=== PATIENT | female | born 1950 | race Caucasian/White ===

== ENCOUNTER 2023-06-13 12:38 | Outpatient (OUT) | payer MEDICARE, SELFPAY ==
--- NOTE | 2023-06-13 13:08 | MM_ITS ---
Patient Name: GIGI KOCH MR#: [id number] : 1950 Exam Date: 06/13/2023 Ordering Doctor: DR MELISSA SEAY D.O. RADIOLOGY REPORT PROCEDURE: MM TOMOSYNTHESIS SCREENING BI COMPARISON: MG MAMM SCREEN 3D MARK CAD, 11/22/2021. MG MAMM LT DIAG FU, 10/14/2020. MAMMO POST BIOPSY UNILATERAL LEFT, 08/23/2012. DIGITIZED_MAMMO, 06/11/2008. INDICATIONS: Screening Calculator Name NCI Breast Cancer Risk Assessment Tool 5 Year Breast Cancer Risk 6.20% Lifetime Breast Cancer Risk 13.80% Personal Breast Cancer No Personal Ovarian Cancer No Treatments None Family Cancers Grandmother-maternal with uterine cancer at age ~60; Father with pancreatic cancer at age 68; Grandfather-paternal with lung cancer at age ~70; Uncle-paternal with colon cancer at age ~70; Grandfather-maternal with lung cancer at age ~70; Aunt-paternal with uterine cancer at age 83. LOCATION: [facility] BREAST COMPOSITION: Heterogeneously dense,which may obscure small masses. FINDINGS: DIAGNOSTIC CATEGORY 2--BENIGN FINDING: RIGHT BREAST: No significant suspicious finding. Scattered benign-appearing calcifications are present. No significant change has occurred. LEFT BREAST: No significant suspicious finding. Scattered benign-appearing calcifications are present. No significant change has occurred. Stable asymmetry/posttraumatic oil cyst upper outer quadrant RECOMMENDATIONS: ROUTINE MAMMOGRAM AND CLINICAL EVALUATION IN 12 MONTHS. PLEASE NOTE: A NORMAL MAMMOGRAM DOES NOT EXCLUDE THE POSSIBILITY OF BREAST CANCER. A CLINICALLY SUSPICIOUS PALPABLE LUMP SHOULD BE BIOPSIED. Dictated by: Geoff Soto M.D. on 06/15/2023 at 07:14 Approved by: Geoff Soto M.D. on 06/15/2023 at 07:25
== END 2023-06-13 12:39 | disposition home or self-care (01) ==
LOC: MAMMO 12:43
PROVIDERS: PCP Internal Medicine; Visit Provider Internal Medicine
DX: Z12.31 Encounter for screening mammogram for malignant neoplasm of breast (principal); Z80.8 Family history of malignant neoplasm of other organs or systems; Z80.0 Family history of malignant neoplasm of digestive organs; Z80.1 Family history of malignant neoplasm of trachea, bronchus and lung
CPT/HCPCS: 77063; 77067

== ENCOUNTER 2023-08-15 11:33 | Outpatient (OUT) | payer MEDICARE, SELFPAY ==
--- OUTSIDE RECORDS SUMMARY | 2023-08-15 11:38 | XMS_ITS | CCD ---
Author Organization [facility] Care Team Providers Care Genetic Scientist Name Role Phone DAWOOD, DR TORRES Primary Care Unavailable KARASIK, DR PATE Admitting Unavailable KARASIK, DR PATE Attending Unavailable KARASIK, DR PATE Consulting Unavailable VALONE, DR TORRES Primary Care Unavailable KARASIK, DR PATE Admitting Unavailable KARASIK, DR PATE Attending Unavailable KARASIK, DR PATE Consulting Unavailable ZIEBER, DR GEOFF Bentley Consulting Unavailable ROSS, CHINTAN QUINTANILLA Admitting Unavailable VALONE, DR TORRES Primary Care Unavailable ROSS, CHINTAN QUINTANILLA Attending Unavailable ROSS, CHINTAN QUINTANILLA Consulting Unavailable VALONE, DR TORRES Primary Care Unavailable NILL, DR BAÑUELOS Admitting Unavailable NILL, DR BAÑUELOS Attending Unavailable NILL, DR BAÑUELOS Consulting Unavailable NILL, DR BAÑUELOS Admitting Unavailable NILL, DR BAÑUELOS Attending Unavailable NILL, DR BAÑUELOS Consulting Unavailable VALONE, DR TORRES Primary Care Unavailable DORKOKODY BARON Consulting Unavailable VALONE, DR TORRES Primary Care Unavailable VALONE, DR TORRES Admitting Unavailable VALONE, DR TORRES Attending Unavailable VALONE, DR TORRES Consulting Unavailable Allergies Allergy Classification Reported Allergen(s) Allergy Type Date of Onset Reaction(s) Facility (1 source) Cephalexin Drug Allergy [facility] Repository (1 source) venlafaxine Drug Allergy [facility] Repository Problems Active Problems Problem Classification Problem Date Documented Date Episodic/Chronic Esophageal disorders (1 source) Gastro-esophageal reflux disease without esophagitis; Translations: [GERD WITHOUT ESOPHAGITIS] Onset: 03-15-2021 Chronic Essential hypertension (1 source) Essential (primary) hypertension; Translations: [ESSENTIAL PRIMARY HYPERTENSION] Onset: 03-15-2021 Chronic Immunizations and screening for infectious disease (5 sources) Encounter for screening for human papillomavirus (HPV); Translations: [Encounter for immunization] Onset: 03-02-2021 Episodic Other nutritional; endocrine; and metabolic disorders (1 source) Morbid (severe) obesity due to excess calories; Translations: [MORBID SEVERE OBES D/T EXCESS ABELARDO] Onset: 03-15-2021 Chronic Other nutritional; endocrine; and metabolic disorders (1 source) Body mass index (BMI) 40.0-44.9, adult; Translations: [BODY MASS INDEX BMI 40.0-44.9 ADULT] Onset: 03-15-2021 Chronic Other screening for suspected conditions (not mental disorders or infectious disease) (8 sources) Encounter for screening mammogram for malignant neoplasm of breast; Translations: [Encounter for screening for malignant neoplasm of cervix] Onset: 11-17-2021 Episodic Residual codes; unclassified (1 source) Asymptomatic menopausal state; Translations: [ASYMPTOMATIC MENOPAUSAL STATE] Onset: 11-25-2021 Episodic Residual codes; unclassified (1 source) Family history of malignant neoplasm of other genital organs; Translations: [FAM HX MALIG NEOPLSM OTH GENIT ORGN] Onset: 11-25-2021 Episodic Residual codes; unclassified (1 source) Family history of malignant neoplasm of trachea, bronchus and lung; Translations: [FAM HX MALIG NEOPLSM TRACH BRON LNG] Onset: 11-25-2021 Episodic Residual codes; unclassified (1 source) Family history of malignant neoplasm of digestive organs; Translations: [FAM HX MALIG NEOPLASM DIGESTIV ORGN] Onset: 11-25-2021 Episodic Unclassified (4 sources) CONTACT W/AND (SUSP) EXPOS COVID-19; Translations: [CONTACT W/AND (SUSP) EXPOS COVID-19] Onset: 03-11-2021 Past or Other Problems Problem Classification Problem Date Documented Da te Episodic/Chronic Abdominal hernia (1 source) Diaphragmatic hernia without obstruction or gangrene; Translations: [DIAPH HERNIA W/O OBST/GANGRENE] Onset: 03-15-2021 Episodic Other aftercare (1 source) Other oil heaterman (current) drug therapy; Translations: [OTH HALFWAY CURRENT DRUG THERAPY] Onset: 03-15-2021 Episodic Other and unspecified benign neoplasm (1 source) Benign neoplasm of ascending colon; Translations: [BENIGN NEOPLASM OF ASCENDING COLON] Onset: 03-15-2021 Episodic Other and unspecified benign neoplasm (1 source) Benign neoplasm of transverse colon; Translations: [BENIGN NEOPLASM OF TRANSVERSE COLON] Onset: 03-15-2021 Episodic Other gastrointestinal disorders (4 sources) Other fecal abnormalities; Translations: [OTHER FECAL ABNORMALITIES] Onset: 03-10-2021 Episodic Phlebitis; thrombophlebitis and thromboembolism (1 source) Personal history of other venous thrombosis and embolism; Translations: [PERS HX OTH VENOUS THROMBOSIS AND EMBO] Onset: 03-15-2021 Episodic Unclassified (1 source) CONTACT W/AND (SUSP) EXPOS COVID-19; Translations: [CONTACT W/AND (SUSP) EXPOS COVID-19] Onset: 04-27-2021 Results Test Name Value Interpretation Reference Range Facility PAP ACOG PANEL 2: 30 to 65on 11-23-2021 . . Normal [facility] Comment on above: Performed By: #### [id number] #### [facility] [address] [place] [address] Dr. Swapnil Bush Age Gdln ACOG Testing Comment Normal [facility] Comment on above: Result Comment: <21 or >65 or no age provided Performed By: #### [id number] #### [facility] [address] [place] [address] Dr. Swapnil Bush DIAGNOSIS: Comment [facility] Comment on above: Result Comment: NEGA TIVE FOR INTRAEPITHELIAL LESION OR MALIGNANCY. THIS SPECIMEN WAS RESCREENED PART OF OUR [employer] PROGRAM. Performed By: #### [id number] #### [facility] [address] [place] [address] Dr. Swapnil Bush Methodology: Comment [facility] Comment on above: Result Comment: This liquid based ThinPrep(R) pap test was screened with the use of an image guided system. Performed By: #### [id number] #### [facility] [address] [place] [address] Dr. Swapnil Bush Note: Comment [facility] Comment on above: Result Comment: The Pap smear is a screening test designed to aid in the detection of premalignant and malignant conditions of the uterine cervix. It is not a diagnostic procedure and should not be used as the sole means of detecting cervical cancer. Both false-positive and false-negative reports do occur. . Performed By: #### [id number] #### [facility] [address] [place] [address] Dr. Swapnil Bush Performed by: Comment Normal [facility] Comment on above: Result Comment: Silvia Juarez, Subscription Agent (ASCP) Performed By: #### [id number] #### [facility] [address] [address] [address] Swapnil Bush QC reviewed by: Comment Normal [facility] Comment on above: Result Comment: Esther Dow, Supervisory Subscription Agent (ASCP) Performed By: #### [id number] #### [facility] [address] [address] [address] Swapnil Bush Specimen adequacy: Comment Normal [facility] Comment on above: Result Comment: Sati sfactory for evaluation. Endocervical and/or squamous metaplastic cells (endocervical component) are present. Performed By: #### [id number] #### [facility] [address] [address] [address] Swapnil Bush MG MAMM SCREEN 3D MARK CADon 11-22-2021 MG MAMM SCREEN 3D MARK CAD Patient: GIGI KOCH Exam Date: 11/22/2021 : 1950 Gender:F Ordering : DR RIO NGUYEN . Admission #: [id number] Family : Order #: [id number] CLICK HERE TO VIEW EXAM RADIOLOGY REPORT PROCEDURE: MAMMOGRAM SCREENING 3D BILATERAL CAD COMPARISON: MG MAMM LT DIAG FU, 10/14/2020. MG MAMM SCREEN 3D MARK CAD, 09/23/2020. INDICATIONS: Screening mammography Calculator Name NCI Breast Cancer Risk Assessment Tool 5 Year Breast Cancer Risk 6.20% Lifetime Breast Cancer Risk 14.60% Personal Breast Cancer No Personal Ovarian Cancer No Treatments None Family Cancers Grandmother-maternal with uterine cancer at age 60; Father with pancreatic cancer at age 68; Grandfather-paternal with lung cancer at age 70; Uncle-paternal with colon cancer at age 70; Grandfather-maternal with lung cancer at age 70; Aunt-paternal with uterine cancer at age 83. LOCATION: [facility] BREAST COMPOSITION: Heterogeneously dense,which may obscure small masses. FINDINGS: DIAGNOSTIC CATEGORY 2--BENIGN FINDING: RIGHT BREAST: No significant suspicious finding. Scattered benign-appearing calcifications are present. No significant change has occurred. LEFT BREAST: No significant suspicious finding. Scattered benign-appearing calcifications are present. No significant change has occurred. Stable asymmetry within upper outer quadrant. RECOMMENDATIONS: ROUTINE MAMMOGRAM AND CLINICAL EVALUATION IN 12 MONTHS. PLEASE NOTE: A NORMAL MAMMOGRAM DOES NOT EXCLUDE THE POSSIBILITY OF BREAST CANCER. A CLINICALLY SUSPICIOUS PALPABLE LUMP SHOULD BE BIOPSIED. Dictated by: Geoff Soto M.D. on 11/23/2021 at 14:17 Approved by: Geoff Soto M.D. on 11/23/2021 at 14:26 Normal [facility] XR DEXA BONE DENSITYon 11-22 XR DEXA BONE DENSITY EXAMINATION: XR DEXA BONE DENSITY, 11/22/2021 12:09 PM EDT HISTORY: Menopause present COMPARISON: DEXA bone densitometry 11/08/2017 TECHNIQUE: Dual-energy X-ray absorptiometry (DEXA) bone density study performed for the axial skeleton. FINDINGS: SPINE ANALYSIS: Average bone mineral density is 1.5-1 g/cm2. T-score (standard deviation relative to young adult mean): 2.8 . -1.6% change since prior study. HIP ANALYSIS: Lowest bone mineral density is within the right femoral trochanter, 0.762 g/cm2. T-score (standard deviation relative to young adult mean): -0.8 . -5.1% change since prior study. IMPRESSION: World Edwin Organization Classification: Normal - Low Fracture Risk Electronically authenticated by: GEOFF SOTO Date: 2021-11-22 16:44 Normal [facility]on SARS-CoV-2 (COVID-19) RNA RANDA+probe Ql (Unsp spec) Not detected Normal NOT DETECTED [facility] Comment on above: Result Comment: This test is not yet approved or cleared by the [place] FDA. When there are no FDA-approved or cleared tests available, and other criteria are met, FDA can make tests available under an emergency access mechanism called an Emergency Use Authorization (EUA). The EUA for this test is supported by the [place] of Health and Human Service's (HHS's) declaration that circumstances exist to justify the emergency use of in vitro diagnostics for the detection and/or diagnosis of the virus that causes COVID-19. This EUA will remain in effect (meaning this test can be used) for the duration of the COVID-19 declaration justifying emergency of IVDs, unless it is terminated or revoked by FDA (after which the test may no longer be used). When diagnostic testing is negative, the possibility of a false negative should be considered in the context of a patient's recent exposures and the presence of clinical signs and symptoms consistent with SARS-CoV-2. Performed By: #### C [facility] #### [facility] [address] [address] [address] Swapnil Bush Reminderson 03-24-2021 Reminders - From: Liz Foreman LPN To: N - Clinical; Sent: 03/24/2021 07:51:50 EST Show up: 02/08/2024 08:00:00 EDT Subject: colonoscopy recall Due Date/Time: 03/10/2024 08:00:00 EST Reminder/Recall Patient is due for colonoscopy 03/10/2024 due to history of tubulovillous adenoma. Normal [facility] Ambulatory Clinical Summaryo n 03-23-2021 Ambulatory Clinical Summary {[id number]}CD:[id number] Normal [facility] General Surgery Office/Clini c Noteon 03-23-2021 General Surgery Office/Clinic Note Chief Complaint post operative follow up HPI Staff 13 day post operative follow up post colonoscopy with ascending and hepatic flexure polypectomies. History of Present Illness 2 weeks s/p colonoscopy for + Cologuard; ascending colon 1 cm tubulovillous adenoma removed and 5 mm tubular adenoma from hepatic flexure, denies abd pain or blood in stools. Review of Systems ROS - Provider Constitutional: no fever, no sweats, no weight loss. Eyes: no glasses, no blurred vision, no visual loss. ENMT: no dentures, no hoarseness, no swallowing difficulties, no hearing loss, no ear infection(s), no nose bleeds. Cardiovascular: normal blood pressure, no chest pain, regular heartbeat, no heart murmur. Respiratory: no shortness of breath, no cough, no asthma, no wheezing. Gastrointestinal: no nausea, no vomiting, no diarrhea, no constipation, no blood in stool, no change in bowel habits, no abdominal pain, no hepatitis. Genitourinary: no kidney stones, no urine infection, no dysuria. Musculoskeletal: no pain, no weakness. Skin: no changing moles, no rash, no skin lumps. Neurologic: no seizures, no epilepsy, no headache. Psychiatric: no emotional or psychiatric problem. Heme/Lymph: no bleeding problems, no anemia, no blood clots, no transfusions. Allergy/Immunologic: no swollen lymph nodes/glands, no IV drug abuse. Other: Additional ROS info: Except as noted in the above Review of Systems and in the History of Present Illness, all other systems have been reviewed and are negative or noncontributory. Physical Exam Vitals & Measurements T: 36.1 ?C(Temporal Artery) Assessment/Plan 1. Tubulovillous adenoma of colon (D12.6: Benign neoplasm of colon, unspecified) plan colonoscopy in 3 years for surveillance, call sooner if problems/questions. 2. Benign neoplasm of ascending colon (D12.2: Benign neoplasm of ascending colon) see # 1 Follow-up No qualifying data available Problem List/Past Medical History Ongoing BMI 40.0-44.9, adult Carpal tunnel syndrome Diverticulitis GERD (gastroesophageal reflux disease) Hiatal hernia HTN (hypertension) Left leg DVT Metabolic syndrome Morbid obesity Nephrolithiasis Non-alcoholic fatty liver disease Positive colorectal cancer screening using Cologuard test Tubular adenoma of colon Tubulovillous adenoma of colon Historical No qualifying data Procedure/Surgical History Colonoscopy (03/10/2021), Dilation and curettage (06/20/2016), Hysteroscopy (06/20/2016), Needle localization using ultrasound guidance and mammography (02/12/2013), Lithotripsy (06/10/2010), Colonoscopy (04/24/2001), EGD - Esophagogastroduodenoscopy (04/24/2001), Arthroscopy of knee (02/12/2000), Cholecystectomy, Extract tooth, Left ear. Medications Advair HFA 230 mcg-21 mcg Aerosol, 2 puff(s), Inhalation, BID biotin 1000 mcg oral tablet, 1000 mcg= 1 tab(s), Oral, Daily Claritin-D 5 mg-120 mg Tab-ER, 1 tab(s), Oral, Daily Cozaar 100 mg Tab, 100 mg= 1 tab(s), Oral, Daily Cymbalta 20 mg Cap-DR, 1 cap(s), Oral, Bedtime ipratropium nasal 0.06% spray, 2 spray(s), Nasal, TID magnesium oxide 400 mg Tab, 400 mg= 1 tab(s), Oral, Daily Multivitamins and Minerals, 1 tab(s), Oral, Daily Myrbetriq 50 mg oral tablet, extended release, 50 mg= 1 tab(s), Oral, Daily Nexium 40 mg Cap-EC, 40 mg= 1 cap(s), Oral, Bedtime pravastatin 20 mg Tab, 20 mg= 1 tab(s), Oral, Once a day (at bedtime) Singulair 10 mg Tab, 10 mg= 1 tab(s), Oral, Daily Vitamin B12 1000 mcg Tab, 1000 mcg= 1 tab(s), Oral, Daily Vitamin B6 50 mg Tab, 50 mg= 1 tab(s), Oral, BID Vitamin D 1000 intl units Tab, 25 mcg= 1 tab(s), Oral, Daily Allergies Keflex (Itching) venlafaxine (Itching) Social History Alcohol - Denies Alcohol Use, 02/10/2021 Substance Abuse - Denies Substance Abuse, 02/10/2021 Tobacco Never (less than 100 in lifetime) Tobacco Use:. Never Smokeless Tobacco Use:., 02/10/2021 Family History Autoimmune disease: Sister. Diabetes mellitus type 2: Brother. Pancreatic adenocarcinoma: Father. Rheumatoid arthritis: Sister. Immunizations Vaccine Date Status SARS-CoV-2 (COVID-19) mRNA BNT-162b2 vax 07/21/2020 Recorded SARS-CoV-2 (COVID-19) mRNA BNT-162b2 vax 06/29/2020 Recorded Normal [facility] Comment on above: Result Comment: Elec tronically Signed By: VIET RUSSELL, Edda Garibay\Date and Time Signed: 03/23/21 13:27 EST Pathology Noteon 03-14-2021 Pathology Note [id number]#1.00CD:127 Normal [facility] Outside Colonoscopyon 2020 Outside Colonoscopy [id number]#1.00CD:127 Normal [facility] Lab Reportson 03-08-2021 Lab Reports [id number]#1.00CD:127 Normal [facility] Cov[facility]-19 PCR ([facility])on 02-22 SARS-CoV-2 (COVID-19) RNA RANDA+probe Ql (Unsp spec) Not detected Normal NOT DETECTED [facility] Comment on above: Result Comment: This test is not yet approved or cleared by the [place] FDA. When there are no FDA-approved or cleared tests available, and other criteria are met, FDA can make tests available under an emergency access mechanism called an Emergency Use Authorization (EUA). The EUA for this test is supported by the [place] of Health and Human Service's (HHS's) declaration that circumstances exist to justify the emergency use of in vitro diagnostics for the detection and/or diagnosis of the virus that causes COVID-19. This EUA will remain in effect (meaning this test can be used) for the duration of the COVID-19 declaration justifying emergency of IVDs, unless it is terminated or revoked by FDA (after which the test may no longer be used). When diagnostic testing is negative, the possibility of a false negative should be considered in the context of a patient's recent exposures and the presence of clinical signs and symptoms consistent with SARS-CoV-2. Performed By: #### C [facility] #### [facility] [id number] Swapnil Bush [facility] February 16, 2021 MELISSA SEAY JR [facility] [place] [address] Re: GIGI KOCH Date of : 1950 Thank you for your referral of Gigi Koch who was seen on consultation on 02/10/2021 for positive Cologuard. I have enclosed my consultation notes for your review. I will be happy to follow Particia. Sincerely, Edda Peña MD General Surgery Normal [facility] Formson 02-11-2021 Forms [id number]#1.00CD:127 Normal [facility] Ambulatory Clinical Summaryo n 02-10-2021 Ambulatory Clinical Summary {[id number]}CD:[id number] Normal [facility] General Surgery Office/Clini c Noteon 02-10-2021 General Surgery Office/Clinic Note CD:[id number] bmWbi7ndlk9rUT3xAtKewiVrILfkHi 5ro1xyRN99er3wXkKhYg4+SdzuAI1R VFlQRSBo uN1sULUWNlrVKhDtYY2hBqEEJn0KAN UtCZsOHNusLF0zNNM6znsuaF1mVC9b UEMadKOdXd6st5d6 QnneJy2hKp2IUb46fWIsqCGhKBHHT7 xlrX7yGE5qeVMzI9LtHVKmTm8FAAe3 nSblmY6szyQ2Xxf6 xPO8Am93a1ilbiLtf2WoUvS5HDqjiH f3kWkxAVaxoI4iYtWyVTDTkG2wpYwv BG6oxG9wzpNwkMlr biI+XvlgMGLvCjh7kNIjJE42T6YsdP poWqv8aJS9BFMmpMUjORKhuDp9HTDE LVVBLUNvbXBhdGli mEYbSOQsfaEfhoC4QeuLDCErFkSqJs a4A1gvTZS+Ssapd8G1Ctd4COr4TSQ2 aWqiIGOex837LJLp xFkydLfskPKyu63nCATviPQeGnXkt7 23WPFievQ8SFdsiFzcJqs6fNGvsNSy z6vnnHn3GwMvUEZv UpmOTTJdzEvry5TfBxhNBCada3vdba ZquXuvWSK4f6FrUDukONHcXKU9BmNv IC8+CgkJPGNvbCB2 YWcjZ158HqNwpFAhb4jjvIm9GlD2GI AkGt1KHCvzM68fI0AimKL+Jze6bGLs ZHk+CgkJPHRyPgoJ ERp3oLJmu4D5pMJ2NtOfrcWsd7w3CV liQXV2WnH4RSX7wEHraV8gjNggwibp nW3vOsS+CgkJCTxk eKAhW5aop9U3QnClg8WwxKuktlIoXL XoMgFws5zlYlxtCPHswC3tIYN2ZzKr SMLtwYMoMAWaXJ3k xoEsoOByFKAvUuQjG4Ekh73jh4OeLD UED3lGNqGlANT3DX6eLiNaOQ5rSjV2 ZWRbYODmFKu1XBCt MYt1IE66LYn2BDPxWbJ5HSt4VkNrEh Jlk8P1zMM3TdJsVNJskkx8DYUaiUwx PjxzcGFuIGNsYXNz DMIwOREkS4Njx49tmTKurZG4Be21h0 YhfhMilLwmRX7fYr1jhX63WXnwnKH9 CTWbnFO1IYIzcQOj TROda9SvkNectddioJ6gYBMlgN0jHj I+B6dxJPTwD73kiWwehX12ZS4wuMFi Pmvjx1Olim3NRYnG QXIrccGxpYVojz7uOKIvdUFds720TJ 56JuUeXCcxl434IH03aJsyBO6mUNYE R6UUUA6ABKAIUtEa DDtnGUNakpJkE4C8gDrgXYFMJ6G9Ns E2BK1QBfLrKLBGT6GzLcPbFg7BR3GE SJxRHyT6CzFuLZcs WNJvELJ6HPU5JFJhSsZcQm43VVirMP wdGvDaMbO0UVmgULDjAwG6Ud9FEVeO UFYqvjYfhCFgll6b PMKzrARjw404JX32iTPsvKQmXNUkqT 63XDQcMAPvRXE1P11sgMLmwXR5fXA8 IlBBVENBUkVfTUVB KeByIWC9EX65yHT0zTL5BpC1LUldEL WjZsVeLIsnMSQkHvFgXOxdIGizN8Jl PR65GDC6YLN6KuNz RZDfM1JxDYVbAnOpPaK3oNebnbmuUI 9lCFelIP1zV1RyR3UpCD14FQZum50f VcPnjsM9nRZblTjq cnXpp0TsiE9jvVMbtlFqF41ms2l0GO EpTB7uyFY+DsxVGJvzJMk2LwqIYFp4 E1Qmqh6KKivCBZcs sTBjJ5eol4T8EqLpm3PcdWgauqJjYO JpIlPes8dkNooaNULywZ0xOZE2EbXr DARorDHbDEDsVB9v efNgwRYbVSDkTrBgO6Lyp67zi4DwTP MQT3gOGbQwTUA2TL1yJeZlHK4hEkn8 QGYjBKHtGTGlL4Cp MAMqXY78HAl3KCWdIqI5ZYD2NXivAy Jhb0X3tXT5CmImTJWzhgg2GAOlcPjp PjxzcGFuIGNsYXNz EPPlNIXcK3Faa26ifFHwoXA9Vp15q8 NzxfNzuRezYH7tBd1qeO08GIbxyPC2 DMRezVI3CEKadDCk LZZhh8LhlQlfbufqrD8nTRIgiB8nTn I+ZVWUYGK0FWBnGR1kdCHiDvwbd4Gw fh8ZTosBHWxxsUIb L3cqo7Z3AqYaZL3nF76twJEwcOAfZR N3I40kxMJdlOD9aBJ9KrSNPXGUWsZz WSVHVhApPWC5ylOy NTUhvmKakOCpQP7qVQc7EEVVNMXzYV I6YP03FiYDNWWHTLWoIaZYNfEpBxR0 HTjzPgRaIA8qC5Aa BXQ1Iiu4EBZfKDmfEVH7Iy54KUWnJP gkDBZbYFMhFHc7SCG+CgkJCTxkaXYg T2zra4X3SwNgSN1b S44goODmnHg3XI3zWTYdMI1qjjZwaF IvMBAtIoO2voAfo0Z8jP3fo1G6wPX6 AdQblO0psDvvtVNq VKE8V58xtCRyyFB6yWK1HvWFVZDKBj ExCGGLKpKqUFG6EX84fEQ5xUG2CqUo uCL4Le60HRTqKYCn Ms0kKehmCXA4LhUvWWCmKn3rGpVjNr CwPaB5TCHsQAzvgP9rNjSpJHAZxU5n vAbqBL8imY7blkXp dGlvbiI+QipOQTmcmOEps3H4mJE6Eh 9jvlwmktcpNST7HBIdbjnjzAOxJNts WhctFRS0RbRxf1Ns HBG6DIEswWJvH9IaNHbvPYiiITl4MX OwoDQzTQypX770PAhhYbY5HBGqgH1u PqLwK6ClXPpwUJwj NFb2OKAqsUBakB2xDS49HpPidK23JF OytqFzu3R3uDG3GA7sey5umHfuIz9l rK13KKtyvXU2WS0w re2jcTokxJZ1gN5iDWPisaV3cP7lYu Prl81bOkV+CgkJCTxkaXY+PGEgbmFt LZ2wG6DfVLF8BgWz CEIrDhqxFCGwBU1vPGF1UPW2UxO1Tf MwYjUxMSI+RT0vEmnKSGaBTJJxax34 YbO4GEHdWO1aUXDd OT4zpXSruTMbq1AsaRAlc91kE98np8 GwaSM0aQ9tEBRik74kEBDzNSPioG9q MMQyl2KpaD4qgDIl inTaT01at7n2IDHrZWTrdLCcTPWpFW N5KgVoLwXiXnTPGBG2ACHikS1lm5Fm o2T2EUBpeCVkLZQr VCGnBCA0CJNskhVcFLFfEK53NSZcKI cqGIMnmkU3xBpjIXxcutEum5GsNBdf IERlbmllcyByZWN0 USgnlIQtgfApyvEnnEVxD9IfQJEqhX 5vOuBMfWGcypygFNGbbjx2xXLqrMad IUmqkHYzbj7iQCJk vAOlPZ7qlMNdLPzapm3ygGMimjjys0 XhY9xwohfpXYxyCDKxa8TaRGyhAtw6 mg8rOw5ioN2cjCKi TGyiZDImp6GeE6x3WWhsb6XbIV2bET hof0kyWZApkHbikJJpvPH8s8V1JQ1k MKYheZ0tEJYetkWk dy52L0Jjua6YQToORC6lpAK+CgkJCT lbINg5JaoVNHe7O3Bjbv3PIucEAIob vYMsN4lnl0J2WzUr FB5aN09slXYjlVy7MB9hCZIjMA7ehz TwyPWbWZHvEcD2vnJjm4V2rB0zh4O7 zFQ8UmKpdF6lzJfn qGVlLJK2H92fgYYuoJA6lCF7OoAPPS SAXjImBORIEjBnRKC6TX16iRQ5hVO9 SvLnkRM5Ed0pTRWn UvZhNv93CHDbXQWkKxapJHmkQC28Ux GmCMnyFjl3QHBpVLoaoY7lScOjGRPZ cM3anYfoDF2gqX3a bnRhdGlvbiI+JF5apIQ+RntUCQk6JH k9LDQwUSAkMHPdGQTzlzKjvlMkhxEk eDYnPEUjlhXia2Uo HearObQhUVnkzF8ubA3otZkcQ1B2fD znFXD1y4YxwgzddQPqIOLqMvOwrpAc weG6sPEkGNYHGZBN VERVD90TSXNdRUAxYoAqkYs2fTsgVM RrJEywXDRxWBMhQqL1BZGrKMNwCx34 ZDBmLWFmYzktNWNk OdHhRhB4GxFtCcR6cRsyppjjVU5sRH pjQO1bU4OoJ3EiZS74UVGil18nYrxi YMw5HeoIKSlULMHx irKynLVvca7zCDUhiQFxo940UJ41mV QfjFNaJAYmvQ13OVSfZGIfNAZ6CfAz ZmxvYXRpbmdzdHls NC2gaX1mDTWcM7r0UxWdDGbsz250RH 19zHbmZX8aMNOPH0UKIA1ZKASIVqPu UZlowqUwfTjmRO5k KsKpCM6tE0IdKRPiBvc9HKe1IFImRZ UsGj0uTEPxGYj1YbC0PRmkEOX2NyIl iT2pbqT8ESK5RlV9 hkAtpQVQa2Z0oHXtaSB3uJ5hKm93A9 Hupz1LGcuZLMlxtGFfX8csg6Y4BaHt WW9iI51nzVRczGp1 EF1kEYNgPF9plxRjvZTuDSIwPhX2ps Jza6H4yH7nj2Z2dDY1FfQueJ2gcEcq aNFrTLP9P39upMHe fMK9hJN5DjXSEUPLZiMpHUZKGwQnFK W4AU03rLC6aWA8DjXztEY7Vz6fCtIp D2LgHD7jPlVqKVAj RFdgFCu8BA02OySeWNVaIAYqXWZnQQ pggT4mEdVbJKNBjP7kdKhtLE9ujI6h bnRhdGlvbiI+PC9k aXY+LjjNWYt8YIw8RTRnIOPzMVLgIS TrycMaqhAzpjWdiMItXUKfpbQjj1Wx VqhqNiAeEUcclF9b cF2vaDdgR0V7kXigSIW9c9JyzfquqM OqALWeXyDemtJhxtY5vWIpXJBEJSTA SNGTW22HJWDvRIXe PbSsbYs2qNcgQQOuZRkyVPBiFiYvWm Q9WqTgDkVxUU53TNE8IYlfZkSpBDxw ThPaNGV9WJi3DgU9 zUzorycdQO4jRCtoVK3qT1BqA7AeCJ 09FBGun52gTzagZUd3UezBICjUHVUu uwQyhLBsqn2jFVUe b (more content not included)... [facility] Comment on above: Result Comment: Elec tronically Signed By: VIET RUSSELL, Edda Garibay\Date and Time Signed: 02/10/21 17:31 EDT Physician Referralon 021 Physician Referral [id number]#1.00CD:127 [facility] Physician Referralon 021 Physician Referral [id number]#1.00CD:127 [facility] Encounters Encounter Date Encounter Type Care Provider Facility Start: 11-22-2021 End: 11-23-[address] MELISSA SEAY Facility:[facility] Start: 11-17-2021 End: 11-17-[address] MELISSA ESAY Facility:[facility] Start: 04-27-2021 End: 04-27-[address] MELISSA SEAY Facility:[facility] Start: 03-11-2021 Encounter for prepro cedural laboratory examination DR EDDA PEÑA [facility] Start: 03-10-2021 End: 03-10-[address] EDDA PEÑA Facility:[facility] Start: 03-06-2021 End: 03-07-[address] MELISSA SEAY Facility:[facility] Start: 03-06-2021 End: 03-07-2021 Encounter for preprocedural laboratory examination DR MELISSA SEAY Facility:[facility] Start: 03-02-2021 End: 03-03-2021 ambulatory CHINTAN GALINDO Facility:[facility]1 Payers Date Payer Category Payer Medicare [id number] 1961 Self-pay 1950 Unknown [id number] 2.16.84 [id number] 1950 Unknown [id number] 2.16.84 [id number] 1950 Unknown [id number] 2.16.84 [id number] 1950 Unknown [id number] 2.16.84 [id number] 1950 Unknown [id number] 2.16.84 [id number] Unknown [id number] 2.16.84 [id number] Clinical Note 03-10-2021 Note Date & Type Note Facility 03-10-2021 Note [facility] [place], [place] NAME: GIGI KOCH DATE OF : MEDICAL REC#: [id number] 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 PREOPERATIVE DIAGNOSIS:Positive Cologuard. POSTOPERATIVE DIAGNOSIS:Ascending and hepatic flexure colon polyps. PROCEDURE NAME:Colonoscopy to the cecum with cold snare polypectomy x2 for 1 cm ascending colon polyp and 5 mg colon polyp at the hepatic flexure. ESTIMATED BLOOD LOSS: Less than 2 mL. INDICATIONS AND CONSENT: The patient is a 70 year-old female recently found to have a positive Cologuard, indications, risks, benefits, and alternatives of proceeding with colonoscopy were explained extensively to the patient including the risk of bleeding, colon perforation, or anesthetic complications. All of her questions were answered and informed consent was obtained. PROCEDURE: The patient was brought to the OR and placed in the left lateral decubitus position. Monitored anesthesia care was provided. Rectal exam was performed which showed no masses or blood. The scope was inserted into the anal canal, under direct visualization it was advanced to the cecum where cecal markings were clearly identified. There was noted to be a good prep. Upon withdrawal of the scope mucosal surfaces were carefully examined. Within the ascending colon there was noted to be a 1 cm sessile friable polyp; this was removed with cold snare with good hemostasis. At the hepatic flexure, there was noted to be a 5 mm irregular sessile polyp that was also removed with cold snare with good hemostasis. No other mass lesions or polyps were noted. There was rare sigmoid diverticula without inflammatory changes or scarring. The scope was retroflexed in the anal canal, there was no significant hemorrhoidal disease. The scope was withdrawn. The patient tolerated the procedure well and was sent to the Recovery Room in good condition. cc:Dr. Seay. f/u colonoscopy in 3 years, pending pathology results. Electronically Authenticated and Edited by: Edda Peña MD on 03/10/2021 11:23 AM [facility] Signed and Approved by: DR EDDA PEÑA . 03/10/2021 11:23:00 [facility] Summary Purpose Family History No Family History Records FoundNo Family History Records Found Advance Directives No Advanced Directives Records FoundNo Advanced Directives Records Found Additional Source Comments INFORMATION SOURCE (unrecogn ized section and content) DATE CREATED AUTHOR 06/18/2021 [facility] DATE CREATED AUTHOR AUTHOR'S ORGANIZ ATION 11/26/[address] [facility] FOR RECORDS PERTAINING TO PATIENTS WHO ARE OR HAVE BEEN ENROLLED IN A CHEMICAL DEPENDENCY/SUBSTANCEABUSE PROGRAM, SOME INFORMATION MAY BE OMITTED. This clinical summary was aggregated from multiple sources. Caution should be exercised in using it in the provision of clinical care. This summary normalizes information from multiple sources, and as a consequence, information in this document may materially change the coding, format and clinical context of patient data. In addition, data may be omitted in some cases. CLINICAL DECISIONS SHOULD BE BASED ON THE PRIMARY CLINICAL RECORDS. [facility] provides no warranty or guarantee of the accuracy or completeness of information in this document.
--- NOTE | 2023-08-15 13:00 | CA_ITS ---
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 PVR waveform with normal upstroke, amplitude and dicrotic notch Right: - normal arterial evaluation of the right lower extremity - normal NAEEM Left: - normal arterial evaluation of the left lower extremity - normal NAEEM Impression: - elevated B/L thigh index, consistent with calcified, noncompressible arterial holguin, which may underestimate the degree of arterial disease present - normal arterial evaluation of the lower extremities without hemodynamic impairment of the B/L lower extremity at rest. (right NAEEM 1.30, left NAEEM 1.17) Electronically Signed On 08-15-2023 18:27:58 EDT by PJ SOUZA
== END 2023-08-15 11:34 | disposition home or self-care (01) ==
LOC: CARD 11:34
PROVIDERS: PCP Internal Medicine
DX: I73.9 Peripheral vascular disease, unspecified (principal)
CPT/HCPCS: 93923

== ENCOUNTER 2023-12-06 19:55 | Outpatient (REF) | payer MEDICARE, SELFPAY ==
--- OUTSIDE RECORDS SUMMARY | 2023-12-06 19:59 | XMS_ITS | CCD ---
Author Organization [facility] CliniSyvt Care Team Providers Care Supermarket Manager Name Role Phone DAWOOD, DR TORRES Primary [...] Unavailable VALONE, DR TORRES Primary Care Unavailable DORKOSKIEKODY Consulting Unavailable VALONE, DR TORRES Primary Care Unavailable VALONE, DR TORRES Admitting Unavailable VALONE, DR TORRES Attending Unavailable VALONE, DR TORRES Consulting Unavailable ANTHONY DESAI Attending Unavailable ANTHONY DESAI Attending Unavailable ANTHONY DESAI Attending Unavailable ANTHONY DESAI Attending Unavailable Allergies Allergy Classification Reported Allergen(s) Allergy Type Date of Onset Reaction(s) Facility (1 source) Cephalexin Drug Allergy [facility] (1 source) venlafaxine Drug Allergy [facility] Problems Active Problems Problem Classification Problem [...] neoplasm of digestive organs; Translations: [[facility]GN] Onset: 11-25-2021 Episodic Unclassified (4 sources) CONTACT W/AND (SUSP) EXPOS COVID-19; Translations: [CONTACT W/AND (SUSP) EXPOS COVID-19] Onset: 03-11-2021 Past or Other Problems Problem Classification Problem Date Documented Da te Episodic/Chronic Abdominal hernia (1 source) Diaphragmatic hernia without obstruction or gangrene; Translations: [DIAPH HERNIA W/O OBST/GANGRENE] Onset: 03-15-2021 Episodic Other aftercare (1 source) Other intermediate (current) drug therapy; Translations: [OTH BELLOWS TESTER CURRENT DRUG THERAPY] Onset: 03-15-2021 Episodic Other [...] 30 to 65on 11-23-2021 . . Normal [facility] Comment on above: Performed By: #### 4 [id number] #### [facility] [address] [place] [address] Dr. Swapnil Bsuh Age Gdln ACOG Testing Comment Normal [facility] Comment on above: Result Comment: <21 or >65 or no age provided Performed By: #### 4 [id number] #### [facility] [address] [address] [address] Swapnil Bush DIAGNOSIS: Comment [facility] Comment on above: Result Comment: NEGA TIVE FOR INTRAEPITHELIAL LESION OR MALIGNANCY. THIS SPECIMEN WAS RESCREENED PART OF OUR TICKET BROKER PROGRAM. Performed By: #### 4 [id number] #### [facility] [address] [address] [address] Swapnil Bush Methodology: Comment [facility] Comment on above: Result Comment: This liquid based ThinPrep(R) pap test was screened with the use of an image guided system. Performed By: #### 4 [id number] #### [facility] [address] [place] [address] Dr. Swapnil Bush Note: Comment [facility] Comment on above: Result Comment: The Pap smear is a screening test designed to aid in the detection of premalignant and malignant conditions of the uterine cervix. It is not a diagnostic procedure and should not be used as the sole means of detecting cervical cancer. Both false-positive and false-negative reports do occur. . Performed By: #### 4 [id number] #### [facility] [address] [address] [address] Swapnil Bush Performed by: Comment Normal [facility] Comment on above: Result Comment: Silvia Juarez, Delphi Programmer (ASCP) Performed By: #### [id number] #### [facility] [address] [address] [address] Swapnil Bush QC reviewed by: Comment Normal [facility] Comment on above: Result Comment: Esther Dow, Supervisory Delphi Programmer (ASCP) Performed By: #### 4 [id number] #### [facility] [address] [place] [address] Dr. Swapnil Bush Specimen adequacy: Comment Normal [facility] Comment on above: Result Comment: Sati sfactory for evaluation. Endocervical and/or squamous metaplastic cells (endocervical component) are present. Performed By: #### 4 [id number] #### [facility] [address] [place] [address] Dr. Swapnil Bush MG MAMM SCREEN 3D MARK CADon 11-22-2021 MG MAMM SCREEN 3D MARK CAD Patient: GIGI KOCH Exam Date: 11/22/2021 : 1950 Gender:F Ordering : DR RIO NGUYEN . Admission #: [id number] Family : Order #: [id number] CLICK HERE TO VIEW EXAM RADIOLOGY REPORT [...] uterine cancer at age 81. LOCATION: [facility] BREAST COMPOSITION: Heterogeneously dense,which may obscure small [...] Soto M.D. on 11/23/2021 at 14:26 Normal [facility] XR DEXA BONE DENSITYon 11-22 XR [...] GEOFF SOTO Date: 2021-11-22 16:44 Normal [facility] Covid-19 PCR (CVDTB)on SARS-CoV-2 (COVID-19) RNA RANDA+probe Ql (Unsp spec) Not detected Normal NOT DETECTED [facility] Comment on above: Result Comment: This test is not yet approved or cleared by the [place] FDA. When there are no FDA-approved or cleared tests available, and other criteria are met, FDA can make tests available under an emergency access mechanism called an Emergency Use Authorization (EUA). The EUA for this test is supported by the Bridal Sales Consultant of Health and Human Service's (HHS's) declaration [...] consistent with SARS-CoV-2. Performed By: #### C [facility] #### [facility] [address] [place] [address] Dr. Swapnil Bush Reminderson 03-24-2021 Reminders - From: Liz Foreman LPN To: N - Clinical; Sent: 03/24/2021 07:51:50 EST Show up: 02/08/2024 08:00:00 EDT Subject: colonoscopy recall Due Date/Time: 03/10/2024 08:00:00 EST Reminder/Recall Patient is due for colonoscopy 03/10/2024 due to history of tubulovillous adenoma. Normal [facility] Ambulatory Clinical Summaryo n 03-23-2021 Ambulatory Clinical Summary {[id number]}CD:[id number] Normal [facility] General Surgery Office/Clini c Noteon 03-23-2021 General [...] mRNA BNT-162b2 vax 06/29/2020 Recorded Normal [facility] Comment on above: Result Comment: Elec tronically Signed By: VIET RUSSELL, Edda Garibay\Date and Time Signed: 03/23/21 13:27 EST Pathology Noteon 03-14-2021 Pathology Note [id number]#1.00CD:127 Normal [facility] Outside Colonoscopyon 2020 Outside Colonoscopy [id number]#1.00CD:127 Normal [facility] Lab Reportson 03-08-2021 Lab Reports [id number]#1.00CD:127 Normal [facility] Covid-19 PCR (CVDTB)on 02-22 SARS-CoV-2 (COVID-19) RNA RANDA+probe Ql (Unsp spec) Not detected Normal NOT DETECTED [facility] Comment on above: Result Comment: This test is not yet approved or cleared by the [place] FDA. When there are no FDA-approved or cleared tests available, and other criteria are met, FDA can make tests available under an emergency access mechanism called an Emergency Use Authorization (EUA). The EUA for this test is supported by the Bridal Sales Consultant of Health and Human Service's (HHS's) declaration [...] consistent with SARS-CoV-2. Performed By: #### C VDTB #### [facility] [address] [place] [address] Dr. Swapnil Bush [facility] Letter [facility] February 16, 2021 MELISSA SEAY JR [facility] [place] [address] Re: GIGI KOCH Date of : 1950 Thank you for your referral of Gigi Koch who was seen on consultation on 02/10/2021 for positive Cologuard. I have enclosed my consultation notes for your review. I will be happy to follow Particia. Sincerely, Edda Peña MD General Surgery Normal [facility] Formson 02-11-2021 Forms [id number]#1.00CD:127 Normal [facility] Ambulatory Clinical Summaryo n 02-10-2021 Ambulatory Clinical Summary {[id number]}CD:[id number] Normal [facility] General Surgery Office/Clini c Noteon 02-10-2021 General Surgery Office/Clinic Note CD:[id number] qbUfh7rgeh6hHN3oRcScuoYoAArpOr 0xy3vfCV93yu4sPyLoTo2+CvcxRY6H VFlQRSBo rD9sZISZTwaFYcTeCN7eUsJDRy8AZR SkIMgOQTjrGI1hHNH4okszrA6zYO0x TFOjjVPqDs0mw4x8 MoqkHs2pUf7JEl41zMQpeVAoFIOYT1 smjM5eFE7luCMeC4FwKXXgRz9RUMt2 xIobyZ5ndxF0Dbz2 mQF1Nr40u0atshVfm4IlHgQ4WLzrqU u9yMnwWRyyoU1jEqMdEYRWsZ4jpZlj YW0wnK6wmjJxmKex biI+GipgWEJzCke9uTUvIG42J9QekM pjQpp2bCS4KAKfdAOzGZJtiLq2FJXX LVVBLUNvbXBhdGli gTAtXNHfrwYupqB4UfkVWIViOdGlRl l7D7gpWHB+Sebku0N6Xni0CVg0GUU9 wIbjIKYau437KLCa jRiicKpdtBTjj94iBXAheFWgKeKyl5 81INJxhaG4ZJubzUwzAum8pXKakEJr k5hulAe1UkPfLCRj QgtCLTGriYmup0QpVudTKKaos9hhnu LtwPuiTAY1h7EfZFjbAKAfJWE7ZmIv IC8+CgkJPGNvbCB2 XJmrB597RbWelXEwj6btwYi7LqP4PE ExTx3ZTHjqX74zN3RnvPR+Bhe8bTUr ZHk+CgkJPHRyPgoJ MIr4pCErz4A0uNR7HlUeteLgb5m5IP meUYZ4JfE3CNB2kFIjrR1eiPigwcvg rN7zAcB+CgkJCTxk rJYzY3kmd6Q3RiIyf4VjmMbnzrBfRT UfSnTda1mfRmpcVJFygJ9tTKC8OxZu WUWlfHNtENYdNJ3p ngNjwWCwBQTsGuKgW4Ire75oc1HqPW TQN2qKHkAqIPO9UA7cDsOwJG7wQiP7 JUKqWOFpAOn3KKMh UBy7FN97GQq8STBfNkK6DPz3EjAlLg Yee8K5xSX8TnBoZHKabue9GKKgtBdj PjxzcGFuIGNsYXNz ERUhJTHsE1Rik96scCEebCO2Ym44w3 WsvqHqwFjzZP0kVq5fpP90OSspbCS9 NIRmkOG4LUIfeCVq DVRup4SjuFauvknsfW3xZVDreT1mQb I+G2evTYKiH36yhLvbpL31LT0taRKi Viskp8Cipa8QLSeJ UPTvdfJtxTMqxr0fCKYetRJek399EZ 72YtJxMRued136FB23lLjjJH7dGTZL B8JGQB8SVIFPOhJn AHobUHVdjeSwS8Z8jFvjFATLP1V5Oy I9NZ9UOrYcBJBRA6VwQuGvQy1OM3JM QViDUnJ0BkAwSFwm YLPvYKK8IML7STLhOkGsQq03XGelQQ syVzJdYlG7JJelKYDfKmE7Ir2XMKaF DWHiksThqYEkce2h RWEdwZWpj393TV31uXNlbQGzKFHyqZ 77FDOxVRMsSUF8M39pxESonAD4bJE3 IlBBVENBUkVfTUVB BwIrSXF3CY47oMA3nML4NnX8GWbtPX AmBmUoRSmkCFLgIqRzKHueAQutR0My YV25ITE0BHH2RnEk ZBAxF1MyHMBpZnJqTcX7iXkvukjgIJ 0cPBrcVU6hY9HsJ8WjVC47PEMto38i GeHgzxQ9dSVfjLxy ecXhn4CruP9acDTnuwFcH94tt6c7TT CpAU8wmJY+PwdRENmbRMv4MwdCYHk1 E9Pyoy0YPnmJJQuh kCAvZ9ljs9J9XiTyd9ZfzKoumpGjVO OzCwWyz8jkNtbgQZEfgG5dHXJ3IfYn NSNeyRTmQGDwQX4w qzHgiGDoIFJfEfVhQ5Xjp30jq7XlRY ZRF7mMKjNgPFV6FM6oPvYuDZ6mZna3 OZTbHJKpTOMaZ9Rz VIOvJK41WCm1MWMoWdN4BII6BTtxXf Ifd3D4eXH6RlHrLNQqfpg9ZQBwnWag PjxzcGFuIGNsYXNz PVZcECWrW5Lxv73llJTbnHQ7Ja14e1 OqwfVemJbnZF4iWb3rnY13HLdnqUY5 VKEukHQ0YBHtlSLc QFYud8WzwYffmodbwM4zRNUfhZ4zPn I+QCOZETB4WFEgQL5ntLFvVreda0Ht pz9LXbdMXGlheCFa H1mbx9I9IzBjYE5jR08kyRXwbRPpHU N6Z61azZQgeIS6zJE3HlSAIBBYMkRh MMRIUzAaCDI6fhOl SFHzhnWvnBXkOX7aNDh1SLICFGBwZD P5IY68HxUARGVYVDJeNbCLEuXoWdV4 SDtjSnTwFK6qC8Hi XNM0Xoc6AMXvKLknKCB9Eb84UVGnKO nsTGJtIEZhWVd1SOG+CgkJCTxkaXYg B6giq7W1QsWaBD9j S10kpVVlnGr2KL2gSFBeSF3lxbNqyL PdLFMyCaL4qxHsb8K2eG9wx9E5gFK5 QcYafE2ihOfjuHLf IDI2M49vpCUepNN7xDL6SaEFEWSPPp TbBLVREoJjFUU0HX01kHP0dHI6ZySc wXF4Fa74UZVgRQHv Dq6dOqepYFG1TmTvWEEnMq5bFwZbRd WuEhO1JORaUXggzV4jReRxERVHhI8z pOalHO7xlS4yevVv dGlvbiI+KcyAEGsaeWUrb0H0sAH3Hq 0zkmgzkievGWU9IWDbmymfhJZgSIln ItfhJFP6PiMfs0Qh POT9TTOvhRMbO8OpEUvtCUubCLu4WL BgvGDvXBjmF599LSlaNhY4YGShwQ9s FkSmA0WbPZxhLRal LNe4UYYjaMYzhH3nJU03GfBbhU92YQ HftiPgb4X8bOD5PC3skj5vkRzfSy1e gJ15XXmhnMT1CR4z bb2ueEasuMN1uX4hZNHlgqG4lW8gKf Kau81bPxH+CgkJCTxkaXY+PGEgbmFt FD7eU5UeOMP3LuNd QNBuRdlmPEEuOE8xIDV5BSN2KdL0Vm MwYjUxMSI+LW7nMysQRMfVOLZput03 NhU0ZXXkCG3hQURc QF4ygPSilONlp6VkhJNzm46zK31xu4 LldWC4yY4nCDVnv98eYQXiNMNjdS7i NBRvw5UqjB5ciORs yuZeB77qk1z3BWRwAQNueTHsQGHcCU T5VeOfLtZjGfQWVYW9WZYviC3jt9My x7U7ZFCiqCHpUVZz YGSpYLD4KKUtgkEoDOQxEJ39HGQoZI gbVCXhofF0oPdvFWjnloEma0YyXUoo IERlbmllcyByZWN0 PWwleMQaqzYbclRwaHXqY3WjOWNggX 6hCjQExWZezrgzJSJmccj6gCXefGie QGorqPYepw7sLDUo wAFbQK3wrATdMRwzcr0rwJTixjxft0 HlR1hgajqtXGdfODAui0SnXOkqJru2 rt0fFq3oyN9xoWOw QGymDCYve9ByR8t6EHdfh1RdBX5mHW kwc4yzWBPnjKerwSPmyEV7r8K2MR2m KBBooT9kVKPhrjMo fq07G6Ksmb8PFHiQTD9kwQS+CgkJCT npUIo4RbjTPPd5V0Jrls0VKmoLKHvy mUHwI3pqr5P8VfVn BC0kO23liVAjaOl3BS9mQUFhPZ2tzw NnmOQeXPOaKeH4xzZta3N4mB1ch1D1 gQV0ZlNfxK2kbLke sTDoIMT4Z50ybWTmcXS9bKZ9XxGFLE FMNbWsNSDTCsAuXDM3NT30mKX5mTQ5 NtBxuRC6Ld7jSZOj IiGvPa41DYIkYWZxRlihUVvfFT98Mn FmMMthLeo2WYQxVQxfgR2oHjUxNGGC aD7jeLifHS9ebQ3y bnRhdGlvbiI+VI3slSO+YxzOAWv5CL g9XHUiFCYnIYCtXUAtnqXkqbIbvkRx ePEjIOEbjyUro3Oh QvnxQjKuWVtmaX0xaS4sfLhpK9Y1rO maYCN5i6OwgkrzdXAqKOTnTySskbCi kkU9uCAgUOZJXDXN UHYOH04LDRJtZANkBqMksBz6fYbgSQ FhIUasNCGhPAXuXlX0UWLjCSWoPj79 ZDBmLWFmYzktNWNk IpLtYzR0FgZfKlF2kJntgnjqPL9mAD jlTE0eP2TpQ2KxSX08AKAmd29oUhll JPs7MdgMUNuYNGMq loGslZGocz2iCLCmpSPbe307SF54fE FxdPSjIAFwpD41CDCtTEMiMGJ3EzWx ZmxvYXRpbmdzdHls CF7vaL8qDJZpD4s5WbJpIVwqo495YF 13oKxgAW8iWWZWH8EFOH0MUCNKAsTd QQcqzeSzeSqcWG9h XxAqZJ8qS0GrJJVcFhi0LIa6ZUQtOW IcQs3zCBJmBEl8JsB1ZKmsGCC1ZlUw mT6qxvN9LDV1XeY0 qcMxvYMFp2I6kODmdIO4jO0pAm31R4 Ncze8AWkxJEXbquELnW0rmm4T5RuZh HT9oB61tvSMiaTb5 FC8uBUArHW4jvaLdgDYlJWKbJnO0oe Lpb5M7kY8kp4R9bNU5RmXcaZ2yoHvc qBBhLRM6Q18xyWQm kWL8kKC8RwMAYPQWXjFiOMOWIcRyQT C5KK08mTO7bAS0XbTzuAJ7Uq0hVfDr U2JyEN7kVtPtFJQt NArjWDb7NH25NeWeSREcOGBjPXOdFL ezyY7gCnSrSPMGvX2lsLlaXO1ucJ9u bnRhdGlvbiI+PC9k aXY+RouEPGx2PAc6FPUdKKUxSNRjFQ VfwnStsiEeybOzpPDqMCJqwzKko6Ws DteuXdMxFDoxwS6z bE0odFznK9C9eSvgPYU3x6MyukyxvD FiUFJeRtBxnuQxysC6lOOqSQHGLAAK XFVNF93IFVKzGSWo HfDgbGi1jBisAGTpVYcuIYMqPaYpQp T5OnRdMlHhGZ05CUK0LXgcWjFpLUkb QePzHRB8AVw2DwR9 bUjolpqsLN5qIOkxZK7vG7CyO3JkAA 21ZWRyb19eFowoOIs8DhsXNIuYKQHv hdEcnXOvui5vZFTr b (more content not included)... Normal [facility] Comment on above: Result Comment: Elec tronically Signed By: VIET RUSSELL, Edda Garibay\Date and Time Signed: 02/10/21 17:31 EDT Physician Referralon 021 Physician Referral [id number]:127 Normal [facility] Physician Referralon 021 Physician Referral [id number]#[id number]:127 [facility] Encounters Encounter Date Encounter Type Care Provider Facility Start: 09-14-2023 End: 09-14-2023 ambulatory ANTHONY DESAI Not Available Start: 08-31-2023 End: 08-31-2023 ambulatory ANTHONY DESAI Not Available Start: 08-24-2023 End: 08-24-2023 ambulatory ANTHONY Mcbride LLOYD Not Available Start: 07-27-2023 End: 07-27-2023 ambulatory ANTHONY Mcbride LLOYD Not Available Start: 11-22-2021 End: 11-23-[address] MELISSA SEAY Facility:[facility] Start: 11-17-2021 End: 11-17-[address] MELISSA SEAY Facility:[facility] Start: 04-27-2021 End: 04-27-[address] MELISSA SEAY Facility:[facility] Start: 03-11-2021 Encounter for prepro cedural laboratory examination DR EDDA PEÑA [facility] Start: 03-10-2021 End: 03-10-[address] EDDA PEÑA Facility:[facility] Start: 03-06-2021 End: 03-07-[address] MELISSA SEAY Facility:[facility] Start: 03-06-2021 End: 03-07-2021 Encounter for preprocedural laboratory examination DR MELISSA SEAY Facility:[facility] Start: 03-02-2021 End: 03-03-2021 ambulatory CHINTAN SOCORRO GALINDO Facility:[facility] Payers Date Payer Category Payer Medicare [id number] 2023 Medicare [id number] 1961 Medicare [id number] 1961 Self-pay 1950 Unknown [id number] ..[id number] 1950 Unknown [id number] ..[id number] [id number] 1948 Unknown [id number] ..[id number] 0.1.031938.3.579.2.59 1948 Unknown [id number] .16.84 0.1.370531.3.579.2.593 1948 Unknown [id number] 2..84 0.1.448998.3.579.2.59 1948 Unknown [id number] 2.16.84 0.1.622708.3.579.2.1259 1948 Unknown [id number] 2.16.84 0.1.008769.3.579.2.9 1948 Unknown [id number] 2.16.84 0.1.950991.3.579.2.1259 1948 Unknown [id number] 2.16.84 0.1.559184.3.579.2.125 Unknown [id number] 2.16.84 0.1.325994.3.579.2.593 Clinical Note 03-10-2021 Note Date & Type Note Facility 03-10-2021 Note [facility], [place] NAME: GIGI KOCH DATE OF : MEDICAL REC#: [id number] ELECTRODYNAMICIST: GRZEGORZ SANDERSON ADMIT DATE: 03/10/2021 07:41:00 CHARGE MANAGER DATE: 03/10/2021 10:00 DICTATING PHYSICIAN: EDDA PEÑA [...] Edda Peña MD on 03/10/2021 11:23 AM [facility] Signed and Approved by: DR EDDA PEÑA . 03/10/2021 11:23:00 [facility] Summary Purpose Family History No Family History Records FoundNo Family History Records FoundNo Family History Records Found Advance Directives No Advanced Directives Records FoundNo Advanced Directives Records FoundNo Advanced Directives Records Found Additional Source Comments INFORMATION SOURCE (unrecogn ized section and content) DATE CREATED AUTHOR 06/18/2021 [facility] DATE CREATED AUTHOR AUTHOR'S ORGANIZ ATION 11/26/2021 [facility] DATE CREATED AUTHOR AUTHOR'S ORGANIZ ATION 09/17/2023 [facility] [place] [facility] FOR RECORDS PERTAINING TO PATIENTS WHO ARE [...] BE BASED ON THE PRIMARY CLINICAL RECORDS. [employer] provides no warranty or guarantee of the accuracy or completeness of information in this document.
== END 2023-12-06 19:56 | disposition home or self-care (01) ==
LOC: LAB 19:55
PROVIDERS: PCP Internal Medicine; Visit Provider Obstetrics & Gynecology
DX: Z01.419 Encounter for gynecological examination (general) (routine) without abnormal findings (principal)
CPT/HCPCS: 88175

== ENCOUNTER 2024-03-15 09:39 | Outpatient (OUT) | payer MEDICARE, SELFPAY ==
--- NOTE | 2024-03-15 09:47 | XR_ITS ---
The [address] [address] Patient Name: GIGI KOCH MRN: [id number] date: 1950 Sex: F Assigned Patient Location: [facility] Current Patient Location: Accession/Order Number: [id number] Exam Date: 03/15/2024 09:50 Report Date: 03/16/2024 06:57 At the request of: EDDA LLANOS Procedure: XR acute abdomen series EXAMINATION: XR acute abdomen series HISTORY: Non magnetic Metal Object Entering Into A Natural Orifice ; patient unsure if she swallowed earring COMPARISON: No relevant comparison available. FINDINGS: LUNGS: No infiltrate, pneumothorax, or pleural effusion. MEDIASTINUM: No abnormal widening. BOWEL GAS PATTERN: Non-obstructed. FREE AIR: None. CALCIFICATIONS: None significant. BONES: Degenerative changes of lumbar spine and hip joints. OTHER: Negative. XR/XR acute abdomen series IMPRESSION: 1. No radiopaque foreign body within the chest, abdomen, or pelvis. Electronically authenticated by: ANTONIO DELGADO Date: 03/16/2024 06:57
--- OUTSIDE RECORDS SUMMARY | 2024-03-15 10:04 | XMS_ITS | CCD ---
Author Organization [facility] CliniSyal Care Team Providers Care Gm Video Name Role Phone DAWOOD, DR TORRES Primary Care Unavailable KARASIK, DR PATE Admitting Unavailable KARASIK, DR PATE Attending Unavailable KARASIK, DR PATE Consulting Unavailable VALONE, DR TORRES Primary Care Unavailable KARASIK, DR PATE Admitting Unavailable KARASIK, DR PATE Attending Unavailable KARASIK, DR PATE Consulting Unavailable ZIEBER, DR GEOFF Bentley Consulting Unavailable ROSSCHINTAN Admitting Unavailable VALONE, DR TORRES Primary Care Unavailable ROSS, CHINTAN QUINTANILLA Attending Unavailable ROSS, CHINTAN QUINTANILLA Consulting Unavailable VALONE, DR TORRES Primary Care Unavailable NILL, DR BAÑUELOS Admitting Unavailable NILL, DR BAÑUELOS Attending Unavailable NILL, DR BAÑUELOS Consulting Unavailable NILL, DR BAÑUELOS Admitting Unavailable NILL, DR BAÑUELOS Attending Unavailable NILL, DR BAÑUELOS Consulting Unavailable VALONE, DR TORRES Primary Care Unavailable KODY CANELA Consulting Unavailable VALONE, DR TORRES Primary Care Unavailable VALONE, DR TORRES Admitting Unavailable VALONE, DR TORRES Attending Unavailable VALONE, DR TORRES Consulting Unavailable ANTHONY DESAI Attending Unavailable ANTHONY DESAI Attending Unavailable ANTHONY DESAI Attending Unavailable ANTHONY DESAI Attending Unavailable ANTHONY DESAI Attending Unavailable CHRISTOFER CHIN Attending Unavailable MELISSA SEAY JR Primary Care Physician Edda PEÑA Attending Unavailable Allergies Allergy Classification Reported Allergen(s) Allergy Type Date of Onset Reaction(s) Facility (2 sources) Cephalexin; Translations: [Keflex] Drug Allergy [facility] Repository (2 sources) venlafaxine; Translations: [venlafaxine] Drug Allergy [facility] Repository (1 source) Cephalexin; Translations: [cephalexin] Drug Allergy Itching (finding) [facility] (1 source) venlafaxine; Translations: [venlafaxine] Drug Allergy Itching (finding) [facility] [place] Medications Current Medications Medication Drug Class(es) Dates Sig (Normalized) Sig (Original) acarbose 100 mg oral tablet (1 source) alpha-Glucosidase Inhibitor Start: 02-23-2024 take 1 tablet by mouth three times daily acarbose 100 mg oral tablet 100 mg = 1 tab(s), Oral, TID, Refills(s) 0 Start Date: 02/23/24 Status: Ordered aspirin 81 mg delayed release oral tablet (1 source) Platelet Aggregation Inhibitor, Nonsteroidal Anti-inflammatory Drug Start: 03-05-2024 take 1 tablet by mouth once daily aspirin 81 mg Oral EC Tab 81 mg = 1 tab(s), Oral, Daily, Refills(s) 0 Start Date: 03/05/24 Status: Ordered biotin 1 mg oral tablet (1 source) Start: 02-10-2021 take 1 tablet by mouth once daily biotin 1000 mcg oral tablet 1,000 mcg = 1 tab(s), Oral, Daily Start Date: 02/10/21 Status: Ordered candesartan cilexetil 16 mg oral tablet (1 source) Angiotensin 2 Receptor Won Start: 02-23-2024 take 1 tablet by mouth once daily candesartan 16 mg Tab 16 mg = 1 tab(s), Oral, Daily, Refills(s) 0 Start Date: 02/23/24 Status: Ordered cetirizine hydrochloride 10 mg oral tablet (1 source) Histamine-1 Receptor Antagonist Start: 03-05-2024 take 1 tablet by mouth once daily cetirizine 10 mg Tab 10 mg = 1 tab(s), Oral, Daily, Refills(s) 0 Start Date: 03/05/24 Status: Ordered DULoxetine 60 mg delayed release oral capsule (1 source) Serotonin and Norepinephrine Reuptake Inhibitor Start: 02-23-2024 take 1 capsule by mouth once daily duloxetine 60 mg oral delayed release capsule 60 mg = 1 cap(s), Oral, Daily, Refills(s) 0 Start Date: 02/23/24 Status: Ordered esomeprazole 40 mg delayed release oral capsule (1 source) Proton Pump Inhibitor Start: 02-10-2021 take 1 capsule by mouth at bedtime Nexium 40 mg Cap-EC 40 mg = 1 cap(s), Oral, Bedtime, Refills(s) 0 Start Date: 02/10/21 Status: Ordered magnesium oxide 400 mg oral tablet (1 source) Start: 02-10-2021 take 1 tablet by mouth once daily magnesium oxide 400 mg Tab 400 mg = 1 tab(s), Oral, Daily, Refills(s) 0 Start Date: 02/10/21 Status: Ordered metFORMIN hydrochloride 500 mg oral tablet (1 source) Biguanide Start: 02-23-2024 take 1 tablet by mouth twice daily MetFORMIN (Eqv-Glucophage XR) 500 mg oral tablet, extended release 500 mg = 1 tab(s), Oral, BID, Refills(s) 0 Start Date: 02/23/24 Status: Ordered 24 hr mirabegron 50 mg extended release oral tablet (1 source) beta3-Adrenergic Agonist Start: 02-10-2021 take 1 tablet by mouth once daily Myrbetriq 50 mg oral tablet, extended release 50 mg = 1 tab(s), Oral, Daily, Refills(s) 0 Start Date: 02/10/21 Status: Ordered montelukast 10 mg oral tablet (1 source) Leukotriene Receptor Antagonist Start: 02-10-2021 take 1 tablet by mouth once daily Singulair 10 mg Tab 10 mg = 1 tab(s), Oral, Daily, Refills(s) 0 Start Date: 02/10/21 Status: Ordered Multivitamins and Minerals (1 source) Start: 02-10-2021 take 1 tablet by mouth once daily Multivitamins and Minerals 1 tab(s), Oral, Daily, Refill(s) 0 Start Date: 02/10/21 Status: Ordered pravastatin sodium 20 mg oral tablet (1 source) HMG-CoA Reductase Inhibitor Start: 02-10-2021 take 1 tablet by mouth once daily at bedtime pravastatin 20 mg Tab 20 mg = 1 tab(s), Oral, Once a day (at bedtime), Refills(s) 0 Start Date: 02/10/21 Status: Ordered Vitamin B12 1000 mcg Tab (1 source) Start: 02-10-2021 take 1 tablet by mouth once daily Vitamin B12 1000 mcg Tab 1,000 mcg = 1 tab(s), Oral, Daily, Refills(s) 0 Start Date: 02/10/21 Status: Ordered Vitamin B6 50 mg Tab (1 source) Start: 02-10-2021 take 1 tablet by mouth twice daily Vitamin B6 50 mg Tab 50 mg = 1 tab(s), Oral, BID, Refills(s) 0 Start Date: 02/10/21 Status: Ordered Vitamin D 1000 intl units Tab (1 source) Start: 02-10-2021 take 1 tablet by mouth once daily Vitamin D 1000 intl units Tab 25 mcg = 1 tab(s), Oral, Daily, Refills(s) 0 Start Date: 02/10/21 Status: Ordered Problems Active Problems Problem Classification Problem Date Documented Da te Episodic/Chronic Abdominal hernia (2 sources) Diaphragmatic hernia without obstruction or gangrene; Translations: [Hiatal hernia] Onset: 03-15-2021 02-10-2021 Episodic Calculus of urinary tract (1 source) Kidney stone 02-10-2021 Episodic Diabetes mellitus without complication (1 source) Diabetes mellitus 02-23-2024 Chronic Diverticulosis and diverticulitis (1 source) Diverticulitis 02-10-2021 Chronic Esophageal disorders (2 sources) Gastro-esophageal reflux disease without esophagitis; Translations: [Gastroesophageal reflux disease] Onset: 03-15-2021 02-10-2021 Chronic Essential hypertension (2 sources) Essential (primary) hypertension; Translations: [Hypertensive disorder] Onset: 03-15-2021 02-10-2021 Chronic Immunizations and screening for infectious disease (5 sources) Encounter for screening for human papillomavirus (HPV); Translations: [Encounter for immunization] Onset: 03-02-2021 Episodic Other and unspecified benign neoplasm (2 sources) History of polyp of colon; Translations: [Personal history of adenomatous and serrated colon polyps] Onset: 03-05-2024 Episodic Other and unspecified benign neoplasm (1 source) Adenomatous polyp of colon 03-23-2021 Episodic Other and unspecified benign neoplasm (1 source) Benign neoplasm of ascending colon 03-23-2021 Episodic Other liver diseases (1 source) Non-alcoholic fatty liver 02-10-2021 Chronic Other nutritional; endocrine; and metabolic disorders (1 source) Morbid (severe) obesity due to excess calories; Translations: [MORBID SEVERE OBES D/T EXCESS ABELARDO] Onset: 03-15-2021 Chronic Other nutritional; endocrine; and metabolic disorders (1 source) Body mass index (BMI) 40.0-44.9, adult; Translations: [BODY MASS INDEX BMI 40.0-44.9 ADULT] Onset: 03-15-2021 Chronic Other nutritional; endocrine; and metabolic disorders (1 source) Body mass index 40+ - severely obese 02-10-2021 Chronic Other nutritional; endocrine; and metabolic disorders (1 source) Metabolic syndrome X 02-10-2021 Chronic Other nutritional; endocrine; and metabolic disorders (1 source) Obese class III 03-05-2024 Chronic Other screening for suspected conditions (not mental disorders or infectious disease) (9 sources) Encounter for screening mammogram for malignant neoplasm of breast; Translations: [Encounter for screening for malignant neoplasm of cervix] Onset: 11-17-2021 Episodic Peripheral and visceral atherosclerosis (1 source) Peripheral vascular disease 02-23-2024 Chronic Phlebitis; thrombophlebitis and thromboembolism (2 sources) Personal history of other venous thrombosis and embolism; Translations: [Deep venous thrombosis of lower extremity] Onset: 03-15-2021 02-10-2021 Episodic Residual codes; unclassified (1 source) Asymptomatic [...] Classification Problem Date Documented Da te Episodic/Chronic Other aftercare (1 source) 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; Translations: [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 SAW OPERATOR CURRENT DRUG THERAPY] Onset: 03-15-2021 Episodic Other and unspecified benign neoplasm (1 source) Benign neoplasm of ascending colon; Translations: [BENIGN NEOPLASM OF ASCENDING COLON] Onset: 03-15-2021 Episodic Other and unspecified benign neoplasm (1 source) Benign neoplasm of transverse colon; Translations: [BENIGN NEOPLASM OF TRANSVERSE COLON] Onset: 03-15-2021 Episodic Other gastrointestinal disorders (4 sources) Other fecal abnormalities; Translations: [OTHER FECAL ABNORMALITIES] Onset: 03-10-2021 Episodic Unclassified (1 source) CONTACT W/AND (SUSP) EXPOS COVID-19; Translations: [CONTACT W/AND (SUSP) EXPOS COVID-19] Onset: 04-27-2021 Results Test Name Value Interpretation Reference Range Facility Ambulatory Visit Summaryon 1 05-05-2023 Ambulatory Visit Summary Ambulatory Visit Summary GIGI KOCH :1950 Visit Date:03/05/2024 Ambulatory Visit Instructions Your Diagnosis Personal history of adenomatous and serrated colon polyps Your Care Team Attending Physician - VIET RUSSELL, Edda Bentley Primary Care Physician - MELISSA SEAY JR, DO This Is Your Medications List Contact prescribing physician if questions or concerns acarbose (acarbose 100 mg oral tablet) aspirin (aspirin 81 mg Oral EC Tab) biotin (biotin 1000 mcg oral tablet) candesartan (candesartan 16 mg Tab) cetirizine (cetirizine 10 mg Tab) cholecalciferol (Vitamin D 1000 intl units Tab) cyanocobalamin (Vitamin B12 1000 mcg Tab) duloxetine (duloxetine 60 mg oral delayed release capsule) esomeprazole (Nexium 40 mg Cap-EC) magnesium oxide (magnesium oxide 400 mg Tab) metformin (MetFORMIN (Eqv-Glucophage XR) 500 mg oral tablet, extended release) mirabegron (Myrbetriq 50 mg oral tablet, extended release) montelukast (Singulair 10 mg Tab) multivitamin with minerals (Multivitamins and Minerals) pravastatin (pravastatin 20 mg Tab) pyridoxine (Vitamin B6 50 mg Tab) Procedures Performed Colonoscopy (03/10/2021), Dilation and curettage (06/20/2016), Hysteroscopy (06/20/2016), Needle localization using ultrasound guidance and mammography (02/12/2013), Lithotripsy (06/10/2010), Colonoscopy (04/24/2001), EGD - Esophagogastroduodenoscopy (04/24/2001), Arthroscopy of knee (02/12/2000), Cholecystectomy, Extract tooth, Left ear. Discharge Vitals Heart Rate (Peripheral) 72 Respiratory Rate 16 Blood Pressure 124/86 Height 162.5 cm Height 64 in Weight 112 kg Weight 246.917 lb BMI 42.41 Medications What How Much When Instructions Unchanged acarbose (acarbose 100 mg oral tablet) 1 Tablets By Mouth 3 times a day Contact prescribing physician if questions or concerns Unchanged aspirin (aspirin 81 mg Oral EC Tab) 1 Tablets By Mouth Every day Contact prescribing physician if questions or concerns Unchanged biotin (biotin 1000 mcg oral tablet) 1 Tablets By Mouth Every day Contact prescribing physician if questions or concerns Unchanged candesartan (candesartan 16 mg Tab) 1 Tablets By Mouth Every day Contact prescribing physician if questions or concerns Unchanged cetirizine (cetirizine 10 mg Tab) 1 Tablets By Mouth Every day Contact prescribing physician if questions or concerns Unchanged cholecalciferol (Vitamin D 1000 intl units Tab) 1 Tablets By Mouth Every day Contact prescribing physician if questions or concerns Unchanged cyanocobalamin (Vitamin B12 1000 mcg Tab) 1 Tablets By Mouth Every day Contact prescribing physician if questions or concerns Unchanged duloxetine (duloxetine 60 mg oral delayed release capsule) 1 Capsules By Mouth Every day Contact prescribing physician if questions or concerns Unchanged esomeprazole (Nexium 40 mg Cap-EC) 1 Capsules By Mouth At bedtime Contact prescribing physician if questions or concerns Unchanged magnesium oxide (magnesium oxide 400 mg Tab) 1 Tablets By Mouth Every day Contact prescribing physician if questions or concerns Unchanged metformin (MetFORMIN (Eqv-Glucophage XR) 500 mg oral tablet, extended release) 1 Tablets By Mouth 2 times a day Contact prescribing physician if questions or concerns Unchanged mirabegron (Myrbetriq 50 mg oral tablet, extended release) 1 Tablets By Mouth Every day Contact prescribing physician if questions or concerns Unchanged montelukast (Singulair 10 mg Tab) 1 Tablets By Mouth Every day Contact prescribing physician if questions or concerns Unchanged multivitamin with minerals (Multivitamins and Minerals) 1 Tablets By Mouth Every day Contact prescribing physician if questions or concerns Unchanged pravastatin (pravastatin 20 mg Tab) 1 Tablets By Mouth Once a day (at bedtime) Contact prescribing physician if questions or concerns Unchanged pyridoxine (Vitamin B6 50 mg Tab) 1 Tablets By Mouth 2 times a day Contact prescribing physician if questions or concerns Allergies Keflex (Itching) venlafaxine (Itching) Problems Ongoing - Any problem that you are currently receiving treatment for. BMI 40.0-44.9, adult Class 3 obesity Diabetes Diverticulitis GERD (gastroesophageal reflux disease) Hiatal hernia HTN (hypertension) Left leg DVT Metabolic syndrome Nephrolithiasis Non-alcoholic fatty liver disease Personal history of adenomatous and serrated colon polyps Positive colorectal cancer screening using Cologuard test PVD (peripheral vascular disease) Tubular adenoma of colon Tubulovillous adenoma of colon Patient Survey You may receive a survey via text or e-mail asking about your office visit. Please share your experience with us by completing your survey. We appreciate your feedback and thank you for choosing us for your care. Normal [facility] PAP ACOG PANEL 2: 30 to 65on 11-23-2021 . . Normal [facility] Comment on above: Performed By: #### [id number] #### [facility] [address] [place] [address] Dr. Swapnil Bush Age Gdln ACOG Testing Comment Normal [facility] Comment on above: Result Comment: <21 or >65 or no age pro vided Performed By: #### [id number] #### [facility] [address] [address] [address] Swapnil Bush DIAGNOSIS: Comment [facility] Comment on above: Result Comment: NEGATIVE FOR INTRAEPITHE LIAL LESION OR MALIGNANCY. THIS SPECIMEN WAS RESCREENED PART OF OUR LAMP STACK DEVELOPER PROGRAM. Performed By: #### [id number] #### [facility] [address] [address] [address] Swapnil Bush Methodology: Comment [facility] Comment on above: Result Comment: This liquid based ThinPr ep(R) pap test was screened with the use of an image guided system. Performed By: #### [id number] #### [facility] [address] [place] [address] Dr. Swapnil Bush Note: Comment [facility] Comment on above: Result Comment: The Pap smear is a scree batool test designed to aid in the detection of premalignant and malignant conditions of the uterine cervix. It is not a diagnostic procedure and should not be used as the sole means of detecting cervical cancer. Both false-positive and false-negative reports do occur. . Performed By: #### [id number] #### [facility] [address] [address] [address] Swapnil Bush Performed by: Comment Normal [facility] Comment on above: Result Comment: Ashley Juarez, Hung otechnologist (ASCP) Performed By: #### [id number] #### [facility] [address] [address] [address] Swapnil Bush QC reviewed by: Comment Normal [facility] Comment on above: Result Comment: Justyna Dow, Rc smith Cofounder (ASCP) Performed By: #### [id number] #### [facility] [address] [place] [address] Dr. Swapnil Bush Specimen adequacy: Comment Normal [facility] Comment on above: Result Comment: Satisfactory for evaluat ion. Endocervical and/or squamous metaplastic cells (endocervical component) are present. Performed By: #### [id number] #### [facility] [address] [place] [address] Dr. Swapnil Bush MG MAMM SCREEN 3D MARK CADon 11-22-2021 MG MAMM SCREEN 3D MARK CAD Patient: GIGI KOCH Exam Date: 11/22/2021 : 1950 Gender:F Ordering : DR RIO NGUYEN . Admission #: [id number] Family : Order #: [id number] CLICK HERE TO VIEW EXAM RADIOLOGY REPORT [...] uterine cancer at age 81. LOCATION: [facility] BREAST COMPOSITION: Heterogeneously dense,which may obscure small [...] Soto M.D. on 11/23/2021 at 14:26 Normal [facility] XR DEXA BONE DENSITYon 11-22 XR DEXA [...] GEOFF SOTO Date: 2021-11-22 16:44 Normal [facility] Covid-19 PCR (CVDTB)on SARS-CoV-2 (COVID-19) RNA RANDA+probe Ql (Unsp spec) Not detected Normal NOT DETECTED [facility] Comment on above: Result Comment: This test is not yet gabi roved or cleared by the [place] FDA. When there are no FDA-approved or cleared tests available, and other criteria are met, FDA can make tests available under an emergency access mechanism called an Emergency Use Authorization (EUA). The EUA for this test is supported by the [place] of Health and Human Service's (HHS's) declaration [...] SARS-CoV-2. Performed By: #### C VDTB #### [facility] [address] [place] [address] Dr. Swapnil Bush Covid-19 PCR ([facility])on 02-22 SARS-CoV-2 (COVID-19) RNA RANDA+probe Ql (Unsp spec) Not detected Normal NOT DETECTED [facility] Comment on above: Result Comment: This test is not yet gabi roved or cleared by the [place] FDA. When there are no FDA-approved or cleared tests available, and other criteria are met, FDA can make tests available under an emergency access mechanism called an Emergency Use Authorization (EUA). The EUA for this test is supported by the Disposition Clerk of Health and Human Service's (HHS's) declaration [...] SARS-CoV-2. Performed By: #### C VDTB #### [facility] [address] [place] [address] [id number] [address] Swapnil Bush Vital Signs Date Time Vital Sign Value Performing Clinician Faci lity 03-05-2024 14:02-0500 Blood Pressure Location Edda PEÑA [facility] [place] 03-05-2024 14:02-0500 Diastolic blood pressure 86 mm[Hg] Edda CARRINGTONL [facility] [place] 03-05-2024 14:02-0500 Heart rate 72 /min Edda CARRINGTONL [facility] [place] 03-05-2024 14:02-0500 Respiratory rate 16 /min Edda CARRINGTONL [facility] [place] 03-05-2024 14:02-0500 Systolic blood pressure 124 mm[Hg] Edda CARRINGTONL [facility] Encounters Encounter Date Encounter Type Care Provider Facility Start: 03-05-2024 End: 03-05-2024 ambulatory Edda PEÑA Facility:[facility] Start: 03-05-2024 End: 03-05-2024 Patient encounter procedure Edda CARRINGTONYg [facility] Start: 12-06-2023 End: 12-06-2023 ambulatory CHRISTOFER CHIN Not Available Start: 09-21-2023 End: 09-21-2023 ambulatory ANTHONY A BROWN Not Available Start: 09-14-2023 End: 09-14-2023 ambulatory ANTHONY A BROWN Not Available Start: 08-31-2023 End: 08-31-2023 ambulatory ANTHONY A BROWN Not Available Start: 08-24-2023 End: 08-24-2023 ambulatory ANTHONY A BROWN Not Available Start: 07-27-2023 End: 07-27-2023 ambulatory ANTHONY A BROWN Not Available Start: 11-22-2021 End: 11-23-[address] MELISSA SEAY Facility:[facility] Start: 11-17-2021 End: 11-17-[address] MELISSA SEAY Facility:[facility] Start: 04-27-2021 End: 04-27-[address] MELISSA SEAY Facility:[facility] Start: 03-11-2021 Encounter for preprocedural laboratory examination DR EDDA PEÑA [facility] Start: 03-10-2021 End: 03-10-[address] EDDA PEÑA Facility:[facility] Start: 03-06-2021 End: 03-07-[address] MELISSA SEAY Facility:[facility] Start: 03-06-2021 End: 03-07-2021 Encounter for preprocedural laboratory examination DR MELISSA SEAY Facility:[facility] Start: 03-02-2021 End: 03-03-2021 ambulatory CHINTAN GALINDO Facility:[facility] Procedures Date Procedure Procedure Detail Performing Clinician Start: 03-10-2021 Colonoscopy Edda ZEBL Start: 06-20-2016 Dilation and curettage Edda PEÑA Start: 06-20-2016 Hysteroscopy Edda ZEBL Start: 02-12-2013 Needle localization using ultrasound guidance and mammography Edda CARRINGTONL Comment on above: left breast Start: 06-10-2010 Lithotripsy Edda ZEBL Start: 04-24-2001 Colonoscopy Edda NILL Start: 04-24-2001 Esophagogastroduodenoscopy Edda NILL Start: 02-12-2000 Arthroscopy of knee Edda NILL Comment on above: left Cholecystectomy Edda NILL Left ear structure ( body structure) Edda NILL Tooth extraction Edda NIL L Immunizations Immunization Date Immunization Notes Care Provider Fa cility 07-21-2020 SARS-CoV-2 (COVID-19 ) mRNA BNT-162b2 vax Edda NILL [facility] 06-29-2020 SARS-CoV-2 (COVID-19 ) mRNA BNT-162b2 vax Edda NILL [facility] Payers Date Payer Category Payer Medicare [id number] 2023 Medicare [id number] 1961 Medicare [id number] 1961 Self-pay 1950 Unknown [id number] 2.16.84 [id number] 1950 Unknown [id number] 2.16.84 [id number] 1950 Unknown [id number] 2.16.84 [id number] 1950 Unknown [id number] 2.16.84 [id number] 1950 Unknown [id number] 2.16.84 [id number] 1950 Unknown [id number] 2.16.84 [id number] 1950 Unknown [id number] 2.16.84 [id number] 1950 Unknown [id number] 2.16.84 [id number] 1950 Unknown [id number] 2.16.84 0.1.202874.3.579.2.1259 1950 Unknown [id number] 2.16.84 [id number] 1950 Unknown [id number] 2.16.84 0.1.083053.3.579.2.1259 1950 Unknown [id number] 2.16.8 [id number] Unknown [id number] 2.16.84 [id number] Social History Date Type Detail Facility Start: 03-05-2024 Tobacco smoking status Never s moked tobacco (finding) [facility] Tobacco smoking status Never [facility] Sex Assigned At Female [facility] Functional Status Date Assessment Result Facility 03-05-2024 Functional Status N/A [facility] Clinical Note 03-05-2024 Note Date & Type Note Facility 03-05-2024 Note General Surgery Offi ce/Clinic Note Chief Complaint consultation for colonoscopy HPI Staff 73 year old female presents on consultation for surveillance colonoscopy. Last colonoscopy completed 02/2021 with tubular adenoma of hepatic flexure and villous adenoma of ascending colon. Denies abdominal or rectal pain. No rectal bleeding or change in bowel habits. Denies nausea or vomiting. No unexplained weight loss. No known family history of colon cancer. History of Present Illness 73 yo female with h/o htn, DMII, hypercholesterolemia, morbid obesity, presents for surveillance colonoscopy, last colonoscopy 2020 with 1 cm ascending colon tubulovillous adenoma and 5 mm tubular adenoma at hepatic flexure; patient denies change in bms or blood in stools, no abd complaints; on baby asa daily, no NSAID use; no tobacco; no fmhx of colon cancer or IBD. Review of Systems PHQ Score Initial Depression Screen Score: 0 SCORE ROS - Provider Constitutional: no fever, no [...] urine infection, no dysuria. Musculoskeletal: no pain, yes weakness. Skin: no changing moles, no rash, [...] or noncontributory. Physical Exam Vitals & Measurements HR: 72(Peripheral) RR: 16 BP: 124/86 HT: 64 in HT: 162.5 cm WT: 112 kg WT: 246.917 lb BMI: 42.41 HEENT: normal conjunctiva, sclera clear, no scleral icterus, EOM intact, PERRLA, oral mucosa moist without lesions. Neck: trachea midline, no mass, symmetric, no thyromegaly or nodules, no adenopathy Respiratory: lungs CTA, respirations non labored. Cardiovascular: regular rate and rhythm, no murmur, no pedal edema or varicosities. Gastrointestinal: obese, soft, non distended, no tenderness, no masses, no palpable hernias, diastasis recti no, no hepatosplenomegaly; normal bs Lymphatic: no cervical adenopathy, no supraclavicular adenopathy. Musculoskeletal: abnormal gait, digits and nails without infection, nodes, cyanosis, clubbing. Skin: no rashes, no lesions, no ulcers, no subcutaneous nodules, induration. Psychiatric/Neuro: oriented to time, place, person, judgement normal, affect appropriate for age, insight intact, no focal deficits. Tests: , review of old records completed , Discussed surgical options, risks, and possible complications with patient. Assessment/Plan 1. Personal history of adenomatous and serrated colon polyps (Z86.0101: Personal history of adenomatous and serrated colon polyps) plan colonoscopy under anesthesia, informed consent obtained. Follow-up No qualifying data available Problem List/Past Medical History Ongoing BMI 40.0-44.9, adult Class 3 obesity Diabetes Diverticulitis GERD (gastroesophageal reflux disease) Hiatal hernia HTN (hypertension) Left leg DVT Metabolic syndrome Nephrolithiasis Non-alcoholic fatty liver disease Personal history of adenomatous and serrated colon polyps Positive colorectal cancer screening using Cologuard test PVD (peripheral vascular disease) Tubular adenoma of colon Tubulovillous adenoma of colon Historical No qualifying data Procedure/Surgical History Colonoscopy (03/10/2021), Dilation and curettage (06/20/2016), Hysteroscopy (06/20/2016), Needle localization using ultrasound guidance and mammography (02/12/2013), Lithotripsy (06/10/2010), Colonoscopy (04/24/2001), EGD - Esophagogastroduodenoscopy (04/24/2001), Arthroscopy of knee (02/12/2000), Cholecystectomy, Extract tooth, Left ear. Medications acarbose 100 mg oral tablet, 100 mg= 1 tab(s), Oral, TID aspirin 81 mg Oral EC Tab, 81 mg= 1 tab(s), Oral, Daily biotin 1000 mcg oral tablet, 1000 mcg= 1 tab(s), Oral, Daily candesartan 16 mg Tab, 16 mg= 1 tab(s), Oral, Daily cetirizine 10 mg Tab, 10 mg= 1 tab(s), Oral, Daily duloxetine 60 mg oral delayed release capsule, 60 mg= 1 cap(s), Oral, Daily magnesium oxide 400 mg Tab, 400 mg= 1 tab(s), Oral, Daily MetFORMIN (Eqv-Glucophage XR) 500 mg oral tablet, extended release, 500 mg= 1 tab(s), Oral, BID Multivitamins and Minerals, 1 tab(s), Oral, Daily M (more content not included)... [facility] Comment on above: Result Comment: Elec tronically Signed By: Edda PEÑA MD R\.br\Date and Time Signed: 03/05/24 15:57 EST Clinical Note 03-10-2021 Note Date & Type Note Facility 03-10-2021 Note The [place], [place] NAME: GIGI KOCH DATE OF : MEDICAL REC#: [id number] MS SQL DEVELOPER: [id number] ADMIT DATE: 03/10/2021 07:41:00 INSULATION AND FLOORING ASSEMBLER DATE: 03/10/2021 10:00 DICTATING PHYSICIAN: EDDA PEÑA [...] Edda Peña MD on 03/10/2021 11:23 AM [facility] Signed and Approved by: DR EDDA PEÑA . 03/10/2021 11:23:00 The [facility] Evaluation + Plan note Note Date & Type Note Facility Evaluation + Plan note No data available for this section [facility] Hospital Discharge instructions Note Date & Type Note Facility Hospital Discharge instructions No data available for this section [facility] Progress note Note Date & Type Note Facility Progress note No data available for this section [facility] Summary Purpose Family History No Family History Records FoundNo Family History Records Found No data available for this section No Family History Records Found Advance Directives No Advanced Directives Records FoundNo Advanced Directives Records FoundNo Advanced Directives Records Found Additional Source Comments INFORMATION SOURCE (unrecogn ized section and content) DATE CREATED AUTHOR 11/26/2021 [facility] DATE CREATED AUTHOR AUTHOR'S ORGANIZ ATION 12/08/2023 [facility] EPIC DATE CREATED AUTHOR AUTHOR'S ORGANIZ ATION 03/07/2024 Constantino Bull [facility] Patient Care team informatio n (unrecognized section and content) Personnel Name: DAWOOD JR BROOKS MELISSA Address: Address: [address] [place] [id number] FOR RECORDS PERTAINING TO PATIENTS WHO ARE [...] BE BASED ON THE PRIMARY CLINICAL RECORDS. [facility] [employer] provides no warranty or guarantee of the accuracy or completeness of information in this document.
== END 2024-03-15 09:40 | disposition home or self-care (01) ==
LOC: RAD 09:41
PROVIDERS: PCP Internal Medicine; Visit Provider Surgery
DX: Z01.89 Encounter for other specified special examinations (principal); W44.E9XA Other non-magnetic metal objects entering into or through a natural orifice, initial encounter
CPT/HCPCS: 74022

== ENCOUNTER 2024-03-26 10:02 | Outpatient (OUT) | payer MEDICARE, SELFPAY ==
--- OUTSIDE RECORDS SUMMARY | 2024-03-26 10:22 | XMS_ITS | CCD ---
Author Organization [facility] Care Team Providers Care Blintze Roller Name Role Phone DAWOOD, DR TORRES Primary [...] Unavailable MELISSA SEAY JR Primary Care Physician [phone] Edda PEÑA Attending Unavailable Allergies Allergy Classification Reported Allergen(s) Allergy Type Date of Onset Reaction(s) Facility (2 sources) Cephalexin; Translations: [Keflex] Drug Allergy [facility] Repository (2 sources) venlafaxine; Translations: [venlafaxine] Drug Allergy [facility] (1 source) Cephalexin; Translations: [cephalexin] Drug Allergy Itching (finding) [facility] (1 source) venlafaxine; Translations: [venlafaxine] Drug Allergy Itching (finding) [facility] Medications Current Medications Medication Drug Class(es) Dates [...] te Episodic/Chronic Other aftercare (1 source) Other fci (current) drug therapy; Translations: [OTH HALFWAY CURRENT [...] for choosing us for your care. Normal [facility] PAP ACOG PANEL 2: 30 to 65on 11-23-2021 . . Normal [facility] Comment on above: Performed By: #### [id number] #### [facility] [address] [place] [address] Dr. Swapnil Bush Age Gdln ACOG Testing Comment Normal [facility] Comment on above: Result Comment: <21 or >65 or no age pro vided Performed By: #### [id number] #### [facility] [address] [address] [address] Swapnil Bush DIAGNOSIS: Comment [facility] Comment on above: Result Comment: NEGATIVE FOR INTRAEPITHE LIAL LESION OR MALIGNANCY. THIS SPECIMEN WAS RESCREENED PART OF OUR REAL ESTATE ANALYST PROGRAM. Performed By: #### [id number] #### [facility] [address] [address] [address] Swapnil Bush Methodology: Comment [facility] Comment on above: Result Comment: This liquid based ThinPr ep(R) pap test was screened with the use of an image guided system. Performed By: #### [id number] #### [facility] [address] [place] [address] Dr. Swapnil Bush Note: Comment [facility] Comment on above: Result Comment: The Pap smear is a scree batool test designed to aid in the detection of premalignant and malignant conditions of the uterine cervix. It is not a diagnostic procedure and should not be used as the sole means of detecting cervical cancer. Both false-positive and false-negative reports do occur. . Performed By: #### [id number] #### [facility] [address] [address] [address] Swapnil Bush Performed by: Comment Normal [facility] Comment on above: Result Comment: Ashley Juarez, Hung otechnologist (ASCP) Performed By: #### [id number] #### [facility] [address] [address] [address] Swapnil Bush QC reviewed by: Comment Normal [facility] Comment on above: Result Comment: Justyna Dow, Rc smith Service Station Console Operator (ASCP) Performed By: #### [id number] #### [facility] [address] [place] [address] Dr. Swapnil Bush Specimen adequacy: Comment Normal [facility] Comment on above: Result Comment: Satisfactory for evaluat ion. Endocervical and/or squamous metaplastic cells (endocervical component) are present. Performed By: #### [id number] #### [facility] [address] [place] [address] Dr. Swapnil Bush MG MAMM SCREEN 3D MARK CADon 11-22-2021 MG MAMM SCREEN 3D MARK CAD Patient: GIGI KOCH Exam Date: 11/22/2021 : 1950 Gender:F Ordering : DR RIO NGUYEN . Admission #: [id number] Family : Order #: [id number] CLICK HERE TO VIEW EXAM RADIOLOGY REPORT [...] uterine cancer at age 81. LOCATION: The [facility] BREAST COMPOSITION: Heterogeneously dense,which may obscure small [...] Soto M.D. on 11/23/2021 at 14:26 Normal [facility] XR DEXA BONE DENSITYon 11-22 XR [...] GEOFF SOTO Date: 2021-11-22 16:44 Normal [facility] Covid-19 PCR (CVDTB)on SARS-CoV-2 (COVID-19) RNA RANDA+probe Ql (Unsp spec) Not detected Normal NOT DETECTED [facility] Comment on above: Result Comment: This test is not yet gabi roved or cleared by the [place] FDA. When there are no FDA-approved or cleared tests available, and other criteria are met, FDA can make tests available under an emergency access mechanism called an Emergency Use Authorization (EUA). The EUA for this test is supported by the Production Sorter of Health and Human Service's (HHS's) declaration [...] SARS-CoV-2. Performed By: #### C VDTB #### [facility] [address] [place] [address] Dr. Swapnil Bush Covid-19 PCR ([facility])on 02-22 SARS-CoV-2 (COVID-19) RNA RANDA+probe Ql (Unsp spec) Not detected Normal NOT DETECTED [facility] Comment on above: Result Comment: This test is not yet gabi roved or cleared by the [place] FDA. When there are no FDA-approved or cleared tests available, and other criteria are met, FDA can make tests available under an emergency access mechanism called an Emergency Use Authorization (EUA). The EUA for this test is supported by the [place] of Health and Human Service's (HHS's) declaration [...] SARS-CoV-2. Performed By: #### C VDTB #### [facility] [address] [place] [id number] Swapnil Bush Vital Signs Date Time Vital Sign Value Performing Clinician Faci lity 03-05-2024 14:02-0500 Blood Pressure Location Edda PEÑA [facility] 03-05-2024 14:02-0500 Diastolic blood pressure 86 mm[Hg] Edda CARRINGTONL [facility] 03-05-2024 14:02-0500 Heart rate 72 /min Edda CARRINGTONL [facility] 03-05-2024 14:02-0500 Respiratory rate 16 /min Edda CARRINGTONL [facility] 03-05-2024 14:02-0500 Systolic blood pressure 124 mm[Hg] Edda CARRINGTONL [facility] Encounters Encounter Date Encounter Type Care Provider Facility Start: 03-05-2024 End: 03-05-2024 ambulatory Edda PEÑA Facility:[facility] Start: 03-05-2024 End: 03-05-2024 Patient encounter procedure Edda CARRINGTONYg [facility] Start: 12-06-2023 End: 12-06-2023 ambulatory CHRISTOFER [...] for preprocedural laboratory examination DR EDDA PEÑA [facility] Start: 03-10-2021 End: 03-10-[address] [...] (COVID-19 ) mRNA BNT-162b2 vax Edda NILL [facility] 06-29-2020 SARS-CoV-2 (COVID-19 ) mRNA BNT-162b2 vax Edda NILL [facility] Payers Date Payer Category Payer Medicare [id number] 2023 Medicare [id number] 1961 Medicare [id number] 1961 Self-pay 1950 Unknown [id number] 2.16.84 [id number] 1950 Unknown [id number] 2.16.84 0.1.391576.3.579.2.593 1950 Unknown [id number] 2.16.84 0.1.079016.3.579.2.593 1950 Unknown [id number] 2.16.84 0.1.629147.3.579.2.593 1950 Unknown [id number] 2.16.84 0.1.321198.3.579.2.593 1950 Unknown [id number] 2.16.84 0.1.384835.3.579.2.1259 1948 Unknown [id number] 2.16.84 0.1.925459.3.579.2.1259 1948 Unknown [id number] 2.16.84 0.1.475803.3.579.2.1259 1948 Unknown [id number] 2.16.84 0.1.077242.3.579.2.1259 1948 Unknown [id number] 2.16.84 0.1.137093.3.579.2.1259 1948 Unknown [id number] 2.16.84 0.1.871347.3.579.2.1259 1950 Unknown [id number] 2.16.8 [id number] Unknown [id number] 2.16.84 0.1.668614.3.579.2.593 Social History Date Type Detail Facility Start: 03-05-2024 Tobacco smoking status Never s moked tobacco (finding) [facility] Tobacco smoking status Never [facility] Sex Assigned At Female [facility] Functional Status Date Assessment Result Facility 03-05-2024 Functional Status N/A [facility] Clinical Note 03-05-2024 Note Date & Type [...] Oral, Daily M (more content not included)... [facility] Comment on above: Result Comment: Elec tronically Signed By: Edda PEÑA MD R\.br\Date and Time Signed: 03/05/24 15:57 EST Clinical Note 03-10-2021 Note Date & Type Note Facility 03-10-2021 Note [facility] [place], [place] NAME: GIGI KOCH DATE OF : MEDICAL REC#: [id number] ORACLE ETL DEVELOPER: [address] ADMIT DATE: 03/10/2021 07:41:00 ANCHORER DATE: 03/10/2021 10:00 DICTATING PHYSICIAN: EDDA PEÑA [...] Edda Peña MD on 03/10/2021 11:23 AM [facility] Signed and Approved by: DR EDDA PEÑA . 03/10/2021 11:23:00 [facility] Evaluation + Plan note Note Date & Type Note Facility Evaluation + Plan note No data available for this section [facility] Hospital Discharge instructions Note Date & Type Note Facility Hospital Discharge instructions No data available for this section [facility] Progress note Note Date & Type Note Facility Progress note No data available for this section [facility] Summary Purpose Family History No Family [...] DATE CREATED AUTHOR AUTHOR'S ORGANIZ ATION 12/08/2023 [facility] EPIC DATE CREATED AUTHOR AUTHOR'S ORGANIZ ATION 03/07/2024 Constantino Bull [facility] Patient Care team informatio n (unrecognized section and content) Personnel Name: DAWOOD JR BROOKS MELISSA Address: Address: [address] [place] [phone] FOR RECORDS PERTAINING TO PATIENTS WHO ARE [...] BE BASED ON THE PRIMARY CLINICAL RECORDS. [facility] [employer] provides no warranty or guarantee of the accuracy or completeness of information in this document.
== END 2024-03-26 10:03 | disposition home or self-care (01) ==
LOC: PST 10:03
PROVIDERS: PCP Internal Medicine; Visit Provider Surgery
DX: Z01.818 Encounter for other preprocedural examination (principal); Z12.11 Encounter for screening for malignant neoplasm of colon

== ENCOUNTER 2024-04-03 06:52 | Day surgery (SDC) | payer MEDICARE, SELFPAY ==
--- NOTE | 2024-04-03 | OP_ITS ---
OPERATION DATE: 04/03/2024 PREOPERATIVE DIAGNOSIS: Personal history of tubulovillous adenoma and tubular adenoma in 2020. POSTOPERATIVE DIAGNOSIS: A 2 cm proximal ascending colon polyp, just distal to that a 5 mm sessile, round polyp and in the sigmoid colon a 4 mm sessile polyp. PROCEDURE: Colonoscopy to cecum with cold snare polypectomy x3. SURGEON: Kenyon Peña M.D. ANESTHESIA: Monitored anesthesia care. ESTIMATED BLOOD LOSS: Zero. INDICATIONS AND CONSENT: Patient presents with a personal history of tubulovillous adenoma and tubular adenoma in 2020, now presents for surveillance colonoscopy. Indications, risks, benefits, alternatives of proceeding with colonoscopy were explained extensively to the patient, including the risks of bleeding, colon perforation or anesthetic complications. All of her questions were answered. Informed consent was obtained. PROCEDURE: Patient brought to the operating room, placed in the left lateral decubitus position. Monitored anesthesia care was provided. Rectal exam was performed which showed no masses or blood. The scope was inserted into the anal canal. Under direct visualization was advanced. It was advanced to the cecum where cecal markings were clearly identified. There was noted to be a good prep with some liquid and semi-solid stool throughout that was partially irrigated clear. Upon withdrawal of the scope, mucosal surfaces were carefully examined. In the proximal ascending colon, around a fold, there was noted to be a flat, friable polyp, approximately 2 cm. This was unable to be completely removed, but a segment of the polyp was removed with cold snare with good hemostasis. Just distal to this was a 5 mm sessile, round polyp that was removed with cold snare with good hemostasis. Within the sigmoid colon, there was noted to be a 4 mm sessile polyp that was removed with cold snare as well. There was moderate sigmoid diverticulosis without inflammatory changes or scarring. There was no significant hemorrhoidal disease. The scope was then withdrawn. Patient tolerated procedure well, was sent to recovery room in good condition. RECOMMENDATIONS: She will be referred to tertiary care Gastroenterology for possible polypectomy. If this cannot be removed, she would require surgical intervention. CC: Chago Noriega D.O. [facility]
--- OUTSIDE RECORDS SUMMARY | 2024-04-03 06:56 | XMS_ITS | CCD ---
Author Organization [facility] [employer] Care Team Providers Care Marine Gear Keeper Name Role Phone DAWOOD, DR TORRES Primary [...] DESAI Attending Unavailable CHRISTOFER CHIN Attending Unavailable MLEISSA SEAY JR Primary Care Physician [phone] Edda PEÑA Attending Unavailable Allergies Allergy Classification Reported Allergen(s) Allergy Type Date of Onset Reaction(s) Facility (2 sources) Cephalexin; Translations: [Keflex] Drug Allergy [facility] Repository (2 sources) venlafaxine; Translations: [venlafaxine] Drug Allergy [facility] Repository (1 source) Cephalexin; Translations: [cephalexin] Drug Allergy Itching (finding) [facility] (1 source) venlafaxine; Translations: [venlafaxine] Drug Allergy Itching (finding) [facility] [place] Medications Current Medications [...] te Episodic/Chronic Other aftercare (1 source) Other terminal operations supervisor (current) drug therapy; Translations: [OTH VETERINARY TECHNICIAN ASSISTANT CURRENT DRUG THERAPY] Onset: 03-15-2021 Episodic Other [...] for choosing us for your care. Normal [facility] PAP ACOG PANEL 2: 30 to 65on 11-23-2021 . . Normal [facility] Comment on above: Performed By: #### [id number] #### [facility] [address] [place] [address] Dr. Swapnil Bush Age Gdln ACOG Testing Comment Normal [facility] Comment on above: Result Comment: <21 or >65 or no age pro vided Performed By: #### [id number] #### [facility] [address] [address] [address] Swapnil Bush DIAGNOSIS: Comment [facility] Comment on above: Result Comment: NEGATIVE FOR INTRAEPITHE LIAL LESION OR MALIGNANCY. THIS SPECIMEN WAS RESCREENED PART OF OUR DIRECTOR OF MEDICARE PROGRAM. Performed By: #### [id number] #### [facility] [address] [address] [address] Swapnil Bush Methodology: Comment [facility] Comment on above: Result Comment: This liquid based ThinPr ep(R) pap test was screened with the use of an image guided system. Performed By: #### [id number] #### [facility] [address] [place] [address] Dr. Swapnil Bush Note: Comment [facility] Comment on above: Result Comment: The Pap smear is a scree batool test designed to aid in the detection of premalignant and malignant conditions of the uterine cervix. It is not a diagnostic procedure and should not be used as the sole means of detecting cervical cancer. Both false-positive and false-negative reports do occur. . Performed By: #### [id number] #### [facility] [address] [address] [address] Swapnil Bush Performed by: Comment Normal [facility] Comment on above: Result Comment: Ashley Juarez, Hung otechnologist (ASCP) Performed By: #### [id number] #### [facility] [address] [address] [address] Swapnil Bush QC reviewed by: Comment Normal [facility] Comment on above: Result Comment: Justyna Dow, Rc smith Heavy Equipment Rental Associate (ASCP) Performed By: #### [id number] #### [facility] [address] [place] [address] Dr. Swapnil Bush Specimen adequacy: Comment Normal [facility] Comment on above: Result Comment: Satisfactory for evaluat ion. Endocervical and/or squamous metaplastic cells (endocervical component) are present. Performed By: #### [id number] #### [facility] [address] [place] [address] Dr. Swapnil Bush MG MAMM SCREEN 3D MARK CADon 11-22-2021 MG MAMM SCREEN 3D MARK CAD Patient: GIGI KOCH Exam Date: 11/22/2021 : 1950 Gender:F Ordering : DR RIO NGUYEN . Admission #: [id number] Family : Order #: [id number] CLICK HERE TO VIEW EXAM RADIOLOGY REPORT [...] uterine cancer at age 81. LOCATION: [facility] BREAST COMPOSITION: Heterogeneously dense,which may [...] Soto M.D. on 11/23/2021 at 14:26 Normal [facility] XR DEXA BONE DENSITYon 11-22 XR [...] GEOFF SOTO Date: 2021-11-22 16:44 Normal [facility] Covid-19 PCR (CVDTB)on SARS-CoV-2 (COVID-19) RNA RANDA+probe Ql (Unsp spec) Not detected Normal NOT DETECTED [facility] Comment on above: Result Comment: This test is not yet gabi roved or cleared by the [place] FDA. When there are no FDA-approved or cleared tests available, and other criteria are met, FDA can make tests available under an emergency access mechanism called an Emergency Use Authorization (EUA). The EUA for this test is supported by the Range of Health and Human Service's (HHS's) declaration [...] SARS-CoV-2. Performed By: #### C VDTB #### [facility] [address] [place] [address] Dr. Swapnil Bush Covid-19 PCR ([facility])on 02-22 SARS-CoV-2 (COVID-19) RNA RANDA+probe Ql (Unsp spec) Not detected Normal NOT DETECTED [facility] Comment on above: Result Comment: This test is not yet gabi roved or cleared by the [place] FDA. When there are no FDA-approved or cleared tests available, and other criteria are met, FDA can make tests available under an emergency access mechanism called an Emergency Use Authorization (EUA). The EUA for this test is supported by the Phlebotomy Instructor of Health and Human Service's (HHS's) declaration [...] SARS-CoV-2. Performed By: #### C VDTB #### [facility] [address] [place] [id number] [address] Swapnil Bush Vital Signs Date Time Vital Sign Value Performing Clinician Faci lity 03-05-2024 14:02-0500 Blood Pressure Location Edda PEÑA [facility] [place] 03-05-2024 14:02-0500 Diastolic blood pressure 86 mm[Hg] Edda CARRINGTONL [facility] [place] 03-05-2024 14:02-0500 Heart rate 72 /min Edda CARRINGTONL [facility] [place] 03-05-2024 14:02-0500 Respiratory rate 16 /min Edda CARRINGTONL [facility] [place] 03-05-2024 14:02-0500 Systolic blood pressure 124 mm[Hg] Edda CARRINGTONL [facility] Encounters Encounter Date Encounter Type Care Provider Facility Start: 03-05-2024 End: 03-05-2024 ambulatory Edda PEÑA Facility:[facility] Start: 03-05-2024 End: 03-05-2024 Patient encounter procedure Edda CARRINGTONYg [facility] Start: 12-06-2023 End: 12-06-2023 ambulatory CHRISTOFER [...] for preprocedural laboratory examination DR EDDA PEÑA [facility] Start: 03-10-2021 End: 03-10-[address] [...] (COVID-19 ) mRNA BNT-162b2 vax Edda NILL [facility] 06-29-2020 SARS-CoV-2 (COVID-19 ) mRNA BNT-162b2 vax Edda NILL [facility] Payers Date Payer Category Payer Medicare [id number] 2023 Medicare [id number] 1961 Medicare [id number] 1961 Self-pay 1950 Unknown [id number] 2.16.84 [id number] 1950 Unknown [id number] 2.16.84 0.1.147730.3.579.2.593 1950 Unknown [id number] 2.16.84 0.1.807511.3.579.2.593 1950 Unknown [id number] 2.16.84 0.1.773224.3.579.2.593 1950 Unknown [id number] 2.16.84 0.1.149400.3.579.2.593 1950 Unknown [id number] 2.16.84 0.1.488059.3.579.2.1259 1950 Unknown [id number] 2.16.84 0.1.794865.3.579.2.1259 1950 Unknown [id number] 2.16.84 0.1.466354.3.579.2.1259 1950 Unknown [id number] 2.16.84 0.1.226835.3.579.2.1259 1950 Unknown [id number] 2.16.84 0.1.567612.3.579.2.1259 1950 Unknown [id number] 2.16.84 0.1.601856.3.579.2.1259 1950 Unknown [id number] 2.16.8 40.1.853151.3.579.2.727 Unknown [id number] 2.16.84 0.1.747886.3.579.2.593 Social History Date Type Detail Facility Start: 03-05-2024 Tobacco smoking status Never s moked tobacco (finding) [facility] Tobacco smoking status Never [facility] Sex Assigned At Female [facility] Functional Status Date Assessment Result Facility 03-05-2024 Functional Status N/A [facility] Clinical Note 03-05-2024 Note Date & [...] Oral, Daily M (more content not included)... [facility] Comment on above: Result Comment: Elec tronically Signed By: Edda PEÑA MD R\.br\Date and Time Signed: 03/05/24 15:57 EST Clinical Note 03-10-2021 Note Date & Type Note Facility 03-10-2021 Note [facility] [place], [place] NAME: GIGI KOCH DATE OF : MEDICAL REC#: [id number] PRUNER: [id number] ADMIT DATE: 03/10/2021 07:41:00 AIRWAYS CONTROL SPECIALIST DATE: 03/10/2021 10:00 DICTATING PHYSICIAN: EDDA PEÑA [...] Edda Peña MD on 03/10/2021 11:23 AM [facility] Signed and Approved by: DR EDAD PEÑA . 03/10/2021 11:23:00 [facility] Evaluation + Plan note Note Date & Type Note Facility Evaluation + Plan note No data available for this section [facility] Hospital Discharge instructions Note Date & Type Note Facility Hospital Discharge instructions No data available for this section [facility] Progress note Note Date & Type Note Facility Progress note No data available for this section [facility] Summary Purpose Family History No Family [...] DATE CREATED AUTHOR AUTHOR'S ORGANIZ ATION 12/08/2023 [facility] EPIC DATE CREATED AUTHOR AUTHOR'S ORGANIZ ATION 03/07/2024 Constantino Bull [facility] Patient Care team informatio n (unrecognized section and content) Personnel Name: DAWOOD JR BROOKS MELISSA Address: Address: [address] [place] [id number] FOR RECORDS PERTAINING TO PATIENTS WHO ARE [...] BE BASED ON THE PRIMARY CLINICAL RECORDS. [facility] [employer] provides no warranty or guarantee of the accuracy or completeness of information in this document.
[2024-04-03 07:00] VITALS: BP 158/86; PULSE 94; TEMP 36.4; O2SAT 96; BMI 38.5
[2024-04-03 07:18] LABS: Glucometer 149 mg/dL (74-106)
[2024-04-03] MEDS: 0.9 % SODIUM CHLORIDE 500 ML 50 ML IV (07:59)
[2024-04-03] MEDS: 0.9 % SODIUM CHLORIDE 500 ML IV (09:10)
[2024-04-03 09:24] VITALS: BP 155/96; PULSE 79; TEMP 36.4; O2SAT 99
[2024-04-03 09:39] VITALS: BP 173/84; PULSE 77; O2SAT 99
[2024-04-03 09:54] VITALS: BP 187/102; PULSE 75; O2SAT 100
[2024-04-03 10:09] VITALS: BP 166/98; PULSE 77; TEMP 36.3; O2SAT 100
--- NOTE | 2024-04-03 11:35 | PC.NURSE ---
LATE ENTRY: [address] MOHAN AND HE ORDERED HYDRALAZINE 5 MG IV ONCE. PATIENT WAS GETTING FRUSTRATED DUE TO HER RIDE HOME WAS NOT ANSWERING THE PHONE. RIGHT THEN HER NIECE ANSWERED AND SHE GOT HER RIDE AND BLOOD PRESSURE CAME DOWN TO 166/[address] DIMAS SAID TO HOLD IV MEDICATION AND ADVISE PATIENT TO TAKE MEDS WHEN SHE ARRIVED HOME.
== END 2024-04-03 10:20 | disposition home or self-care (01) ==
PROVIDERS: PCP Internal Medicine; Visit Provider Surgery
PROC: (CPT 45385; principal; 2024-04-03 08:20)
DX: Z09 Encounter for follow-up examination after completed treatment for conditions other than malignant neoplasm (principal); Z86.0100 Personal history of colon polyps, unspecified; K57.30 Diverticulosis of large intestine without perforation or abscess without bleeding; D12.2 Benign neoplasm of ascending colon; D12.5 Benign neoplasm of sigmoid colon; K63.5 Polyp of colon; I10 Essential (primary) hypertension; E11.9 Type 2 diabetes mellitus without complications; E78.00 Pure hypercholesterolemia, unspecified; E66.01 Morbid (severe) obesity due to excess calories; Z68.41 Body mass index [BMI] 40.0-44.9, adult; Z79.84 Long term (current) use of oral hypoglycemic drugs; Z87.891 Personal history of nicotine dependence; K21.9 Gastro-esophageal reflux disease without esophagitis; K44.9 Diaphragmatic hernia without obstruction or gangrene; Z86.718 Personal history of other venous thrombosis and embolism
CPT/HCPCS: 45385; 36415; 82948; 88305; J2704

== ENCOUNTER 2024-06-11 20:16 | Outpatient (REF) | payer MEDICARE, SELFPAY ==
--- OUTSIDE RECORDS SUMMARY | 2024-06-11 20:19 | XMS_ITS | CCD ---
Author Organization [facility] Care Team Providers Care Carrot Buncher Name Role Phone DAWOOD, DR TORRES Primary Care Unavailable KARASIK, DR PATE Admitting Unavailable KARASIK, DR PATE Attending Unavailable KARASIK, DR PATE Consulting Unavailable VALONE, DR TORRES Primary Care Unavailable KARASIK, DR PATE Admitting Unavailable KARASIK, DR PATE Attending Unavailable KARASIK, DR PATE Consulting Unavailable ZIEBER, DR GEOFF Bentley Consulting Unavailable ROSSCHINTAN Admitting Unavailable VALONE, DR TORRES Primary Care Unavailable ROSSCHINTAN Attending Unavailable ROSS, CHINTAN QUINTANILLA Consulting Unavailable [...] Unavailable MELISSA SEAY JR Primary Care Physician [phone] Edda Peña Attending Unavailable Edda Peña Admitting Unavailable Unallocated , Noms Provider Primary Care Provi alan Edda PEÑA Attending Unavailable Edda PEÑA Attending Unavailable NAWRBHARAT MONROY Admitting Unavailable NAWRBHARAT MONROY Attending Unavailable EDDA PEÑA Referring Unavailable Allergies Allergy Classification Reported Allergen(s) Allergy Type Date of Onset Reaction(s) Facility (2 sources) Cephalexin; Translations: [Keflex] Drug Allergy [facility] Repository (3 sources) venlafaxine; Translations: [venlafaxine] Drug Allergy 4 [facility]ository (3 sources) Cephalexin; Translations: [cephalexin] Drug Allergy 4 Itching (finding), Hives [facility] (2 sources) venlafaxine; Translations: [venlafaxine] Drug Allergy 4 Itching (finding), Hives [facility] Medications Current Medications Medication Drug Class(es) Dates Sig (Normalized) Sig (Original) acarbose 100 mg oral tablet (2 sources) alpha-Glucosidase Inhibitor Start: 02-23-2024 take 1 tablet by mouth three times daily acarbose 100 mg oral tablet 100 mg = 1 tab(s), Oral, TID, Refills(s) 0 Start Date: 02/23/24 Status: Ordered Start: 05-25-2023 acarbose (Prec ose) 100 MG tablet 05/25/2023 Active aspirin 81 mg delayed release oral tablet (2 sources) Platelet Aggregation Inhibitor, Nonsteroidal Anti-inflammatory Drug Start: 03-05-2024 take 1 tablet by mouth once daily aspirin 81 mg Oral EC Tab 81 mg = 1 tab(s), Oral, Daily, Refills(s) 0 Start Date: 03/05/24 Status: Ordered take 1 tablet by mouth once opal y aspirin 81 MG EC tablet Take 81 mg by mouth Daily Active biotin 1 mg oral tablet (2 sources) Start: 02-10-2021 take 1 tablet by mouth once daily biotin 1000 mcg oral tablet 1,000 mcg = 1 tab(s), Oral, Daily Start Date: 02/10/21 Status: Ordered biotin 45886 MCG tablet Take by mouth Active candesartan cilexetil 16 mg oral tablet (2 sources) Angiotensin 2 Receptor Won Start: 02-23-2024 take 1 tablet by mouth once daily candesartan 16 mg Tab 16 mg = 1 tab(s), Oral, Daily, Refills(s) 0 Start Date: 02/23/24 Status: Ordered Start: 05-25-2023 candesartan (A tacand) 16 MG tablet 05/25/2023 Active cetirizine hydrochloride 10 mg oral tablet (2 sources) Histamine-1 Receptor Antagonist Start: 03-05-2024 take 1 tablet by mouth once daily cetirizine 10 mg Tab 10 mg = 1 tab(s), Oral, Daily, Refills(s) 0 Start Date: 03/05/24 Status: Ordered cetirizine (ZyrT EC) 10 MG tablet Take by mouth Active DULoxetine 60 mg delayed release oral capsule (2 sources) Serotonin and Norepinephrine Reuptake Inhibitor Start: 02-23-2024 take 1 capsule by mouth once daily duloxetine 60 mg oral delayed release capsule 60 mg = 1 cap(s), Oral, Daily, Refills(s) 0 Start Date: 02/23/24 Status: Ordered Start: 05-25-2023 DULoxetine (Cy mbalta) [address] capsule 05/25/2023 Active eslicarbazepine acetate 200 mg oral tablet (1 source) Eslicarbazepine Acetate (Aptiom) 200 MG tablet Take by mouth Active esomeprazole 40 mg delayed release oral capsule (2 sources) Proton Pump Inhibitor Start: 02-11-20 esomeprazole (NexIUM) [address] capsule 05/25/2023 Active magnesium oxide 400 mg oral tablet (2 sources) Start: 02-11-20 take 1 tablet by mouth once daily magnesium oxide 400 mg Tab 400 mg = 1 tab(s), Oral, Daily, Refills(s) 0 Start Date: 02/10/21 Status: Ordered magnesium oxide (Mag-Ox) 400 mg tablet 400 mg Daily Active metFORMIN hydrochloride 500 mg oral tablet (2 sources) Biguanide Start: 02-23-2024 take 1 tablet by mouth twice daily MetFORMIN (Eqv-Glucophage XR) 500 mg oral tablet, extended release 500 mg = 1 tab(s), Oral, BID, Refills(s) 0 Start Date: 02/23/24 Status: Ordered Start: 11-22-2023 take 1 tablet by jennifer th every twenty-four hours at mealtime metFORMIN XR (Glucophage-XR) 500 MG 24 hr tablet Take 500 mg by mouth in the evening. Take with meals 11/22/2023 Active 24 hr mirabegron 50 mg extended release oral tablet (2 sources) beta3-Adrenergic Agonist Start: 05-25-2023 Myrbe triq 50 MG 24 hr tablet 05/25/2023 Active Start: 02-10-2021 take [address] [facility] once daily Myrbetriq 50 mg oral tablet, extended release 50 mg = 1 tab(s), Oral, Daily, Refills(s) 0 Start Date: 02/10/21 Status: Ordered montelukast 10 mg oral tablet (2 sources) Leukotriene Receptor Antagonist Start: 02-10-2021 montelukast (Singulair) 10 MG tablet 05/25/2023 Active Multivitamins and Minerals (1 source) Start: 02-10-2021 take 1 tablet by mouth once daily Multivitamins and Minerals 1 tab(s), Oral, Daily, Refill(s) 0 Start Date: 02/10/21 Status: Ordered pravastatin sodium 20 mg oral tablet (2 sources) HMG-CoA Reductase Inhibitor Start: 02-10-2021 pravastatin (Pravachol) 20 MG tablet 05/25/2023 Active vitamin b12 1 mg oral tablet (1 source) Vitamin B12 take 1 tablet by mouth once daily cyanocobalamin (Vitamin B-12) 1000 MCG tablet Take 1,000 mcg by mouth Daily Active Vitamin B12 1000 mcg Tab (1 source) Start: 02-10-2021 take 1 tablet by mouth once daily Vitamin B12 1000 mcg Tab 1,000 mcg = 1 tab(s), Oral, Daily, Refills(s) 0 Start Date: 02/10/21 Status: Ordered vitamin b6 100 mg oral tablet (1 source) take 1 tablet by mouth once daily pyridoxine (Vitamin B-6) 100 MG tablet Take 100 mg by mouth Daily Active Vitamin B6 50 mg Tab (1 source) [...] Refills(s) 0 Start Date: 02/10/21 Status: Ordered VITAMIN D PO (1 source) VITAMIN D PO Erik e by mouth Active Problems Active Problems Problem Classification Problem Date [...] neoplasm of ascending colon 03-23-2021 Episodic Other and unspecified benign neoplasm (2 sources) Benign neoplasm of colon, unspecified; Translations: [Benign neoplasm of colon, unspecified] Onset: 05-29-2024 Episodic Other liver diseases (1 source) Non-alcoholic [...] te Episodic/Chronic Other aftercare (1 source) Other senior care (current) drug therapy; Translations: [OTH AQUATICS DIRECTOR CURRENT DRUG THERAPY] Onset: 03-15-2021 Episodic Other [...] Test Name Value Interpretation Reference Range Facility Telephoneon 06-06-2024 Telephone [id number] Gigi Koch 1950 F Date Provider Department Center 06/06/2024 [id number] NELL [facility] No family history on file Normal [facility] HISTOLOGY - TISSUE EXAMon LAB AP CASE REPORT Normal [facility] Comment on above: Result Comment: Surg ical Pathology Case: [id number] Authorizing Provider: Bharat Sanz MD Collected: 05/29/2024 1113 Ordering Location: [facility] Received: 05/29/2024 14[facility] Pathologist: Nkechi Jimenez MD Specimens: A) - Large Intestine, Right/Ascending Colon, r/o adenoma EMR B) - Ileocecal Valve, r/o adenoma C) - Large Intestine, Cecum, r/o adenoma EMR cecal polyp Performed By: #### L [id number] ####[facility] ([facility])[address] [place] [address] LAB AP CLINICAL INFORMATION Order Diagnoses Normal [facility] Comment on above: Result Comment: D12. 6 - Tubular adenoma of colon [ICD-10-CM] Performed By: #### L [id number] ####[facility] ([facility] [place] [address] LAB AP GROSS DESCRIPTION Normal [facility] Comment on above: Result Comment: A. L arge Intestine, Right/Ascending Colon. The specimen is received in formalin in a container labeled Gigi Beulah and r/o adenoma EMR . It consists of multiple tucker-pink to tucker-brady soft tissue fragments, 0.1 to 0.5 cm in greatest dimension and 0.9 x 0.5 cm in total aggregate. The specimen is submitted entirely in 1 cassette. Joyce Webster, student fellow B. Ileocecal Valve. The specimen is received in formalin in a container labeled Gigi Beulah and r/o adenoma . It consists of It consists of a 0.9 x 0.5 x 0.2 cm unoriented, tucker-pink, polypoid EMR specimen. The mucosal surface is tucker-pink, dull and friable. The resection margin is inked black and the specimen is serially sectioned to reveal tucker-yellow homogenous surface. Each end is further bisected and the cut surface is inked red. The red aspect is to be embedded down by histology. Also in the container are 3 tucker-pink, focally erythematous soft tissue fragments, 0.2 to 0.6 cm in greatest dimension. The specimen is entirely submitted as follows: Cassette summary: B1: End 1, bisected, perpendicular (red ink embedded down) B2: End 2, bisected, perpendicular (red ink embedded down) B3: Remaining sequential sections B4: Separate soft tissue fragments Joyce Webster, student fellow C. Large Intestine, Cecum. The specimen is received in formalin in a container labeled Gigi Beulah and r/o adenoma EMR cecal polyp . It consists of a 0.4 x 0.2 x 0.2 cm pink-tucker, dull, friable polypoid fragment; as well as multiple tucker-brady to tucker-pink soft tissue fragments ranging from 0.1 to 0.6 cm in greatest dimension and 1.5 x 0.9 cm in total aggregate. The polypoid fragment is inked black at the resection margin, bisected and submitted entirely in cassette 1, the remaining soft tissue fragments are submitted entirely in cassette 2. Joyce Webster, student fellow Performed By: #### L [id number] ####[facility] ([facility])[address] [place] [address] LAB AP MICROSCOPIC DESCRIPTION Microscopic examination performed. [facility] Comment on above: Performed By: #### L [id number] ####[facility] ([facility])[address] [place] [address] LAB AP REPORT FINAL DIAGNOSIS NARRATIVE [facility] Comment on above: Result Comment: A. C olon, ascending polyp, resection: - Fragments of tubular adenoma. - No high grade dysplasia is seen. B. Ileocecal valve, polyp, polypectomy: - Fragments of tubular adenoma. - No high grade dysplasia is seen. C. Colon, cecal polyp, resection: - Multiple fragments of tubular adenoma. - No high grade dysplasia is seen. Performed By: #### L [id number] ####[facility] ([facility] [place] [address] HPon 05-29-2024 HP History Of Present I llness Gigi Koch is a 73 y.o. 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 Repeated colonoscopy in March of last year revealed recurrent polyp. The polyp could not be removed. The patient is scheduled to have colonoscopy with possible endoscopic mucosal resection of the ascending colon polyp. Past Medical History She has a past medical history of Allergic rhinitis, Arthritis, Depression, Diabetes mellitus (CMS/HCC), GERD (gastroesophageal reflux disease), Hypertension, OAB (overactive bladder), Seasonal allergies, and UTI (urinary tract infection). Surgical History She has a past surgical history that includes Cholecystectomy; Foot surgery; and Inner ear surgery. Social History She reports that she has never smoked. She has never used smokeless tobacco. She reports that she does not drink alcohol and does not use drugs. Family History No family history on file. Allergies Cephalexin and Venlafaxine Medications (Not in a hospital admission) Review of Systems Constitutional: Negative. Respiratory: Negative. Cardiovascular: Negative. Gastrointestinal: Negative. Genitourinary: Negative. Skin: Negative. Last Recorded Vitals Visit Vitals BP 105/87 (BP Location: Left arm, Patient Position: Lying) Pulse 97 Temp 36 ???C (96.8 ???F) (Temporal) Resp 16 Ht 1.676 m (5' 6 ) Wt 107 kg (236 lb 15.9 oz) SpO2 99% BMI 38.25 kg/m??? Smoking Status Never BSA 2.24 m??? Physical Exam HEENT: Anicteric sclera, conjunctiva Chest: Unremarkable Heart: Unremarkable Abdomen: Soft, no tenderness Lower extremities: No edema Relevant Lab Results No results found for: NA , K , CL , CO2 , BUN , CREATININE , GLUCOSE , CALCIUM , ANIONGAP , EGFR , BCR Relevant Imaging Results No image results found. Assessment/Plan Gigi Koch is a 73 y.o. 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 Repeated colonoscopy in March of last year revealed recurrent polyp. The polyp could not be removed. The patient is scheduled to have colonoscopy with possible endoscopic mucosal resection of the ascending colon polyp. Normal [facility] NURSNOTEon 05-29-2024 NURSNOTE Ileocecal valve poly p EMR ascending polyp removed cecal polyp Normal [facility] POCT GLUCOSE METER UNSOLICIT ED RESULTSon 05-29-2024 Glucose [Mass/Vol] 142 mg/dL High 70-105 [facility] Comment on above: Order Comment: Waive d Testing in the ED is performed under the ED CLIA certificate #[id number]. Result Comment: ngro gerri Performed By: #### L [id number] ####[facility] ([facility])[address] [place] [address] Prep for Procedureon 025 Prep for Procedure [id number] Gigi Koch 1950 F Date Provider Department Center 05/29/2024 BHARAT RODRIGUEZ [facility] No family history on file [facility] 36on 05-07-2024 36 Able to leave a mess age today for patient to call and schedule colonoscopy with EMR Normal [facility] Telephoneon 05-07-2024 Telephone [id number] Gigi Koch 1950 F Date Provider Department [place] 05/07/2024 NELL RUIZ [facility] No family history on file [facility] 36on 05-03-2024 36 Attempted to call an d schedule patient for a colonoscopy with EMR, see ref in media tab dated 04/05/[address] Peña's office. Phone just rings unable to leave a message, will try again later. Normal [facility] Telephoneon 05-03-2024 Telephone [id number] Gigi Koch 1950 F Date Provider Department [place] 05/03/2024 NELL RUIZ [facility] No family history on file [facility] Carlos 04-03-2024 L --------- ----- Specimen: [id number] Received: 04/03/24 Status: SERGEY Ibarra Num: [id number] Spec Type: Surgical Subm Dr: Edda Peña MD FACS Tissues: A Colon Biopsy (ASCENDING COLON POLYPS) B Colon Biopsy (SIGMOID POLYPS) Procedures: HE/Samina, Gross/Micro L4/2 ----- Age/ Patient Sex Location Account Attending Physician ----- Gigi Koch 73/F LABELL [id number] Edda Peña MD FACS ----- SPEC NUM: [id number] RECD: 04/03/24 STATUS: SERGEY IBARRA NUM: [id number] SANAZ: 04/03/[address] [facility] [address]: Edda Peña MD FACS ENTERED: 04/03/[address]: Carli Bass SPEC TYPE: Surgical DEPT: [facility] ENTERED BY: [id number] RECV BY: [id number] ORDERED: HE/4, Gross/Micro L4/2 ORDERED: HE/4, Gross/Micro L4/2 Pathological Diagnosis A. Colon, ascending, polypectomy: - Fragments of tubulovillous adenoma and tubular adenoma. B. Colon, sigmoid, polypectomy: - Tubulovillous adenoma and hyperplastic polyp. Clinical Information Ascending colon polyp; sigmoid polyp;sigmoid diverticulosis Gross Description Part A is received in formalin labeled with the patients name, date of , and ascending colon polyps are multiple tucker-brady, focally erythematous, friable, 1.7 x 0.8 x 0.3 cm in aggregate polypoid fragments. The specimen is filtered and entirely submitted in a single cassette. (1, ns, [id number] A) Part B is received in formalin labeled with the patients name, date of , and sigmoid polyp are two tucker-brady, focally erythematous, friable, 0.3 and 0.4 cm in greatest dimension polypoid fragments. The specimen is entirely submitted in a single cassette. (1, ns, [id number] B) J ----- Specimen: [id number] Received: 04/03/24 Status: SERGEY Ibarra Num: [id number] Spec Type: Surgical Subm Dr: Edda Peña MD FACS Tissues: A Colon Biopsy (ASCENDING COLON POLYPS) B Colon Biopsy (SIGMOID POLYPS) Procedures: HE/4, Gross/Micro L4/2 ----- Patient: Gigi Koch [id number] (Continued) ----- Specimen: [id number] Received: 04/03/24 (Continued) Signed (signature on file) Rohan Boyle MD 04/04/241124 ----- Specimen: [id number] Received: 04/03/24 Status: SERGEY Ibarra Num: [id number] Spec Type: Surgical Subm Dr: Edda Peña MD FACS Tissues: A Colon Biopsy (ASCENDING COLON POLYPS) B Colon Biopsy (SIGMOID POLYPS) Procedures: CANDY/Samina, Gross/Micro L4/2 ----- Patient: Gigi Koch [id number] (Continued) ----- Specimen: [id number] Received: 04/03/24 (Continued) Microscopic Description A B: Microscopic examination is performed. CPT Codes 98221 x2 ----- ----- Specimen: [id number] Received: 04/03/24 Status: SERGEY Ibarra Num: [id number] Spec Type: Surgical Subm Dr: Edda Peña MD FACS Tissues: A Colon Biopsy (ASCENDING COLON POLYPS) B Colon Biopsy (SIGMOID POLYPS) Procedures: HE/Samina, Gross/Micro L4/2 ----- Patient: BeulahGigi [id number] (Continued) ----- Signed (signature on file) Rohan Boyle MD 04/04/24 1125 Normal [facility] Ambulatory Visit Summaryon 1 05-05-2023 Ambulatory Visit [...] for choosing us for your care. Normal [facility] IGP,APTIMA HPV,AGE GDLNon AGE GDLN ACOG TESTING Note . [facility] Comment on above: TESTS RESULT FLAG UN ITS REF RANGE LAB Clinician Provided Cytology Information Source.............Vagina No. of containers..01 ThinPrep Vial Age Algo ACOG Nicole... Note 01 <21 or >65 or no age provided FLAG LEGEND: L-Low Normal,H-High Normal,LL-Alert Low,HH-Alert High <-Panic Low,>-Panic High,A-Abnormal,AA-Critical Abnormal Performed at: 01 =G [facility] [address] [place] [address] Demetrice Solomon MD, Interpretation and review of laboratory results Abnormal [facility] PAP IG (IMAGE GUIDED) Note Abnormal . [facility] Comment on above: TESTS RESULT FLAG UN ITS REF RANGE LAB DIAGNOSIS: [A] 02 EPITHELIAL CELL ABNORMALITY. ATYPICAL SQUAMOUS CELLS OF UNDETERMINED SIGNIFICANCE (ASC-US) (VAGINAL). Recommendation: [A] 02 Suggest follow up as clinically appropriate. Specimen adequacy: 02 Satisfactory for evaluation. Performed by: 02 Prashanth Agarwal, Lapel Baster ([facility]) Electronically si... Demetrice Solomon MD, Pathologist . 02 Pathologist ICD10: 02 R87.620 Note: Note 02 The Pap smear is a screening test designed to aid in the detection of premalignant and malignant conditions of the uterine cervix. It is not a diagnostic procedure and should not be used as the sole means of detecting cervical cancer. Both false-positive and false-negative reports do occur. Test Methodology: Note 02 This liquid based ThinPrep(R) pap test was screened with the use of an image guided system. FLAG LEGEND: L-Low Normal,H-High Normal,LL-Alert Low,HH-Alert High <-Panic Low,>-Panic High,A-Abnormal,AA-Critical Abnormal Performed at: [address] [facility] [address] [place] [address] Demetrice Solomon MD, Performed at: =G - [facility] [address], [place] [id number] [place]: Demetrice Solomon MD, Phone: [phone] Performed at: [facility] [address] [id number] [place]: Demetrice Solomon MD, Phone: [phone] SPATULA-ALONE VAGINA [facility] PAP ACOG PANEL 2: 30 to 65on 11-23-2021 . . Normal [facility] Comment on above: Performed By: #### 4 [id number] #### [facility] [address] [place] [address] Dr. Swapnil Bush Age Gdln ACOG Testing Comment [facility] Comment on above: Result Comment: <21 or >65 or no age provided Performed By: #### 4 [id number] #### [facility] [address] [place] [address] Dr. Swapnil Bush DIAGNOSIS: Comment [facility] Comment on above: Result Comment: NEGA TIVE FOR INTRAEPITHELIAL LESION OR MALIGNANCY. THIS SPECIMEN WAS RESCREENED PART OF OUR GATE TECHNICIAN PROGRAM. Performed By: #### 4 [id number] #### [facility] [address] [place] [address] Dr. Swapnil Bush Methodology: Comment [facility] Comment on above: Result Comment: This liquid based ThinPrep(R) pap test was screened with the use of an image guided system. Performed By: #### 4 [id number] #### [facility] [address] [place] [address] Dr. Swapnil Bush Note: Comment [facility] Comment on above: Result Comment: The Pap smear is a screening test designed to aid in the detection of premalignant and malignant conditions of the uterine cervix. It is not a diagnostic procedure and should not be used as the sole means of detecting cervical cancer. Both false-positive and false-negative reports do occur. . Performed By: #### 4 [id number] #### [facility] [address] [place] [address] Dr. Swapnil Bush Performed by: Comment Normal [facility] Comment on above: Result Comment: Silvia Juarez Lapel Baster (ASCP) Performed By: #### 4 [id number] #### [facility] [address] [place] [address] Dr. Swapnil Bush QC reviewed by: Comment Normal [facility] Comment on above: Result Comment: Esther Dow, Supervisory Lapel Baster (ASCP) Performed By: #### 4 [id number] #### [facility] [address] [place], [place] [address] Dr. Swapnil uBsh Specimen adequacy: Comment Normal [facility] Comment on above: Result Comment: Sati sfactory for evaluation. Endocervical and/or squamous metaplastic cells (endocervical component) are present. Performed By: #### 4 [id number] #### [facility] [address] [place], [place] [address] Dr. Swapnil Bush MG MAMM SCREEN 3D MARK CADon 11-22-2021 MG MAMM SCREEN 3D MARK CAD Patient: GIGI KOCH Exam Date: 11/22/2021 : 1950 Gender:F Ordering : DR RIO NGUYEN . Admission #: [id number] Family : Order #: [id number] CLICK HERE TO VIEW EXAM RADIOLOGY REPORT [...] uterine cancer at age 81. LOCATION: [facility] BREAST COMPOSITION: Heterogeneously dense,which may obscure [...] Soto M.D. on 11/23/2021 at 14:26 Normal [facility] XR DEXA BONE DENSITYon 11-22 XR [...] by: GEOFF SOTO Date: 2021-11-22 16:44 Normal [facility] Covid-19 PCR (CVDTB)on SARS-CoV-2 (COVID-19) RNA RANDA+probe Ql (Unsp spec) Not detected Normal NOT DETECTED [facility] Comment on above: Result Comment: This test is not yet approved or cleared by the [place] FDA. When there are no FDA-approved or cleared tests available, and other criteria are met, FDA can make tests available under an emergency access mechanism called an Emergency Use Authorization (EUA). The EUA for this test is supported by the Occupational Hygienist of Health and Human Service's (HHS's) declaration [...] and symptoms consistent with SARS-CoV-2. Performed By: Kody### C VDTB #### [facility] [address] [place] [address] Dr. Swapnil Bush Covid-19 PCR ([facility])on 02-22 SARS-CoV-2 (COVID-19) RNA RANDA+probe Ql (Unsp spec) Not detected Normal NOT DETECTED [facility] Comment on above: Result Comment: This test is not yet approved or cleared by the [place] FDA. When there are no FDA-approved or cleared tests available, and other criteria are met, FDA can make tests available under an emergency access mechanism called an Emergency Use Authorization (EUA). The EUA for this test is supported by the [place] of Health and Human Service's (HHS's) declaration [...] SARS-CoV-2. Performed By: #### C VDTB #### [facility] [address] [place] [id number] Swapnil Bsuh Vital Signs Date Time Vital Sign Value Performing Clinician Dainelle ferguson 03-05-2024 14:02-0500 Blood Pressure Location [employer] [facility] 03-05-2024 14:02-0500 Diastolic blood pressure 86 mm[Hg] Edda [email or web address] [facility] 03-05-2024 14:02-0500 Heart rate 72 /min Edda [employer] [facility] 03-05-2024 14:02-0500 Respiratory rate 16 /min Edda PEÑA [facility] 03-05-2024 14:02-0500 Systolic blood pressure 124 mm[Hg] Edda CARRINGTONL [facility] Shelia Encounters Encounter Date Encounter Type Care Provider Facility Start: 05-29-2024 End: 05-29-2024 ambulatory BHARAT SANZ [facility] Start: 04-03-2024 End: 04-03-2024 ambulatory Edda R Nill Facility:[facility] Start: 04-03-2024 End: 04-03-2024 ambulatory Edda R NILL Facility:CD:[id number] Start: 03-05-2024 End: 03-05-2024 ambulatory [facility] R [facility] Start: 03-05-2024 End: 03-05-2024 Patient encounter procedure Edda Mc NILL [facility] Start: 12-06-2023 End: 12-15-2023 Clinisync Result Encounter Christofer Katelyn DO Work Phone: [facility] Unsolicited Start: 12-06-2023 End: 12-15-2023 Clinisync Result Encounter Christofer Katelyn DO Work Phone: [facility] Unsolicited Start: 12-06-2023 End: 12-06-2023 ambulatory CHRISTOFER KATELYN Not Available Start: 09-21-2023 End: 09-21-2023 ambulatory [...] DR MELISSA SEAY Facility:[facility] Start: 11-17-2021 End: 07-27-[address] MELISSA SEAY Facility:[facility] Start: 04-27-2021 End: 04-27-[address] MELISSA SEAY Facility:[facility] Start: 03-11-2021 Encounter for preprocedural laboratory examination DR EDDA PEÑA [facility] Start: 03-10-2021 End: 03-10-[address] EDDA PEÑA Facility:[facility] Start: 03-06-2021 End: 03-07-[address] MELISSA SEAY Facility:[facility] Start: 03-06-2021 End: 03-07-2021 Encounter for preprocedural laboratory examination DR MELISSA SEAY Facility:[facility] Start: 03-02-2021 End: 03-03-2021 ambulatory CHINTAN GALINDO Facility:[facility] Procedures Date Procedure Procedure Detail Performing Clinician Start: 12-06-2023 IGP,APTIMA HPV,AGE GDLN Christofer Katelyn DO Work Phone: Start: 03-10-2021 Colonoscopy Edda ZEBL Start: 06-20-2016 Dilation and curettage Edda ZEBL Start: 06-20-2016 Hysteroscopy Edda NILL Start: 02-12-2013 Needle localization using ultrasound guidance and mammography Edda NILL Comment on above: left breast Start: 06-10-2010 Lithotripsy Edda NILL Start: 04-24-2001 Colonoscopy Edda NILL Start: 04-24-2001 Esophagogastroduodenoscopy Edda NILL Start: 02-12-2000 Arthroscopy of knee Edda NILL Comment on above: left Cholecystectomy Edda CARRINGTONL Left ear structure ( body structure) Edda NILL Tooth extraction Edda NIL L Plan of Treatment Date Care Activity Detail Author Start: 01-07-2024 Screening for malign ant neoplasm of colon [facility] Start: 12-24-2023 Influenza vaccination Influenza Vacc ine (#1) [facility] Start: 2013 Pneumococcal Vaccine : 65+ Years (1 of 1 - PCV) Pneumococcal Vaccine: 65+ Years (1 of 1 - PCV) [facility] Start: 1950 Medicare Annual Well ness (AWV) Medicare Annual Wellness (AWV) [facility] Start: 1950 Screening for malign ant neoplasm of colon [facility] Immunizations Immunization Date Immunization Notes Care Provider Fa cility 07-21-2020 SARS-CoV-2 (COVID-19 ) mRNA BNT-162b2 vax Edda CARRINGTONYg [facility] 06-29-2020 SARS-CoV-2 (COVID-19 ) mRNA BNT-162b2 vax Edda CARRINGTONL [facility] Payers Date Payer Category Payer Medicare [id number] 2023 Medicare ANTHEM MEDICARE ADVANTAGE ANTHEM MEDICARE ADVANTAGE [id number] 2023-Present [address] [place] [address] [id number] 2023 Medicare [id number] 1959 Medicare [id number] 1959 Self-pay 1948 Unknown [id number] 1948 Unknown [id number] 1948 Unknown [id number] [id number] 1948 Unknown [id number] [id number] 1948 Unknown [id number] 2.840.1.766544.3.579.2.593 1948 Unknown [id number] 2.16.840.1.394460.3.579.2.125 9 1948 Unknown [id number] 2.16.840.1.153040.3.579.2.125 9 1948 Unknown [id number] 2.16.840.1.011455.3.579.2.125 9 1948 Unknown [id number] 2.16.840.1.670858.3.579.2.125 9 1948 Unknown [id number] 2.16.840.1.241670.3.579.2.125 9 1948 Unknown [id number] 2.16.840.1.475727.3.579.2.125 9 1948 Unknown [id number] 2.16.840.1.349434.3.579.2.727 1948 Unknown [id number] 2.16.840.1.162656.3.579.2.727 Unknown [id number] [id number] Unknown [id number] [id number] Social History Date Type Detail Facility Start: 07-27-2023 End: 03-05-2024 Tobacco smoking status Never smoked tobacco (finding) [facility] Tobacco smoking status Never [facility] Start: 09-21-2023 Sex Assigned At Female F [facility] Start: 07-27-2023 Tobacco use and exposure Smokeless tobacco non-user [facility] Start: 12-06-2023 Alcoholic beverage intake Defer [facility] Start: 09-21-2023 History of Social function [facility] Start: 1950 Sex assigned at Not on file [facility] NEGATED: Highlighted rowStart: NINF History of tobacco use Passive smoker [facility] Functional Status Date Assessment Result Facility 03-05-2024 Functional Status N/A [facility] Clinical Note 06-06-2024 Note Date & Type Note Facility 06-06-2024 Note Colonoscopy and EMR procedure note from 05/29/24 and pathology faxed to referring office of Dr. Carrington at [phone] [facility] Clinical Note 05-29-2024 Note Date & Type Note Facility 05-29-2024 Note Patient: Gigi altamirano Procedure Summary Date: 05/29/24 Room / Location: [facility] Endoscopy Anesthesia Start: 1051 Anesthesia Stop: 1306 Procedure: DIAGNOSTIC COLONOSCOPY Diagnosis: Tubular adenoma of colon Scheduled Providers: Bharat Sanz MD; Bunny Marion MD; SUN Maki Responsible Provider: Bunny Marion MD Anesthesia Type: general ASA Status: 3 Anesthesia Type: general Vitals Value Taken Time BP 139/75 05/29/24 1320 Temp 36.2 ???C (97.2 ???F) 05/29/24 1305 Pulse 83 05/29/24 1320 Resp 20 05/29/24 1320 SpO2 100 % 05/29/24 1320 Anesthesia Post Evaluation Patient location during evaluation: PACU Patient participation: complete - patient participated Level of consciousness: awake Pain score: 1 Pain management: adequate Airway patency: patent Cardiovascular status: acceptable Respiratory status: acceptable Patient is hemodynamically stable and is able to be discharged from PACU per anesthesia protocol. No notable events documented. [facility] Clinical Note 05-29-2024 Note Date & Type Note Facility 05-29-2024 Note Patient: Gigi altamirano Procedure Summary Date: 05/29/24 Room / Location: [facility] Endoscopy Anesthesia Start: 1051 Anesthesia Stop: Procedure: DIAGNOSTIC COLONOSCOPY Diagnosis: Tubular adenoma of colon Scheduled Providers: Bharat Sanz MD; Bunny Marion MD; SUN Maki Responsible Provider: Bunny Marion MD Anesthesia Type: general ASA Status: 3 Anesthesia Post Transport Note Transport to: [facility] O2 Route: room air Patient Monitor: direct observation Transport: uneventful Patient condition is: stable [facility] Procedure note 05-29-2024 Note Date & Type Note Facility 05-29-2024 Note Airway Date/Time: 05/29/2024 11:01 AM Urgency: elective General Information and Staff Patient location during procedure: OR Anesthesiologist: Bunny Marion MD Resident/NATIONAL STORMWATER LEADER/CAA: SUN Maki Performed: resident/NATIONAL STORMWATER LEADER/SUN Indications and Patient Condition Indications for airway management: anesthesia Spontaneous Ventilation: absent Sedation level: deep Preoxygenated: yes Mask difficulty assessment: 2 - vent by mask + OA or adjuvant +/- NMBA Final Airway Details Final airway type: endotracheal airway Successful airway: ETT Cuffed: yes Successful intubation technique: video laryngoscopy Facilitating devices/methods: intubating stylet Endotracheal tube insertion site: oral Blade: Lin Blade size: #3 ETT size (mm): 7.0 Cormack-Lehane Classification: grade I - full view of glottis Placement verified by: chest auscultation and capnometry Measured from: lips ETT to lips (cm): 22 Number of attempts at approach: 1 Number of other approaches attempted: 0 [facility] Clinical Note 05-29-2024 Note Date & Type Note Facility 05-29-2024 Note Patient: Gigi altamirano Procedure Information Date/Time: 05/29/24 1115 Scheduled providers: Bharat Sanz MD; Bunny Marion MD; SUN Maki Procedure: DIAGNOSTIC COLONOSCOPY Location: [facility] Relevant Problems Anesthesia (within normal limits) Cardio HTN, denies chest pain/SOB. No previous cardiac interventions. Endo BMI 38, DM II, on oral hypoglycemics. FBS 142 mg/dl /Renal Unaware of kidney disease, No labs available. Neuro/Psych On cymbalta. Clinical information reviewed: Allergies Meds Med Hx Surg Hx Fam Hx Hypertension Allergic rhinitis GERD (gastroesophageal reflux disease) Arthritis Diabetes mellitus (CMS/HCC) UTI (urinary tract infection) Depression Seasonal allergies OAB (overactive bladder) Physical Exam Airway Mallampati: II TM distance: >3 FB Neck ROM: full Cardiovascular - normal exam Dental (+) edentulous Pulmonary - normal exam Abdominal Anesthesia Plan ASA 3 MAC The patient is not a current smoker. Patient was not previously instructed to abstain from smoking on day of procedure. Patient did not smoke on day of procedure. intravenous induction Anesthetic plan and risks discussed with patient. Plan discussed with CAA. Additional Equipment Requests [facility] Clinical Note 11-12-2024 Note Date & Type Note Facility 03-05-2024 [...] Oral, Daily M (more content not included)... [facility] Comment on above: Result Comment: Elec tronically Signed By: VIET RUSSELL, Edda R\.br\Date and Time Signed: 03/05/24 15:57 EST Clinical Note 03-10-2021 Note Date & Type Note Facility 03-10-2021 Note [facility] [place] [place] NAME: GIGI KOCH DATE OF : MEDICAL REC#: [id number] ROOFING LAYER: [address] ADMIT DATE: 03/10/2021 07:41:00 DECK MOLDER DATE: 03/10/2021 10:00 DICTATING PHYSICIAN: EDDA PEÑA [...] Edda Peña MD on 03/10/2021 11:23 AM [facility] Signed and Approved by: DR EDDA PEÑA . 03/10/2021 11:23:00 [facility] Evaluation + Plan note Note Date & Type Note Facility Evaluation + Plan note No data available for this section [facility] Hospital Discharge instructions Note Date & Type Note Facility Hospital Discharge instructions No data available for this section [facility] Progress note Note Date & Type Note Facility Progress note No data available for this section [facility] Summary Purpose Family History No Family History Records FoundNo Family History Records Found No data available for this section No Family History Records FoundNo Family History Records FoundNo Family History Records Found Advance Directives No Advanced Directives Records FoundNo Advanced Directives Records FoundNo Advanced Directives Records FoundNo Advanced Directives Records FoundNo Advanced Directives Records Found Additional Source Comments INFORMATION SOURCE (unrecogn ized section and content) DATE CREATED AUTHOR 11/26/2021 [facility] DATE CREATED AUTHOR AUTHOR'S ORGANIZ ATION 12/08/2023 [facility] EPIC DATE CREATED AUTHOR AUTHOR'S ORGANIZ ATION 04/06/2024 [facility] DATE CREATED AUTHOR AUTHOR'S ORGANIZ ATION 04/17/2024 [facility] DATE CREATED AUTHOR AUTHOR'S ORGANIZ ATION 06/08/2024 [facility] Patient Care team informatio n (unrecognized section and content) Carrot Buncher Relationship Specialty Start Date End Date Unallocated, [facility] MD Jolie [address] [place] [address] PCP - General Family Medicine 08/24/23 FOR RECORDS PERTAINING TO PATIENTS WHO ARE [...] BE BASED ON THE PRIMARY CLINICAL RECORDS. [employer] provides no warranty or guarantee of the accuracy or completeness of information in this document.
== END 2024-06-11 20:17 | disposition home or self-care (01) ==
LOC: LAB 20:16
PROVIDERS: PCP Internal Medicine; Visit Provider Obstetrics & Gynecology
DX: R87.610 Atypical squamous cells of undetermined significance on cytologic smear of cervix (ASC-US) (principal)
CPT/HCPCS: 88175

== ENCOUNTER 2024-06-20 13:04 | Outpatient (OUT) | payer MEDICARE, SELFPAY ==
--- NOTE | 2024-06-20 13:10 | MM_ITS ---
Patient Name: GIGI KOCH MR#: [id number] : 1950 Exam Date: 06/20/2024 Ordering Doctor: DR Dylan Zepeda . RADIOLOGY REPORT PROCEDURE: MM TOMOSYNTHESIS SCREENING BI COMPARISON: MM TOMOSYNTHESIS SCREENING BI, 06/13/2023. MG MAMM SCREEN 3D MARK CAD, 11/22/2021. MAMMO POST BIOPSY UNILATERAL LEFT, 08/23/2012. INDICATIONS: Screening Calculator Name NCI Breast Cancer Risk Assessment Tool 5 Year Breast Cancer Risk 6.20% Lifetime Breast Cancer Risk 13.00% Personal Breast Cancer No Personal Ovarian Cancer No Treatments None Family Cancers Grandmother-maternal with uterine cancer at age ~60; Father with pancreatic cancer at age 68; Grandfather-paternal with lung cancer at age ~70; Uncle-paternal with colon cancer at age ~70; Grandfather-maternal with lung cancer at age ~70; Aunt-paternal with uterine cancer at age 83. LOCATION: [facility] BREAST COMPOSITION: There are scattered areas of fibroglandular density. FINDINGS: DIAGNOSTIC CATEGORY 1--NEGATIVE. NO CHANGE FROM COMPARISON ASSESSMENT. RIGHT BREAST: No significant suspicious finding. LEFT BREAST: No significant suspicious finding. RECOMMENDATIONS: ROUTINE MAMMOGRAM AND CLINICAL EVALUATION IN 12 MONTHS. PLEASE NOTE: A NORMAL MAMMOGRAM DOES NOT EXCLUDE THE POSSIBILITY OF BREAST CANCER. A CLINICALLY SUSPICIOUS PALPABLE LUMP SHOULD BE BIOPSIED. Dictated by: Parish Almaguer DO on 06/20/2024 at 14:21 Approved by: Parish Almaguer DO on 06/20/2024 at 14:28
== END 2024-06-20 13:05 | disposition home or self-care (01) ==
LOC: MAMMO 13:04
PROVIDERS: PCP Internal Medicine; Visit Provider Obstetrics & Gynecology
DX: Z12.31 Encounter for screening mammogram for malignant neoplasm of breast (principal); M81.0 Age-related osteoporosis without current pathological fracture; Z13.820 Encounter for screening for osteoporosis; Z80.8 Family history of malignant neoplasm of other organs or systems; Z80.1 Family history of malignant neoplasm of trachea, bronchus and lung; Z80.0 Family history of malignant neoplasm of digestive organs
CPT/HCPCS: 77063; 77067; 77080

== ENCOUNTER 2024-12-17 19:42 | Outpatient (REF) | payer MEDICARE, SELFPAY ==
--- OUTSIDE RECORDS SUMMARY | 2024-12-17 11:20 | XMS_ITS | Encounter Summary ---
Author Organization [facility] Address [address] [place] [address] Care Team Providers Care Class A Regional Drivers Name Role Phone Unallocated, [facility] Provider Primary Care Provi alan Reason for Visit * Reason Comments Well Women Visit Encounter Details Date Type Department Care Team (Latest Contact Info) Description 12/17/2024 11:20 AM EDT Procedure Visit [facility] [address] [place] [address] Dylan Zepeda DO [address] [place] [phone] Well woman exam with routine gynecological exam; Breast cancer screening by mammogram; Postmenopausal state Social History Tobacco Use Types Packs/Day Years Used Date Smoking Tobacco: Never Passive Smoke Exposure: Never Smokeless Tobacco: Never Alcohol Use Standard Drinks/Week Comments Defer 0 (1 standard drink = 0.6 oz pur e alcohol) Comments No Sex and Gender Information Value Date Recorded Sex Assigned at Not on file Legal Sex Female 6:37 PM EDT Gender Identity Not on file Sexual Orientation Not on file documented as of this encounter Progress Notes * Emely Ball LPN - 12/17/2024 11:20 AM EDT Reason for Appointment: Patient ID: Annita Riojas is a 74 y.o. female who presents for Well Women Visit Patient presents today for Annual Exam. MEDICATIONS Current Outpatient Medications Medication Instructions acarbose (Precose) 100 MG tablet aspirin 81 mg, Daily biotin 83613 MCG tablet Take by mouth candesartan (Atacand) 16 MG tablet cetirizine (ZyrTEC) 10 MG tablet Take by mouth cyanocobalamin (VITAMIN B-12) 1,000 mcg, Daily DULoxetine (Cymbalta) [address] capsule Eslicarbazepine Acetate (Aptiom) 200 MG tablet Take by mouth esomeprazole (NexIUM) [address] capsule estradiol (ESTRACE) 0.25 g, Vaginal, Nightly, Apply pea sized amount to urethra opening At bedtime for 2 weeks, then at every other night magnesium oxide (MAG-OX) 400 mg, Daily metFORMIN XR (GLUCOPHAGE-XR) 500 mg, Daily with evening meal methenamine hippurate (HIPREX) 1 g, 2 times daily montelukast (Singulair) 10 MG tablet Myrbetriq 50 MG 24 hr tablet pravastatin (Pravachol) 20 MG tablet pyridoxine (VITAMIN B-6) 100 mg, Daily VITAMIN D PO Take by mouth ALLERGIES Allergies Allergen Reactions Cephalexin Hives and Itching Venlafaxine Hives and Itching PROBLEMS Active Ambulatory Problems Diagnosis Date Noted No Active Ambulatory Problems Resolved Ambulatory Problems Diagnosis Date Noted No Resolved Ambulatory Problems Past Medical History: Diagnosis Date GERD (gastroesophageal reflux disease) High cholesterol Hypertension Pre-diabetes HISTORY PAST MEDICAL HISTORY SOCIAL HISTORY Past Medical History: Diagnosis Date GERD (gastroesophageal reflux disease) High cholesterol Hypertension Pre-diabetes Social History Tobacco Use Smoking status: Never Passive exposure: Never Smokeless tobacco: Never Substance Use Topics Alcohol use: Defer Drug use: Defer FAMILY HISTORY No family history on file. SURGICAL HISTORY Past Surgical History: Procedure Laterality Date CATARACT EXTRACTION, BILATERAL EAR BIOPSY GALLBLADDER KIDNEY STONE SURGERY KNEE ARTHROPLASTY Left REVIEW OF SYSTEMS Review of Systems: Review of Systems Constitutional: Negative. HENT: Negative. Eyes: Negative. Respiratory: Negative. Cardiovascular: Negative. Gastrointestinal: Negative. Genitourinary: Negative. Musculoskeletal: Negative. Skin: Negative. Neurological: Negative. All other systems reviewed and are negative. Hematological: Negative. Endocrine: Negative. Allergic/Immunologic: Negative. OBJECTIVE Objective: Physical Exam Constitutional: Appearance: Normal appearance. She is well-developed. Genitourinary: Vulva normal. Breasts: Breasts are soft. Right: Normal. Left: Normal. Cardiovascular: Rate and Rhythm: Normal rate and regular rhythm. Pulmonary: Effort: Pulmonary effort is normal. Breath sounds: Normal breath sounds. Abdominal: General: Bowel sounds are normal. There is no distension. Palpations: Abdomen is soft. Tenderness: There is no abdominal tenderness. There is no guarding or rebound. Musculoskeletal: General: No swelling. Normal range of motion. Right lower leg: No edema. Left lower leg: No edema. Neurological: Mental Status: She is alert and oriented to person, place, and time. Skin: General: Skin is warm and dry. Psychiatric: Mood and Affect: Mood normal. Behavior: Behavior normal. Vitals and nursing note reviewed. Exam conducted with a water control supervisor present. Vitals: Estimated body mass index is 37.5 kg/m?? as calculated from the following: Height as of 12/06/23: 5' 7 . Weight as of 06/11/24: 239 lb 6.4 oz. BP: No LMP recorded. Patient is postmenopausal. ASSESSMENT & PLAN ICD-10-CM 1. Well woman exam with routine gynecological exam Z01.419 THIN PREP TIS PAP AND HR HPV DNA 2. Breast cancer screening by mammogram Z12.31 3. Postmenopausal state Z78.0 No orders of the defined types were placed in this encounter. Annual Wellness Exam: Patient presents today for routine annual exam. Patient states she has complaints of loss of weightsince colonoscopy pt has dropped weight. Pt still not feeling well since. Patients vitals were reviewed and within normal limits. Growth and development is noted to be appropriate for age. No mental health concerns was expressed. Pap Smear: Speculum was inserted into the vagina and pap was obtained without difficulty. HPV testing was performed per age guideline. Patient was advised that pap results could take anywhere from 7 to 10 days to receive and our office will reach out to the patient with those once we have them. Patient can also view results via [employer]. I reinforced importance of condom use for STI prevention. Patient declined cultures to be performed with today's visit. Breast Exam: Upon examination, clinical breast exam was noted to be normal and screening mammogram was ordered and given to patient to have obtained. Patient was counseled on breast self-awareness, including the importance of knowing what is normal for her own breasts and promptly reporting any changes such as new lumps, skin dimpling, nipple discharge, or pain. Screening mammogram was recommended annually. Discussed signs and symptoms of breast cancer and when to seek medical attention. Answered all patient questions. DEXA Counseling: DEXA scan ordered and given to the patient to have performed for osteoporosis screening per guidelines. Patient counseled on bone health, including the importance of calcium and vitamin D intake, weight-bearing exercise, fall prevention, and avoiding tobacco and excessive alcohol. Discussed purposeof DEXA in assessing fracture risk and monitoring bone density. Patient advised results will be reviewed upon completion and next steps discussed as needed. Follow Up: Patient is to return to our office in one year for annual exam unless needed otherwise. Documented by Emely Ball LPN on behalf of: Dylan Zepeda DO documented in this encounter Plan of Treatment Scheduled Orders Name Type Priority Associated Diagnoses Orde r Schedule THIN PREP TIS PAP AND HR HPV DNA Pathology and Cytology Routine Well woman exam with routine gynecological exam Ordered: 12/17/2024 documented as of this encounter Visit Diagnoses Diagnosis Well woman exam with routine gynecological exam Routine gynecological examination Breast cancer screening by mammogram Postmenopausal state Asymptomatic postmenopausal status (age-related) (natural) documented in this encounter Care Teams Class A Regional Drivers Relationship Specialty Start Date End Date Unallocated, Noms Provider, [place] [address] PCP - General Family Medicine 08/24/23 documented as of this encounter
--- OUTSIDE RECORDS SUMMARY | 2024-12-17 19:51 | XMS_ITS | Clinical Summary ---
Author Organization [facility] Address [id number] [address] [place] [address] Care Team Providers Care Real Property Appraiser Name Role Phone Unavailable Primary Care Provider Unavailabl e Social History Tobacco Use Types Packs/Day Years Used Date Smoking Tobacco: Never Assessed Childcare Answer Date Recorded Childcare Unknown 10/03/2018 Employment Answer Date Recorded Employment Unknown 10/03/2018 Comments Unknown Sex and Gender Information Value Date Recorded Sex Assigned at Not on file Legal Sex Female 11:29 AM EDT Gender Identity Not on file Sexual Orientation Not on file Plan of Treatment Not on file Medical Devices Not on file
--- OUTSIDE RECORDS SUMMARY | 2024-12-17 19:51 | XMS_ITS | Clinical Summary ---
Author Organization [facility] Address [address] [address] Care Team Providers Care Event Set Up Specialist Name Role Phone Chago Noriega MD Primary Care Provider [phone] Allergies Active Allergy Reactions Criticality Noted Date Comments Cephalexin Hives,Itching 07/27/2023 Venlafaxine Hives,Itching 07/27/2023 Medications esomeprazole (NexIUM) [address] capsule Take 40 mg by mouth before breakfast. Do not open capsule. Active mirabegron 50 mg tablet extended release 24 hr Take 50 mg by mouth in the morning. Active candesartan (Atacand) 16 mg tablet Take 16 mg by mouth in the morning. Active DULoxetine (Cymbalta) [address] capsule Take 60 mg by mouth at bedtime. Do not crush or chew. Active magnesium oxide (Mag-Ox) 400 mg tablet 400 mg two times daily. Active metFORMIN, OSM, (Fortamet) 500 mg 24 hr tablet Take 500 mg by mouth with breakfast and with evening meal. Do not crush, chew, or split. Active montelukast (Singulair) 10 mg tablet Take 10 mg by mouth at bedtime. Active pravastatin (Pravachol) 20 mg tablet Take 20 mg by mouth at bedtime. Active acarbose (Precose) 100 mg tablet Take 100 mg by mouth with breakfast, with lunch, and with evening meal. Active cetirizine (ZyrTEC) 10 mg tablet Take 10 mg by mouth at bedtime. Active aspirin 81 mg EC tablet Take 81 mg by mouth in the morning. Active pyridoxine (B-6) 100 mg tablet Take 100 mg by mouth twice a day. Active biotin 10,000 mcg capsule Take 10 mg by mouth in the morning. Active cholecalciferol (Vitamin D3) 25 MCG (1000 units) tablet Take 1,000 Units by mouth three times daily. Active cyanocobalamin (Vitamin B-12) 1,000 mcg tablet Take 1,000 mcg by mouth in the morning. Active acetaminophen (Tylenol) 500 mg tablet Take 1,000 mg by mouth every 6 (six) hours if needed for mild pain (1-3 pain score). Active multivitamin,tx -minerals tablet Take 1 tablet by mouth in the morning. Active methenamine hippurate (Hiprex) 1 gram tablet Take 1 g by mouth two times daily. Active Social History Tobacco Use Types Packs/Day Years Used Date Smoking Tobacco: Never Smokeless Tobacco: Never Tobacco Cessation:Counseling Given: Not Answered Alcohol Use Standard Drinks/Week Comments Never 0 (1 standard drink = 0.6 oz pur e alcohol) Comments Unknown Sex and Gender Information Value Date Recorded Sex Assigned at Female 05/29/2024 9:51 AM EST Legal Sex Female 8:23 AM EST Gender Identity Female 05/29/2024 9:51 AM EST Sexual Orientation Heterosexual or Straight 08/2024 9:51 AM EST Last Filed Vital Signs Vital Sign Reading Time Taken Comments Blood Pressure 141/58 05/29/2024 2:05 PM EST Pulse 90 05/29/2024 2:05 PM EST Temperature 36.2 C (97.2 F) 05/29/2024 2:05 PM EST Respiratory Rate 16 05/29/2024 2:05 PM EST Oxygen Saturation 95% 05/29/2024 2:05 PM EST Inhaled Oxygen Concentration - - Weight 107 kg (236 lb 15.9 oz) 05/29/2024 10:22 AM EST Height 167.6 cm (5' 6 ) 05/29/2024 10:22 AM EST Body Mass Index 38.25 05/29/2024 10:22 AM EST Plan of Treatment Health Maintenance Due Date Last Done Comments Diabetes: Hemoglobin A1C 1950 Medicare Annual Wellness (AWV) 1950 Diabetes: Retinopathy Screening 1958 Depression Screening 1960 Diabetes: Urine Protein Screening 11/11/1967 Adult Tetanus 1970 Pneumococcal Vaccine: 50+ Years (1 of 1 - PCV) 1998 Fall Risk Screening 2013 COVID-19 Vaccine ( season) 2023 11/24/2021, 03/02/2021, 07/21/2020, Additional history exists Influenza Vaccine (#1) 2024 Zoster Vaccines Completed 02/23/2024, 11/24/2023 Colonoscopy Discontinued 05/29/2024, 02/22, 04/24/2001 Colorectal Cancer Screening Discontinued CT Colonography Discontinued FIT-DNA Discontinued FIT Discontinued FOBT Discontinued HIB Vaccines Aged Out No longer eligi ble based on patient's age to complete this topic HPV Vaccines Aged Out No longer eligi ble based on patient's age to complete this topic IPV Vaccines Aged Out No longer eligi ble based on patient's age to complete this topic Meningococcal B Vaccine Aged Out No l onger eligible based on patient's age to complete this topic Meningococcal Vaccine Aged Out No lucian sergio eligible based on patient's age to complete this topic Rotavirus Vaccines Aged Out No longer eligible based on patient's age to complete this topic Sigmoidoscopy Discontinued Procedures Procedure Name Priority Date/Time Associated Diagnosis Comments DIAGNOSTIC COLONOSCOPY Routine 05/29/2024 1:00 PM EST Tubular adenoma of colon from Last 3 Months or Most Recently Relevant to Health Maintenance Results * Diagnostic Colonoscopy w EMR (05/29/2024 1:00 PM EST) Anatomical Region Laterality Modality Endoscopy Narrative 05/29/2024 4:57 PM EST Table formatting from the original result was not included. Colonoscopy Procedure Note Procedure: Colonoscopy with endoscopic mucosal resection of 2 large polyps (submucosal injection, snare polypectomy, and ablation). Indications: Annita Riojas is a 73 y.o. 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 Repeated colonoscopy in March of last year revealed recurrent polyp. The polyp could not be removed. The patient is scheduled to have colonoscopy with possible endoscopic mucosal resection of the ascending colon polyp. Sedation: General Medications: No administrations occurring from 1042 to 1300 on 05/29/24 Attending Physician: Bharat Meyers MD Procedure Details Informed consent was obtained for the procedure, including sedation. Risks of perforation, hemorrhage, adverse drug reaction and aspiration were discussed. The patient was placed in the left lateral decubitus position. The patient was monitored continuously with ECG tracing, pulse oximetry, blood pressure monitoring, and direct observations. A rectal examination was performed. The colonoscope was inserted into the rectum and advanced under direct vision to the terminal ileum. A careful inspection was made as the colonoscope was withdrawn, including a retroflexed view of the rectum; findings and interventions are described below. Appropriate photodocumentation was obtained. Findings: Digital rectal examination was unremarkable. Colonoscopy to the terminal ileum revealed up few small polyps noted throughout the colon. 3 large polyps were noted within the right side of the colon as following: Ascending colon polyp measured 1.8 cm likely to be a residual polyp from previous polypectomy. The polyp was extending to both sides of a colonic fold. Endoscopic mucosal resection in a piecemeal fashion was performed with the scope being in an retroflexed position. The base of the polyp was injected with Eleview for lifting purposes which was partially achieved and the polyp was removed in a piecemeal fashion. Few tissue remained at the center of the EMR site and that was removed with jumbo biopsy forceps. The edges of the EMR site were ablated with the tip of the snare using soft coag. A total of 5 hemoclips were then deployed on the mucosal defect of the EMR site was closed with the clips. Spot was then injected across from the polyp site for future marking. A second polyp measured 1.5 cm noted on the proximal side of the ileocecal valve. The polyp was removed with a hot snare, retrieved and sent for histopathological examination. A third polyp was noted in the cecum hidden behind the ileocecal valve and measured 3.0 cm in size. Photos were obtained. Endoscopic mucosal resection was performed and the base of the polyp was injected with a Eleview for lifting purposes and the polyp was removed in a piecemeal fashion. The edges of the EMR site were ablated with the tip of the snare using soft coag and 2 endoclips were deployed at the site to close the mucosal defect. The polyp was then retrieved with a Faye net basket And was sent for histopathological examination. Small external hemorrhoids were identified. Quality of colonic prep: good Withdrawal time: 1 hour and 42 minutes Procedure Events Event Event Time CLN SCOPE IN 05/29/2024 11:07 AM CLN CECUM REACHED 05/29/2024 11:12 AM CLN SCOPE OUT 05/29/2024 12:54 PM Specimens: ID Type Source Tests Collected by Time A : r/o adenoma EMR Polyp Large Intestine, Right/Ascending Colon HISTOLOGY - TISSUE EXAM Kathleen Holbrook RN 05/29/2024 1112 B : r/o adenoma Polyp Ileocecal Valve HISTOLOGY - TISSUE EXAM Kathleen Holbrook RN 05/29/2024 1113 C : r/o adenoma EMR cecal polyp Polyp Large Intestine, Cecum HISTOLOGY - TISSUE EXAM Kathleen Holbrook RN 05/29/2024 1201 Complications: None Estimated blood loss: Minimal Disposition: Home Condition: stable Impression: Successful endoscopic mucosal resection of a large ascending colon polyp measured 1.8 cm (residual of polyp). The polyp was removed in a piecemeal fashion as described above. The site was then tattooed with injection of spot. Successful endoscopic mucosal resection of a large cecal polyp measured 3.0 centimeter. The polyp was completely obscured by the ileocecal valve. The polyp was removed in a piecemeal fashion, retrieved and sent for histopathological examination. Successful removal of a large ileocecal valve polyp that measured 1.5 cm in size with hot snare, retrieved and sent for histopathological examination. Single small polyp noted throughout the colon ranged in size from 4 to 6 mm. The polyps were not removed during the session. Small external hemorrhoids. Recommendations: Follow-up histopathology results. Further plan depends upon the histopathology results. Repeat colonoscopy in 6 months to assess the sites of the EMRs in the ascending colon and in the cecum. Attending Attestation: I performed the procedure. Kenyon Peña MD ENDOSCOPY PROCEDURE ORDERABLES F inal Result from Last 3 Months or Most Recently Relevant to Health Maintenance Insurance [employer] Care Teams Event Set Up Specialist Relationship Specialty Start Date End Date Chago Noriega MD [facility] [place] [address] PCP - General Internal Medicine 05/29/24
--- OUTSIDE RECORDS SUMMARY | 2024-12-17 19:51 | XMS_ITS | Encounter Summary ---
Author Organization [facility] Address [address] [place] [address] Care Team Providers Care Slide Fastener Repairer Name Role Phone Unallocated, Noms Provider Primary Care Provi alan Encounter Details Date Type Department Care Team (Late st Contact Info) Description 06/26/2024 Orders Only [facility] [address] [place] [phone] Elizabeth Larsen LPN [address] [place] [address] Social History Tobacco Use Types Packs/Day Years [...] on file documented as of this encounter Plan of Treatment Not on file documented as of this encounter Procedures Procedure Name Priority Date/Time Associated Diagnosis Comments PAP SMEAR Routine 06/11/2024 12:00 AM EST documented in this encounter Results * Pap Smear (06/11/2024 12:00 AM EST) Swab Cervical swab / Unknown Katelyn Nurse [facility] LAB CYTOLOGY ORDERABLES Final Result EXTERNAL LAB documented in this encounter Visit Diagnoses Not on filedocumented in this encounter Care Teams Slide Fastener Repairer Relationship Specialty Start Date End Date Unallocated, Noms Provider, [place] [address] PCP - General Family Medicine 08/24/23 documented as of this encounter
--- OUTSIDE RECORDS SUMMARY | 2024-12-17 19:51 | XMS_ITS | Encounter Summary ---
Author Organization [facility] Address [address] [place] [address] Care Team Providers Care Marketing Segment Manager Name Role Phone Unallocated, Noms Provider Primary Care Provi alan Encounter Details Date Type Department Care Team (Late st Contact Info) Description 06/28/2024 Abstract [facility] [address] [place] [phone] Dylan Zepeda DO [address] [place] [address] Social History Tobacco Use Types Packs/Day Years [...] on file documented as of this encounter Visit Diagnoses Not on filedocumented in this encounter Care Teams Marketing Segment Manager Relationship Specialty Start Date End Date Unallocated, [place] [address] PCP - General Family Medicine 08/24/23 documented as of this encounter
--- OUTSIDE RECORDS SUMMARY | 2024-12-17 19:51 | XMS_ITS | Clinical Summary ---
Author Organization [facility] Address [address] [place] [address] Care Team Providers Care Mechanical Research Engineer Name Role Phone Unallocated, Noms Provider Primary Care Provi alan Allergies Active Allergy Reactions Criticality Noted Date Comments Cephalexin Hives,Itching 07/27/2023 Venlafaxine Hives,Itching 07/27/2023 Medications acarbose (Precose) 100 MG tablet 05/25/2023 Active candesartan (Atacand) 16 MG tablet 05/25/2023 Active DULoxetine (Cymbalta) [address] capsule 05/25/2023 Activ e esomeprazole (NexIUM) [address] capsule 05/25/2023 Active Myrbetriq 50 MG 24 hr tablet 05/25/2023 Active montelukast (Singulair) 10 MG tablet 05/25/2023 Active pravastatin (Pravachol) 20 MG tablet 05/25/2023 Active metFORMIN XR (Glucophage-XR) 500 MG 24 hr tablet Take 500 mg by mouth in the evening. Take with meals 11/22/2023 Active magnesium oxide (Mag-Ox) 400 mg tablet 400 mg Daily Active cetirizine (ZyrTEC) 10 MG tablet Take by mouth Active aspirin 81 MG EC tablet Take 81 mg by mouth Daily Active VITAMIN D PO Take by mouth Active pyridoxine (Vitamin B-6) 100 MG tablet Take 100 mg by mouth Daily Active cyanocobalamin (Vitamin B-12) 1000 MCG tablet Take 1,000 mcg by mouth Daily Active biotin 97142 MCG tablet Take by mouth Active Eslicarbazepine Acetate (Aptiom) 200 MG tablet Take by mouth Active methenamine hippurate (Hiprex) 1 g tablet Take 1 g by mouth in the morning and 1 g in the evening. Active estradiol (Estrace) 0.1 MG/GM vaginal creamIndication s:Recurrent UTI Insert 0.25 g into the vagina at bedtime Apply pea sized amount to urethra opening At bedtime for 2 weeks, then at every other night 42.5 g 3 06/11/2024 Active Active Problems No known active problems Encounters Date Type Department Care Team Description 12/17/2024 11:20 AM EDT Procedure Visit [facility] [address] [place] [address] Dylan Zepeda DO Well woman exam with routine gynecological exam; Breast cancer screening by mammogram; Postmenopausal state 12/17/2024 Bamboo flowsheet [facility] [address] [place] [address] Dylan Zepeda DO from Last 3 Months Family History Relation Name Status Comments Father Mother Social History Tobacco Use Types Packs/Day Years Used Date Smoking Tobacco: Never Passive Smoke Exposure: Never Smokeless Tobacco: Never Tobacco Cessation:Counseling Given: Yes Alcohol Use Standard Drinks/Week Comments Defer 0 (1 standard drink = 0.6 oz pur e alcohol) Comments No Sex and Gender Information Value Date Recorded Sex Assigned at Not on file Legal Sex Female 6:37 PM EDT Gender Identity Not on file Sexual Orientation Not on file Last Filed Vital Signs Vital Sign Reading Time Taken Comments Blood Pressure 130/80 06/11/2024 2:01 PM EST Pulse 88 09/21/2023 1:11 PM EDT Temperature - - Respiratory Rate - - Oxygen Saturation - - Inhaled Oxygen Concentration - - Weight 109 kg (239 lb 6.4 oz) 06/11/2024 2:01 PM EST Height 170.2 cm (5' 7 ) 12/06/2023 11:01 AM EDT Body Mass Index 37.5 12/06/2023 11:01 AM EDT Plan of Treatment Health Maintenance Due Date Last Done Comments Medicare Annual Wellness (AWV) 1950 Pneumococcal Vaccine: 65+ Ye ars (1 of 1 - PCV) 1998 Influenza Vaccine (#1) 2024 FIT-DNA Discontinued 01/06/2021 Colonoscopy Discontinued 05/29/2024, 05/29/2024 Colorectal Cancer Screening Discontinued Mammogram Discontinued 06/20/2024 CT Colonography Discontinued FIT Discontinued FOBT Discontinued Sigmoidoscopy Discontinued Procedures Procedure Name Priority Date/Time Associated Diagnosis Comments MM TOMOSYNTHESIS SCREENING BI 06/20/2024 2:28 PM EST from Last 3 Months or Most Recently Relevant to Health Maintenance Results * MM TOMOSYNTHESIS SCREENING BI (06/20/2024 2:28 PM EST) Anatomical Region Laterality Modality Other 06/20/2024 2:28 PM EST Narrative 06/20/2024 2:29 [place] [address] Mammography Report Signed Patient: ANNITA KOCH MR#: [id number] : 1950 Acct:[id number] Age/Sex: 73 / F ADM Date: 06/20/24 Loc: MAMMO Attending Dr: Dylan Zepeda D.O. Ordering Physician: Dylan Zepeda D.O. Results: Date of Service: 06/20/24 Follow Up: Procedure(s): MM tomosynthesis screening BI Accession Number(s): [id number] cc: Dylan Zepeda D.O.; MELISSA SEAY D.O. Patient Name: ANNITA KOCH MR#: [id number] : 1950 Exam Date: 06/20/2024 Ordering Doctor: DR Dylan Zepeda . RADIOLOGY REPORT PROCEDURE: MM TOMOSYNTHESIS SCREENING BI COMPARISON: MM TOMOSYNTHESIS SCREENING BI, 06/13/2023. MG MAMM SCREEN 3D MARK CAD, 11/22/2021. MAMMO POST BIOPSY UNILATERAL LEFT, 08/23/2012. INDICATIONS: Screening Calculator Name NCI Breast Cancer Risk Assessment Tool 5 Year Breast Cancer Risk 6.20% Lifetime Breast Cancer Risk 13.00% Personal Breast Cancer No Personal Ovarian Cancer No Treatments None Family Cancers Grandmother-maternal with uterine cancer at age 60; Father with pancreatic cancer at age 68; Grandfather-paternal with lung cancer at age 70; Uncle-paternal with colon cancer at age 70; Grandfather-maternal with lung cancer at age 70; Aunt-paternal with uterine cancer at age 83. LOCATION: [facility] BREAST COMPOSITION: There are scattered areas of fibroglandular density. FINDINGS: DIAGNOSTIC CATEGORY 1--NEGATIVE. NO CHANGE FROM COMPARISON ASSESSMENT. RIGHT BREAST: No significant suspicious finding. LEFT BREAST: No significant suspicious finding. RECOMMENDATIONS: ROUTINE MAMMOGRAM AND CLINICAL EVALUATION IN 12 MONTHS. PLEASE NOTE: A NORMAL MAMMOGRAM DOES NOT EXCLUDE THE POSSIBILITY OF BREAST CANCER. A CLINICALLY SUSPICIOUS PALPABLE LUMP SHOULD BE BIOPSIED. Dictated by: Parish Almaguer DO on 06/20/2024 at 14:21 Approved by: Parish Almaguer DO on 06/20/2024 at 14:28 Dictated By: Parish Almaguer M.D. Signed By: 06/20/24 1429 DD/ 1428 TD/TT: Seat Mender: Procedure Note Radiology, Radiologist, MD - 06/20/2024 [place] [address] Mammography Report Signed Patient: ANNITA KOCH MMR#: [id number] : 1950cct:[id number] Age/Sex: 73 / FADM Date: 06/20/24 Loc: MAMMO Attending Dr: Dylan Zepeda D.O. Ordering Physician: Dylan Zepeda D.O.Results: Date of Service: 06/20/24Follow Up: Procedure(s): MM tomosynthesis screening BI Accession Number(s): [id number] cc: Dylan Zepeda D.O.; MELISSA SEAY D.O. Patient Name: ANNITA KOCH MR#: [id number] : 1950 Exam Date: 06/20/2024 Ordering Doctor: DR Dylan Zepeda . RADIOLOGY REPORT PROCEDURE: MM TOMOSYNTHESIS SCREENING BI COMPARISON: MM TOMOSYNTHESIS SCREENING BI, 06/13/2023. MG MAMM [id number] MARK CAD, 11/22/2021. MAMMO POST BIOPSY UNILATERAL LEFT, 08/23/2012. INDICATIONS: Screening Calculator Name NCI Breast Cancer Risk Assessment Tool 5 Year Breast Cancer Risk 6.20% Lifetime Breast Cancer Risk 13.00% Personal Breast Cancer No Personal Ovarian Cancer No Treatments None Family Cancers Grandmother-maternal with uterine cancer at age 60; Father with pancreatic cancer at age 68; Grandfather-paternal with lungcancer at age 70; Uncle-paternal with colon cancer at age 70; Grandfather-maternal with lung cancer at age 70; Aunt-paternal withuterine cancer at age 83. LOCATION: [facility] BREAST COMPOSITION: There are scattered areas of fibroglandulardensity. FINDINGS: DIAGNOSTIC CATEGORY 1--NEGATIVE. NO CHANGE FROM COMPARISON ASSESSMENT. RIGHT BREAST: No significant suspicious finding. LEFT BREAST: No significant suspicious finding. RECOMMENDATIONS: ROUTINE MAMMOGRAM AND CLINICAL EVALUATION IN 12 MONTHS. PLEASE NOTE: A NORMAL MAMMOGRAM DOES NOT EXCLUDE THE POSSIBILITY OFBREAST CANCER. A CLINICALLY SUSPICIOUS PALPABLE LUMP SHOULD BE BIOPSIED. Dictated by: Parish Almaguer DO on 06/20/2024 at 14:21 Approved by: Parish Almaguer DO on 06/20/2024 at 14:28 Dictated By: Parish Almaguer M.D. Signed By:06/20/24 1429 DD/ 1428 TD/TT: Seat Mender: Dylan Zepeda DO [facility] Final Result from Last 3 Months or Most Recently Relevant to Health Maintenance Insurance [employer] Care Teams Mechanical Research Engineer Relationship Specialty Start Date End Date Unallocated, Noms Provider, [place] [address] PCP - General Family Medicine 08/24/23
--- OUTSIDE RECORDS SUMMARY | 2024-12-17 19:51 | XMS_ITS | Encounter Summary ---
Author Organization [facility] Address [address] [place] [address] Care Team Providers Care Seo Associate Name Role Phone Unallocated, Noms Provider Primary Care Provi alan Encounter Details Date Type Department Care Team (Late st Contact Info) Description 12/17/2024 Bamboo flowsheet [facility] [address] [place] [phone] Dylan Zepeda DO [address] [place] [address] Social History Tobacco Use Types Packs/Day Years [...] on filedocumented in this encounter Care Teams Seo Associate Relationship Specialty Start Date End Date Unallocated, Noms Provider, [place] [address] PCP - General Family Medicine 08/24/23 documented as of this encounter
--- OUTSIDE RECORDS SUMMARY | 2024-12-17 19:52 | XMS_ITS | CCD ---
Author Organization [facility] [place] Care Team Providers Care Slipper Maker Name Role Phone DAWOOD, DR TORRES Primary Care Unavailable KARASIK, DR PATE Admitting Unavailable KARASIK, DR PATE Attending Unavailable KARASIK, DR PATE Consulting Unavailable VALONE, DR TORRES Primary Care Unavailable KARASIK, DR PATE Admitting Unavailable KARASIK, DR PATE Attending Unavailable KARASIK, DR PATE Consulting Unavailable ZIEBER, DR ANTONIO Bentley Consulting Unavailable ROSS, CHINTAN QUINTANILLA Admitting [...] Attending Unavailable VALONE, DR TORRES Consulting Unavailable VALONE MELISSA NGO Primary Care Physician Edda Peañ Attending Unavailable NilEdda mckeon Admitting Unavailable UnallocatJoellen macedo MD Provider Primary Care Provi alan BHARAT SANZ Admitting Unavailable BHARAT SANZ Attending Unavailable EDDA PEÑA Referring Unavailable DYLAN ZEPEDA Attending Unavailable ANTHONY DESAI Attending Unavailable ANTHONY DESAI Attending Unavailable ANTHONY DESAI Attending Unavailable ANTHONY DESAI Attending Unavailable ANTHONY DESAI Attending Unavailable DYLAN ZEPEDA Attending Unavailable UnallocatJoellen macedo MD Provider Primary Care Provi alan Edda PEÑA Attending Unavailable NILYgEdda Attending Unavailable Edda PEÑA Attending Unavailable Allergies Allergy Classification Reported Allergen(s) Allergy Type Date of Onset Reaction(s) Facility (2 sources) Cephalexin; Translations: [Keflex] Drug Allergy [facility] (3 sources) venlafaxine; Translations: [VENLAFAXINE] Drug Allergy 4 [facility] (9 sources) Cephalexin; Translations: [cephalexin] Drug Allergy 4 Itching (finding), Hives, Itching [facility] (8 sources) venlafaxine; Translations: [venlafaxine] Drug Allergy 4 Itching (finding), Hives, Itching [facility] Medications Current Medications Medication Drug Class(es) Dates Sig (Normalized) Sig (Original) acarbose 100 mg oral tablet (8 sources) alpha-Glucosidase Inhibitor Start: 05-25-2023 acarbose (Precose) 100 MG tablet 05/25/2023 Active aspirin 81 mg delayed release oral tablet (8 sources) Platelet Aggregation Inhibitor, Nonsteroidal Anti-inflammatory Drug Start: 03-05-2024 take 1 tablet by mouth once daily aspirin 81 mg Oral EC Tab 81 mg = 1 tab(s), Oral, Daily, Refills(s) 0 Start Date: 03/05/24 Status: Ordered biotin 1 mg oral tablet (8 sources) Start: 02-10-2021 take 1 tablet by mouth once daily biotin 1000 mcg oral tablet 1,000 mcg = 1 tab(s), Oral, Daily Start Date: 02/10/21 Status: Ordered biotin 46288 MCG tablet Take by mouth Active candesartan cilexetil 16 mg oral tablet (8 sources) Angiotensin 2 Receptor Won Start: 05-25-2023 candesartan (Atacand) 16 MG tablet 05/25/2023 Active cetirizine hydrochloride 10 mg oral tablet (8 sources) Histamine-1 Receptor Antagonist Start: 03-05-2024 take 1 tablet by mouth once daily cetirizine 10 mg Tab 10 mg = 1 tab(s), Oral, Daily, Refills(s) 0 Start Date: 03/05/24 Status: Ordered DULoxetine 60 mg delayed release oral capsule (8 sources) Serotonin and Norepinephrine Reuptake Inhibitor Start: 05-25-2023 DULoxetine (Cymbalta) [address] capsule 05/25/2023 Active eslicarbazepine acetate 200 mg oral tablet (7 sources) Eslicarbazepine Acetate (Aptiom) 200 MG tablet Take by mouth Active esomeprazole 40 mg delayed release oral capsule (8 sources) Proton Pump Inhibitor Start: 02-10-2021 esomeprazole (NexIUM) [address] capsule 05/25/2023 Active estradiol 0.1 mg/ml vaginal cream (5 sources) Estrogen Start: 06-11-2024 End: 06-11-2025 estradiol (Estrace) 0.1 MG/GM vaginal cream Indications: Recurrent UTI Insert 0.25 g into the vagina at bedtime Apply pea sized amount to urethra opening At bedtime for 2 weeks, then at every other night 42.5 g 3 06/11/2024 06/11/2025 Active magnesium oxide 400 mg oral tablet (8 sources) Start: 02-10-2021 take 1 tablet by mouth once daily magnesium oxide 400 mg Tab 400 mg = 1 tab(s), Oral, Daily, Refills(s) 0 Start Date: 02/10/21 Status: Ordered magnesium oxide (Mag-Ox) 400 mg tablet 400 mg Daily Active metFORMIN hydrochloride 500 mg oral tablet (8 sources) Biguanide Start: 02-23-2024 take 1 tablet [...] the evening. Take with meals 11/22/2023 Active methenamine hippurate 1000 mg oral tablet (5 sources) take 1 tablet by mouth in the morning methenamine hippurate (Hiprex) 1 g tablet Take 1 g by mouth in the morning and 1 g in the evening. Active 24 hr mirabegron 50 mg extended release oral tablet (8 sources) beta3-Adrenergic Agonist Start: 05-25-2023 Myrbetriq 50 MG 24 hr tablet 05/25/2023 Active Start: 02-10-2021 take 1 tablet by jennifer th once daily Myrbetriq 50 mg oral tablet, extended release 50 mg = 1 tab(s), Oral, Daily, Refills(s) 0 Start Date: 02/10/21 Status: Ordered montelukast 10 mg oral tablet (8 sources) Leukotriene Receptor Antagonist Start: 02-10-2021 montelukast (Singulair) 10 MG tablet 05/25/2023 Active Multivitamins and Minerals (1 source) Start: 02-10-2021 take 1 tablet by mouth once daily Multivitamins and Minerals 1 tab(s), Oral, Daily, Refill(s) 0 Start Date: 02/10/21 Status: Ordered pravastatin sodium 20 mg oral tablet (8 sources) HMG-CoA Reductase Inhibitor Start: 02-10-2021 pravastatin (Pravachol) 20 MG tablet 05/25/2023 Active vitamin b12 1 mg oral tablet (7 sources) Vitamin B12 take 1 tablet by mouth once daily cyanocobalamin (Vitamin B-12) 1000 MCG tablet Take 1,000 mcg by mouth Daily Active Vitamin B12 1000 mcg Tab (1 source) Start: 02-10-2021 take 1 tablet by mouth once daily Vitamin B12 1000 mcg Tab 1,000 mcg = 1 tab(s), Oral, Daily, Refills(s) 0 Start Date: 02/10/21 Status: Ordered vitamin b6 100 mg oral tablet (7 sources) take 1 tablet by mouth once daily [...] Date: 02/10/21 Status: Ordered VITAMIN D PO (7 sources) VITAMIN D PO Erik e by mouth Active Problems Active Problems Problem Classification Problem Date Documented Da te Episodic/Chronic Abdominal hernia (2 sources) Diaphragmatic hernia without obstruction or gangrene; Translations: [Hiatal hernia] Onset: 03-15-2021 02-10-2021 Episodic Calculus of urinary tract (1 source) Kidney stone 02-10-2021 Episodic Cancer of cervix (1 source) Atypical squamous cells of undetermined significance on cervical Papanicolaou smear; Translations: [Atypical squamous cells of undetermined significance on cytologic smear of cervix (ASC-US)] 06-11-2024 Episodic Diabetes mellitus without complication (1 source) [...] Translations: [Encounter for immunization] Onset: 03-02-2021 Episodic Osteoporosis (1 source) Senile osteoporosis; Translations: [Age-related osteoporosis without current pathological fracture] 06-11-2024 Chronic Other and unspecified benign neoplasm (2 sources) [...] conditions (not mental disorders or infectious disease) (12 sources) Encounter for screening mammogram for malignant [...] MALIG NEOPLASM DIGESTIV ORGN] Onset: 11-25-2021 Episodic Residual codes; unclassified (1 source) Postmenopausal state; Translations: [Asymptomatic menopausal state] 12-17-2024 Episodic Unclassified (4 sources) CONTACT W/AND (SUSP) EXPOS COVID-19; Translations: [CONTACT W/AND (SUSP) EXPOS COVID-19] Onset: 03-11-2021 Urinary tract infections (1 source) Recurrent urinary tract infection; Translations: [Urinary tract infection, site not specified] 06-11-2024 Episodic Past or Other Problems Problem Classification Problem Date Documented Da te Episodic/Chronic Other aftercare (1 source) Other intermission coordinator (current) drug therapy; Translations: [[facility] CURRENT DRUG THERAPY] Onset: 03-15-2021 Episodic Other [...] Test Name Value Interpretation Reference Range Facility MM TOMOSYNTHESIS SCREENING B Ion 06-20-2024 [place] [address] Mammography Report Signed Patient: GIGI KOCH MR#: [id number] : 1950 Acct:[id number] Age/Sex: 73 / F ADM Date: 06/20/24 Loc: MAMMO Attending Dr: Dylan Zepeda D.O. Ordering Physician: Dylan Zepeda D.O. Results: Date of Service: 06/20/24 Follow Up: Procedure(s): MM tomosynthesis screening BI Accession Number(s): [id number] cc: Dylan Zepeda D.O.; MELISSA SEAY D.O. Patient Name: GIGI KOCH MR#: [id number] : 1950 Exam Date: 06/20/2024 Ordering Doctor: [...] uterine cancer at age 81. LOCATION: [facility] BREAST COMPOSITION: There are scattered areas of [...] Signed By: 06/20/24 1429 DD/ 1428 TD/TT: Field Reporter: [facility] Radiology, Radiologdar ogden MD - 06/20/2024 [place] [address] Mammography Report Signed Patient: GIGI KOCH MR#: [id number] : 1950 Acct:[id number] Age/Sex: 73 / F ADM Date: 06/20/24 Loc: MAMMO Attending Dr: Dylan Zepeda D.O. Ordering Physician: Dylan Zepeda D.O. Results: Date of Service: 06/20/24 Follow Up: Procedure(s): MM tomosynthesis screening BI Accession Number(s): [id number] cc: Dylan Zepeda D.O.; MELISSA SEAY D.O. Patient Name: GIGI KOCH MR#: [id number] : 1950 Exam Date: 06/20/2024 Ordering Doctor: [...] uterine cancer at age 81. LOCATION: [facility] BREAST COMPOSITION: There are scattered areas of [...] Signed By: 06/20/24 1429 DD/ 1428 TD/TT: Field Reporter: [facility] [employer] Radiology Study observation (narrative) [facility] [employer] MM TOMOSYNTHESIS SCREENING B IOrdered By: Radiologist Radiology on 06-20-2024 [facility] [employer] Work Phone: IGP,APTIMA HPV,AGE GDLNon AGE GDLN ACOG TESTING Note . [facility] Comment on above: TESTS RESULT FLAG UN ITS REF RANGE LAB Clinician Provided Cytology Information Source.............Vagina No. of containers..01 ThinPrep Vial Age Algo ACOG Nicole... Note 01 <21 or >65 or no age provided FLAG LEGEND: L-Low Normal,H-High Normal,LL-Alert Low,HH-Alert High <-Panic Low,>-Panic High,A-Abnormal,AA-Critical Abnormal Performed at: 01 =G [facility] [place] [address] Demetrice Solomon MD, PAP IG (IMAGE GUIDED) Note . [facility] Comment on above: TESTS RESULT FLAG UN ITS REF RANGE LAB DIAGNOSIS: 02 NEGATIVE FOR INTRAEPITHELIAL LESION OR MALIGNANCY. THIS SPECIMEN WAS RESCREENED PART OF OUR MANAGER METROLOGY PROGRAM. Specimen adequacy: 02 Satisfactory for evaluation. Performed by: 02 Janee Larkin, Quality Head ([facility]) QC reviewed by: 02 Ron Ureña, Quality Head ([facility]) . 02 Note: Note 03 The Pap smear is a screening test designed to aid in the detection of premalignant and malignant conditions of the uterine cervix. It is not a diagnostic procedure and should not be used as the sole means of detecting cervical cancer. Both false-positive and false-negative reports do occur. Test Methodology: Note 03 This liquid based ThinPrep(R) pap test was screened with the use of an image guided system. FLAG LEGEND: L-Low Normal,H-High Normal,LL-Alert Low,HH-Alert High <-Panic Low,>-Panic High,A-Abnormal,AA-Critical Abnormal Performed at: 02 [facility] [address] [place] [address] Franck Mclean MD, 03 WB [facility] [address] [address] Demetrice Solomon MD, Performed at: =G - [facility] [address] [id number] Filer Repairer: Demetrice Solomon MD, Phone: [phone] Performed at: [facility] - [facility] [address] [place], [place] [id number] Filer Repairer: Franck Mclean MD, Phone: [phone] [facility] Telephoneon 06-06-2024 Telephone [phone] Gigi Koch 1950 F Date Provider Department Center 06/06/2024 NELL RUIZ [facility] [place] No family history on file Normal [facility] HISTOLOGY - TISSUE EXAMon LAB AP CASE REPORT Normal [facility] Comment on above: Result Comment: Surg ical Pathology Case: [id number] Authorizing Provider: Bharat Sanz MD Collected: 05/29/2024 1113 Ordering Location: Tristin Mccartney [facility] Received: 05/29/2024 1455 [facility] Pathologist: Nkechi Jimenez MD Specimens: A) - Large Intestine, Right/Ascending Colon, r/o adenoma EMR B) - Ileocecal Valve, r/o adenoma C) - Large Intestine, Cecum, r/o adenoma EMR cecal polyp Performed By: #### L [id number] ####[facility] (BEAKER)[address] [place] [address] LAB AP CLINICAL INFORMATION Order Diagnoses Normal [facility] Comment on above: Result Comment: D12. 6 - Tubular adenoma of colon [ICD-10-CM] Performed By: #### L [id number] ####[facility] (CINTHYA)[address] [place] [address] LAB AP GROSS DESCRIPTION Normal [facility] Comment on above: Result Comment: A. L [...] Webster, student fellow Performed By: #### L [id number] ####[facility] (BEAKER)[address] [place] [address] LAB AP MICROSCOPIC DESCRIPTION Microscopic examination performed. [facility] Comment on above: Performed By: #### L [id number] ####[facility] (BEAKER)[address] [place] [address] LAB AP REPORT FINAL DIAGNOSIS NARRATIVE [facility] Comment on above: Result Comment: A. C olon, ascending polyp, resection: - Fragments of tubular adenoma. - No high grade dysplasia is seen. B. Ileocecal valve, polyp, polypectomy: - Fragments of tubular adenoma. - No high grade dysplasia is seen. C. Colon, cecal polyp, resection: - Multiple fragments of tubular adenoma. - No high grade dysplasia is seen. Performed By: #### L [id number] ####[facility] ([facility])[address] [place] [address] HPon 05-29-2024 HP History Of Present Dar Koch is a 73 y.o. female who [...] resection of the ascending colon polyp. Normal [facility] NURSNOTEon 05-29-2024 NURSNOTE Ileocecal valve poly p EMR ascending polyp removed cecal polyp Normal [facility] POCT GLUCOSE METER UNSOLICIT ED RESULTSon 05-29-2024 Glucose [Mass/Vol] 142 mg/dL High 70-105 [facility] Comment on above: Order Comment: Waive d Testing in the ED is performed under the ED CLIA certificate #[id number]. Result Comment: ngro gerri Performed By: #### L [id number] ####[facility] (BEAKER)[address] [place] [address] Prep for Procedureon 025 Prep for Procedure [id number] Gigi Koch 1950 F Date Provider Department Center 05/29/2024 BHARAT RODRIGUEZ [facility] [place] No family history on file [facility] 36on 05-07-2024 36 Able to leave a mess age today for patient to call and schedule colonoscopy with EMR Normal [facility] Telephoneon 05-07-2024 Telephone [id number] Gigi Koch 1950 F Date Provider Department [place] 05/07/2024 ArianaNELL ASHER [facility] [place] No family history on file [facility] 36on 05-03-2024 36 Attempted to call an d schedule patient for a colonoscopy with EMR, see ref in media tab dated 04/05/[address] Peña's office. Phone just rings unable to leave a message, will try again later. Normal [facility] Telephoneon 05-03-2024 Telephone [id number] Gigi Koch 1950 F Date Provider Department [place] 05/03/2024 YOBANYNELL DOHERTY [facility] [place] No family history on file [facility] Carlos 04-03-2024 L --------- ----- Specimen: [id number] Received: 04/03/24 Status: SERGEY Fred Num: [id number] Spec Type: Surgical Subm Dr: Edda Peña MD FACS Tissues: A Colon Biopsy (ASCENDING COLON POLYPS) B Colon Biopsy (SIGMOID POLYPS) Procedures: HE/4, Gross/Micro L4/2 ----- Age/ Patient Sex Location Account Attending Physician ----- Gigi Koch 73/F LABELL [id number] Edda Peña MD FACS ----- SPEC NUM: [id number] RECD: 04/03/24 STATUS: SERGEY IBARRA NUM: [id number] SANAZ: 04/03/[address] [facility] [address]: Edda Peña MD FACS ENTERED: 04/03/[address]: Carli Bass SPEC TYPE: Surgical DEPT: [facility] ENTERED BY: [id number] RECV BY: [id number] ORDERED: HE/4, Gross/Micro L4/2 ORDERED: HE/4, Gross/Micro [...] submitted in a single cassette. (1, ns, [id number] A) J Part B is received in formalin labeled with the patients name, date of , and sigmoid polyp are two tucker-brady, focally erythematous, friable, 0.3 and 0.4 cm in greatest dimension polypoid fragments. The specimen is entirely submitted in a single cassette. (1, ns, [id number] B) JG ----- Specimen: [id number] Received: 04/03/24 Status: SERGEY Fred Num: [id number] Spec Type: Surgical Subm Dr: Edda Peña MD [facility] Tissues: A Colon Biopsy (ASCENDING COLON POLYPS) B Colon Biopsy (SIGMOID POLYPS) Procedures: HE/4, Gross/Micro L4/2 ----- Patient: Gigi Koch [id number] (Continued) ----- Specimen: [id number] Received: 04/03/24 (Continued) Signed (signature on file) Rohan Boyle MD 04/04/24 1125 ----- Specimen: [id number] Received: 04/03/24 Status: SERGEY Ibarra Num: [id number] Spec Type: Surgical Subm Dr: Edda Peña MD FACS Tissues: A Colon Biopsy (ASCENDING COLON POLYPS) B Colon Biopsy (SIGMOID POLYPS) Procedures: HE/4, Gross/Micro L4/2 ----- Patient: Gigi Koch [id number] (Continued) ----- Specimen: [id number] Received: 04/03/24 (Continued) Microscopic Description A B: Microscopic examination is performed. CPT Codes 51798 x2 ----- ----- Specimen: [id number] Received: 04/03/24 Status: SERGEY Ibarra Num: [id number] Spec Type: Surgical Subm Dr: Edda Peña MD FACS Tissues: A Colon Biopsy (ASCENDING COLON POLYPS) B Colon Biopsy (SIGMOID POLYPS) Procedures: HE/4, Gross/Micro L4/2 ----- Patient: Cintia Kochricfrankie Zavala [id number] (Continued) ----- Signed (signature on file) Rohan Boyle MD 04/04/24 1125 [place] [facility] Ambulatory Visit Summaryon 1 05-05-2023 [...] for choosing us for your care. Normal [facility] IGP,APTIMA HPV,AGE GDLNon AGE GDLN ACOG TESTING Note . [facility] Comment on above: TESTS RESULT FLAG UN ITS REF RANGE LAB Clinician Provided Cytology Information Source.............Vagina No. of containers..01 ThinPrep Vial Age Algo ACOG Nicole... Note 01 <21 or >65 or no age provided FLAG LEGEND: L-Low Normal,H-High Normal,LL-Alert Low,HH-Alert High <-Panic Low,>-Panic High,A-Abnormal,AA-Critical Abnormal Performed at: 01 [facility] [address] [place] [address] Demetrice Solomon MD, Interpretation and review of laboratory results Abnormal [facility] PAP IG (IMAGE GUIDED) Note Abnormal . [facility] Comment on above: TESTS RESULT FLAG UN ITS REF RANGE LAB DIAGNOSIS: [A] 02 EPITHELIAL CELL ABNORMALITY. ATYPICAL SQUAMOUS CELLS OF UNDETERMINED SIGNIFICANCE (ASC-US) (VAGINAL). Recommendation: [A] 02 Suggest follow up as clinically appropriate. Specimen adequacy: 02 Satisfactory for evaluation. Performed by: 02 Prashanth Agarwal, Quality Head (ASCP) Electronically si... 02 Demetrice Solomon MD, Pathologist . 02 Pathologist [...] Low,>-Panic High,A-Abnormal,AA-Critical Abnormal Performed at: [address] [facility] [address] [address] Demetrice Solomon MD, Performed at: =G - [facility] [address] [id number] Filer Repairer: Demetrice Solomon MD, Phone: [phone] Performed at: - [facility] [id number] Filer Repairer: Demetrice Solomon MD, Phone: [phone] [facility] PAP ACOG PANEL 2: 30 to 65on 11-23-2021 . . Normal [facility] Comment on above: Performed By: #### 4 [id number] #### [facility] [address] [place] [address] Dr. Swapnil Bush Age Gdln ACOG Testing Comment [facility] Comment on above: Result Comment: <21 or >65 or no age provided Performed By: #### 4 [id number] #### [facility] [address] [place] [address] Dr. Swapnil Bush DIAGNOSIS: Comment [facility] Comment on above: Result Comment: NEGA TIVE FOR INTRAEPITHELIAL LESION OR MALIGNANCY. THIS SPECIMEN WAS RESCREENED PART OF OUR MANAGER METROLOGY PROGRAM. Performed By: #### 4 [id number] #### [facility] [address] [place] [address] Dr. Swapnil Bush Methodology: Comment [facility] Comment on above: Result Comment: This liquid based ThinPrep(R) pap test was screened with the use of an image guided system. Performed By: #### 4 [id number] #### [facility] [address] [place] [address] Dr. Swapnil Bush Note: Comment Normal [facility] Comment on above: Result Comment: The Pap smear is a screening test designed to aid in the detection of premalignant and malignant conditions of the uterine cervix. It is not a diagnostic procedure and should not be used as the sole means of detecting cervical cancer. Both false-positive and false-negative reports do occur. . Performed By: #### 4 [id number] #### [facility] [address] [address] [address] Swapnil Bush Performed by: Comment Normal [facility] Comment on above: Result Comment: Silvia Juarez, Quality Head (ASCP) Performed By: #### 4 [id number] #### [facility] [address] [place] [address] Dr. Swapnil Bush QC reviewed by: Comment Normal [facility] Comment on above: Result Comment: Esther Dow, Supervisory Quality Head (ASCP) Performed By: #### 4 [id number] #### [facility] [address] [place] [address] Dr. Swapnil Bush Specimen adequacy: Comment Normal [facility] Comment on above: Result Comment: Sati sfactory for evaluation. Endocervical and/or squamous metaplastic cells (endocervical component) are present. Performed By: #### 4 [id number] #### [facility] [address] [place] [address] Dr. Swapnil Bush MG MAMM SCREEN 3D MARK CADon 11-22-2021 MG MAMM SCREEN 3D MARK CAD Patient: GIGI KOCH Exam Date: 11/22/2021 : 1950 Gender:F Ordering : DR RIO NGUYEN . Admission #: [id number] Family : Order #: [id number] CLICK HERE TO VIEW EXAM RADIOLOGY REPORT [...] uterine cancer at age 81. LOCATION: [facility] BREAST COMPOSITION: Heterogeneously dense,which may obscure small [...] PALPABLE LUMP SHOULD BE BIOPSIED. Dictated by: Antonio Soto M.D. on 11/23/2021 at 14:17 Approved by: Antonio Soto M.D. on 11/23/2021 at 14:26 Normal [facility] XR DEXA BONE DENSITYon 11-22 XR [...] - Low Fracture Risk Electronically authenticated by: ANTONIO SOTO Date: 2021-11-22 16:44 Normal [facility] Covid-19 PCR (CVDTB)on SARS-CoV-2 (COVID-19) RNA RANDA+probe Ql (Unsp spec) Not detected Normal NOT DETECTED [facility] Comment on above: Result Comment: This test is not yet approved or cleared by the [place] FDA. When there are no FDA-approved or cleared tests available, and other criteria are met, FDA can make tests available under an emergency access mechanism called an Emergency Use Authorization (EUA). The EUA for this test is supported by the Resident Services Coordinator of Health and Human Service's (HHS's) declaration [...] consistent with SARS-CoV-2. Performed By: #### [facility] #### [facility] [address] [place] [address] Dr. Swapnil Bush Covid-19 PCR ([facility])on 02-22 SARS-CoV-2 (COVID-19) RNA RANDA+probe Ql (Unsp spec) Not detected Normal NOT DETECTED [facility] Comment on above: Result Comment: This test is not yet approved or cleared by the [place] FDA. When there are no FDA-approved or cleared tests available, and other criteria are met, FDA can make tests available under an emergency access mechanism called an Emergency Use Authorization (EUA). The EUA for this test is supported by the [place] of Health and Human Service's (HHS's) declaration [...] consistent with SARS-CoV-2. Performed By: #### C [facility] #### [facility] [address] [place] [address] Dr. Swapnil Bush Vital Signs Date Time Vital Sign Value Performing Clinician Faci lity 06-11-2024 14:01-0500 Body mass index (BMI) [Ratio] 37.5 kg/m2 DylanMaxcyteo DO Work Phone: [facility] 06-11-2024 14:01-0500 Body weight 108.59 kg Dylan Katelyn DO Work Phone: [facility] 06-11-2024 14:01-0500 Diastolic blood pressure 80 mm[Hg] Dylan Katelyn DO Work Phone: [facility] 06-11-2024 14:01-0500 Systolic blood pressure 130 mm[Hg] Dylan Katelyn DO Work Phone: [facility] 03-05-2024 14:02-0500 Blood Pressure Location Edda PEÑA [facility] 03-05-2024 14:02-0500 Diastolic blood pressure 86 mm[Hg] Edda PEÑA [facility] 03-05-2024 14:02-0500 Heart rate 72 /min Edda CARRINGTONL [facility] 03-05-2024 14:02-0500 Respiratory rate 16 /min Edda NILL [facility] 03-05-2024 14:02-0500 Systolic blood pressure 124 mm[Hg] Edda PEÑA [facility] Encounters Encounter Date Encounter Type Care Provider Facility Start: 12-25-2024 ambulatory Edda PEÑA Facility :[facility] Start: 12-17-2024 End: 12-17-2024 Bamboo flowsheet Dylan Katelyn DO Work Phone: [facility] Start: 12-17-2024 End: 12-17-2024 Bamboo flowsheet Dylan Katelyn DO Work Phone: [facility] [place] [facility] Start: 12-17-2024 End: 12-17-2024 Patient encounter procedure Dylan Katelyn DO Work Phone: [facility] [place] [facility] Comment on above: Well woman exam with routine gynecological exam; Breast cancer screening by mammogram; Postmenopausal state Start: 06-20-2024 End: 06-20-2024 Clinisync Result Encounter Dylan Katelyn DO Work Phone: [facility] Unsolicited Start: 06-20-2024 End: 06-20-2024 Clinisync Result Encounter Dylan Katelyn DO Work Phone: [facility] Unsolicited Start: 06-11-2024 End: 06-11-2024 Bamboo flowsheet Dylan Katelyn DO Work Phone: [facility] Start: 06-11-2024 End: 06-17-2024 Bamboo flowsheet Dylan Katelyn DO Work Phone: [facility] Start: 06-11-2024 End: 06-17-2024 Clinisync Result Encounter Dylan Katelyn DO Work Phone: [facility] Unsolicited Start: 06-11-2024 End: 06-11-2024 Office outpatient visit 15 minutes Dylan Katelyn DO Work Phone: [facility] Comment on above: Atypical squamous ce lls of undetermined significance (ASCUS) on Papanicolaou smear of cervix; Recurrent UTI; Screening for osteoporosis; Encounter for screening mammogram for malignant neoplasm of breast; Age-related osteoporosis without current pathological fracture ([facility]/HCC) Start: 06-11-2024 End: 06-11-2024 ambulatory DYLAN KATELYN Not Available Start: 05-29-2024 End: 05-29-2024 ambulatory BHARAT SANZ [facility] Start: 04-03-2024 End: 04-03-2024 ambulatory Edda Peña Facility:[facility] Start: 04-03-2024 End: 04-03-2024 ambulatory Edda PEÑA Facility:CD:[id number] Start: 03-05-2024 End: 03-05-2024 ambulatory Edda PEÑA Facility:[facility] Start: 03-05-2024 End: 03-05-2024 Patient encounter procedure Edda PEÑA [facility] [place] Start: 12-06-2023 End: 12-15-2023 Clinisync Result Encounter Dylan Katelyn DO Work Phone: [facility] Unsolicited Start: 12-06-2023 End: 12-15-2023 Clinisync Result Encounter Dylan Katelyn DO Work Phone: [facility] Unsolicited Start: 12-06-2023 End: 12-06-2023 ambulatory DYLAN KATELYN Not Available Start: 09-21-2023 End: 09-21-2023 [...] for preprocedural laboratory examination DR EDDA PEÑA [facility] Start: 03-10-2021 End: 03-10-[address] EDDA PEÑA Facility:[facility] Start: 03-06-2021 End: 03-07-[address] MELISSA SEAY Facility:[facility] Start: 03-06-2021 End: 03-07-2021 Encounter for preprocedural laboratory examination DR MELISSA SEAY Facility:[facility] Start: 03-02-2021 End: 03-03-2021 ambulatory CHINTAN GALINDO Facility:[facility] Procedures Date Procedure Procedure Detail Performing Clinician Start: 06-20-2024 MM TOMOSYNTHESIS SCREENING BI Dylan Fazi o DO Work Phone: Start: 06-11-2024 IGP,APTIMA HPV,AGE GDLN Dylan Katelyn DO Work Phone: Start: 05-29-2024 Colonoscopy Dylan Katelyn DO Work Phone: Start: 12-06-2023 IGP,APTIMA HPV,AGE GDLN Dylan Katelyn DO Work Phone: Start: 03-10-2021 Colonoscopy Edda NILL Start: 06-20-2016 Dilation and curettage Edda NILL Start: 06-20-2016 Hysteroscopy Edda NILL Start: 02-12-2013 [...] Treatment Date Care Activity Detail Author Start: 05-29-2034 Screening for malign ant neoplasm of colon [facility] Start: 12-23-2024 Influenza vaccination Influenza Vacc ine (#1) [facility] Start: 12-17-2024 End: 12-17-2024 Patient encounter procedure 12/17/2024 11:20 AM EDT Procedure Visit JOELLEN MENCHACAN [address] [place] [id number] Dylan Zepeda, DO [address] [place], [place] [id number] Arrived JOELLEN DUMONT Comment on above: Arrived Start: 06-11-2024 End: 06-11-2025 DXA Skeletal system Views for bone density DEXA bone density Imaging Routine Screening for osteoporosis Age-related osteoporosis without current pathological fracture ([facility]) Expected: 06/11/2024 (Approximate), Expires: 06/11/2025 [facility] Work Phone: Comment on above: Expected: 06/11/2024 (Approximate), Expires: 06/11/2025 Start: 06-11-2024 End: 08-09-2025 MG Breast - bilateral Screening Bilateral screening mammogram Imaging Routine Encounter for screening mammogram for malignant neoplasm of breast Expected: 06/11/2024 (Approximate), Expires: 08/09/2025 [facility] Comment on above: Expected: 06/11/2024 (Approximate), Expires: 08/09/2025 Start: 06-11-2024 End: 06-11-2024 Patient encounter procedure 06/11/2024 2:00 PM EST Procedure Visit [facility] [address] [place] [id number] Dylan Zepeda, DO [address] [place] [address] [facility] Comment on above: Arrived Start: 01-07-2024 Screening for malign ant neoplasm of colon [facility] Start: 12-24-2023 Influenza vaccination Influenza Vacc ine (#1) [facility] Start: 2013 Pneumococcal Vaccine : 65+ Years (1 of 1 - PCV) Pneumococcal Vaccine: 65+ Years (1 of 1 - PCV) [facility] Start: 1998 Pneumococcal Vaccine : 65+ Years (1 of 1 - PCV) Pneumococcal Vaccine: 65+ Years (1 of 1 - PCV) [facility] Start: 1950 Medicare Annual Wellness (AWV) Medicare Annual Wellness (AWV) [facility] Start: 1950 Screening for malign ant neoplasm of colon [facility] THIN PREP TIS PAP AN D HR HPV DNA THIN PREP TIS PAP AND HR HPV DNA Pathology and Cytology Routine Atypical squamous cells of undetermined significance (ASCUS) on Papanicolaou smear of cervix Ordered: 06/11/2024 [facility] Comment on above: Ordered: 06/11/2024 THIN PREP TIS PAP AN D HR HPV DNA THIN PREP TIS PAP AND HR HPV DNA Pathology and Cytology Routine Well woman exam with routine gynecological exam Ordered: 12/17/2024 [facility] Work Phone: Comment on above: Ordered: 12/17/2024 Immunizations Immunization Date Immunization Notes Care Provider Jessee sher 07-21-2020 SARS-CoV-2 (COVID-19 ) mRNA BNT-162b2 vajunior PEÑA [facility] 06-29-2020 SARS-CoV-2 (COVID-19 ) mRNA BNT-162b2 vax ReduxioL [facility] Payers Date Payer Category Payer Medicare [id number] 2023 Medicare ANTHEM MEDICARE ADVANTAGE ANTHEM MEDICARE ADVANTAGE [id number] 2023-Present [address] [place] [address] [id number] 2023 Medicare (Managed Care) CALROS Zavala [facility] ADVANTAGE [id number] 2023 Medicare [id number] 2023 Medicare [id number] 1959 Medicare [id number] 1959 Self-pay 1948 Unknown [id number] 2.16.840.1.376930.3.579. 2.593 1948 Unknown [id number] 2.16.840.1.231427.3.579. 2.59 1948 Unknown [id number] 2.16.840.1.780558.3.579. 2.593 1948 Unknown [id number] 2.16.840.1.235760.3.579. 2.593 1948 Unknown [id number] 2.16.840.1.750556.3.579. 2.593 1948 Unknown [id number] 2.16.840.1.914434.3.579. 2.125 1948 Unknown [id number] 2.16.840.1.669368.3.579. 2.1259 1948 Unknown [id number] 2.16.840.1.956443.3.579. 2.1259 1948 Unknown [id number] 2.16.840.1.871446.3.579. 2.1259 1948 Unknown [id number] 2.16.840.1.600484.3.579. 2.125 1948 Unknown [id number] 2.16.840.1.613055.3.579. 2.1259 1948 Unknown [id number] 2.16.840.1.437974.3.579. 2.125 1948 Unknown [id number] 2.16.840.1.229939.3.579. 2.727 1948 Unknown [id number] 2.16.840.1.009025.3.579. 2.727 1948 Unknown [id number] 2.16.840.1.240993.3.579. 2.727 Unknown [id number] 2.16.840.1.393983.3.579. 2.593 Unknown [id number] 2.16.840.1.499249.3.579. 2.531 Social History Date Type Detail Facility Start: 07-27-2023 End: 03-05-2024 Tobacco smoking status Never smoked tobacco (finding) [facility] Tobacco smoking status Never [facility] Start: 09-21-2023 End: 06-11-2024 Sex Assigned At Female [facility] Start: 07-27-2023 Tobacco use and exposure Smokeless tobacco non-user [facility] Start: 12-06-2023 End: 12-17-2024 Alcoholic beverage intake Defer [facility] Start: 09-21-2023 End: 06-11-2024 History of Social function [facility] Start: 1950 Sex assigned at Not on file [facility] NEGATED: Highlighted rowStart: NINF History of tobacco use Passive smoker [facility] Functional Status Date Assessment Result Facility 03-05-2024 Functional Status N/A [facility] Clinical Notes 03-10-2021 to 12-17-2024 Emely Ball LPN - 12/17/2024 11:20 AM Korey Ball LPN - 06/11/2024 2:00 PM EST Note Date & Type Note Facility 12-17-2024 History of Present illness Narrative Reason for Appointment: Patient ID: Gigi Koch is a 74 y.o. female who presents for Well Women Visit Patient presents today for Annual Exam. MEDICATIONS Current Outpatient Medications Medication Instructions acarbose (Precose) 100 MG tablet aspirin 81 mg, Daily biotin 27328 MCG tablet Take by mouth candesartan (Atacand) [...] nursing note reviewed. Exam conducted with a doctor of dental surgery present. Vitals: Estimated body mass index is 37.5 kg/m as calculated from the following: Height as [...] states she has complaints of loss of weight since colonoscopy pt has dropped weight. Pt still [...] them. Patient can also view results via [employer]. I reinforced importance of condom use for [...] and avoiding tobacco and excessive alcohol. Discussed purpose of DEXA in assessing fracture risk and monitoring bone density. Patient advised results will be reviewed upon completion and next steps discussed as needed. Follow Up: Patient is to return to our office in one year for annual exam unless needed otherwise. Documented by Emely Ball LPN on behalf of: Dylan Zepeda DO documented in this encounter [facility] 06-11-2024 History of Present illness Narrative Reason for Appointment: Patient ID: Gigi Koch is a 73 y.o. female who presents for Abnormal Pap Smear Patient presents today for Repeat Pap. MEDICATIONS Current Outpatient Medications Medication Instructions acarbose (Precose) 100 MG tablet aspirin 81 mg, Daily biotin 23901 MCG tablet Take by mouth candesartan (Atacand) [...] Take by mouth ALLERGIES Allergies Allergen Reactions Keflex [Cephalexin] Hives Venlafaxine Hives PROBLEMS Active Ambulatory Problems Diagnosis Date Noted No Active Ambulatory Problems Resolved Ambulatory Problems Diagnosis Date Noted No Resolved Ambulatory Problems Past Medical History: Diagnosis Date GERD (gastroesophageal reflux disease) High cholesterol (CMS/HCC) Hypertension (CMS/HCC) Pre-diabetes HISTORY PAST MEDICAL HISTORY SOCIAL HISTORY Past Medical History: Diagnosis Date GERD (gastroesophageal reflux disease) High cholesterol ([facility]) Hypertension ([facility]) Pre-diabetes Social History Tobacco Use Smoking status: [...] appearance. She is well-developed. Genitourinary: Vulva normal. Cardiovascular: Rate and Rhythm: Normal rate and [...] nursing note reviewed. Exam conducted with a doctor of dental surgery present. Vitals: Estimated body mass index is 37.5 kg/m as calculated from the following: Height as of 12/06/23: 5' 7 . Weight as of this encounter: 239 lb 6.4 oz. BP: 130/80 No LMP recorded. Patient is postmenopausal. ASSESSMENT & PLAN ICD-10-CM 1. Atypical squamous cells of undetermined significance (ASCUS) on Papanicolaou smear of cervix R87.610 2. Recurrent UTI N39.0 estradiol (Estrace) 0.1 MG/GM vaginal cream 3. Screening for osteoporosis Z13.820 DEXA bone density 4. Encounter for screening mammogram for malignant neoplasm of breast Z12.31 Bilateral screening mammogram Bilateral screening mammogram 5. Age-related osteoporosis without current pathological fracture ([facility]) M81.0 DEXA bone density Repeat Pap: Patient presents today for a repeat pap. Previous pap results were reviewed and noted to be ASCUS. Question regarding previous results were discussed. Repeat Pap was obtained without difficulty. Pt having recurrent utis rx for estrace cream faxed to pharmacy. Pt to apply a pea sized amount over urethra. Pt to return in 6 months for repeat pap. Follow Up: Patient is to return to the office in 6 months for an annual exam. Documented by Emely Ball LPN on behalf of: Dylan Zepeda DO documented in this encounter [facility] 06-06-2024 Note Colonoscopy and EMR procedure note from 05/29/24 and pathology faxed to referring office of Dr. Carrington at [phone] [facility] 05-29-2024 Note Patient: Gigi altamirano Procedure Summary Date: 05/29/24 Room / Location: [facility] Endoscopy Anesthesia Start: 1051 Anesthesia [...] per anesthesia protocol. No notable events documented. [facility] 05-29-2024 Note Patient: Gigi altamirano Procedure Summary Date: 05/29/24 Room / Location: [facility] Endoscopy Anesthesia Start: 1051 Anesthesia Stop: Procedure: DIAGNOSTIC COLONOSCOPY Diagnosis: Tubular adenoma of colon Scheduled Providers: Bharat Sanz MD; Bunny Marion MD; SUN Maki Responsible Provider: Bunny Marion MD Anesthesia Type: general ASA Status: 3 Anesthesia Post [facility] Patient Monitor: direct observation Transport: uneventful Patient condition is: stable [facility] 05-29-2024 Note Airway Date/Time: 05/29/2024 11:01 AM Urgency: elective General Information and Staff Patient location during procedure: OR Anesthesiologist: Bunny Marion MD Resident/BUSINESS SERVICES INTERN/SUN: SUN Maki Performed: resident/BUSINESS SERVICES INTERN/SUN Indications and Patient Condition Indications for airway [...] 1 Number of other approaches attempted: 0 [facility] 05-29-2024 Note Patient: Gigi altamirano Procedure Information Date/Time: 05/29/24 1115 Scheduled providers: Bharat Sanz MD; Bunny Marion MD; SUN Maki Procedure: DIAGNOSTIC COLONOSCOPY Location: [facility] Invasive [facility] Endoscopy Relevant Problems Anesthesia (within normal limits) [...] Plan discussed with CAA. Additional Equipment Requests [facility] 03-05-2024 Note General Surgery Offi ce/Clinic Note [...] Oral, Daily M (more content not included)... [facility] Comment on above: Result Comment: Elec tronically Signed By: Edda PEÑA MD\.br\Date and Time Signed: 03/05/24 15:57 EST 03-10-2021 Note [facility] [place], [place] NAME: GIGI KOCH DATE OF : MEDICAL REC#: [id number] PAINTING TECHNICIAN: [address] ADMIT DATE: 03/10/2021 07:41:00 ARTIST'S MODEL DATE: 03/10/2021 10:00 DICTATING PHYSICIAN: EDDA PEÑA [...] Edda Peña MD on 03/10/2021 11:23 AM [facility] Signed and Approved by: DR EDDA PEÑA . 03/10/2021 11:23:00 [facility] Evaluation + Plan note No data available for this section [facility] Evaluation note Diagnosis Atypical squamous cells of undetermined significance (ASCUS) on Papanicolaou smear of cervix Recurrent UTI Urinary tract infection, site not specified Screening for osteoporosis Special screening for osteoporosis Encounter for screening mammogram for malignant neoplasm of breast Age-related osteoporosis without current pathological fracture (CMS/HCC) documented in this encounter [facility] HealthcareEvaluation note* Diagnosis Well woman exam with routine gynecological exam Routine gynecological examination Breast cancer screening by mammogram Postmenopausal state Asymptomatic postmenopausal status (age-related) (natural) documented in this encounter [facility] Discharge instructions No data available for this section [facility] Progress note No data available for this section [facility] Summary Purpose Family History No Family History Records Found No data available [...] and content) DATE CREATED AUTHOR 11/26/2021 [facility] DATE CREATED AUTHOR AUTHOR'S ORGANIZ ATION 04/06/2024 [facility] DATE CREATED AUTHOR AUTHOR'S ORGANIZ ATION 06/08/2024 [facility] DATE CREATED AUTHOR AUTHOR'S ORGANIZ ATION 06/13/2024 [facility] EPIC DATE CREATED AUTHOR AUTHOR'S ORGANIZ ATION 11/30/2024 [facility] Patient Care team informatio n (unrecognized section and content) Slipper Maker Relationship Specialty Start Date End Date Unallocated, Joellen Dave MD [address] [facility] [place] [address] PCP - General Family Medicine 08/24/23 Slipper Maker Relationship Specialty Start Date End Date Unallocated, Joellen Dave MD [address] [place] [address] PCP - General Family Medicine 08/24/23 Slipper Maker Relationship Specialty Start Date End Date Unallocated, Joellen Dave MD [address] [place] [address] PCP - General Family Medicine 08/24/23 Slipper Maker Relationship Specialty Start Date End Date Unallocated, Joellen Dave MD [address] [facility] [place] [address] PCP - General Family Medicine 08/24/23 Slipper Maker Relationship Specialty Start Date End Date Unallocated, Joellen Dave MD [address] [place] [address] PCP - General Family Medicine 08/24/23 Slipper Maker Relationship Specialty Start Date End Date Unallocated, [facility] Provider, Niall [facility] [facility] [place] [address] PCP - General Family Medicine 08/24/23 Reason for Visit (unrecogniz ed section and content) Reason Comments Abnormal Pap Smear Reason Comments Well Women Visit FOR RECORDS PERTAINING TO PATIENTS WHO ARE [...] BE BASED ON THE PRIMARY CLINICAL RECORDS. [employer] provides no warranty or guarantee of the accuracy or completeness of information in this document.
[2024-12-20 17:09] LABS: Age Gdln ACOG Testing Note (.); Pap IG (Image Guided) Note (.)
== END 2024-12-17 19:43 | disposition home or self-care (01) ==
LOC: LAB 19:42
PROVIDERS: PCP Internal Medicine; Visit Provider Obstetrics & Gynecology
DX: Z01.419 Encounter for gynecological examination (general) (routine) without abnormal findings (principal)
CPT/HCPCS: 88175

== ENCOUNTER 2025-01-15 06:39 | Outpatient (OUT) | payer MEDICARE, SELFPAY ==
--- OUTSIDE RECORDS SUMMARY | 2025-01-15 06:41 | XMS_ITS | Encounter Summary ---
Author Organization [facility] Address [address] [place] [address] Care Team Providers Care Insurance Examiner Name Role Phone Unallocated, [facility] Provider Primary Care Provi alan Encounter Details Date Type Department Care Team (Late st Contact Info) Description 06/28/2024 Abstract [facility] [place] [facility] [address] [place] [phone] Dylan Zepeda DO [address] [place] [address] Social History Tobacco Use Types Packs/Day Years [...] on filedocumented in this encounter Care Teams Insurance Examiner Relationship Specialty Start Date End Date Unallocated, [place] [address] PCP - General Family Medicine 08/24/23 documented as of this encounter
--- OUTSIDE RECORDS SUMMARY | 2025-01-15 06:41 | XMS_ITS | Clinical Summary ---
Author Organization [facility] Address [id number] [address] [place] [address] Care Team Providers Care Butcher Fish Name Role Phone Unavailable Primary Care Provider [...]
--- OUTSIDE RECORDS SUMMARY | 2025-01-15 06:41 | XMS_ITS | CCD ---
Author Organization [facility] CliniSyme Care Team Providers Care Checker Dump Grounds Name Role Phone DAWOOD, DR TORRES Primary [...] Unavailable VALONE MELISSA NGO Primary Care Physician [phone] Edda Peña Attending Unavailable NilEdda mckeon Admitting Unavailable Unallocated Kobe RUSSELLs Provider Primary Care Provi alan BHARAT SANZ Admitting Unavailable BHARAT SANZ Attending Unavailable EDDA PEÑA Referring Unavailable Unallocated MD Noms Provider Primary Care Provi alan CHRISTOFER ZEPEDA Attending Unavailable CHRISTOFER ZEPEDA Attending Unavailable NILLEdda Attending Unavailable NILLEdda Attending Unavailable NILL, Edda Bentley Attending Unavailable NILL, Edda Bentley Attending Unavailable Allergies Allergy Classification Reported Allergen(s) Allergy Type Date of Onset Reaction(s) Facility (2 sources) Cephalexin; Translations: [Keflex] Drug Allergy [facility] Repository (3 sources) venlafaxine; Translations: [VENLAFAXINE] Drug Allergy 4 [facility] (12 sources) Cephalexin; Translations: [cephalexin] Drug Allergy 4 Itching (finding), Hives, Itching [facility] (11 sources) venlafaxine; Translations: [venlafaxine] Drug Allergy 4 Itching (finding), Hives, Itching [facility] Medications Current Medications Medication Drug Class(es) Dates Sig (Normalized) Sig (Original) acarbose 100 mg oral tablet (11 sources) alpha-Glucosidase Inhibitor Start: 05-25-2023 take 1 tablet by mouth three times daily acarbose 100 mg oral tablet 100 mg = 1 tab(s), Oral, TID, Refills(s) 0 Start Date: 02/23/24 Status: Ordered Repeat number: 1 aspirin 81 mg delayed release oral tablet (11 sources) Platelet Aggregation Inhibitor, Nonsteroidal Anti-inflammatory Drug Start: 03-05-2024 take 1 tablet by mouth once daily aspirin 81 mg Oral EC Tab 81 mg = 1 tab(s), Oral, Daily, Refills(s) 0 Start Date: 03/05/24 Status: Ordered Repeat number: 1 biotin 1 mg oral tablet (11 sources) Start: 02-10-2021 take 1 tablet by mouth once daily biotin 1000 mcg oral tablet 1,000 mcg = 1 tab(s), Oral, Daily Start Date: 02/10/21 Status: Ordered Repeat number: 1 biotin 70790 MCG tablet Take by mouth Active candesartan cilexetil 16 mg oral tablet (11 sources) Angiotensin 2 Receptor Won Start: 05-25-2023 take 1 tablet by mouth once daily candesartan 16 mg Tab 16 mg = 1 tab(s), Oral, Daily, Refills(s) 0 Start Date: 02/23/24 Status: Ordered Repeat number: 1 cetirizine hydrochloride 10 mg oral tablet (11 sources) Histamine-1 Receptor Antagonist Start: 03-05-2024 take 1 tablet by mouth once daily cetirizine 10 mg Tab 10 mg = 1 tab(s), Oral, Daily, Refills(s) 0 Start Date: 03/05/24 Status: Ordered Repeat number: 1 DULoxetine 60 mg delayed release oral capsule (11 sources) Serotonin and Norepinephrine Reuptake Inhibitor Start: 05-25-2023 take 1 capsule by mouth once daily duloxetine 60 mg oral delayed release capsule 60 mg = 1 cap(s), Oral, Daily, Refills(s) 0 Start Date: 02/23/24 Status: Ordered Repeat number: 1 eslicarbazepine acetate 200 mg oral tablet (8 sources) Eslicarbazepine Acetate (Aptiom) 200 MG tablet Take by mouth Active esomeprazole 40 mg delayed release oral capsule (11 sources) Proton Pump Inhibitor Start: 02-10-2021 take 1 capsule by mouth at bedtime Nexium 40 mg Cap-EC 40 mg = 1 cap(s), Oral, Bedtime, Refills(s) 0 Start Date: 02/10/21 Status: Ordered Repeat number: 1 estradiol 0.1 mg/ml vaginal cream (8 sources) Estrogen Start: 06-11-2024 End: 06-11-2025 estradiol (Estrace) 0.1 MG/GM vaginal cream Indications: Recurrent UTI Insert 0.25 g into the vagina at bedtime Apply pea sized amount to urethra opening At bedtime for 2 weeks, then at every other night 42.5 g 3 06/11/2024 06/11/2025 Active Start: 06-10-2024 famotidine 20 mg oral tablet (1 source) Histamine-2 Receptor Antagonist Start: 01-08-2025 take 1 tablet by mouth once daily at bedtime famotidine 20 mg Tab 20 mg = 1 tab(s), Oral, Once a day (at bedtime), Refills(s) 0 Start Date: 01/08/25 Status: Ordered Repeat number: 1 magnesium oxide 400 mg oral tablet (11 sources) Start: 02-10-2021 take 1 tablet by mouth once daily magnesium oxide 400 mg Tab 400 mg = 1 tab(s), Oral, Daily, Refills(s) 0 Start Date: 02/10/21 Status: Ordered Repeat number: 1 magnesium oxide (Mag-Ox) 400 mg tablet 400 mg Daily Active metFORMIN hydrochloride 500 mg oral tablet (11 sources) Biguanide Start: 02-23-2024 take 1 tablet by mouth twice daily MetFORMIN (Eqv-Glucophage XR) 500 mg oral tablet, extended release 500 mg = 1 tab(s), Oral, BID, Refills(s) 0 Start Date: 02/23/24 Status: Ordered Repeat number: 1 Start: 11-22-2023 take 1 tablet by jennifer th every twenty-four hours at mealtime metFORMIN XR (Glucophage-XR) 500 MG 24 hr tablet Take 500 mg by mouth in the evening. Take with meals 11/22/2023 Active methenamine hippurate 1000 mg oral tablet (7 sources) Start: 01-08-2025 take 1 tablet by mouth twice daily methenamine hippurate 1 g oral tablet 1 gm = 1 tab(s), Oral, BID, Refills(s) 0 Start Date: 01/08/25 Status: Ordered Repeat number: 1 take 1 tablet by mouth in the mo rning methenamine hippurate (Hiprex) 1 g tablet Take 1 g by mouth in the morning and 1 g in the evening. Active 24 hr mirabegron 50 mg extended release oral tablet (11 sources) beta3-Adrenergic Agonist Start: 05-25-2023 Myrbe triq 50 MG 24 hr tablet 05/25/2023 Active Start: 02-10-2021 take 1 tablet by jennifer th once daily Myrbetriq 50 mg oral tablet, extended release 50 mg = 1 tab(s), Oral, Daily, Refills(s) 0 Start Date: 02/10/21 Status: Ordered Repeat number: 1 montelukast 10 mg oral tablet (11 sources) Leukotriene Receptor Antagonist Start: 02-10-2021 take 1 tablet by mouth once daily Singulair 10 mg Tab 10 mg = 1 tab(s), Oral, Daily, Refills(s) 0 Start Date: 02/10/21 Status: Ordered Repeat number: 1 Multivitamins and Minerals (3 sources) Start: 02-10-2021 take 1 tablet by mouth once daily Multivitamins and Minerals 1 tab(s), Oral, Daily, Refill(s) 0 Start Date: 02/10/21 Status: Ordered Repeat number: 1 Start: 02-10-2021 take 1 tablet by jennifer th once daily Multivitamins and Minerals 1 tab(s), Oral, Daily, Refill(s) 0 Start Date: 02/10/21 Status: Ordered pravastatin sodium 20 mg oral tablet (11 sources) HMG-CoA Reductase Inhibitor Start: 02-10-2021 take 1 tablet by mouth once daily at bedtime pravastatin 20 mg Tab 20 mg = 1 tab(s), Oral, Once a day (at bedtime), Refills(s) 0 Start Date: 02/10/21 Status: Ordered Repeat number: 1 vitamin b12 1 mg oral tablet (8 sources) Vitamin B12 take 1 tablet by mouth once daily cyanocobalamin (Vitamin B-12) 1000 MCG tablet Take 1,000 mcg by mouth Daily Active Vitamin B12 1000 mcg Tab (3 sources) Start: 02-10-2021 take 1 tablet by mouth once daily Vitamin B12 1000 mcg Tab 1,000 mcg = 1 tab(s), Oral, Daily, Refills(s) 0 Start Date: 02/10/21 Status: Ordered Repeat number: 1 Start: 02-10-2021 take 1 tablet by jennifer th once daily Vitamin B12 1000 mcg Tab 1,000 mcg = 1 tab(s), Oral, Daily, Refills(s) 0 Start Date: 02/10/21 Status: Ordered vitamin b6 100 mg oral tablet (8 sources) take 1 tablet by mouth once daily pyridoxine (Vitamin B-6) 100 MG tablet Take 100 mg by mouth Daily Active Vitamin B6 50 mg Tab (3 sources) Start: 02-10-2021 take 1 tablet by mouth twice daily Vitamin B6 50 mg Tab 50 mg = 1 tab(s), Oral, BID, Refills(s) 0 Start Date: 02/10/21 Status: Ordered Repeat number: 1 Start: 02-10-2021 take 1 tablet by jennifer th twice daily Vitamin B6 50 mg Tab 50 mg = 1 tab(s), Oral, BID, Refills(s) 0 Start Date: 02/10/21 Status: Ordered Vitamin D 1000 intl units Tab (3 sources) Start: 02-10-2021 take 1 tablet by mouth once daily Vitamin D 1000 intl units Tab 25 mcg = 1 tab(s), Oral, Daily, Refills(s) 0 Start Date: 02/10/21 Status: Ordered Repeat number: 1 Start: 02-10-2021 take 1 tablet by jennifer th once daily Vitamin D 1000 intl units Tab 25 mcg = 1 tab(s), Oral, Daily, Refills(s) 0 Start Date: 02/10/21 Status: Ordered VITAMIN D PO (8 sources) VITAMIN D PO Erik e by mouth Active Problems Active Problems Problem Classification Problem Date Documented Da te Episodic/Chronic Abdominal hernia (4 sources) Diaphragmatic hernia without obstruction or gangrene; Translations: [Hiatal hernia] Onset: 03-15-2021 02-10-2021 Episodic Abdominal pain (4 sources) Epigastric pain; Translations: [Epigastric pain] Onset: 01-08-2025 Episodic Calculus of urinary tract (3 sources) Kidney stone 02-10-2021 Episodic Cancer of cervix (1 source) Atypical squamous cells of undetermined significance on cervical Papanicolaou smear; Translations: [Atypical squamous cells of undetermined significance on cytologic smear of cervix (ASC-US)] 06-11-2024 Episodic Diabetes mellitus without complication (3 sources) Diabetes mellitus 02-23-2024 Chronic Diverticulosis and diverticulitis (3 sources) Diverticulitis 02-10-2021 Chronic Esophageal disorders (4 sources) Gastro-esophageal reflux disease without esophagitis; Translations: [Gastroesophageal reflux disease] Onset: 03-15-2021 02-10-2021 Chronic Essential hypertension (4 sources) Essential (primary) hypertension; Translations: [Hypertensive disorder] Onset: 03-15-2021 02-10-2021 Chronic Immunizations and screening for infectious disease (5 sources) Encounter for screening for human papillomavirus (HPV); Translations: [Encounter for immunization] Onset: 03-02-2021 Episodic Nausea and vomiting (2 sources) Nausea and vomiting; Translations: [Nausea with vomiting, unspecified] Onset: 01-08-2025 Episodic Osteoporosis (1 source) Senile osteoporosis; Translations: [Age-related osteoporosis without current pathological fracture] 06-11-2024 Chronic Other and unspecified benign neoplasm (5 sources) History of polyp of colon; Translations: [Personal history of adenomatous and serrated colon polyps] Onset: 03-05-2024 Episodic Other and unspecified benign neoplasm (3 sources) Adenomatous polyp of colon 03-23-2021 Episodic Other and unspecified benign neoplasm (3 sources) Benign neoplasm of ascending colon 03-23-2021 Episodic Other and unspecified benign neoplasm (2 sources) Benign neoplasm of colon, unspecified; Translations: [Benign neoplasm of colon, unspecified] Onset: 05-29-2024 Episodic Other liver diseases (3 sources) Non-alcoholic fatty liver 02-10-2021 Chronic Other nutritional; endocrine; and metabolic disorders (1 source) Morbid (severe) obesity due to excess calories; Translations: [MORBID SEVERE OBES D/T EXCESS ABELARDO] Onset: 03-15-2021 Chronic Other nutritional; endocrine; and metabolic disorders (1 source) Body mass index (BMI) 40.0-44.9, adult; Translations: [BODY MASS INDEX BMI 40.0-44.9 ADULT] Onset: 03-15-2021 Chronic Other nutritional; endocrine; and metabolic disorders (2 sources) Body mass index 40+ - severely obese 02-10-2021 Chronic Other nutritional; endocrine; and metabolic disorders (3 sources) Metabolic syndrome X 02-10-2021 Chronic Other nutritional; endocrine; and metabolic disorders (3 sources) Obese class III 03-05-2024 Chronic Other nutritional; endocrine; and metabolic disorders (1 source) Body mass index 30+ - obesity 01-08-2025 Chronic Other screening for suspected conditions (not mental disorders or infectious disease) (14 sources) Encounter for screening mammogram for malignant neoplasm of breast; Translations: [Encounter for screening for malignant neoplasm of cervix] Onset: 11-17-2021 Episodic Peripheral and visceral atherosclerosis (3 sources) Peripheral vascular disease 02-23-2024 Chronic Phlebitis; thrombophlebitis and thromboembolism (4 sources) Personal history of other venous thrombosis [...] state; Translations: [Asymptomatic menopausal state] 12-17-2024 Episodic Residual codes; unclassified (2 sources) Foreign body 03-13-2024 Episodic Unclassified (4 sources) CONTACT W/AND (SUSP) EXPOS COVID-19; Translations: [CONTACT W/AND (SUSP) EXPOS COVID-19] Onset: 03-11-2021 Urinary tract infections (1 source) Recurrent urinary tract infection; Translations: [Urinary tract infection, site not specified] 06-11-2024 Episodic Past or Other Problems Problem Classification Problem Date Documented Da te Episodic/Chronic Other aftercare (1 source) 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; Translations: [OTH SOCIAL WORK JOB TITLES CURRENT DRUG THERAPY] Onset: 03-15-2021 Episodic Other [...] Interpretation Reference Range Facility Ambulatory Visit Summaryon 0 01-08-2025 Ambulatory Visit Summary Ambulatory Visit Summary GIGI KOCH :1950 Visit Date:01/08/2025 Ambulatory Visit Instructions Your Diagnosis Personal history of adenomatous and serrated colon polyps Abdominal pain, RUQ (right upper quadrant) Abdominal pain, epigastric Nausea and vomiting Tests Performed CT Abdomen/Pelvis w/ Contrast -- Results Pending -- Please visit your patient portal for your results or contact your primary care physician. Your Care Team Attending Physician - VIET RUSSELL, Edda Bentley Primary Care Physician - MELISSA SEAY JR, DO This Is Your Medications List famotidine (famotidine 20 mg Tab) methenamine (methenamine hippurate 1 g oral tablet) Contact prescribing physician if questions or concerns acarbose (acarbose 100 mg oral tablet) aspirin (aspirin 81 mg Oral EC Tab) biotin (biotin 1000 mcg oral tablet) candesartan (candesartan 16 mg Tab) cetirizine (cetirizine 10 mg Tab) cholecalciferol (Vitamin D 1000 intl units Tab) cyanocobalamin (Vitamin B12 1000 mcg Tab) duloxetine (duloxetine 60 mg oral delayed release capsule) esomeprazole (Nexium 40 mg Cap-EC) estradiol topical (estradiol 0.1 mg/g Vag Crm) magnesium oxide (magnesium oxide 400 mg Tab) metformin (MetFORMIN (Eqv-Glucophage XR) 500 mg oral tablet, extended release) mirabegron (Myrbetriq 50 mg oral tablet, extended release) montelukast (Singulair 10 mg Tab) multivitamin with minerals (Multivitamins and Minerals) pravastatin (pravastatin 20 mg Tab) pyridoxine (Vitamin B6 50 mg Tab) Procedures Performed Colonoscopy (05/29/2024), Colonoscopy (04/03/2024), Colonoscopy (03/10/2021), Dilation and curettage (06/20/2016), Hysteroscopy (06/20/2016), Needle localization using ultrasound guidance and mammography (02/12/2013), Lithotripsy (06/10/2010), Colonoscopy (04/24/2001), EGD - Esophagogastroduodenoscopy (04/24/2001), Arthroscopy of knee (02/12/2000), Cholecystectomy, Extract tooth, Left ear. Discharge Vitals Heart Rate (Peripheral) 76 Respiratory Rate 16 Blood Pressure 118/86 Height 162.5 cm Height 64 in Weight 96.0 kg Weight 211.644 lb BMI 36.36 Medications What How Much When Instructions Unchanged famotidine (famotidine 20 mg Tab) 1 Tablets By Mouth Once a day (at bedtime) Unchanged methenamine (methenamine hippurate 1 g oral tablet) 1 Tablets By Mouth 2 times a day Unchanged acarbose (acarbose 100 mg oral tablet) [...] prescribing physician if questions or concerns Unchanged estradiol topical (estradiol 0.1 mg/ g Vag Crm) 0.25 Unknown, Vaginal, 0 Refill(s) Contact prescribing physician if questions or concerns [...] that you are currently receiving treatment for. Abdominal pain, ep (more content not included)... Normal [facility] IGP,APTIMA HPV,AGE GDLNon -2024 AGE GDLN ACOG TESTING Note . [facility] Comment on above: TESTS RESULT FLAG UN ITS REF RANGE LAB Clinician Provided Cytology Information Source.............Cervix;Endocervix No. of containers..01 ThinPrep Vial Age Algo ACOG Nicole... Note 01 <21 or >65 or no age provided FLAG LEGEND: L-Low Normal,H-High Normal,LL-Alert Low,HH-Alert High <-Panic Low,>-Panic High,A-Abnormal,AA-Critical Abnormal Performed at: 01 =G [address] [address] Demetrice Solomon MD, PAP IG (IMAGE GUIDED) Note . [facility] Comment on above: TESTS RESULT FLAG UN ITS REF RANGE LAB DIAGNOSIS: 02 NEGATIVE FOR INTRAEPITHELIAL LESION OR MALIGNANCY. Specimen adequacy: 02 Satisfactory for evaluation. Endocervical and/or squamous metaplastic cells (endocervical component) are present. Performed by: Melisa Jones, Manufacturing Technologist ([facility]) . 02 Note: Note 02 The Pap smear is [...] <-Panic Low,>-Panic High,A-Abnormal,AA-Critical Abnormal Performed at: [address] [address] Demetrice Solomon MD, Performed at: = - [address] [id number] Test Design Engineer: Demetrice Solomon MD, Phone: [phone] Performed at: [facility] [address] [id number] Test Design Engineer: Demetrice Solomon MD, Phone: [phone] BRUSH-SPATULA CERVIX ENDOCERVIX [facility] MM TOMOSYNTHESIS SCREENING B Formerly [facility] 06-20-2024 [place] [address] Mammography Report Signed Patient: GIGI KOCH MR#: [id number] : 1950 Acct:[id number] Age/Sex: 73 / F ADM Date: 06/20/24 Loc: MAMMO Attending Dr: Christofer Zepeda D.O. Ordering Physician: Christofer Zepeda D.O. Results: Date of Service: 06/20/24 Follow Up: Procedure(s): MM tomosynthesis screening BI Accession Number(s): [id number] cc: Christofer Zepeda D.O.; MELISSA SEAY D.O. Patient Name: GIGI KOCH MR#: [id number] : 1950 Exam Date: 06/20/2024 Ordering Doctor: DR Christofer Zepeda . RADIOLOGY REPORT PROCEDURE: MM TOMOSYNTHESIS [...] uterine cancer at age 81. LOCATION: [facility] BREAST COMPOSITION: There are scattered areas of [...] Signed By: 06/20/24 1429 DD/ 1428 TD/TT: Bar Attendant: [facility] Radiology, Radiologi MD alin - 06/20/2024 [place] [address] Mammography Report Signed Patient: GIGI KOCH MR#: [id number] : 1950 Acct:[id number] Age/Sex: 73 / F ADM Date: 06/20/24 Loc: MAMMO Attending Dr: Christofer Zepeda D.O. Ordering Physician: Christofer Zepeda D.O. Results: Date of Service: 06/20/24 Follow Up: Procedure(s): MM tomosynthesis screening BI Accession Number(s): [id number] cc: Christofer Zepeda D.O.; MELISSA SEAY D.O. Patient Name: GIGI KOCH MR#: [id number] : 1950 Exam Date: 06/20/2024 Ordering Doctor: DR Christofer Zepeda . RADIOLOGY REPORT PROCEDURE: MM TOMOSYNTHESIS [...] uterine cancer at age 81. LOCATION: [facility] BREAST COMPOSITION: There are scattered areas of [...] Signed By: 06/20/24 1429 DD/ 1428 TD/TT: Bar Attendant: [facility] Radiology Study observation (narrative) [facility] MM TOMOSYNTHESIS SCREENING B IOrdered By: Radiologist Radiology on 06-20-2024 [facility] Work Phone: IGP,APTIMA HPV,AGE GDLNon AGE GDLN ACOG TESTING Note . [facility] Comment on above: TESTS RESULT FLAG UN ITS REF RANGE LAB Clinician Provided Cytology Information Source.............Vagina No. of containers..01 ThinPrep Vial Age Algo ACOG Nicole... Note 01 <21 or >65 or no age provided FLAG LEGEND: L-Low Normal,H-High Normal,LL-Alert Low,HH-Alert High <-Panic Low,>-Panic High,A-Abnormal,AA-Critical Abnormal Performed at: 01 =G [address] [address] Demetrice Solomon MD, PAP IG (IMAGE GUIDED) Note . [facility] Comment on above: TESTS RESULT FLAG UN ITS REF RANGE LAB DIAGNOSIS: 02 NEGATIVE FOR INTRAEPITHELIAL LESION OR MALIGNANCY. THIS SPECIMEN WAS RESCREENED PART OF OUR FOAM FABRICATOR PROGRAM. Specimen adequacy: 02 Satisfactory for evaluation. Performed by: 02 Janee Larkin, Blood Bank Attendant ([facility]) QC reviewed by: 02 Ron Ureña Blood Bank Attendant ([facility]) . 02 Note: Note 03 The Pap [...] High,A-Abnormal,AA-Critical Abnormal Performed at: 02 [facility] [address] [place] [address] Franck Mclean MD, 03 WB [facility] [address] [address] Demetrice Solomon MD, Performed at: =G - [facility] [address] [id number] Test Design Engineer: Demetrice Solomon MD, Phone: [phone] Performed at: [facility] - [facility] [id number] [place] [id number] Test Design Engineer: Franck Mclean MD, Phone: [phone] SPATULA-ALONE VAGINA [facility] Telephoneon 06-06-2024 Telephone [phone] Gigi Koch 1950 F Date Provider Department Center 06/06/2024 NELL RUIZ [facility] No family history on file Normal [facility] HISTOLOGY - TISSUE EXAMon LAB AP CASE REPORT Normal [facility] Comment on above: Result Comment: Surg ical Pathology Case: [id number] Authorizing Provider: Bharat Sanz MD Collected: 05/29/2024 1113 Ordering Location: Angie Qui[facility]ones Received: 05/29/2024 1455 [facility] Pathologist: Nkechi Jimenez MD Specimens: A) - Large Intestine, Right/Ascending Colon, r/o adenoma EMR B) - Ileocecal Valve, r/o adenoma C) - Large Intestine, Cecum, r/o adenoma EMR cecal polyp Performed By: #### L [id number] ####[facility] (BEAKER)[address] [place] [address] LAB AP CLINICAL INFORMATION Order Diagnoses Normal [facility] Comment on above: Result Comment: D12. 6 - Tubular adenoma of colon [ICD-10-CM] Performed By: #### L [id number] ####[facility] (BEAKER)[address] [place] [address] LAB AP GROSS DESCRIPTION Normal [facility] Comment on above: Result Comment: A. L arge Intestine, Right/Ascending Colon. The specimen is received in formalin in a container labeled Gigi August and r/o adenoma EMR . It consists of multiple tucker-pink to tucker-brady soft tissue fragments, 0.1 to 0.5 cm in greatest dimension and 0.9 x 0.5 cm in total aggregate. The specimen is submitted entirely in 1 cassette. Joyce Webster, student fellow B. Ileocecal Valve. The specimen is received in formalin in a container labeled Gigi August and r/o adenoma . It consists of [...] in formalin in a container labeled Gigi Koch and r/o adenoma EMR cecal polyp . It consists of a 0.4 x 0.2 x 0.2 cm pink-tucker, dull, friable polypoid fragment; as well as multiple utcker-brady to tucker-pink soft tissue fragments ranging from 0.1 to 0.6 cm in greatest dimension and 1.5 x 0.9 cm in total aggregate. The polypoid fragment is inked black at the resection margin, bisected and submitted entirely in cassette 1, the remaining soft tissue fragments are submitted entirely in cassette 2. Joyce Webster, student fellow Performed By: #### L [id number] ####[facility] (BEAqueSys)[address] [place] [address] LAB AP MICROSCOPIC DESCRIPTION Microscopic examination performed. [facility] Comment on above: Performed By: #### L [id number] ####[facility] ([facility])[address] [place] [address] LAB AP REPORT FINAL DIAGNOSIS NARRATIVE [facility] Comment on above: Result Comment: A. C olon, ascending polyp, resection: - Fragments of tubular adenoma. - No high grade dysplasia is seen. B. Ileocecal valve, polyp, polypectomy: - Fragments of tubular adenoma. - No high grade dysplasia is seen. C. Colon, cecal polyp, resection: - Multiple fragments of tubular adenoma. - No high grade dysplasia is seen. Performed By: #### L [id number] ####[facility] ([facility]AKER)[address] [place] [address] HPon 05-29-2024 HP History Of Present I [...] resection of the ascending colon polyp. Normal [facility] NURSNOTEon 05-29-2024 NURSNOTE Ileocecal valve poly p EMR ascending polyp removed cecal polyp Normal [facility] POCT GLUCOSE METER UNSOLICIT ED RESULTSon 05-29-2024 Glucose [Mass/Vol] 142 mg/dL High 70-105 [facility] Comment on above: Order Comment: Waive d Testing in the ED is performed under the ED CLIA certificate #[id number]. Result Comment: ngro gerri Performed By: #### L [id number] ####[facility] (BEAKER)[address] [place] [address] Prep for Procedureon 025 Prep for Procedure [id number] Gigi Koch 1950 F Date Provider Department [place] 05/29/2024 BHARAT RODRIGUEZ [facility] No family history on file [facility] 36on 05-07-2024 36 Able to leave a mess age today for patient to call and schedule colonoscopy with EMR [facility] Telephoneon 05-07-2024 Telephone [phone] Gigi Koch 1950 F Date [facility] Department [place] 05/07/2024 [facility] R[facility] JEREMY No family history on file [place] [address] 05-03-2024 36 Attempted to call an d schedule patient for a colonoscopy with EMR, see ref in media tab dated 04/05/[address] Peña's office. Phone just rings unable to leave a message, will try again later. [facility] Telephoneon 05-03-2024 Telephone [phone] Gigi Koch 1950 F Date [facility] 05/03/2024 NELL RUIZ [facility] ANGIESohail No family history on file [facility] Carlos 04-03-2024 L --------- ----- Specimen: [id number] Received: 04/03/24 Status: SERGEY Ibarra Num: [id number] Spec Type: Surgical Subm Dr: Edda Peña MD FACS Tissues: A Colon Biopsy (ASCENDING COLON POLYPS) B Colon Biopsy (SIGMOID POLYPS) Procedures: HE/4, Gross/Micro L4/2 ----- Age/ Patient Sex Location Account Attending Physician ----- Gigi Koch 73/F [facility] [id number] Edda Peña MD FACS ----- SPEC NUM: [id number] RECD: 04/03/24 STATUS: SERGEY IBARRA NUM: [id number] SANAZ: 04/03/[address] [facility] [address]: Edda Peña MD FACS ENTERED: 04/03/[address] [facility] [address]: Carli Bass SPEC TYPE: Surgical DEPT: [facility] ENTERED BY: [id number] RECV BY: [id number] ORDERED: HE/4, Gross/Micro L4/2 ORDERED: HE/4, Gross/Micro [...] submitted in a single cassette. (1, ns, [id number] A) JG Part B is received in formalin labeled with the patients name, date of , and sigmoid polyp are two tucker-brady, focally erythematous, friable, 0.3 and 0.4 cm in greatest dimension polypoid fragments. The specimen is entirely submitted in a single cassette. (1, ns, [id number] B) JG ----- Specimen: [id number] Received: 04/03/24 Status: SERGEY Alexanderisabel Num: [id number] Spec Type: Surgical Subm Dr: Edda Peña MD FACS Tissues: A Colon Biopsy (ASCENDING COLON POLYPS) B Colon Biopsy (SIGMOID POLYPS) Procedures: HE/4, Gross/Micro L4/2 ----- Patient: Gigi Koch [id number] (Continued) ----- Specimen: [id number] Received: 04/03/24 (Continued) Signed (signature on file) Rohan Boyle MD 04/04/24 1125 ----- Specimen: [id number] Received: 04/03/24 Status: SERGEY Ibarra Num: [id number] Spec Type: Surgical Subm Dr: Edda Peña MD FACS Tissues: A Colon Biopsy (ASCENDING COLON POLYPS) B Colon Biopsy (SIGMOID POLYPS) Procedures: /Samina, Gross/Micro L4/2 ----- Patient: Gigi Koch [id number] (Continued) ----- Specimen: [id number] Received: 04/03/24 (Continued) Microscopic Description A B: Microscopic examination is performed. CPT Codes 27574 x2 ----- ----- Specimen: [id number] Received: 04/03/24 Status: SERGEY Ibarra Num: [id number] Spec Type: Surgical Subm Dr: Edda Peña MD FACS Tissues: A Colon Biopsy (ASCENDING COLON POLYPS) B Colon Biopsy (SIGMOID POLYPS) Procedures: HE/Samina, Gross/Micro L4/2 ----- Patient: Gigi Koch [id number] (Continued) ----- Signed (signature on file) Rohan Boyle MD 04/04/24 1125 Normal [facility] Ambulatory Visit Summaryon 05-05-2023 Ambulatory Visit Summary Ambulatory Visit Summary [...] for choosing us for your care. Normal [facility] IGP,APTIMA HPV,AGE GDLNon AGE GDLN ACOG TESTING Note . [facility] Healthcare Comment on above: TESTS RESULT FLAG UN ITS REF RANGE LAB Clinician Provided Cytology Information Source.............Vagina No. of containers..01 ThinPrep Vial Age Algo ACOG Nicole... Note 01 <21 or >65 or no age provided FLAG LEGEND: L-Low Normal,H-High Normal,LL-Alert Low,HH-Alert High <-Panic Low,>-Panic High,A-Abnormal,AA-Critical Abnormal Performed at: 01 =G [facility] [address] [place] [address] Demetrice Solomon MD, Interpretation and review of laboratory results Abnormal [facility] PAP IG (IMAGE GUIDED) Note Abnormal . [facility] Comment on above: TESTS RESULT FLAG UN ITS REF RANGE LAB DIAGNOSIS: [A] 02 EPITHELIAL CELL ABNORMALITY. ATYPICAL SQUAMOUS CELLS OF UNDETERMINED SIGNIFICANCE (ASC-US) (VAGINAL). Recommendation: [A] 02 Suggest follow up as clinically appropriate. Specimen adequacy: 02 Satisfactory for evaluation. Performed by: 02 Prashanth Agarwal, Blood Bank Attendant ([facility]) Electronically si... 02 Demetrice Solomon MD, Pathologist [...] <-Panic Low,>-Panic High,A-Abnormal,AA-Critical Abnormal Performed at: [address] [address] Demetrice Solomon MD, Performed at: =G - [facility] [address] [id number] Test Design Engineer: Demetrice Solomon MD, Phone: [phone] Performed at: - [facility] [id number] Test Design Engineer: Demetrice Solomon MD, Phone: [phone] SPATULA-ALONE VAGINA [facility] PAP ACOG PANEL 2: 30 to 65on 11-23-2021 . . Normal [facility] Comment on above: Performed By: #### 4 [id number] #### [facility] [address] [place] [address] Dr. Swapnil Bush Age Gdln ACOG Testing Comment Normal [facility] Comment on above: Result Comment: <21 or >65 or no age provided Performed By: #### 4 [id number] #### [facility] [address] [place] [address] Dr. Swapnil Bush DIAGNOSIS: Comment Normal [facility] Comment on above: Result Comment: NEGA TIVE FOR INTRAEPITHELIAL LESION OR MALIGNANCY. THIS SPECIMEN WAS RESCREENED PART OF OUR FOAM FABRICATOR PROGRAM. Performed By: #### 4 [id number] #### [facility] [address] [place] [address] Dr. Swapnil Bush Methodology: Comment [facility] Comment on above: Result Comment: This liquid based ThinPrep(R) pap test was screened with the use of an image guided system. Performed By: #### 4 [id number] #### [facility] [address] [place] [address] Dr. Swapnil Bush Note: Comment Normal [facility] Comment on above: Result Comment: The Pap smear is a screening test designed to aid in the detection of premalignant and malignant conditions of the uterine cervix. It is not a diagnostic procedure and should not be used as the sole means of detecting cervical cancer. Both false-positive and false-negative reports do occur. . Performed By: #### 4 [id number] #### [facility] [address] [place] [address] Dr. Swapnil Bush Performed by: Comment Normal [facility] Comment on above: Result Comment: Silvia Juarez, Blood Bank Attendant (ASCP) Performed By: #### 4 [id number] #### [facility] [address] [place] [address] Dr. Swapnil Bush QC reviewed by: Comment Normal [facility] Comment on above: Result Comment: Esther Dow, Supervisory Blood Bank Attendant (ASCP) Performed By: #### 4 [id number] #### [facility] [address] [place] [address] Dr. Swapnil Bush Specimen adequacy: Comment [facility] Comment on above: Result Comment: Sati sfactory for evaluation. Endocervical and/or squamous metaplastic cells (endocervical component) are present. Performed By: #### 4 [id number] #### [facility] [address] [place] [address] Dr. Swapnil Bush MG MAMM SCREEN 3D MARK CADon 11-22-2021 MG MAMM SCREEN 3D MARK CAD Patient: GIGI KOCH Exam Date: 11/22/2021 : 1950 Gender:F Ordering : DR RIO NGUYEN . Admission #: [id number] Family : Order #: [id number] CLICK HERE TO VIEW EXAM RADIOLOGY REPORT [...] uterine cancer at age 81. LOCATION: [facility] BREAST COMPOSITION: Heterogeneously dense,which may obscure [...] Soto M.D. on 11/23/2021 at 14:26 Normal [facility] XR DEXA BONE DENSITYon 11-22 [...] GEOFF SOTO Date: 2021-11-22 16:44 Normal [facility] Covid-19 PCR (CVDTBH)on SARS-CoV-2 (COVID-19) RNA RANDA+probe Ql (Unsp spec) Not detected Normal NOT DETECTED [facility] Comment on above: Result Comment: This test is not yet approved or cleared by the [place] FDA. When there are no FDA-approved or cleared tests available, and other criteria are met, FDA can make tests available under an emergency access mechanism called an Emergency Use Authorization (EUA). The EUA for this test is supported by the Bolt Labeler of Health and Human Service's (HHS's) declaration [...] SARS-CoV-2. Performed By: #### C VDTB #### [facility] [address] [address] [address] Swapnil Bush Covid-19 PCR (CVDTBH)on 02-22 SARS-CoV-2 (COVID-19) RNA RANDA+probe Ql (Unsp spec) Not detected Normal NOT DETECTED [facility] Comment on above: Result Comment: This test is not yet approved or cleared by the [place] FDA. When there are no FDA-approved or cleared tests available, and other criteria are met, FDA can make tests available under an emergency access mechanism called an Emergency Use Authorization (EUA). The EUA for this test is supported by the Bolt Labeler of Health and Human Service's (HHS's) declaration [...] consistent with SARS-CoV-2. Performed By: #### C [facility] #### [facility] [address] [place] [address] Dr. Swapnil Bush Vital Signs Date Time Vital Sign Value Performing Clinician Faci lity 06-11-2024 14:01-0500 Body mass index (BMI) [Ratio] 37.5 kg/m2 [facility] Work Phone: [facility] 06-11-2024 14:01-0500 Body weight 108.59 kg [facility] Work Phone: [facility] 06-11-2024 14:01-0500 Diastolic blood pressure 80 mm[Hg] [employer] Phone: [facility] 06-11-2024 14:01-0500 Systolic blood pressure 130 mm[Hg] [facility] Work Phone: [facility] 03-05-2024 14:02-0500 Blood Pressure Location Edda PEÑA [facility] 03-05-2024 14:02-0500 Diastolic blood pressure 86 mm[Hg] Edda PEÑA [facility] 03-05-2024 14:02-0500 Heart rate 72 /min Edda PEÑA [facility] 03-05-2024 14:02-0500 Respiratory rate 16 /min Edda PEÑA [facility] 03-05-2024 14:02-0500 Systolic blood pressure 124 mm[Hg] [facility] Encounter Date Encounter Type Care Provider Facility Start: 01-08-2025 End: 01-08-2025 ambulatory Edda PEÑA Facility:[facility] Start: 01-08-2025 End: 01-08-2025 [facility] Start: 12-25-2024 End: 12-25-2024 ambulatory Edda PEÑA Facility:[facility] Start: 12-25-2024 End: 12-25-2024 [facility] encounter procedure [facility] Start: 12-17-2024 End: 12-17-2024 Bamboo flowsheet Christofer Katelyn DO Work Phone: [facility] Start: 12-17-2024 End: 12-20-2024 Bamboo flowsheet Christofer Katelyn DO Work Phone: [facility] Start: 12-17-2024 End: 12-20-2024 Clinisync Result Encounter Christofer Katelyn DO Work Phone: [facility] Unsolicited Start: 12-17-2024 End: 12-17-2024 Patient encounter procedure Christofer Katelyn DO Work Phone: [facility] Comment on above: Well woman exam with routine gynecological exam; Breast cancer screening by mammogram; Postmenopausal state Start: 12-17-2024 End: 12-17-2024 ambulatory CHRISTOFER KATELYN Not Available Start: 06-20-2024 End: 06-20-2024 Clinisync Result Encounter Christofer Katelyn DO Work Phone: [facility] Unsolicited Start: 06-20-2024 End: 06-20-2024 Clinisync Result Encounter Christofer Katelyn DO Work Phone: [facility] Unsolicited Start: 06-11-2024 End: 06-11-2024 Bamboo flowsheet Christofer Katelyn DO Work Phone: [facility] Start: 06-11-2024 End: 06-17-2024 Bamboo flowsheet Christofer Katelyn DO Work Phone: [facility] Start: 06-11-2024 End: 06-17-2024 Clinisync Result Encounter Christofer Katelyn DO Work Phone: [facility] Unsolicited Start: 06-11-2024 End: 06-11-2024 Office outpatient visit 15 minutes Christofer Katelyn DO Work Phone: [facility] Comment on above: Atypical squamous ce lls of undetermined significance (ASCUS) on Papanicolaou smear of cervix; Recurrent UTI; Screening for osteoporosis; Encounter for screening mammogram for malignant neoplasm of breast; Age-related osteoporosis without current pathological fracture ([facility]) Start: 06-11-2024 End: 06-11-2024 ambulatory CHRISTOFER KATELYN Not Available Start: 05-29-2024 End: 05-29-2024 ambulatory BHARAT SANZ [facility] Start: 04-03-2024 End: 04-03-2024 ambulatory Edda Peña Facility:[facility] Start: 04-03-2024 End: 04-03-2024 ambulatory Edda PEÑA Facility:CD:[id number] Start: 03-05-2024 End: 03-05-2024 ambulatory [facility] PE[facility] Start: 03-05-2024 End: 03-05-2024 Patient encounter procedure Edda PEÑA [facility] Start: 12-06-2023 End: 12-15-2023 Clinisync Result Encounter Christofer Katelyn DO Work Phone: [facility] Unsolicited Start: 12-06-2023 End: 12-15-2023 Clinisync Result Encounter Christofer Katelyn DO Work Phone: [facility] Unsolicited Start: 11-22-2021 End: 11-23-[address] MELISSA SEAY Facility:[facility] Start: 11-17-2021 End: 11-17-[address] MELISSA SEAY Facility:[facility] Start: 04-27-2021 End: 04-27-[address] MELISSA SEAY Facility:[facility] Start: 03-11-2021 Encounter for preprocedural laboratory examination DR EDDA PEÑA [facility] Start: 03-10-2021 End: 03-10-[address] EDDA PEÑA Facility:[facility] Start: 03-06-2021 End: 03-07-[address] MELISSA SEAY Facility:[facility] Start: 03-06-2021 End: 03-07-2021 Encounter for preprocedural laboratory examination DR MELISSA SEAY Facility:[facility] Start: 03-02-2021 End: 03-03-2021 ambulatory CHINTAN GALINDO Facility:[facility] Procedures Date Procedure Procedure Detail Performing Clinician Start: 12-17-2024 IGP,APTIMA HPV,AGE GDLN Christofer Katelyn DO Work Phone: Start: 06-20-2024 MM TOMOSYNTHESIS SCREENING BI Christofer Fazi o DO Work Phone: Start: 06-11-2024 IGP,APTIMA HPV,AGE GDLN Christofer Katelyn DO Work Phone: Start: 05-29-2024 Colonoscopy Christofer Katelyn DO Work Phone: Start: 05-29-2024 Colonoscopy Edda PEÑA Start: 04-03-2024 Colonoscopy Edda PEÑA Start: 12-06-2023 IGP,APTIMA HPV,AGE GDLN Christofer Katelyn DO Work Phone: Start: 03-10-2021 Colonoscopy Edda PEÑA Start: 06-20-2016 Dilation and curettage Edda PEAÑ Start: 06-20-2016 Hysteroscopy Edda PEÑA Start: 02-12-2013 Needle localization using ultrasound guidance and mammography Edda PEÑA Comment on above: left breast Start: 06-10-2010 Lithotripsy Edda CARRINGTONL Start: 04-24-2001 Colonoscopy Edda CARRINGTONL Start: 04-24-2001 Esophagogastroduodenoscopy Edda CARRINGTONL Start: 02-12-2000 Arthroscopy of knee Edda CARRINGTONL Comment on above: left Cholecystectomy Edda PEÑA Left ear structure ( body structure) Edda PEÑA Tooth extraction Edda Mckeon Plan of Treatment Date Care Activity Detail Author Start: 05-29-2034 Screening for malign ant neoplasm of colon [facility] Start: 12-23-2024 Influenza vaccination Influenza Vacc ine (#1) [facility] Start: 12-17-2024 End: 12-17-2024 Patient encounter procedure 12/17/2024 11:20 AM EDT Procedure Visit [facility]ERRY [facility] [address] [place] [address] Christofer Zepeda DO [address] [place] [address] Arrived BERRY DUMONT Comment on above: Arrived Start: 06-11-2024 End: 06-11-2025 DXA Skeletal system Views for bone density DEXA bone density Imaging Routine Screening for osteoporosis Age-related osteoporosis without current pathological fracture ([facility]) Expected: 06/11/2024 (Approximate), Expires: 06/11/2025 [facility] Work Phone: Comment on above: Expected: 06/11/2024 (Approximate), Expires: 06/11/2025 Start: 06-11-2024 End: 08-09-2025 MG Breast - bilateral Screening Bilateral screening mammogram Imaging Routine Encounter for screening mammogram for malignant neoplasm of breast Expected: 06/11/2024 (Approximate), Expires: 08/09/2025 [facility] Comment on above: Expected: 06/11/2024 (Approximate), Expires: 08/09/2025 Start: 06-11-2024 End: 06-11-2024 Patient encounter procedure 06/11/2024 2:00 PM EST Procedure Visit [facility] [address] [place] [address] Christofer Zepeda DO [address] [place] [address] Arrived [facility] Comment on above: Arrived Start: 01-07-2024 Screening for malign ant neoplasm of colon [facility] Start: 12-24-2023 Influenza vaccination Influenza Vacc ine (#1) [facility] Start: 2013 Pneumococcal Vaccine : 65+ Years (1 of 1 - PCV) Pneumococcal Vaccine: 65+ Years (1 of 1 - PCV) [facility] Start: 1998 Pneumococcal Vaccine : 65+ Years (1 of 1 - PCV) Pneumococcal Vaccine: 65+ Years (1 of 1 - PCV) [facility] Start: 1950 Medicare Annual Wellness (AWV) Medicare Annual Wellness (AWV) [facility] Start: 1950 Screening for malign ant neoplasm of colon [facility] THIN PREP TIS PAP AN D HR HPV DNA THIN PREP TIS PAP AND HR HPV DNA Pathology and Cytology Routine Atypical squamous cells of undetermined significance (ASCUS) on Papanicolaou smear of cervix Ordered: 06/11/2024 [facility] Comment on above: Ordered: 06/11/2024 THIN PREP TIS PAP AN D HR HPV DNA THIN PREP TIS PAP AND HR HPV DNA Pathology and Cytology Routine Well woman exam with routine gynecological exam Ordered: 12/17/2024 [facility] Work Phone: Comment on above: Ordered: 12/17/2024 Immunizations Immunization Date Immunization Notes Care Provider Fa cility 11-24-2021 SARS-CoV-2 (COVID-19 ) mRNA-1273 vaccine Edda NILL [facility] 03-02-2021 SARS-CoV-2 (COVID-19 ) mRNA BNT-162b2 vax Edda NILL [facility] 07-21-2020 SARS-CoV-2 (COVID-19 ) mRNA BNT-162b2 vax Edda NILL [facility] 06-29-2020 SARS-CoV-2 (COVID-19 ) mRNA BNT-162b2 vax Edda NILL [facility] Payers Date Payer Category Payer Medicaid [id number] 2024 Medicaid [id number] 2024 Medicare [id number] 2023 Medicare [id number] 2023 Medicare (Managed Care) [employer] [id number] 2023 Medicare [id number] 1959 Medicare [id number] 1959 Self-pay 1950 Unknown [id number] [id number]. 593 1950 Unknown [id number] 2.16.840.1.701451.3.579.2. 593 1950 Unknown [id number] 2.16.840.1.767229.3.579.2. 593 1950 Unknown [id number] 2.16.840.1.472125.3.579.2. 593 1950 Unknown [id number] 2.16.840.1.630352.3.579.2. 593 1950 Unknown [id number] 2.16.840.1.051750.3.579.2. 1259 1950 Unknown [id number] 2.16.840.1.320433.3.579.2. 1259 1950 Unknown [id number] 2.16.840.1.984046.3.579.2. 727 1950 Unknown [id number] 2.16.840.1.551286.3.579.2. 727 1950 Unknown [id number] 2.16.840.1.949444.3.579.2. 727 1950 Unknown [id number] 2.16.840.1.615914.3.579.2. 727 Unknown [id number] 2.16.840.1.289698.3.579.2. 593 Unknown [id number] 2.16.840.1.007993.3.579.2. 531 Social History Date Type Detail Facility Start: 03-05-2024 End: 01-08-2025 Tobacco smoking status Never smoked tobacco (finding) [facility] Tobacco smoking status Never [facility] Start: 09-21-2023 End: 06-11-2024 Sex Assigned At Female [facility] Start: 07-27-2023 Tobacco use and exposure Smokeless tobacco non-user [facility] Start: 12-06-2023 End: 12-17-2024 Alcoholic beverage intake Defer [facility] Start: 09-21-2023 End: 06-11-2024 History of Social function [facility] Start: 1950 Sex assigned at Not on file N [facility] Sexual Orientation [facility] Surgery Gay Sex Female (finding) [facility] NEGATED: Highlighted rowStart: NINF History of tobacco use Passive smoker [facility] Functional Status Date Assessment Result Facility 03-05-2024 Functional Status N/A [facility] Clinical Notes 03-10-2021 to 01-08-2025 Emely Ball LPN - 12/17/2024 11:20 AM Korey Ball LPN - 06/11/2024 2:00 PM EST Note Date & Type Note Facility 01-08-2025 Note General Surgery Offi ce/Clinic Note Chief Complaint consultation for colonoscopy HPI Staff 74 year old female presents on consultation for surveillance colonoscopy. Patient with history of tubulovillous adenoma of ascending colonoscopy in 2020. Recurrent adenoma noted on colonoscopy completed 03/2024. Colonoscopy with endoscopic mucosal resection with Dr. Galeano completed 05/29/24, recommended follow up colonoscopy completed in 6 months. History of Present Illness 74 yo female with h/o htn, DMII, PVD, hiatal hernia with GERD, nephrolithiasis, referred for surveillance colonoscopy; patient had 3 large tubular adenomas removed at [facility] with endoscopic mucosal resection 05/2024, had small polyps throughout colon, not removed; they recommend 6 moth f/u colonoscopy; patient reports mid and RUQ intermittent pain, ache, no radiation and epigasric pain, began after procedure; no fevers, frequent N/V and poor appetite; only eating 1 meal/day; has lost 30 lbs since May; some constipation, no blood in stools; had negative abd US at Dr Seay's office, according to patient; abd operations significant for cholecystectomy; on baby asa daily, no NSAID use; no tobacco use; no fmhx of colon cancer or IBD. [...] noncontributory. Physical Exam Vitals & Measurements HR: 76(Peripheral) RR: 16 BP: 118/86 HT: 162.5 cm HT: 64 in WT: 96.0 kg WT: 211.644 lb BMI: 36.36 HEENT: normal conjunctiva, sclera clear, no scleral icterus, EOM intact, PERRLA, oral mucosa moist without lesions. Neck: trachea midline, no mass, symmetric, no thyromegaly or nodules, no adenopathy Respiratory: lungs CTA, respirations non labored. Cardiovascular: regular rate and rhythm, no murmur, no pedal edema or varicosities. Gastrointestinal: soft, non distended, no tenderness, no masses, no palpable hernias, diastasis recti no, no hepatosplenomegaly; normal bs Musculoskeletal: normal gait, digits and nails without infection, nodes, cyanosis, clubbing. Skin: no rashes, no lesions, no ulcers, no subcutaneous nodules, induration. Psychiatric/Neuro: oriented to time, place, person, judgement normal, affect appropriate for age, insight intact, no focal deficits. Tests: review of old records completed , Discussed surgical options, risks, and possible complications with patient. Assessment/Plan 1. Personal history of adenomatous and serrated colon polyps (Z86.0101: Personal history of adenomatous and serrated colon polyps) plan surveillance colonoscopy under anesthesia, informed consent obtained. Ordered: Creatinine CT Abdomen/Pelvis w/ Contrast 2. Abdominal pain, RUQ (right upper quadrant) (R10.11: Right upper quadrant pain) will obtain abd/pelvic ct scan with contrast for further evaluation, will call patient with results. Ordered: Creatinine CT Abdomen/Pelvis w/ Contrast 3. Abdominal pain, epigastric (R10.13: Epigastric pain) see # 1 Ordered: Creatinine CT Abdomen/Pelvis w/ Contrast 4. Nausea and vomiting (R11.2: Nausea with vomiting, unspecified) see # 1 Ordered: Creatinine CT Abdomen/Pelvis w/ Contrast Follow-up No qualifying data available Problem List/Past Medical History Ongoing Abdominal pain, epigastric Abdominal pain, RUQ (right upper quadrant) BMI 36.0-36.9,adult Class 3 obesity Diabetes Diverticulitis GERD (gastroesophageal reflux disease) Hiatal hernia HTN (hypertension) Ingestion of foreign body Left leg DVT Metabolic syndrome Nausea and vomiting Nephrolithiasis Non-alcoholic fatty liver disease Personal history of adenomatous and serrated colon polyps Positive colorectal cancer screening using Cologuard test PVD (peripheral vascular disease) Tubular adenoma of colon Tubulovillous adenoma of colon Historical No (more content not included)... [facility] Comment on above: Result Comment: Elec tronically Signed By: VIET RUSSELL, Edda Garibay\Date and Time Signed: 01/08/25 14:51 EDT 01-08-2025 Evaluation + Plan note Diagnostic Tests PendingCreatinine 01/08/[address] [facility] General Surgery Gay 12-17-2024 History of Present illness Narrative Reason for Appointment: Patient ID: Gigi Koch is a 74 y.o. female who presents for Well Women Visit Patient presents today for Annual Exam. MEDICATIONS Current Outpatient Medications Medication Instructions acarbose (Precose) 100 MG tablet aspirin 81 mg, Daily biotin 44059 MCG tablet Take by mouth candesartan (Atacand) [...] nursing note reviewed. Exam conducted with a sales forecast analyst present. Vitals: Estimated body mass index is [...] them. Patient can also view results via [employer]. I reinforced importance of condom use for [...] by Emely Ball LPN on behalf of: Christofer Zepeda DO documented in this encounter [facility] 06-11-2024 History of Present illness Narrative Reason for Appointment: Patient ID: Gigi Koch is a 73 y.o. female who presents for Abnormal Pap Smear Patient presents today for Repeat Pap. MEDICATIONS Current Outpatient Medications Medication Instructions acarbose (Precose) 100 MG tablet aspirin 81 mg, Daily biotin 65811 MCG tablet Take by mouth candesartan (Atacand) [...] disease) High cholesterol (CMS/HCC) Hypertension (CMS/HCC) Pre-diabetes Social History Tobacco Use Smoking status: [...] nursing note reviewed. Exam conducted with a sales forecast analyst present. Vitals: Estimated body mass index is [...] 5. Age-related osteoporosis without current pathological fracture ([facility]) M81.0 DEXA bone density Repeat Pap: [...] by Emely Ball LPN on behalf of: Christofer Zepeda DO documented in this encounter [facility] 06-06-2024 Note Colonoscopy and EMR procedure note from 05/29/24 and pathology faxed to referring office of Dr. Carrington at [phone] [facility] 05-29-2024 Note Patient: Gigi altamirano Procedure Summary Date: 05/29/24 Room / Location: [facility] Endoscopy Anesthesia Start: 1051 Anesthesia Stop: 1306 [...] per anesthesia protocol. No notable events documented. [facility] 05-29-2024 Note Patient: Gigi altamirano Procedure Summary Date: 05/29/24 Room / Location: [facility]oscopy Anesthesia Start: 1051 Anesthesia Stop: Procedure: DIAGNOSTIC COLONOSCOPY Diagnosis: Tubular adenoma of colon Scheduled Providers: Bharat Sanz MD; Bunny Marion MD; SUN Maki Responsible Provider: Bunny Marion MD Anesthesia Type: general ASA Status: 3 Anesthesia Post Transport [facility] Patient Monitor: direct observation Transport: uneventful Patient condition is: stable [facility] 05-29-2024 Note Airway Date/Time: 05/29/2024 11:01 AM Urgency: elective General Information and Staff Patient location during procedure: OR Anesthesiologist: Bunny Marion MD Resident/MATH INTERVENTIONIST/CAA: SUN Maki Performed: resident/MATH INTERVENTIONIST/CAA Indications and Patient Condition Indications for airway [...] 1 Number of other approaches attempted: 0 [facility] 05-29-2024 Note Patient: Gigi altamirano Procedure Information Date/Time: 05/29/24 1115 Scheduled providers: Bharat Sanz MD; Bunny Marion MD; SUN Maki Procedure: DIAGNOSTIC COLONOSCOPY Location: [facility] Invasive Surgery [facility] Relevant Problems Anesthesia (within normal limits) [...] Plan discussed with CAA. Additional Equipment Requests [facility] 03-05-2024 Note General Surgery Offi ce/Clinic Note [...] Oral, Daily M (more content not included)... [facility] Comment on above: Result Comment: Elec tronically Signed By: Edda PEÑA MD\.br\Date and Time Signed: 03/05/24 15:57 EST 03-10-2021 Note [facility] [place], [place] NAME: GIGI KOCH DATE OF : MEDICAL REC#: [id number] INTERVENTIONIST: [address] ADMIT DATE: 03/10/2021 07:41:00 JEWISH THOUGHT PROFESSOR DATE: 03/10/2021 10:00 DICTATING PHYSICIAN: EDDA PEÑA [...] Edda Peña MD on 03/10/2021 11:23 AM [facility] Signed and Approved by: DR EDDA PEÑA . 03/10/2021 11:23:00 [facility] Evaluation + Plan note No data available for this section [facility] Evaluation + Plan note Future Appointments Appointment Date:01/08/2025 01:40:00 PM Scheduled Provider:Edda PEÑA MD Location:[facility] Appointment Type:[address] General Surgery Gay Evaluation note Diagnosis Atypical squamous cells of undetermined significance (ASCUS) on Papanicolaou smear of cervix Recurrent UTI Urinary tract infection, site not specified Screening for osteoporosis Special screening for osteoporosis Encounter for screening mammogram for malignant neoplasm of breast Age-related osteoporosis without current pathological fracture (CMS/HCC) [facility] Diagnosis Well woman exam with routine gynecological exam Routine gynecological examination Breast cancer screening by mammogram Postmenopausal state Asymptomatic postmenopausal status (age-related) (natural) [facility] No data available for this section [facility] Surgery Gay Progress note No data available for this section [facility] Surgery Gay Summary Purpose Family History No Family History Records Found No data available for this section No Family History Records FoundNo Family History Records FoundNo Family History Records Found No data available for this section No data available for this section No Family History Records Found Advance Directives No Advanced Directives Records FoundNo Advanced Directives Records FoundNo Advanced Directives Records FoundNo Advanced Directives Records FoundNo Advanced Directives Records Found Additional Source Comments INFORMATION SOURCE (unrecogn ized section and content) DATE CREATED AUTHOR 11/26/2021 [facility] DATE CREATED AUTHOR AUTHOR'S ORGANIZ ATION 04/06/2024 [facility] DATE CREATED AUTHOR AUTHOR'S ORGANIZ ATION 06/08/2024 [facility] DATE CREATED AUTHOR AUTHOR'S ORGANIZ ATION 12/19/2024 [facility] EPIC DATE CREATED AUTHOR AUTHOR'S ORGANIZ ATION 01/09/2025 [facility] Patient Care team informatio n (unrecognized section and content) Checker Dump Grounds Relationship Specialty Start Date End Date Unallocated, Berry Dave MD [address] [place] [place] [address] PCP - General Family Medicine 08/24/23 Checker Dump Grounds Relationship Specialty Start Date End Date Unallocated, Berry Dave MD [address] [place] [address] PCP - General Family Medicine 08/24/23 Checker Dump Grounds Relationship Specialty Start Date End Date Unallocated, Berry Dave MD [address] [place] [address] PCP - General Family Medicine 08/24/23 Checker Dump Grounds Relationship Specialty Start Date End Date Unallocated, Berry Dave MD [address] [place] [address] PCP - General Family Medicine 08/24/23 Checker Dump Grounds Relationship Specialty Start Date End Date Unallocated, Berry Dave MD [address] [place] [address] PCP - General Family Medicine 08/24/23 Checker Dump Grounds Relationship Specialty Start Date End Date Unallocated, Berry Dave MD [address] [place] [place] [address] PCP - General Family Medicine 08/24/23 Checker Dump Grounds Relationship Specialty Start Date End Date Unallocated, Berry Dave MD [address] [place] [address] PCP - General Family Medicine 08/24/23 Reason [...] BE BASED ON THE PRIMARY CLINICAL RECORDS. [facility]. provides no warranty or guarantee of the accuracy or completeness of information in this document.
--- OUTSIDE RECORDS SUMMARY | 2025-01-15 06:41 | XMS_ITS | Clinical Summary ---
Author Organization [facility] Healthcare Address [address] [place] [address] Care Team Providers Care Rodeo Clown Name Role Phone Unallocated, Noms Provider Primary [...] 1,000 mcg by mouth Daily Active biotin 61988 MCG tablet Take by mouth Active Eslicarbazepine [...] Encounters Date Type Department Care Team Description 12/26/2024 Orders Only [facility] [place] [address] [place] [address] Tanika Banks LPN 12/17/2024 11:20 AM EDT [place] [address] Dylan Zepeda DO Well woman exam with routine gynecological exam; Breast cancer screening by mammogram; Postmenopausal state 12/17/2024 Clinisync Result Encounter [facility] External Department Unsolicited Dylan Zepeda DO 12/17/2024 [place] [address] Dylan Zepeda DO from Last 3 Months [...] Procedure Name Priority Date/Time Associated Diagnosis Comments IGP,APTIMA HPV,AGE GDLN Routine 12/17/2024 11:01 AM EDT PAP SMEAR Routine 12/17/2024 12:00 AM EDT MM TOMOSYNTHESIS SCREENING BI 06/20/2024 2:28 PM EST from Last 3 Months or Most Recently Relevant to Health Maintenance Results * IGP,APTIMA HPV,AGE GDLN (12/17/2024 11:01 AM EDT) AGE GDLN ACOG TESTING Note . [facility] Comment: TESTS RESULT FLAG UNITS REF RANGE LAB Clinician Provided Cytology Information Source.............Cervix;Endocervix No. of containers..01 ThinPrep Vial Age Algo ACOG Nicole... Note 01 <21 or >65 or no age provided FLAG LEGEND: L-Low Normal,H-High Normal,LL-Alert Low,HH-Alert High <-Panic Low,>-Panic High,A-Abnormal,AA-Critical Abnormal Performed at: 01 =G [facility] [place] [address] [facility] [place] [address] Demetrice Solomon MD, PAP IG (IMAGE GUIDED) Note . [facility] Comment: TESTS RESULT FLAG UNITS REF RANGE LAB DIAGNOSIS: 02 NEGATIVE FOR INTRAEPITHELIAL LESION OR MALIGNANCY. Specimen adequacy: 02 Satisfactory for evaluation. Endocervical and/or squamous metaplastic cells (endocervical component) are present. Performed by: 02 Jessica Jones, Supervisor [employer] ([facility]) . 02 Note: Note 02 [...] Low,>-Panic High,A-Abnormal,AA-Critical Abnormal Performed at: 02 WB [facility] [place] [address] [facility] [place] [address] Demetrice Solomon MD, Performed at: = - [facility] [id number] Priming Mixture Carrier: Demetrice Solomon MD, Phone: [phone] Performed at: - [facility] [id number] Priming Mixture Carrier: Demetrice Solomon MD, Phone: [phone] 12/17/2024 11:0 1 AM EDT 12/18/2024 6:44 AM EDT Narrative [facility] - 12/20/2024 5:09 PM EDT BRUSH-SPATULA CERVIX ENDOCERVIX Dylan Zepeda DO LAB BLOOD ORDERABLES Final Resul t [facility] TB * Pap Smear (12/17/2024 12:00 AM EDT) Swab Cervical swab / Unknown Dylan Zepeda DO LAB CYTOLOGY ORDERABLES Final Re sult EXTERNAL LAB * MM TOMOSYNTHESIS SCREENING BI (06/20/2024 2:28 PM EST) Anatomical Region Laterality Modality Other 06/20/2024 2:28 PM EST Narrative 06/20/2024 2:29 [place] [address] Mammography Report Signed Patient: ANNITA KOCH MR#: [id number] : 1950 Acct:[id number] Age/Sex: 73 / F ADM Date: 06/20/24 Loc: MAMMO Attending Dr: Dylan Zepeda D.O. Ordering Physician: Dylan Zepeda D.O. Results: Date of Service: 06/20/24 Follow Up: Procedure(s): MM tomosynthesis screening BI Accession Number(s): [id number] cc: Dylan Zepeda D.O.; CHAGO SEAY D.O. Patient Name: ANNITA KOCH MR#: [id number] : 1950 Exam Date: 06/20/2024 Ordering Doctor: [...] uterine cancer at age 81. LOCATION: [facility] BREAST COMPOSITION: There are scattered areas [...] Signed By: 06/20/24 1429 DD/ 1428 TD/TT: Transmission Inspector: Procedure Note Radiology, Radiologist, MD - 06/20/2024 [facility] [place] [id number] Mammography Report Signed Patient: ANNITA KOCH MMR#: [id number] : 9Acct:[id number] Age/Sex: 73 / FADM Date: 06/20/24 Loc: MAMMO Attending Dr: Dylan Zepeda D.O. Ordering Physician: Katelyn,Dylan D.O.Results: Date of Service: 06/20/24Follow Up: Procedure(s): MM tomosynthesis screening BI Accession Number(s): [id number] cc: Dylan Zepeda D.O.; CHAGO SEAY D.O. Patient Name: ANNITA KOCH MR#: [id number] : 1950 Exam Date: 06/20/2024 Ordering Doctor: DR Dylan Zepeda . RADIOLOGY REPORT PROCEDURE: MM TOMOSYNTHESIS SCREENING BI COMPARISON: MM TOMOSYNTHESIS SCREENING BI, 06/13/2023. MG MAMM [id number] MARK CAD, 11/22/2021. MAMMO POST BIOPSY UNILATERAL [...] withuterine cancer at age 81. LOCATION: [facility] BREAST COMPOSITION: There are scattered areas [...] M.D. Signed By:06/20/24 1429 DD/ 1428 TD/TT: Transmission Inspector: Dylan Zepeda DO [facility] IMAGING Final Result from Last 3 Months or Most Recently Relevant to Health Maintenance Insurance [employer] Care Teams Rodeo Clown Relationship Specialty Start Date End Date Unallocated, Noms Provider, [address] [place], [place] [id number] PCP - General Family Medicine 08/24/23
--- OUTSIDE RECORDS SUMMARY | 2025-01-15 06:42 | XMS_ITS | Encounter Summary ---
Author Organization [facility] Address [address] [place] [address] Care Team Providers Care Sports Physiologist Name Role Phone Unallocated, Noms Provider Primary Care Provi alan Encounter Details Date Type Department Care Team (Late st Contact Info) Description 12/26/2024 Orders Only [facility]EN [facility] [address] [place] [phone] Tanika Banks LPN [address] [place] [address] Social History Tobacco Use Types [...] Date/Time Associated Diagnosis Comments PAP SMEAR Routine 12/17/2024 12:00 AM EDT documented in this encounter Results * Pap Smear (12/17/2024 12:00 AM EDT) Swab Cervical swab / Unknown us Dylan Zepeda DO LAB CYTOLOGY ORDERABLES Final Re sult EXTERNAL LAB documented in this encounter Visit Diagnoses Not on filedocumented in this encounter Care Teams Sports Physiologist Relationship Specialty Start Date End Date Unallocated, [place] [address] PCP - General Family Medicine 08/24/23 documented as of this encounter
--- OUTSIDE RECORDS SUMMARY | 2025-01-15 06:42 | XMS_ITS | Clinical Summary ---
Author Organization [facility] Address [address] [place] [address] Care Team Providers Care Balance Recesser Name Role Phone Chago Noriega MD Primary Care Provider [phone] Allergies Active Allergy Reactions Criticality Noted Date [...] Risk Screening 2013 COVID-19 Vaccine ( season) 2024 11/24/2021, 03/02/2021, 07/21/2020, Additional history exists Influenza [...] Most Recently Relevant to Health Maintenance Insurance [facility] MEDICARE ADVANTAGE Care Teams Balance Recesser Relationship Specialty Start Date End Date Chago Noriega MD [facility] [place] [address] PCP - General Internal Medicine 05/29/24
--- OUTSIDE RECORDS SUMMARY | 2025-01-15 06:42 | XMS_ITS | Encounter Summary ---
Author Organization [facility] Address [address] [place] [address] Care Team Providers Care Survey Cad Technician Name Role Phone Unallocated, Noms Provider Primary Care Provi alan Encounter Details Date Type Department Care Team (Late st Contact Info) Description 06/26/2024 Orders Only JOELLEN Bass OBGYN [address] [place] [phone] Elizabeth Larsen LPN [address] [place] [address] Social History Tobacco Use Types [...] on filedocumented in this encounter Care Teams Survey Cad Technician Relationship Specialty Start Date End Date Unallocated, Noms Provider, [place] [address] PCP - General Family Medicine 08/24/23 documented as of this encounter
[2025-01-15 06:58] LABS: Estimated GFR (African America 57 (>=60 mL/min/1.73m^2); Estimated GFR (Non-African Ame 47 (>=60 mL/min/1.73m^2)
--- NOTE | 2025-01-15 08:29 | CT_ITS ---
The [address] [address] Patient Name: GIGI KOCH MRN: [id number] date: 1950 Sex: F Assigned Patient Location: LAB Current Patient Location: LAB Accession/Order Number: [id number] Exam Date: 01/15/2025 08:15 Report Date: 01/15/2025 09:34 At the request of: EDDA LLANOS MD Procedure: CT abdomen pelvis w con CT ABDOMEN AND PELVIS WITH INTRAVENOUS CONTRAST: CLINICAL HISTORY: right upper quadrant pain, epigastric pain COMPARISON: None TECHNIQUE: Spiral images were obtained through the abdomen and pelvis following the administration of intravenous contrast. This CT exam was performed using one or more following dose reduction techniques: Automated exposure control, adjustment of the mA and/or kV according to patient size, or use of iterative reconstruction technique. FINDINGS: Lung Bases: [Respiratory granuloma right middle lobe. Calcified granuloma right lower lobe 6 mm noncalcified nodule right middle lobe series 3 image 7.] Organs:Gallbladder has been removed with compensatory dilatation of the biliary system. No enhancing liver lesion. Splenic granulomas. Pancreas and adrenal glands appear unremarkable. Subcentimeter low-attenuation lesions are seen within both kidneys too small for characterization. Cyst right kidney. Bilateral nephrolithiasis largest stone appears to extend into the right renal pelvis measuring approximately 3.6 cm in greatest dimension. There appears to be air within the right collecting system.[Abdominal aorta appears normal in caliber. GI: Stomach is grossly unremarkable. Small bowel appears nondilated. Appendix is normal. Left colon diverticulosis.[ Pelvis:[Urinary bladder is grossly unremarkable. Uterus is atrophic.] Peritoneum/Retroperitoneum:No free air or free fluid or lymphadenopathy.[ Abd wall/Bones:Abdominal wall demonstrates no acute findings. Osseous structures demonstrate degenerative change.[ CT/CT abdomen pelvis w con IMPRESSION: Bilateral nephrolithiasis largest stone involving the right kidney seen in the right renal pelvis measuring approximately 3.6 cm in greatest dimension. It appears to be air within the right collecting system. Xanthogranulomatous pyelonephritis cannot BE excluded. Urology consultation is recommended. FINDINGS OF THIS REPORT WERE GIVEN TO THE PREMIUM CANCELLATION CLERK STAFF FOR EXPEDITED RELAY OF RESULTS TO THE REFERRING CLINICIAN. Impression dictated by: Parish Almaguer Jr., D.OLuh 01/15/2025 9:34 AM Dictation Location: [place] [address] Electronically authenticated by: [id number] Y Date: 01/15/2025 09:34
== END 2025-01-15 06:40 | disposition home or self-care (01) ==
LOC: LAB 06:39
PROVIDERS: PCP Internal Medicine; Visit Provider Surgery
DX: R10.11 Right upper quadrant pain (principal); R10.13 Epigastric pain; R11.2 Nausea with vomiting, unspecified; Z86.0101 Personal history of adenomatous and serrated colon polyps; N20.0 Calculus of kidney
CPT/HCPCS: 36415; 74177; 82565; Q9967

== ENCOUNTER 2025-02-11 13:01 | Outpatient (OUT) | payer MEDICARE, SELFPAY ==
--- OUTSIDE RECORDS SUMMARY | 2025-01-30 12:40 | XMS_ITS | Encounter Summary ---
Author Organization [facility] tem Address [id number] [address] [place] [address] Care Team Providers Care Mechatronics Technician Name Role Phone Leann Rosales DO, Charles L Primary Care Provider Encounter Details DateTypeDepartmentCare Team (Latest Contact Info)Kxqoxcjkbxy12/09/2025 12:40 PM EDT - 01/30/2025 1:19 PM EDTHospital Encounter [facility] -Radiology [address] [place] [phone] Declan Silverman Jr., MD [address] [place] [address] Bilateral nephrolithiasis Discharge Disposition: Home Social History Tobacco UseTypesPacks/DayYears UsedDateSmoking Tobacco: NeverSmokeless Tobacco: NeverAlcohol UseStandard Drinks/WeekCommentsNot Currently0 (1 standard drink = 0.6 oz pure alcohol)ChildcareAnswerDate GhlfjfwvXyqvkvvahJooahib24/12/2019 EmploymentAnswerDate OavpzimaEbleukpoihNrphmfs58/12/2019Hunger ScreeningAnswer Date RecordedWithin the past 12 months we worried whether our food would run out before we got money to buy more.Never True01/31/2025Within the past 12 months the food we bought just didn't last and we didn't have money to get more.Never True01/31/2025CommentsUnknownSex and Gender InformationValueDate RecordedSex Assigned at BirthNot on fileLegal AdvHzhxln96/06/2015 11:29 AM EDT Gender IdentityNot on fileSexual OrientationNot on filedocumented as of this encounter Medications at Time of Discharge MedicationSigDispense QuantityRefillsLast FilledStart DateEnd Date acarbose (PRECOSE) 100 MG tablet Take 1 tablet (100 mg total) by mouth in the morning and 1 tablet (100 mg total) before bedtime.02/23/2024 acetaminophen (TYLENOL EXTRA STRENGTH) 500 mg tablet Take 2 tablets (1,000 mg total) by mouth every 6 (six) hours as needed. aspirin 81 mg Take 1 tablet (81 mg total) by mouth in the morning.03/05/2024 biotin 10,000 mcg capsule Take 10 mg by mouth every morning. TAKE 10 MG BY MOUTH IN THE MORNING calcium carbonate/vitamin D3 (CALCIUM 600 WITH VITAMIN D3 ORAL) Take 1 tablet by mouth at noon. candesartan (ATACAND) 16 mg tablet Take 1 tablet (16 mg total) by mouth in the morning.02/23/2024 cetirizine (ZyrTEC) 10 mg tablet Take 1 tablet (10 mg total) by mouth nightly.03/05/2024 cholecalciferol 1,000 units tablet Take 1 tablet (1,000 Units total) by mouth 3 (three) times a day. cyanocobalamin 1000 MCG tablet Take 1 tablet (1,000 mcg total) by mouth in the morning. DULoxetine (CYMBALTA) 60 mg capsule Take 1 capsule (60 mg total) by mouth before bedtime.02/23/2024 esomeprazole (NexIUM) 40 mg capsule Take 1 capsule (40 mg total) by mouth every morning before breakfast. estradioL (ESTRACE) 0.01 % (0.1 mg/gram) vaginal cream Insert 2 g into the vagina in the morning.06/10/2024 famotidine (PEPCID) 20 mg tablet Take 1 tablet (20 mg total) by mouth nightly.01/08/2025 magnesium oxide (MAGOX) 400 mg tablet Take 1 tablet (400 mg total) by mouth before bedtime. metFORMIN XR (GLUCOPHAGE XR) 500 mg 24 hr tablet Take 1 tablet (500 mg total) by mouth in the morning and 1 tablet (500 mg total) before bedtime.01/03/2025 methenamine (HIPREX) 1 gram tablet Take 1 tablet (1 g total) by mouth in the morning and 1 tablet (1 g total) in the evening. Take with meals.01/08/2025 montelukast (SINGULAIR) 10 mg tablet Take 1 tablet (10 mg total) by mouth once daily at bedtime. TAKE 10 MG BY MOUTH AT BEDTIME multivitamin,tx-minerals tablet Take 1 tablet by mouth in the morning. nystatin (MYCOSTATIN) 100,000 unit/mL suspension Take 2 mL (200,000 Units total) by mouth 3 (three) times a day.12/24/2024 pravastatin (PRAVACHOL) 20 mg tablet Take 1 tablet (20 mg total) by mouth once daily at bedtime. TAKE 20 MG BY MOUTH AT BEDTIMEdocumented as of this encounter Plan of Treatment DateTypeDepartmentCare Team (Latest Contact Info)Nnbavdciivu46/31/2025 1:45 PM EDTAppointment [facility] - [address] [place] [phone] Kenyon Dixon MD [address] [place] [address] 03/12/2025 9:15 AM ESTTelemedicine [facility] [address] [place] [address] [address] [facility] [place] [address] Kenyon Dixon MD [address] [place] [address] documented as of this encounter Procedures Procedure NamePriorityDate/TimeAssociated DiagnosisCommentsXR ABDOMEN AP 1 VW Qqefrng5501/30/2025 1:46 PM EDT Bilateral nephrolithiasis documented in this encounter Results * X-ray abdomen ap 1 view (01/30/2025 1:46 PM EDT)Anatomical RegionLaterality ModalityBody, AbdomenN/AComputed RadiographySpecimen (Source)Anatomical Location / LateralityCollection Method / VolumeCollection TimeReceived Time 01/30/2025 2:04 PM EDT Narrative 01/30/2025 2:08 PM EDT EXAM: XR ABDOMEN AP 1 VW CLINICAL INFORMATION: Bilateral nephrolithiasis. COMPARISON: 03/28/2011, CT dated 01/15/2025 FINDINGS: There is redemonstration of a large irregularly-shaped stone in the right kidney. There is no radiographically evident left-sided nephrolithiasis. There is no evidence for obstruction, pneumatosis, or free air. Cholecystectomy clips are present. IMPRESSION: 1. Large irregularly-shaped stone in the right kidney, as seen on recent CT dated 01/15/2025. Finalized by Kana Argueta MD on 01/30/2025 2:08 PM Procedure Note Kana Argueta MD - 01/30/2025 EXAM: XR ABDOMEN AP 1 VW CLINICAL INFORMATION: Bilateral nephrolithiasis. COMPARISON: 03/28/2011, CT dated 01/15/2025 FINDINGS: There is redemonstration of a large irregularly-shaped stone in the rightkidney. There is no radiographically evident left-sided nephrolithiasis.There is no evidence for obstruction, pneumatosis, or free air.Cholecystectomy clips are present. IMPRESSION: 1. Large irregularly-shaped stone in the right kidney, as seen on recentCT dated 01/15/2025. Finalized by Kana Argueta MD on 01/30/2025 2:08 PM Authorizing ProviderResult TypeResult StatusGregor Akash Silverman Jr., MDIMG DIAGNOSTIC IMAGING ORDERABLESFinal Result documented in this encounter Visit Diagnoses Diagnosis Bilateral nephrolithiasis documented in this encounter Care Teams Team MemberRelationshipSpecialtyStart DateEnd Date Chago Noriega Jr., [address] [place] [phone] PCP - GeneralInternal Medicine01/20/25documented as of this encounter
--- OUTSIDE RECORDS SUMMARY | 2025-01-30 13:20 | XMS_ITS | Encounter Summary ---
Author Organization [facility] tem Address [id number] [place] [address] Care Team Providers Care Solar Project Manager Name Role Phone Leann Rosales DO, Charles L Primary Care Provider Reason for Referral * Diagnostic Imaging (Routine) - ClosedSpecialtyDiagnoses / ProceduresReferred By ContactReferred To ContactRadiology Diagnoses Bilateral nephrolithiasis Procedures CT urogram Declan Silverman Jr., MD [address] [place] [address] Phone: tel: fax: Referral IDStatusReasonStart DateExpiration DateVisits RequestedVisits [id number]/26/20259/26/202611 Reason for Visit * Diagnostic Imaging (Routine) - ClosedSpecialtyDiagnoses / ProceduresReferred By ContactReferred To ContactRadiology Diagnoses Bilateral nephrolithiasis Procedures CT urogram Declan Silverman Jr., MD [address] [place] [address] Phone: tel: fax: Referral IDStatusReasonStart DateExpiration DateVisits RequestedVisits [id number]/26/20259/26/202611 Encounter Details DateTypeDepartmentCare Team (Latest Contact Info)Pffwrhzpwrv29/09/2025 1:20 PM EDT - 01/30/2025 11:59 PM EDTHospital Encounter [facility] - CT [address] [place] [phone] Declan Silverman Jr., MD [facility] [place], [place] [id number] Bilateral nephrolithiasis Discharge Disposition: Home Social History Tobacco UseTypesPacks/DayYears UsedDateSmoking Tobacco: NeverSmokeless Tobacco: NeverAlcohol UseStandard Drinks/WeekCommentsNot Currently0 (1 standard drink = 0.6 oz pure alcohol)ChildcareAnswerDate KhhxpcxrVghqupfnpUfbvtun36/12/2019 EmploymentAnswerDate KwymtzwiUykbdptftnVhtdolu01/12/2019Hunger ScreeningAnswer Date RecordedWithin the past 12 months we worried whether our food would run out before we got money to buy more.Never True01/31/2025Within the past 12 months the food we bought just didn't last and we didn't have money to get more.Never True01/31/2025CommentsUnknownSex and Gender InformationValueDate RecordedSex Assigned at BirthNot on fileLegal RbrFkzxht15/06/2015 11:29 AM EDT Gender IdentityNot on fileSexual [...] Plan of Treatment DateTypeDepartmentCare Team (Latest Contact Info)Jkjwmdxferc70/31/2025 1:45 PM EDTAppointment [facility] - MR [address] [place] [address] Kenyon Dixon MD [address] [place] [address] 03/12/2025 9:15 AM ESTTelemedicine [facility] [address] [place] [address] [place] [address] [place] [phone] Kenyon Dixon MD [address] [place] [address] documented as of this encounter Procedures Procedure NamePriorityDate/TimeAssociated DiagnosisCommentsCT UROGRAMRoutine 01/30/2025 2:02 PM EDT Bilateral nephrolithiasis documented in this encounter Results * CT urogram (01/30/2025 2:02 PM EDT)Anatomical RegionLateralityModalityBody, Abdomen, Body CoveraN/AComputed TomographySpecimen (Source)Anatomical Location / LateralityCollection Method / VolumeCollection TimeReceived Time01/30/2025 5:01 PM EDT Narrative 01/30/2025 5:28 PM EDT History: Recurrent UTIs. Bilateral kidney stones Exam/Technique: ??CT of the abdomen with and without contrast (CT Urogram). ??Volume rendered 3D maximum intensity projection reconstructions constructed under concurrent physician supervision on an independent workstation and reviewed for purposes of evaluation of the urinary tract and collecting systems. ?? Comparison: ??Contrast-enhanced CT of the abdomen and pelvis from [facility] dated 01/15/2025with no report made available. Findings: ??On noncontrast images there are multiple nonobstructive calculi in the right kidney. The largest calculus right renal pelvis displays some branching at least 1.5 cm in greatest dimension.In the left kidney there are punctate nonobstructive calculi that measure up to only 1 to 2 mm. Bulging contour of the lower pole the right kidney is a partially cystic mass measuring 3.3 cm in greatest dimension. It has a cystic component inferiorly with enhancing mural nodules in its more superior portion appears solid with slightly inhomogeneous contrast-enhancement. Elsewhere there are only small simple and benign appearing cysts in both kidneys with these cysts need no specific further imaging follow-up On urographic phase images no additional collecting system abnormalities are suggested. There is no evidence of ureteral or bladder calculi on noncontrast images, and in the urographic phase no abnormalities of the ureters are displayed. There is diffuse mural and mucosal prominence thewall of the urinary bladder that is probably explained by its partially collapsed state. No active pulmonary disease is demonstrated in the lung bases. The liver, spleen, pancreas, adrenalglands, and gallbladder display no significant abnormalities.The aorta is of normal caliber throughout its length. 1 small incidental hepatic cyst is displayed laterally in the right lobe. Status post cholecystectomy with biliary dilatation redemonstrated that is consistent with reservoir phenomenon. Moderate changes of diverticulosis are displayed with no CT evidence of diverticulitis. No abnormalities of the uterus or ovaries are suggested. Also vascular IMPRESSION: ??Multiple nonobstructive renal calculi bilaterally, punctate on the left with large right. 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 Finalized by Loc Guy MD on 01/30/2025 5:28 PM Procedure Note Loc Guy MD - 01/30/2025 History: Recurrent UTIs. Bilateral kidney stones Exam/Technique: CT of the abdomen with and without contrast (CT Urogram).Volume rendered 3D maximum intensity projection reconstructionsconstructed under concurrent physician supervision on an independentworkstation and reviewed for purposes of evaluation of the urinary tractand collecting systems. Comparison: Contrast-enhanced CT of the abdomen and pelvis from [facility] dated 01/15/2025 with no report made available. Findings: On noncontrast images there are multiple nonobstructive calculiin the right kidney. The largest calculus right renal pelvis displays somebranching at least 1.5 cm in greatest dimension. In the left kidney thereare punctate nonobstructive calculi that measure up to only 1 to 2 mm. Bulging contour of the lower pole the right kidney is a partially cysticmass measuring 3.3 cm in greatest dimension. It has a cystic componentinferiorly with enhancing mural nodules in its more superior portionappears solid with slightly inhomogeneous contrast-enhancement. Elsewhere there are only small simple and benign appearing cysts in bothkidneys with these cysts need no specific further imaging follow-up On urographic phase images no additional collecting system abnormalitiesare suggested. There is no evidence of ureteral or bladder calculi on noncontrast images,and in the urographic phase no abnormalities of the ureters are displayed.There is diffuse mural and mucosal prominence the wall of the urinarybladder that is probably explained by its partially collapsed state. No active pulmonary disease is demonstrated in the lung bases. The liver,spleen, pancreas, adrenal glands, and gallbladder display no significant abnormalities.The aorta is of normal caliber throughout its length. 1small incidental hepatic cyst is displayed laterally in the right lobe.Status post cholecystectomy with biliary dilatation redemonstrated that is consistentwith reservoir phenomenon. Moderate changes of diverticulosis are displayed with no CT evidence of diverticulitis. No abnormalities of the uterus or ovaries are suggested. Also vascular IMPRESSION: Multiple nonobstructive renal calculi bilaterally, punctateon the left with large right. Complex mass in the lower pole the right kidney highly suggestive ofpartially cystic neoplasm All CT scans at this facility use dose modulation, iterativereconstruction, and/or weight based dosing when appropriate to reduceradiation dose to as low as reasonably achievable. Finalized by Loc Guy MD on 01/30/2025 5:28 PM Authorizing ProviderResult TypeResult StatusGregor Akash Silverman Jr., MDCHOCTAW MEMORIAL HOSPITAL – [facility] CT ORDERABLESFinal Result documented in this encounter Visit Diagnoses Diagnosis Bilateral nephrolithiasis documented in this encounter Administered Medications Medication OrderMAR ActionAction DateDoseRateSite iohexoL (OMNIPAQUE) 350 mg iodine/mL injection 100 mL 100 mL, intravenous, Once in imaging, contrast, Starting on Chela 01/30/25 at 1330, For 1 dose, VESICANT (RED) Given01/30/2025 1:50 PM LHZ750 mL sodium chloride 0.9 % flush 10 mL 10 mL, intravenous, As needed, line care, Starting on Chela 01/30/25 at 1330 Given01/30/2025 1:50 PM EDT10 mL sodium chloride 0.9 % radiology injection 80 mL, intravenous, Once in imaging, pre/post contrast, Starting on Chela 01/30/25 at 1330, For 1 dose Given01/30/2025 1:50 PM EDT80 mLdocumented in this encounter Care Teams Team MemberRelationshipSpecialtyStart DateEnd Date Chago Noriega Jr., DO [address] [place] [address] PCP - GeneralInternal Medicine01/20/25documented as of this encounter
--- OUTSIDE RECORDS SUMMARY | 2025-01-31 12:00 | XMS_ITS | Encounter Summary ---
Author Organization [facility] tem Address [facility]-[id number] [address] [place] [address] Care Team Providers Care Cyber Operator Name Role Phone Leann Rosales DO, Charles L Primary Care Provider Reason for Visit * ReasonCommentsFollow-up Encounter Details DateTypeDepartmentCare Team (Latest Contact Info)Rwlttwkrqfx05/10/2025 12:00 PM EDTOffice Visit [facility] [address] [place] [address] [place] [address] Kim Silverman Jr., MD [address] [place] [address] Urologic disorders (Primary Dx); Right renal mass; Bilateral kidney stones Social History Tobacco UseTypesPacks/DayYears UsedDateSmoking Tobacco: NeverSmokeless Tobacco: NeverAlcohol UseStandard Drinks/WeekCommentsNot Currently0 (1 standard drink = 0.6 oz pure alcohol)ChildcareAnswerDate MskxmmzlSxcmtxpxkYgjphmj62/12/2019 EmploymentAnswerDate BqxekepiUggmkdymzqOooqeys90/12/2019Hunger ScreeningAnswer Date RecordedWithin the past 12 months we worried whether our food would run out before we got money to buy more.Never True01/31/2025Within the past 12 months the food we bought just didn't last and we didn't have money to get more.Never True01/31/2025CommentsUnknownSex and Gender InformationValueDate RecordedSex Assigned at BirthNot on fileLegal GllRiztvv51/06/2015 11:29 AM EDT Gender IdentityNot on fileSexual OrientationNot on filedocumented as of this encounter Last Filed Vital Signs Vital SignReadingTime TakenCommentsBlood Bdhzyqtb157/8210 12:27 PM EDT Vhpdi590901/31/2025 12:27 PM EDTTemperature--Respiratory Rate--Oxygen Saturation-- Inhaled Oxygen Concentration--Nmjtjb45.3 kg (210 lb)01/31/2025 12:27 PM EDT Hahxzp349.6 cm (5' 6 )01/31/2025 12:27 PM EDTBody Mass Index33.8901/31/2025 12:27 PM EDTdocumented in this encounter Progress Notes * Kim Silverman Jr., MD - 01/31/2025 12:00 PM EDT Images from the original note were not included. [address] [place] [address] [address] [facility] [address] Patient: Annita Riojas Date of : 1950 Encounter Date: 01/31/2025 History of Present Illness: Chief Complaint: Stones. See below Urinalysis today: No results for input(s): EXTPOCURCO , EXTPOCURCH , EXTPOCAPP , EXTPOCURBS , EXTPOCURBIL , EXTPOCUKET , EXTPOCUSPG , EXTPOCUHGB , EXTPOCUPRO , EXTPOCUURO , EXTPOCULEU , EXTPOCUNIT , EXTPOCUWBC , EXTPOCUBLD , EXTPOCURBC , EXTPOCUCRY , EXTPOCUBAC , EXTPOCUTREP , EXTPOCUPH , EXTPOCUL EE in the last 72 hours. Last BUN and creatinine: No results found for: BUN Lab Results Component Value Date CREATININE 0.96 01/30/2025 Last PSA: No results found for: PSA No results found for: PROSTATICSP Past Medical, Family, and Social History Update: The following portions of the patient's history were reviewed and updated as appropriate: allergies, current medications, past family history, past medical history, past social history, past surgicalhistory and problem list. Past Medical History: Diagnosis Date Allergic rhinitis Arthritis Back pain Colon, diverticulosis COPD (chronic obstructive pulmonary disease) ([facility]) Diabetes mellitus ([facility]) Hearing loss Hepatic cyst Hypertension Inflammatory bowel disease Obesity Pulmonary nodules Recurrent UTI Tuberculosis Past Surgical History: Procedure Laterality Date BREAST BIOPSY CHOLECYSTECTOMY COLONOSCOPY EYE SURGERY Bilateral Cataract removal on both eyes History reviewed. No pertinent family history. Current Outpatient Medications Medication Sig Dispense Refill acarbose (PRECOSE) 100 MG tablet Take 1 tablet (100 mg total) by mouth in the morning and 1 tablet (100 mg total) before bedtime. acetaminophen (TYLENOL EXTRA STRENGTH) 500 mg tablet Take 2 tablets (1,000 mg total) by mouth every6 (six) hours as needed. aspirin 81 mg Take 1 tablet (81 mg total) by mouth in the morning. biotin 10,000 mcg capsule Take 10 mg by mouth every morning. TAKE 10 MG BY MOUTH IN THE MORNING calcium carbonate/vitamin D3 (CALCIUM 600 WITH VITAMIN D3 ORAL) Take 1 tablet by mouth at noon. candesartan (ATACAND) 16 mg tablet Take 1 tablet (16 mg total) by mouth in the morning. cetirizine (ZyrTEC) 10 mg tablet Take 1 tablet (10 mg total) by mouth nightly. cholecalciferol 1,000 units tablet Take 1 tablet (1,000 Units total) by mouth 3 (three) times a day. cyanocobalamin 1000 MCG tablet Take 1 tablet (1,000 mcg total) by mouth in the morning. DULoxetine (CYMBALTA) 60 mg capsule Take 1 capsule (60 mg total) by mouth before bedtime. esomeprazole (NexIUM) 40 mg capsule Take 1 capsule (40 mg total) by mouth every morning before breakfast. estradioL (ESTRACE) 0.01 % (0.1 mg/gram) vaginal cream Insert 2 g into the vagina in the morning. famotidine (PEPCID) 20 mg tablet Take 1 tablet (20 mg total) by mouth nightly. magnesium oxide (MAGOX) 400 mg tablet Take 1 tablet (400 mg total) by mouth before bedtime. metFORMIN XR (GLUCOPHAGE XR) 500 mg 24 hr tablet Take 1 tablet (500 mg total) by mouth in the morning and 1 tablet (500 mg total) before bedtime. methenamine (HIPREX) 1 gram tablet Take 1 tablet (1 g total) by mouth in the morning and 1 tablet (1 g total) in the evening. Take with meals. montelukast (SINGULAIR) 10 mg tablet Take 1 tablet (10 mg total) by mouth once daily at bedtime. TAKE 10 MG BY MOUTH AT BEDTIME multivitamin,tx-minerals tablet Take 1 tablet by mouth in the morning. nystatin (MYCOSTATIN) 100,000 unit/mL suspension Take 2 mL (200,000 Units total) by mouth 3 (three)times a day. pravastatin (PRAVACHOL) 20 mg tablet Take 1 tablet (20 mg total) by mouth once daily at bedtime. TAKE 20 MG BY MOUTH AT BEDTIME No current facility-administered medications for this visit. (All medications reviewed and updated by provider since last office visit or hospitalization) Allergies: Cephalexin and Venlafaxine Tobacco History: Social History Tobacco Use Smoking Status Never Smokeless Tobacco Never (If patient a smoker, smoking cessation counseling offered) Social History: Social History Substance and Sexual Activity Alcohol Use Not Currently Review of Systems: General: Negative for chills and fever. Cardiovascular: Negative for chest pain and shortness of breath. Gastrointestinal: Positive for constipation -per HPI Physical Exam: BP 135/82 Pulse 80 Ht 167.6 cm (5' 6 ) Wt 95.3 kg (210 lb) BMI 33.89 kg/m?? Alert, pleasant, without signs of acute illness, and in no distress. Respirations unlabored . Skin dry on examination now. Assessment and Plan: Annita was seen today for follow-up. Diagnoses and all orders for this visit: Urologic disorders Right renal mass Bilateral kidney stones Problem List Unprioritized Urologic disorders - Primary Overview 1. Diabetic with Urolithiasis; CT 01/15/2025 [facility] with IV contrast bilateral renalstones largest extending into right renal pelvis 3.6 cm with the apparent air in the right renal collecting system unable to rule out xanthogranulomatous pyelonephritis by report with films not available; CT 04/27/2010 right 7 mm renal stone 70% calcium oxalate monohydrate, 20% phosphate, 10% uric acid; status post right renal ESWL Dr. Blane Reilly 06/14/2010 absent from requested follow up forneeded retreatment right side residual stones from 06/20/2011 until 01/17/2025; CT 01/30/2025 multiple nonobstructive right renal stones largest in the renal pelvis branching at least 1.5 cm and multiple punctate nonobstructing left renal stones 2. bilateral subcentimeter low attenuation renal lesions too small to characterize CT 01/15/2025 3. Bilateral simple renal cysts CT 01/30/2025 4. Occasional UTI per patient account difficult to eradicate once infected, maintained on estradiolvaginal cream by primary care and methenamine 6. History of mixed stress and urge urinary incontinence up to 2 pads daily reproduced on physical exam but not urodynamics treated VESIcare Dr. Reilly 5 mg 7. IBS and obesity 8. Hypocitraturia 9. Extremely Low urinary volume 0.52-0.75 L 10. Hyperuricosuria 11. Low urinary pH 12. Elevated super saturation calcium oxalate 13. Elevated super saturation uric acid 14. Urodynamics Dr. Blane Reilly reduced bladder capacity but complete bladder emptying 13. Status post cystoscopy Dr. Blane Reilly unremarkable findings 05/05/2020 14. Complex 3.3 cm right lower pole partially cystic mass highly concerning for partially cystic neoplasm CT 01/30/[address] January 2025; KUB January 2025 Right renal mass Bilateral kidney stones Follow-up: Patient returns with no new urologic complaint in follow-up of her significant stone disease. Serum creatinine 0.96. I provided independent interpretation of films and reports of CT urogram demonstrating unfortunately very significant pathology in the right kidney including multiple large stones or branching stone largest 1.5 cm in the renal pelvis as well as a right lower pole cystic lesion 3.3 cm by official report felt highly concerning for malignancy. Punctate nonobstructing left renal stones. Also by report colonic diverticulosis, hepatic cyst, and bilateral simple renal cysts.. I advised the patient to pursue the non urologic CT findings with primary care. CT report provided to the patient. Patient notes she has pending colonoscopy 02/26/2025. KUB does appear to show her right large renal stone burden today, although it is difficult to distinguish that from costochondral calcifications to my view. Requested microscopic urinalysis culture and sensitivity not completed. Recall prior outside CT hadraise concern for possible xanthogranulomatous pyelonephritis which is not supported by her clinical course or present imaging study. I am requesting her to see my partner Dr. Kenyon Dixno in 2nd opinion consultation in 3 days for evaluation of her multiple pathologies in her right kidney. He does a lot of our major kidney cancerwork. Reviewed with her it is not certain that her right lower pole lesion is in fact a cancer, butthat is certainly is a very major concern. Reviewed sometimes we do or have ordered percutaneous needle biopsies of these lesions, but that could be quite problematic given the cystic nature of the lesion. She may benefit from extra patient of the lesion, but I will defer that to Dr. Dixon. Also dramatic stone burden on the right side for which treatment likely would be indicated as well. Thank you very much. I appreciate being asked to help with this patient's care. KIM SILVERMAN JR, MD This note was created with the assistance of a speech recognition program. While intending to generate a timely document that accurately reflects the content of the visit, no guarantee can be provided that every grammatical or spelling mistake has been or will be identified or corrected. Thank you for your understanding. documented in this encounter Plan of Treatment DateTypeDepartmentCare Team (Latest Contact Info)Tqjzyglbyqy56/31/2025 1:45 PM EDTAppointment [facility] MR [address] [place] [phone] Kenyon Dixon MD [address] [place] [address] 03/12/2025 9:15 AM ESTTelemedicine [facility] [address] [place] [address] [place] [address] Kenyon Dixon MD [address] [place] [address] documented as of this encounter Visit Diagnoses Diagnosis Urologic disorders- Primary Unspecified disorder of urethra and urinary tract Right renal mass Unspecified disorder of kidney and ureter Bilateral kidney stones documented in this encounter Care Teams Team MemberRelationshipSpecialtyStart DateEnd Date Chago Noriega Jr., [facility] [place] [address] PCP - GeneralInternal Medicine01/20/25documented as of this encounter
--- OUTSIDE RECORDS SUMMARY | 2025-02-03 15:30 | XMS_ITS | Encounter Summary ---
Author Organization [facility] tem Address [facility]-[id number] [facility] [place] [address] Care Team Providers Care 7Th Grade Social Studies Teacher Name Role Phone Leann Rosales DO, Charles L Primary Care Provider Reason for Referral * Diagnostic Imaging (Routine) - Pending ReviewSpecialtyDiagnoses / Procedures Referred By ContactReferred To ContactRadiology Diagnoses Right renal mass Procedures MR abdomen with and without contrast Kenyon Dixon MD [address] [place] [address] Phone: tel: fax: Referral IDStatusReasonStart DateExpiration DateVisits RequestedVisits [id number] Reason for Visit * ReasonCommentsFollow-up Encounter Details DateTypeDepartmentCare Team (Latest Contact Info)Taqnrquiclb49/13/2025 3:30 PM EDTOffice Visit [facility] [address] [place] [address] [place] [address] Kenyon Dixon MD [address] [place] [phone] Right renal mass (Primary Dx); Bilateral kidney stones Social History Tobacco UseTypesPacks/DayYears UsedDateSmoking Tobacco: NeverSmokeless Tobacco: NeverAlcohol UseStandard Drinks/WeekCommentsNot Currently0 (1 standard drink = 0.6 oz pure alcohol)ChildcareAnswerDate EaaomsemTzufeykpoBoenjgl69/12/2019 EmploymentAnswerDate LwkbnxtgVfaxuwrlbjEcwgmxd04/12/2019Hunger ScreeningAnswer Date RecordedWithin the past 12 months we worried whether our food would run out before we got money to buy more.Never True02/03/2025Within the past 12 months the food we bought just didn't last and we didn't have money to get more.Never True02/03/2025CommentsUnknownSex and Gender InformationValueDate RecordedSex Assigned at BirthNot on fileLegal WodBjeukb86/06/2015 11:29 AM EDT Gender IdentityNot on fileSexual OrientationNot on filedocumented as of this encounter Last Filed Vital Signs Vital SignReadingTime TakenCommentsBlood Hpuoukth185/7702/03/2025 3:08 PM EDT Bpdrf535702/03/2025 3:08 PM EDTTemperature--Respiratory Rate--Oxygen Saturation-- Inhaled Oxygen Concentration--Bityrf47.3 kg (210 lb)02/03/2025 3:08 PM EDTHeight 167.6 cm (5' 6 )02/03/2025 3:08 PM EDTBody Mass Index33.8902/03/2025 3:08 PM EDT documented in this encounter Progress Notes * Kenyon Dixon MD - 02/03/2025 3:30 PM EDT Images from the original note were not included. [address] [place] [address] [address] [facility] [address] Patient: Annita Riojas Date of : 1950 Encounter Date: 02/03/2025 History of Present Illness: The patient is a 74 y.o. female, an established patient, and is here for Chief Complaint Patient presents with Follow-up . History of renal lesion as well as kidney stones. For discussion. From Dr. Silverman. No interval gross hematuria dysuria. Urinalysis today: No results for input(s): EXTPOCURCO [...] Colon, diverticulosis COPD (chronic obstructive pulmonary disease) ([facility]) Diabetes mellitus ([facility]) Hearing loss Hepatic cyst Hypertension Inflammatory bowel [...] for constipation -per HPI Physical Exam: BP 116/77 Pulse 92 Ht 167.6 cm (5' 6 ) Wt 95.3 kg (210 lb) BMI 33.89 kg/m?? Nontoxic no apparent distress. Respirations nonlabored. Skin is dry. Awake alert oriented x3. Assessment and Plan: Annita was seen today for follow-up. Diagnoses and all orders for this visit: Right renal mass - MR abdomen with and without contrast; Future - X-ray chest 2 views; Future Bilateral kidney stones Problem List High Right renal mass - Primary Overview No prior abdominal surgery. No blood thinner. creatinine 0.96. GFR 61 ==== 02/03/2025 ==== apparent right renal mass with cystic component. Plan: MRI to better characterize. Current Assessment & Plan Complex medical decision making process all depending on what MRI demonstrates. Could potentially be partial nephrectomy verses total nephrectomy candidate. Versus percutaneous treatment of lesion with subsequent Retrograde ureteroscopy. Need to get the MRI 1st return clinic Relevant Orders MR abdomen with and without contrast X-ray chest 2 views Bilateral kidney stones Overview ==== 02/03/2025 ==== primarily right-sided stones. Hounsfield units 900 to low 1000. Certainly not a XGP kidney. Not consistent with such. Depending what happens with the renal lesion certainly couldbe a potential staged ureteroscopy. Follow-up: MRI of the kidney. Return clinic off day type appointment. Chest xray as well Kenyon Dixon MD This note was created with the assistance of a speech recognition program. While intending to generate a timely document that accurately reflects the content of the visit, no guarantee can be provided that every grammatical or spelling mistake has been or will be identified or corrected. Thank you for your understanding. documented in this encounter Miscellaneous Notes * Assessment & Plan Note - Kenyon Dixon MD - 02/03/2025 3:43 PM EDT Associated Problem(s): Right renal mass Complex medical decision making process all depending on what MRI demonstrates. Could potentially be partial nephrectomy verses total nephrectomy candidate. Versus percutaneous treatment of lesion with subsequent Retrograde ureteroscopy. Need to get the MRI 1st return clinic documented in this encounter Plan of Treatment DateTypeDepartmentCare Team (Latest Contact Info)Ezgikoivjmb90/31/2025 1:45 PM EDTAppointment [facility] - MR [address] [place] [address] Kenyon Dixon MD [address] [place] [address] 03/12/2025 9:15 AM ESTTelemedicine [facility] [address] [place] [address] [place] [address] Kenyon Dixon MD [address] [place] [address] NameTypePriorityAssociated DiagnosesOrder ScheduleMR abdomen with and without contrastImagingRoutine Right renal mass Expected: 02/03/2025, Expires: 02/03/2026X-ray chest 2 viewsImagingRoutine Right renal mass Expected: 02/03/2025, Expires: 02/03/2026documented as of this encounter Visit Diagnoses Diagnosis Right renal mass- Primary Unspecified disorder of kidney and ureter Bilateral kidney stones documented in this encounter Care Teams Team MemberRelationshipSpecialtyStart DateEnd Date Chago Noriega Jr., DO [facility] [place], [place] [id number] PCP - GeneralInternal Medicine01/20/25documented as of this encounter
--- OUTSIDE RECORDS SUMMARY | 2025-02-11 13:04 | XMS_ITS | Encounter Summary ---
Author Organization [facility] tem Address [facility]-[id number] [address] [place] [address] Care Team Providers Care Lamp Mechanic Name Role Phone Leann Rosales DO, Charles L Primary Care Provider Encounter Details DateTypeDepartmentCare Team (Latest Contact Info)Xtkgcercrjh95/09/2025Travel Social History Tobacco UseTypesPacks/DayYears UsedDateSmoking Tobacco: NeverSmokeless Tobacco: NeverAlcohol UseStandard Drinks/WeekCommentsNot Currently0 (1 standard drink = 0.6 oz pure alcohol)ChildcareAnswerDate LtyxondvJrnapodgxOusdhsq50/12/2019 EmploymentAnswerDate InpmdgupEgznmstdjuSniektu63/12/2019Hunger ScreeningAnswer Date RecordedWithin the past 12 months we worried whether our food would run out before we got money to buy more.Never True01/31/2025Within the past 12 months the food we bought just didn't last and we didn't have money to get more.Never True01/31/2025CommentsUnknownSex and Gender InformationValueDate RecordedSex Assigned at BirthNot on fileLegal IhkYbionh09/06/2015 11:29 AM EDT Gender IdentityNot on fileSexual OrientationNot on filedocumented as of this encounter Plan of Treatment DateTypeDepartmentCare Team (Latest Contact Info)Gewkimlhgvs01/31/2025 1:45 PM EDTAppointment [facility] [place] [address] Kenyon Dixon MD [address] [place] [address] 03/12/2025 9:15 AM ESTTelemedicine [facility] [address] [place] [address] [place] [phone] Kenyon Dixon MD [facility] [place], [place] [phone] documented as of this encounter Visit Diagnoses Not on filedocumented in this encounter Care Teams Team MemberRelationshipSpecialtyStart DateEnd Date Chago Noriega Jr., DO [facility] [place] [address] PCP - GeneralInternal Medicine01/20/25documented as of this encounter
--- OUTSIDE RECORDS SUMMARY | 2025-02-11 13:05 | XMS_ITS | Encounter Summary ---
Author Organization [facility] tem Address [facility]-[id number] [address] [place] [address] Care Team Providers Care Risk Mgr Name Role Phone Leann Rosales DO, Charles L Primary Care Provider Encounter Details DateTypeDepartmentCare Team (Latest Contact Info)Pqtkmsoqkda42/13/2025Telephone [facility] [address] [place] [address] [place] [address] Kenyon Dixon MD [address] [place] [address] Social History Tobacco UseTypesPacks/DayYears UsedDateSmoking Tobacco: NeverSmokeless Tobacco: NeverAlcohol UseStandard Drinks/WeekCommentsNot Currently0 (1 standard drink = 0.6 oz pure alcohol)ChildcareAnswerDate JrmfirfnEgibaqoosYjfecfy51/12/2019 EmploymentAnswerDate CppswjlnDbsbxlbkonGgbpobq38/12/2019Hunger ScreeningAnswer Date RecordedWithin the past 12 months we worried whether our food would run out before we got money to buy more.Never True02/03/2025Within the past 12 months the food we bought just didn't last and we didn't have money to get more.Never True02/03/2025CommentsUnknownSex and Gender InformationValueDate RecordedSex Assigned at BirthNot on fileLegal JetExibvk07/06/2015 11:29 AM EDT Gender IdentityNot on fileSexual OrientationNot on filedocumented as of this encounter Miscellaneous Notes * Telephone Encounter - Teresa John 02/03/2025 3:47 PM EDT MRI of the kidney. Return clinic off day type appointment. Chest xray as well Call to schedule f/u after mri. documented in this encounter Plan of Treatment DateTypeDepartmentCare Team (Latest Contact Info)Qjmvduyqtdu37/31/2025 1:45 PM EDTAppointment [facility] - MR [address] [place] [address] Kenyon Dixon MD [address] [place] [phone] 03/12/2025 9:15 AM ESTTelemedicine [facility] [address] [place] [address] [place] [address] Kenyon Dixon MD [address] [place] [phone] documented as of this encounter Visit Diagnoses Not on filedocumented in this encounter Care Teams Team MemberRelationshipSpecialtyStart DateEnd Date Chago Noriega Jr., DO [facility] [place] [address] PCP - GeneralInternal Medicine01/20/25documented as of this encounter
--- OUTSIDE RECORDS SUMMARY | 2025-02-11 13:05 | XMS_ITS | Clinical Summary ---
Author Organization [employer] tem Address [id number] [address] [place] [address] Care Team Providers Care Harvest Contractor Name Role Phone Leann Rosales DO, Charles L Primary Care Provider Allergies Active AllergyReactionsCriticalityNoted DateCommentsCephalexinHives,Itching 07/27/2023VenlafaxineHives,Eznebtw9907/27/2023 Medications MedicationSigDispense QuantityRefillsLast FilledStart DateEnd DateStatus acarbose (PRECOSE) 100 MG tablet Take 1 tablet (100 mg total) by mouth in the morning and 1 tablet (100 mg total) before bedtime.02/23/2024ctive acetaminophen (TYLENOL EXTRA STRENGTH) 500 mg tablet Take 2 tablets (1,000 mg total) by mouth every 6 (six) hours as needed.Active aspirin 81 mg Take 1 tablet (81 mg total) by mouth in the morning.03/05/2024ctive biotin 10,000 mcg capsule Take 10 mg by mouth every morning. TAKE 10 MG BY MOUTH IN THE MORNINGActive candesartan (ATACAND) 16 mg tablet Take 1 tablet (16 mg total) by mouth in the morning.02/23/2024ctive cetirizine (ZyrTEC) 10 mg tablet Take 1 tablet (10 mg total) by mouth nightly.03/05/2024ctive cyanocobalamin 1000 MCG tablet Take 1 tablet (1,000 mcg total) by mouth in the morning.Active DULoxetine (CYMBALTA) 60 mg capsule Take 1 capsule (60 mg total) by mouth before bedtime.02/23/2024ctive esomeprazole (NexIUM) 40 mg capsule Take 1 capsule (40 mg total) by mouth every morning before breakfast.Active magnesium oxide (MAGOX) 400 mg tablet Take 1 tablet (400 mg total) by mouth before bedtime.Active metFORMIN XR (GLUCOPHAGE XR) 500 mg 24 hr tablet Take 1 tablet (500 mg total) by mouth in the morning and 1 tablet (500 mg total) before bedtime.5Active methenamine (HIPREX) 1 gram tablet Take 1 tablet (1 g total) by mouth in the morning and 1 tablet (1 g total) in the evening. Take with meals.5Active calcium carbonate/vitamin D3 (CALCIUM 600 WITH VITAMIN D3 ORAL) Take 1 tablet by mouth at noon.Active montelukast (SINGULAIR) 10 mg tablet Take 1 tablet (10 mg total) by mouth once daily at bedtime. TAKE 10 MG BY MOUTH AT BEDTIMEActive multivitamin,tx-minerals tablet Take 1 tablet by mouth in the morning.Active pravastatin (PRAVACHOL) 20 mg tablet Take 1 tablet (20 mg total) by mouth once daily at bedtime. TAKE 20 MG BY MOUTH AT BEDTIMEActive cholecalciferol 1,000 units tablet Take 1 tablet (1,000 Units total) by mouth 3 (three) times a day.Active estradioL (ESTRACE) 0.01 % (0.1 mg/gram) vaginal cream Insert 2 g into the vagina in the morning.5Active nystatin (MYCOSTATIN) 100,000 unit/mL suspension Take 2 mL (200,000 Units total) by mouth 3 (three) times a day.5Active famotidine (PEPCID) 20 mg tablet Take 1 tablet (20 mg total) by mouth nightly.5Active nitrofurantoin, macrocrystal-monohydrate, (MACROBID) 100 mg capsule Take 1 capsule (100 mg total) by mouth in the morning and 1 capsule (100 mg total) before bedtime. Do all this for 7 days. 14 capsule Expired Active Problems ProblemNoted DateDiagnosed DateBilateral kidney cakfbz9501/31/2025 Overview (02/03/2025): ==== 02/03/2025 ==== primarily right-sided stones. Hounsfield units 900 to low 1000. Certainly not a XGP kidney. Not consistent with such. Depending what happens with the renal lesion certainly couldbe a potential staged ureteroscopy. Right renal mass01/31/2025 Overview (02/03/2025): No prior abdominal surgery. No blood thinner. creatinine 0.96. GFR 61 ==== 02/03/2025 ==== apparent right renal mass with cystic component. Plan: MRI to better characterize. Assessment & Plan (02/03/2025 3:43 PM EDT): Complex medical decision making process all depending on what MRI demonstrates. Could potentially be partial nephrectomy verses total nephrectomy candidate. Versus percutaneous treatment of lesion with subsequent Retrograde ureteroscopy. Need to get the MRI 1st return clinic Urologic undjsuoyr34/26/2025 Overview (01/31/2025): 1. Diabetic with Urolithiasis; CT 01/15/2025 [facility] with IV contrast bilateral renalstones largest [...] 14. CT January 2025; KUB January 2025 Encounters DateTypeDepartmentCare UcslCcsdzjrxzmj87/13/2025 3:30 PM EDTOffice Visit [facility] [address] [phone] Kenyon Dixon MD Right renal mass (Primary Dx); Bilateral kidney nbvsgf8802/03/2025Telephone [facility] [address] [phone] Kenyon Dixon MD 01/31/2025 12:00 PM EDTOffice Visit [facility] [address] [place] [phone] Declan Silverman Jr., MD Urologic disorders (Primary Dx); Right renal mass; Bilateral kidney oiwjab4801/30/2025 1:20 PM EDT - 01/30/2025 11:59 PM EDTHospital Encounter [facility] [address] [place] [phone] Declan Silverman Jr., MD Bilateral nephrolithiasis Discharge Disposition: Home01/30/2025 12:40 PM EDT - 01/30/2025 1:19 PM EDT Hospital Encounter [facility] -Radiology [address] [place] [phone] Declan Silverman Jr., MD Bilateral nephrolithiasis Discharge Disposition: Home01/30/20256424Liwqdu60/07/2025Telephone [facility] [address] [place] [address] Betina Jimenez CMA 01/21/2025Telephone [facility] [address] [place] [address] [place] [address] Declan Silverman Jr., MD 01/17/2025 10:00 AM EDTOffice Visit [facility] [address] [place] [address] [place] [address] Declan Silverman Jr., MD Urologic disorders (Primary Dx); Bilateral gcfuqmpinquwfcb54/26/2025Telephone [facility] [address] [place] [address] [place] [address] Magalys Pereira LPN 01/15/2025 8:25 AM EDTAncillary Procedure [facility] [address] [place] [phone] Painfrom Last 3 Months Social History Tobacco UseTypesPacks/DayYears UsedDateSmoking Tobacco: NeverSmokeless Tobacco: Never Tobacco Cessation:Counseling Given: No Alcohol UseStandard Drinks/WeekCommentsNot Currently0 (1 standard drink = 0.6 oz pure alcohol)ChildcareAnswerDate UibnucczNjgwpuschPvddqgt03/12/2019Employment AnswerDate UynyybhqYofssgtrvnZntdanb79/12/2019Hunger ScreeningAnswerDate RecordedWithin the past 12 months we worried whether our food would run out before we got money to buy more.Never True02/03/2025Within the past 12 months the food we bought just didn't last and we didn't have money to get more.Never True02/03/2025CommentsUnknownSex and Gender InformationValueDate RecordedSex Assigned at BirthNot on fileLegal YrxDuszrc25/06/2015 11:29 AM EDT Gender IdentityNot on fileSexual OrientationNot on file Last Filed Vital Signs Vital SignReadingTime TakenCommentsBlood Kelhpmzl184/7710 3:08 PM EDT Sfner792002/03/2025 3:08 PM EDTTemperature--Respiratory Rate--Oxygen Saturation-- Inhaled Oxygen Concentration--Ksswps48.3 kg (210 lb)02/03/2025 3:08 PM EDTHeight 167.6 cm (5' 6 )02/03/2025 3:08 PM EDTBody Mass Index33.8902/03/2025 3:08 PM EDT Plan of Treatment DateTypeDepartmentCare Team (Latest Contact Info)Qwqwmfwnzrb14/31/2025 1:45 PM EDTAppointment [facility] - [facility] [address] [place] [address] Kenyon Dixon MD [address] [place] [id number] 03/12/2025 9:15 AM ESTTelemedicine [facility] [address] [place] [address] [place] [address] Kenyon Dixon MD [address] [place] [address] Health MaintenanceDue DateLast DoneCommentsDepression Tdyudmrna26/20/1961 DTaP,Tdap and Td Vaccines (1 - Tdap)11/11/1967Fall Risk Iuzijnvyq45/20/2014 COVID-19 Vaccine ( season)508/06/2021, 03/02/2021, 07/21/2020, Additional history existsInfluenza Htwbpoe8212/23/2024Tobacco Frrqcmyyf78Zoster (Shingles) SqkmhbpMshmsogiy03/01/2024, 11/24/2023 Medical Devices Not on file Procedures Procedure NamePriorityDate/TimeAssociated DiagnosisCommentsCT UROGRAMRoutine 01/30/2025 2:02 PM EDT Bilateral nephrolithiasis XR ABDOMEN AP 1 PNUxehnrd91/09/2025 1:46 PM EDT Bilateral nephrolithiasis CREATININE, CPOUJBngingl49/09/2025 12:40 PM EDT Bilateral nephrolithiasis CT ABDOMEN AND PELVIS W CFRCAtyynmt52/24/2025 8:25 AM EDT Pain from Last 3 Months Results * CT urogram (01/30/2025 2:02 PM [...] CT of the abdomen and pelvis from [facility] dated 01/15/2025with no report made available. [...] on 01/30/2025 5:28 PM Procedure Note Loc Gyu MD - 01/30/2025 History: Recurrent UTIs. Bilateral kidney stones Exam/Technique: CT of the abdomen with and without contrast (CT Urogram).Volume rendered 3D maximum intensity projection reconstructionsconstructed under concurrent physician supervision on an independentworkstation and reviewed for purposes of evaluation of the urinary tractand collecting systems. Comparison: Contrast-enhanced CT of the abdomen and pelvis from [place] dated 01/15/2025 with no report made available. [...] Authorizing ProviderResult TypeResult StatusGregor Akash Silverman Jr., MDG CT ORDERABLESFinal Result * X-ray abdomen ap 1 view (01/30/2025 [...] on 01/30/2025 2:08 PM Authorizing ProviderResult TypeResult StatusERASMO Fall Jr.G DIAGNOSTIC IMAGING ORDERABLESFinal Result * Creatinine includes GFR, serum (01/30/2025 12:40 PM EDT)ComponentValueRef RangeTest MethodAnalysis TimePerformed AtPathologist SignatureCREATININE0.96 0.40 - 1.00 mg/dL01/30/2025 1:05 PM [facility]Comment: METHOD TRACEABLE TO IDMS STANDARDEGFR Non-Race Rzxlfeehe53>=60 ml/min/1.73sq.m 01/30/2025 1:05 PM [facility]Comment: Reported eGFR is based on the CKD-EPI 2020 equation that does not use a race coefficient. Specimen (Source)Anatomical Location / LateralityCollection Method / Volume Collection TimeReceived TimeBloodVenous blood / UnknownVenipuncture / Unknown 01/30/2025 12:40 PM EDT1 12:40 PM EDT Narrative Authorizing ProviderResult TypeResult StatusDeclan Silverman Jr., MDLAB BLOOD ORDERABLESFinal ResultPerforming OrganizationAddressCity/State/ZIP CodePhone Number [address] [phone], * CT abdomen and pelvis with contrast (01/15/2025 8:25 AM EDT)Specimen (Source) Anatomical Location / LateralityCollection Method / VolumeCollection Time Received Time Narrative Authorizing ProviderResult TypeResult StatusScanning Provider ExternalIMG CT ORDERABLESFinal Result from Last 3 Months Insurance * Guarantor: Annita Riojas TypeRelation to PatientDate of BirthPhoneBilling AddressPersonal/ZdpgavCguu65/ [address] [place] [address] Care Teams Team MemberRelationshipSpecialtyStart DateEnd Date Chago Noriega Jr., [address] [place] [address] PCP - GeneralInternal Medicine01/20/25
--- OUTSIDE RECORDS SUMMARY | 2025-02-11 13:05 | XMS_ITS | Clinical Summary ---
Author Organization [facility] Address [address] [place] [address] Care Team Providers Care Musical Instrument Maker Name Role Phone Unallocated, Noms Provider Primary Care Provi alan Allergies Active AllergyReactionsCriticalityNoted DateCommentsCephalexinHives,Itching 07/27/2023VenlafaxineHives,Ajfghug3107/27/2023 Medications MedicationSigDispense QuantityRefillsLast FilledStart DateEnd DateStatus acarbose (Precose) 100 MG tablet 05/25/2023ctive candesartan (Atacand) 16 MG tablet 05/25/2023ctive DULoxetine (Cymbalta) [address] capsule 05/25/2023ctive esomeprazole (NexIUM) [address] capsule 05/25/2023ctive Myrbetriq 50 MG 24 hr tablet 05/25/2023ctive montelukast (Singulair) 10 MG tablet 05/25/2023ctive pravastatin (Pravachol) 20 MG tablet 05/25/2023ctive metFORMIN XR (Glucophage-XR) 500 MG 24 hr tablet Take 500 mg by mouth in the evening. Take with meals11/22/2023ctive magnesium oxide (Mag-Ox) 400 mg tablet 400 mg DailyActive cetirizine (ZyrTEC) 10 MG tablet Take by mouthActive aspirin 81 MG EC tablet Take 81 mg by mouth DailyActive VITAMIN D PO Take by mouthActive pyridoxine (Vitamin B-6) 100 MG tablet Take 100 mg by mouth DailyActive cyanocobalamin (Vitamin B-12) 1000 MCG tablet Take 1,000 mcg by mouth DailyActive biotin 55162 MCG tablet Take by mouthActive Eslicarbazepine Acetate (Aptiom) 200 MG tablet Take by mouthActive methenamine hippurate (Hiprex) 1 g tablet Take 1 g by mouth in the morning and 1 g in the evening.Active estradiol (Estrace) 0.1 MG/GM vaginal cream Indications:Recurrent UTIInsert 0.25 g into the vagina at bedtime Apply pea sized amount to urethra opening At bedtime for 2weeks, then at every other night 42.5 g ctive Active Problems No known active problems Encounters DateTypeDepartmentCare UmqoWnvnejtezhl39/04/2025Orders Only [facility] [address] [address] [place] [phone] Jocelyn TanikaRICHIE acevedo 12/17/2024 11:20 AM EDTPro[place] [phone] Dylan Zepeda DO Well woman exam with routine gynecological exam; Breast cancer screening by mammogram; Postmenopausal state12/17/2024linisync Result Encounter [facility] Unsolicited Dylan Zepeda DO 12/17/2024amboo [place] [address] Dylan Zepeda DO from Last 3 Months Family History RelationNameStatusCommentsFatherDeceasedMotherDeceased Social History Tobacco UseTypesPacks/DayYears UsedDateSmoking Tobacco: NeverPassive Smoke Exposure: NeverSmokeless Tobacco: Never Tobacco Cessation:Counseling Given: Yes Alcohol UseStandard Drinks/WeekCommentsDefer0 (1 standard drink = 0.6 oz pure alcohol)CommentsNoSex and Gender InformationValueDate RecordedSex Assigned at BirthNot on fileLegal OuiRmvjka34/15/2023 6:37 PM EDTGender Identity Not on fileSexual OrientationNot on file Last Filed Vital Signs Vital SignReadingTime TakenCommentsBlood Dxlrlhbt250/8002 2:01 PM EST Nxbvg2263 1:11 PM EDTTemperature--Respiratory Rate--Oxygen Saturation-- Inhaled Oxygen Concentration--Beqntz880 kg (239 lb 6.4 oz)06/11/2024 2:01 PM EST Zputev089.2 cm (5' 7 )12/06/2023 11:01 AM EDTBody Mass Index37.5012/06/2023 11:01 AM EDT Plan of Treatment Health MaintenanceDue DateLast DoneCommentsMedicare Annual Wellness (AWV) 1950Pneumococcal Vaccine: 65+ Years (1 of 1 - PCV)1998Influenza Vaccine (#1)2024FIT-WLOYfnzpkrwgypm96/15/2021ColonoscopyDiscontinued 05/29/2024, 05/29/2024olorectal Cancer ScreeningDiscontinuedMammogram Tnuncfmmjhki70/27/2025T ColonographyDiscontinuedFITDiscontinuedFOBTDiscontinued SigmoidoscopyDiscontinued Procedures Procedure NamePriorityDate/TimeAssociated DiagnosisCommentsIGP,APTIMA HPV,AGE MVIWOpzxmbj28/26/2025 11:01 AM EDT PAP IGYDTJabnryq32/26/2025 12:00 AM EDTMM TOMOSYNTHESIS SCREENING BI06/20/2024 2:28 PM EST from Last 3 Months or Most Recently Relevant to Health Maintenance Results * IGP,APTIMA HPV,AGE GDLN (12/17/2024 11:01 AM EDT)ComponentValueRef RangeTest MethodAnalysis TimePerformed AtPathologist SignatureAGE GDLN ACOG TESTINGNote. TBHComment: ?? TESTS ? RESULT ??FLAG ??UNITS ?REF RANGE ??LAB ?? Clinician Provided Cytology Information ?? Source.............Cervix;Endocervix ?? No. of containers..01 ThinPrep Vial Age Algo ACOG Nicole... ??Note ?01 <21 or >65 or no age provided ?FLAG LEGEND: ?L-Low Normal,H-High Normal,LL-Alert Low,HH-Alert High <-Panic Low,>-Panic High,A-Abnormal,AA-Critical Abnormal Performed at: 01 =G ?[facility] ?? [address] ??[phone] ?? Demetrice Solomon MD, PAP IG (IMAGE GUIDED)Note.TBHComment: ?? TESTS ? RESULT ??FLAG ??UNITS ?REF RANGE ??LAB DIAGNOSIS: ?02 ?? NEGATIVE FOR INTRAEPITHELIAL LESION OR MALIGNANCY. Specimen adequacy: ?02 ?? Satisfactory for evaluation. ??Endocervical and/or squamous metaplastic ?? cells (endocervical component) are present. Performed by: ? 02 ?? Jesisca Jones Taxicab Dispatcher (ASCP) . ? 02 Note: ? Note ?02 ?? The Pap smear is a screening test designed to aid in the ?? detection of premalignant and malignant conditions of the ?? uterine cervix. ??It is not a diagnostic procedure and ?? should not be used as the sole means of detecting cervical ?? cancer. ??Both false-positive and false-negative reports do ?? occur. Test Methodology: ? Note ?02 ?? This liquid based ThinPrep(R) pap test was screened with ?? the use of an image guided system. ?FLAG LEGEND: ?L-Low Normal,H-High Normal,LL-Alert Low,HH-Alert High <-Panic Low,>-Panic High,A-Abnormal,AA-Critical Abnormal Performed at: 02 WB ?[facility] ?? [address] [place] ??[phone] ?? Demetrice Solomon MD, Performed at: ??=G - [facility] [address] [place] ??[id number] Camera Prototyping Engineer: Demetrice Solomon MD, Phone: ??[phone] Performed at: ??WB - [facility] [address] [place] ??[id number] Camera Prototyping Engineer: Demetrice Solomon MD, Phone: ??[phone] Specimen (Source)Anatomical Location / LateralityCollection Method / Volume Collection TimeReceived Time12/17/2024 11:01 AM EDT12/18/2024 6:44 AM EDT Narrative [facility] - 12/20/2024 5:09 PM EDT BRUSH-SPATULA CERVIX ENDOCERVIX Authorizing ProviderResult TypeResult StatusCorey Katelyn DOLAB BLOOD ORDERABLES Final ResultPerforming OrganizationAddressCity/State/ZIP CodePhone Number CLINISYWA [facility] * Pap Smear (12/17/2024 12:00 AM EDT)Specimen (Source)Anatomical Location / LateralityCollection Method / VolumeCollection TimeReceived TimeSwabCervical swab / Unknown Narrative Authorizing ProviderResult TypeResult StatusCorey Katelyn DOLAB CYTOLOGY ORDERABLESFinal ResultPerforming OrganizationAddressCity/State/ZIP CodePhone Number EXTERNAL LAB * MM TOMOSYNTHESIS SCREENING BI (06/20/2024 2:28 PM EST)Anatomical Region LateralityModalityOtherSpecimen (Source)Anatomical Location / Laterality Collection Method / VolumeCollection TimeReceived Time06/20/2024 2:28 PM EST Narrative 06/20/2024 2:29 PM EST [facility] ?[address] ? [place] [address] ? Mammography Report ? Signed ? Patient: AUGUST,GIGI M ?MR#: [id number] ?? : 1950 ?Acct:[id number] ?? Age/Sex: 73 / F ?ADM Date: //25 ?? Loc: MAMMO ? Attending Dr: Dylan Zepeda D.O. ? Ordering Physician: Dylan Zepeda D.O. ?Results: ? Date of Service: 06/20/24 ?Follow Up: ? Procedure(s): MM tomosynthesis screening BI ?? Accession Number(s): [id number] ? cc: Dylan Zepeda D.O.; MELISSA SEAY D.O. ? Patient Name: ? GIGI KOCH ? MR#: [id number] ? : 1950 ? Exam Date: 06/20/2024 ?? Ordering Doctor: DR Dylan Zepeda . ? RADIOLOGY REPORT ? PROCEDURE: ? MM TOMOSYNTHESIS SCREENING BI ? COMPARISON: ? MM TOMOSYNTHESIS SCREENING BI, 06/13/2023. ??MG MAMM SCREEN 3D ?? MARK CAD, 11/22/2021. ??MAMMO POST BIOPSY UNILATERAL LEFT, 08/23/2012. ? INDICATIONS: ? Screening ? Calculator Name ? NCI Breast Cancer Risk Assessment Tool ?? 5 Year Breast Cancer Risk ? 6.20% ?? Lifetime Breast Cancer Risk ? 13.00% ?? Personal Breast Cancer ?No ?? Personal Ovarian Cancer ? No ?? Treatments ? None ?? Family Cancers ? Grandmother-maternal with uterine cancer at age ??60; ?? Father with pancreatic cancer at age 68; Grandfather-paternal with lung cancer ?? at age ??70; Uncle-paternal with colon cancer at age ??70; ?? Grandfather-maternal with lung cancer at age ??70; Aunt-paternal with uterine ?? cancer at age 83. ? LOCATION: ? [facility] ? BREAST COMPOSITION: ? There are scattered areas of fibroglandular density. ? FINDINGS: ? DIAGNOSTIC CATEGORY 1--NEGATIVE. NO CHANGE FROM COMPARISON ASSESSMENT. ? RIGHT BREAST: ??No significant suspicious finding. ? LEFT BREAST: ??No significant suspicious finding. ? RECOMMENDATIONS: ? ROUTINE MAMMOGRAM AND CLINICAL EVALUATION IN 12 MONTHS. ? PLEASE NOTE: ??A NORMAL MAMMOGRAM DOES NOT EXCLUDE THE POSSIBILITY OF BREAST ?? CANCER. ??A CLINICALLY SUSPICIOUS PALPABLE LUMP SHOULD BE BIOPSIED. ? Dictated by: Parish Almaguer DO on 06/20/2024 at 14:21 ? Approved by: Parish Almaguer DO on 06/20/2024 at 14:28 ? Dictated By: ?Parish Almaguer M.D. ? Signed By: ?06/20/24 1429 ? DD/ 1428 ? TD/TT: ? Pension Consultant: Procedure Note Radiology, Radiologist, MD - 06/20/2024 [place] [address] Mammography Report Signed Patient: GIGI KOCH MMR#: [id number] : 1950cct:[id number] Age/Sex: 73 / FADM Date: 06/20/24 Loc: MAMMO Attending Dr: Dylan Zepeda D.O. Ordering Physician: Dylan Zepeda D.O.Results: Date of Service: 06/20/24Follow Up: Procedure(s): MM tomosynthesis screening BI Accession Number(s): [id number] cc: Dylan Zepeda D.O.; MELISSA SEAY D.O. Patient Name: GIGI KOCH MR#: [id number] : 1950 Exam Date: 06/20/2024 Ordering Doctor: DR Dylan Zepeda . RADIOLOGY REPORT PROCEDURE: MM TOMOSYNTHESIS SCREENING BI COMPARISON: MM TOMOSYNTHESIS SCREENING BI, 06/13/2023. MG MAMM PDKTZJ2F MARK CAD, 11/22/2021. MAMMO POST BIOPSY UNILATERAL [...] withuterine cancer at age 81. LOCATION: [facility] BREAST COMPOSITION: There are scattered areas [...] M.D. Signed By:06/20/24 1429 DD/ 1428 TD/TT: Pension Consultant: Authorizing ProviderResult TypeResult StatusCorey Katelyn DOCLINISYNC IMAGINGFinal Result from Last 3 Months or Most Recently Relevant to Health Maintenance Insurance Care Teams Team MemberRelationshipSpecialtyStart DateEnd Date Unallocated, Noms Provider, [address] [place] [address] PCP - GeneralFamily Medicine08/24/23
--- OUTSIDE RECORDS SUMMARY | 2025-02-11 13:05 | XMS_ITS | Encounter Summary ---
Author Organization [facility] tem Address [id number] [address] [place] [address] Care Team Providers Care Strap Sewer Name Role Phone Leann Rosales DO, Charles L Primary Care Provider Encounter Details DateTypeDepartmentCare Team (Latest Contact Info)Ypufuganjbd46/07/2025Telephone [facility] [address] [place] [address] Betina Jimenez CMA Social History Tobacco UseTypesPacks/DayYears UsedDateSmoking Tobacco: NeverSmokeless Tobacco: NeverAlcohol UseStandard Drinks/WeekCommentsNot Currently0 (1 standard drink = 0.6 oz pure alcohol)ChildcareAnswerDate LaerbahvSavpgvmxlCqdefxp79/12/2019 EmploymentAnswerDate WdfjoklgZrccyvlbltScxjdrj29/12/2019Hunger ScreeningAnswer Date RecordedWithin the past 12 months we worried whether our food would run out before we got money to buy more.Never True01/31/2025Within the past 12 months the food we bought just didn't last and we didn't have money to get more.Never True01/31/2025CommentsUnknownSex and Gender InformationValueDate RecordedSex Assigned at BirthNot on fileLegal CivYjnjcj42/06/2015 11:29 AM EDT Gender IdentityNot on fileSexual OrientationNot on filedocumented as of this encounter Miscellaneous Notes * Telephone Encounter - Betina Jimenez CMA - 01/28/2025 1:25 PM EDT I called the patient to remind them to complete the following tests: creatinine serum, microscopic urine analysis, and urine culture. Additionally, Dr. Silverman requested imaging testing, including an x-ray of the abdomen. However, the patient did not answer, and I was unable to leave a voicemail because their voicemail system is not set up. documented in this encounter Plan of Treatment DateTypeDepartmentCare Team (Latest Contact Info)Jtpvbjeacsk62/31/2025 1:45 PM EDTAppointment [facility] [address] [place] [address] Kenyon Dixon MD [address] [place] [address] 03/12/2025 9:[address] [facility] [address] [place] [address] [place] [address] Kenyon Dixon MD [address] [place] [address] documented as of this encounter Visit Diagnoses Not on filedocumented in this encounter Care Teams Team MemberRelationshipSpecialtyStart DateEnd Date Chago Noriega Jr., DO [facility] [place] [address] PCP - GeneralInternal Medicine01/20/25documented as of this encounter
--- OUTSIDE RECORDS SUMMARY | 2025-02-11 13:05 | XMS_ITS | Clinical Summary ---
Author Organization [facility] Address [address] [place] [address] Care Team Providers Care Experimental Mechanic Name Role Phone Chago Noriega MD Primary Care Provider [phone] Allergies Active AllergyReactionsCriticalityNoted DateCommentsCephalexinHives,Itching 07/27/2023VenlafaxineHives,Swoodfy7407/27/2023 Medications MedicationSigDispense QuantityRefillsLast FilledStart DateEnd DateStatus esomeprazole (NexIUM) [address] capsule Take 40 mg by mouth before breakfast. Do not open capsule.Active mirabegron 50 mg tablet extended release 24 hr Take 50 mg by mouth in the morning.Active candesartan (Atacand) 16 mg tablet Take 16 mg by mouth in the morning.Active DULoxetine (Cymbalta) [address] capsule Take 60 mg by mouth at bedtime. Do not crush or chew.Active magnesium oxide (Mag-Ox) 400 mg tablet 400 mg two times daily.Active metFORMIN, OSM, (Fortamet) 500 mg 24 hr tablet Take 500 mg by mouth with breakfast and with evening meal. Do not crush, chew, or split.Active montelukast (Singulair) 10 mg tablet Take 10 mg by mouth at bedtime.Active pravastatin (Pravachol) 20 mg tablet Take 20 mg by mouth at bedtime.Active acarbose (Precose) 100 mg tablet Take 100 mg by mouth with breakfast, with lunch, and with evening meal.Active cetirizine (ZyrTEC) 10 mg tablet Take 10 mg by mouth at bedtime.Active aspirin 81 mg EC tablet Take 81 mg by mouth in the morning.Active pyridoxine (B-6) 100 mg tablet Take 100 mg by mouth twice a day.Active biotin 10,000 mcg capsule Take 10 mg by mouth in the morning.Active cholecalciferol (Vitamin D3) 25 MCG (1000 units) tablet Take 1,000 Units by mouth three times daily.Active cyanocobalamin (Vitamin B-12) 1,000 mcg tablet Take 1,000 mcg by mouth in the morning.Active acetaminophen (Tylenol) 500 mg tablet Take 1,000 mg by mouth every 6 (six) hours if needed for mild pain (1-3 pain score).Active multivitamin,tx-minerals tablet Take 1 tablet by mouth in the morning.Active methenamine hippurate (Hiprex) 1 gram tablet Take 1 g by mouth two times daily.Active Social History Tobacco UseTypesPacks/DayYears UsedDateSmoking Tobacco: NeverSmokeless Tobacco: Never Tobacco Cessation:Counseling Given: Not Answered Alcohol UseStandard Drinks/WeekCommentsNever0 (1 standard drink = 0.6 oz pure alcohol)CommentsUnknownSex and Gender InformationValueDate RecordedSex Assigned at RyqvrZlfltc65/05/2025 9:51 AM ESTLegal FlyBviice95/16/2024 8:23 AM ESTGender YxbhnpkdYnjegu46/05/2025 9:51 AM ESTSexual OrientationHeterosexual or Pgyikcly67/05/2025 9:51 AM EST Last Filed Vital Signs Vital SignReadingTime TakenCommentsBlood Zratmnnk493/58005/29/2024 2:05 PM EST Dbfaa648705/29/2024 2:05 PM LACPmfrlbbsexr81.2 ??C (97.2 ??F)05/29/2024 2:05 PM ESTRespiratory Ryli921305/29/2024 2:05 PM ESTOxygen Cbwceukikr29%05/29/2024 2:05 PM ESTInhaled Oxygen Concentration--Kcmuva223 kg (236 lb 15.9 oz)05/29/2024 10:22 AM GBJEphjov249.6 cm (5' 6 )05/29/2024 10:22 AM ESTBody Mass Index38.25 05/29/2024 10:22 AM EST Plan of Treatment Health MaintenanceDue DateLast DoneCommentsDiabetes: Hemoglobin A1C1948 Medicare Annual Wellness (AWV)1950Diabetes: Retinopathy Screening 1958Depression Yzkcvunak82/20/1961Diabetes: Urine Protein Screening 11/11/1967Adult Afmodcv1011/10/1970Pneumococcal Vaccine: 50+ Years (1 of 1 - PCV) 1998Fall Risk Tguwmxfhv30/20/2014COVID-19 Vaccine (2024- season) 508/06/2021, 03/02/2021, 07/21/2020, Additional history existsInfluenza Vaccine (#1)12/23/2024Zoster TltfucwgQpsqfnnti32/01/2024, 4Colonoscopy Iqebqinhvdie35/05/2025, 03/10/2021, 04/24/2001Colorectal Cancer Screening DiscontinuedCT ColonographyDiscontinuedFIT-DNADiscontinuedFITDiscontinuedFOBT DiscontinuedHIB VaccinesAged OutNo longer eligible based on patient's age to complete this topicHPV VaccinesAged OutNo longer eligible based on patient's age to complete this topicIPV VaccinesAged OutNo longer eligible based on patient's age to complete this topicMeningococcal B VaccineAged OutNo longer eligible based on patient's age to complete this topicMeningococcal VaccineAged OutNo longer eligible based on patient's age to complete this topicRotavirus Vaccines Aged OutNo longer eligible based on patient's age to complete this topic SigmoidoscopyDiscontinued Procedures Procedure NamePriorityDate/TimeAssociated DiagnosisCommentsDIAGNOSTIC MCPTIGKULBHTksdmpi36/05/2025 1:00 PM EST Tubular adenoma of colon from Last 3 Months or Most Recently Relevant to Health Maintenance Results * Diagnostic Colonoscopy w EMR (05/29/2024 1:00 PM EST)Anatomical Region LateralityModalityEndoscopySpecimen (Source)Anatomical Location / Laterality Collection Method / VolumeCollection TimeReceived Time Narrative 05/29/2024 4:57 PM EST Table formatting from the original result was not included. Colonoscopy Procedure Note Procedure: ??Colonoscopy with endoscopic mucosal resection of 2 large polyps (submucosal injection, snare polypectomy, and ablation). Indications: ??Annita Riojas is a 73 y.o. 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 ??Repeated colonoscopy in March of last year revealed recurrent polyp. ??The polyp could not be removed. ??The patient is scheduled to have colonoscopy with possible endoscopic mucosal resection of the ascending colon polyp. Sedation: ??General Medications: No administrations occurring from 1042 to 1300 on 05/29/24 Attending Physician: ??Bharat Meyers MD Procedure Details Informed consent was obtained for the procedure, including sedation. ?? Risks of perforation, hemorrhage, adverse drug reaction and aspiration were discussed. The patient was placed in the left lateral decubitus position. ??The patient was monitored continuously with ECG tracing, pulse oximetry, blood pressure monitoring, and direct observations. ?? A rectal examination was performed. ??The colonoscope was inserted into the rectum and advanced under direct vision to the terminal ileum. ??A careful inspection was made as the colonoscope was withdrawn, including a retroflexed view of the rectum; findings and interventions are described below. ??Appropriate photodocumentation was obtained. Findings: Digital rectal examination was unremarkable. ??Colonoscopy to the terminal ileum revealed up few small polyps noted throughout the colon. ??3 large polyps were noted within the right side of the colon as following: Ascending colon polyp measured 1.8 cm likely to be a residual polyp from previous polypectomy. ??The polyp was extending to both sides of a colonic fold. ??Endoscopic mucosal resection in a piecemeal fashion was performed with the scope being in an retroflexed position. ??The base of the polyp was injected with Eleview for lifting purposes which was partially achieved and the polyp was removed ??in a piecemeal fashion. ??Few tissue remained at the center of the EMR site and that was removed with jumbo biopsy forceps. ??The edges of the EMR site were ablated with the tip of the snare using soft coag. ??A total of 5 hemoclips were then deployed on the mucosal defect of the EMR site was closed with the clips. ??Spot was then injected across from the polyp site for future marking. ??A second polyp measured 1.5 cm noted on the proximal side of the ileocecal valve. ?? The polyp was removed with a hot snare, retrieved and sent for histopathological examination. ??A third polyp was noted in the cecum hidden behind the ileocecal valve and measured 3.0 cm in size. ??Photos were obtained. ??Endoscopic mucosal resection was performed and the base of the polyp was injected with a Eleview for lifting purposes and the polyp was removed in a piecemeal fashion. ??The edges of the EMR site were ablated with the tip of the snare using soft coag and 2 endoclips were deployed at the site to close the mucosal defect. ??The polyp was then retrieved with a Faye net basket ??And was sent for histopathological examination. ??Small external hemorrhoids were identified. Quality of colonic prep: ??good Withdrawal time: 1 hour and 42 minutes [...] EXAM Kathleen Holbrook RN 05/29/2024 1201 Complications: ??None Estimated blood loss: ??Minimal ? Disposition: ??Home ? Condition: stable Impression: ?? Successful endoscopic mucosal resection of a large ascending colon polyp measured 1.8 cm (residual of polyp). ??The polyp was removed in a piecemeal fashion as described above. ??The site was then tattooed with injection of spot. Successful endoscopic mucosal resection of a large cecal polyp measured 3.0 centimeter. ??The polyp was completely obscured by the ileocecal valve. The polyp was removed in a piecemeal fashion, retrieved and sent for histopathological examination. Successful removal of a large ileocecal valve polyp that measured 1.5 cm in size with hot snare, retrieved and sent for histopathological examination. Single small polyp noted throughout the colon ranged in size from 4 to 6 mm. ??The polyps were not removed during the session. Small external hemorrhoids. Recommendations: Follow-up histopathology results. Further plan depends upon the histopathology results. Repeat colonoscopy in 6 months to assess the sites of the EMRs in the ascending colon and in the cecum. Attending Attestation: I performed the procedure. Authorizing ProviderResult TypeResult StatusMichael Mariana MDENDOSCOPY PROCEDURE ORDERABLESFinal Result from Last 3 Months or Most Recently Relevant to Health Maintenance Insurance Care Teams Team MemberRelationshipSpecialtyStart DateEnd Date Chago Noriega MD [facility] [place] [id number] PCP - GeneralInternal Medicine05/29/24
--- OUTSIDE RECORDS SUMMARY | 2025-02-11 13:11 | XMS_ITS | CCD ---
Author Organization [facility] Care Team Providers Care Online Publisher Name Role Phone DAWOOD, DR TORRES Primary Care Unavailable KARASIK, DR PATE Admitting Unavailable KARASIK, DR PATE Attending Unavailable KARASIK, DR PATE Consulting Unavailable VALONE, DR TORRES Primary Care Unavailable KARASIK, DR PATE Admitting Unavailable KARASIK, DR PATE Attending Unavailable KARASIK, DR PATE Consulting Unavailable ZIEBER, DR ANTONIO Bentley Consulting Unavailable ROSSCHINTAN Admitting Unavailable VALONE, [...] Attending Unavailable VALONE, DR TORRES Consulting Unavailable CHAGO SEAY JR Primary Care Physician Edda Peña Attending Unavailable Nill, Edda R Admitting Unavailable Unallocated Joellen RUSSELL Provider Primary Care Provi alan BHARAT SANZ Admitting Unavailable BHARAT SANZ Attending Unavailable EDDA PEÑA Referring Unavailable UnalloJoellen coffman MD Provider Primary Care Provi alan DYLAN ZEPEDA Attending Unavailable DYLAN ZEPEDA Attending Unavailable NILL, Edda Bentley Attending Unavailable NILL, Edda Bentley Attending Unavailable NILL, Edda Bentley Attending Unavailable NILL, Edda R Attending Unavailable Unavailable Primary Care Provider Donald Seay Jr., DO, Charles L Primary Care Provider KIM HOBSON JR Referring Unavailable CHAGO SEAY JR Primary Care Unavailable KIM HOBSON JR Attending Unavailable KIM HOBSON JR Referring Unavailable CHAGO SEAY JR Primary Care Unavailable KIM HOBSON JR Attending Unavailable KIM HOBSON JR Referring Unavailable CHAGO SEAY JR L Primary Care Unavailable KIM HOBSON JR Attending Unavailable CHAGO SEAY JR Referring Unavailable JAZLYN NGOKIM Attending Unavailable CHAGO SEAY JR Referring Unavailable CHAGO SEAY JR Primary Care Unavailable SAMSONEDDA Attending Unavailable CHAGO SEAY JR Referring Unavailable CHAGO SEAY JR Primary Care Unavailable Allergies Allergy ClassificationReported Allergen(s)Allergy TypeDate of OnsetReaction(s) Facility (2 sources)Cephalexin; Translations: [Keflex][facility]rug [facility] (5 sources)venlafaxine; Translations: [VENLAFAXINE]Drug Mwfrram88-30-7907EwfC[facility] (19 sources)Cephalexin; Translations: [cephalexin]Drug Esnwcqx00-46-1818Rqtereb (finding), Hives, ItchingFisher[facility] [place] (16 sources)venlafaxine; Translations: [venlafaxine]Drug Kneltuf62-95-0292 Itching (finding), Hives, ItchingFisher-Jorg[facility] [place] Medications Current Medications MedicationDrug Class(es)DatesSig (Normalized)Sig (Original)acarbose 100 mg oral tablet (16 sources)alpha-Glucosidase InhibitorStart: 72-95-6833xpzn 1 tablet by mouth in the morning, then take 1 tablet by mouth at bedtimeacarbose (PRECOSE) 100 MG tablet Take 1 tablet (100 mg total) by mouth in the morning and 1 tablet (100 mg total) before bedtime. 02/23/2024 Activeacetaminophen 500 mg oral tablet (5 sources)take 2 tablets by mouth every six hours as neededacetaminophen (TYLENOL EXTRA STRENGTH) 500 mg tablet Take 2 tablets (1,000 mg total) by mouth every6 (six) hours as needed. Activeaspirin 81 mg delayed release oral tablet (16 sources)Platelet Aggregation Inhibitor, Nonsteroidal Anti-inflammatory Drug Start: 12-48-1847vved 1 tablet by mouth in the morningaspirin 81 mg Take 1 tablet (81 mg total) by mouth in the morning. 03/05/2024 Activebiotin 1 mg oral tablet (16 sources)Start: 21-31-6441cymo 1 tablet by mouth once dailybiotin 1000 mcg oral tablet 1,000 mcg = 1 tab(s), Oral, Daily Start Date: 02/10/21 Status: Ordered Repeat number: 1take 10 mg by mouth once daily in the morningbiotin 10,000 mcg capsule Take 10 mg by mouth every morning. TAKE 10 MG BY MOUTH IN THE MORNING Activebiotin 78809 MCG tablet Take by mouth ActiveCalcium Carbonate / vitamin D3 (5 sources)calcium carbonate/vitamin D3 (CALCIUM 600 WITH VITAMIN D3 ORAL) Take 1 tablet by mouth at noon. Activecandesartan cilexetil 16 mg oral tablet (16 sources)Angiotensin 2 Receptor BlockerStart: 49-98-8607zhdl 1 tablet by mouth in the morningcandesartan (ATACAND) 16 mg tablet Take 1 tablet (16 mg total) by mouth in the morning. 02/23/2024 Activecetirizine hydrochloride 10 mg oral tablet (16 sources)Histamine-1 Receptor AntagonistStart: 95-43-0581xpkc 1 tablet by mouth once dailycetirizine (ZyrTEC) 10 mg tablet Take 1 tablet (10 mg total) by mouth nightly. 03/05/2024 Activecholecalciferol 0.025 mg oral tablet (5 sources)Vitamin Dtake 1 tablet by mouth three times dailycholecalciferol 1,000 units tablet Take 1 tablet (1,000 Units total) by mouth 3 (three) times a day. ActiveDULoxetine 60 mg delayed release oral capsule (16 sources)Serotonin and Norepinephrine Reuptake InhibitorStart: 81-30-9955bezj 1 capsule by mouth at bedtimeDULoxetine (CYMBALTA) 60 mg capsule Take 1 capsule (60 mg total) by mouth before bedtime. 02/23/2024 Activeeslicarbazepine acetate 200 mg oral tablet (8 sources)Eslicarbazepine Acetate (Aptiom) 200 MG tablet Take by mouth Active esomeprazole 40 mg delayed release oral capsule (16 sources)Proton Pump InhibitorStart: 54-18-3660oifb 1 capsule by mouth at bedtimeNexium 40 mg Cap-EC 40 mg = 1 cap(s), Oral, Bedtime, Refills(s) 0 Start Date: 02/10/21 Status: Ordered Repeat number: 1estradiol 0.1 mg/ml vaginal cream (13 sources)EstrogenStart: 06-11-2024 End: 66-75-7733acacjytwd (Estrace) 0.1 MG/GM vaginal cream Indications: Recurrent UTI Insert 0.25 g into the vagina at bedtime Apply pea sized amount to urethra opening At bedtime for 2 weeks, then at every other night 42.5 g 3 06/11/2024 06/11/2025 ActiveStart: 28-35-4509Jtwkj: 36-97-6235bdpctqmhK (ESTRACE) 0.01 % (0.1 mg/gram) vaginal cream Insert 2 g into the vagina in the morning. 06/10/2024 Activefamotidine 20 mg oral tablet (6 sources)Histamine-2 Receptor AntagonistStart: 00-64-6106dncg 1 tablet by mouth once dailyfamotidine (PEPCID) 20 mg tablet Take 1 tablet (20 mg total) by mouth nightly. 01/08/2025 Activemagnesium oxide 400 mg oral tablet (16 sources)Start: 19-80-8196pjvg 1 tablet by mouth once dailymagnesium oxide 400 mg Tab 400 mg = 1 tab(s), Oral, Daily, Refills(s) 0 Start Date: 02/10/21 Status: Ordered Repeat number: 1magnesium oxide (Mag-Ox) 400 mg tablet 400 mg Daily Udftok78 hr metFORMIN hydrochloride 500 mg extended release oral tablet (16 sources)BiguanideStart: 42-67-2391ywdw 1 tablet by mouth every twenty-four hours in the morning, then take 1 tablet by mouth at bedtimemetFORMIN XR (GLUCOPHAGE XR) 500 mg 24 hr tablet Take 1 tablet (500 mg total) by mouth in the morning and 1 tablet (500 mg total) before bedtime. 01/03/2025 ActiveStart: 63-90-1102ofvq 1 tablet by mouth twice dailyMetFORMIN (Eqv-Glucophage XR) 500 mg oral tablet, extended release 500 mg = 1 tab(s), Oral, BID, Refills(s) 0 Start Date: 02/23/24 Status: Ordered Repeat number: 1Start: 36-41-0674nnjh 1 tablet by mouth every twenty-four hours at mealtimemetFORMIN XR (Glucophage-XR) 500 MG 24 hr tablet Take 500 mg by mouth in the evening. Take with meals 11/22/2023 Active methenamine hippurate 1000 mg oral tablet (12 sources)Start: 75-79-6802krgb 1 tablet by mouth twice dailymethenamine hippurate 1 g oral tablet 1 gm = 1 tab(s), Oral, BID, Refills(s) 0 Start Date: 01/08/25 Status: Ordered Repeat number: 1Start: 41-68-4167myhb 1 tablet by mouth at mealtimemethenamine (HIPREX) 1 gram tablet Take 1 tablet (1 g total) by mouth in the morning and 1 tablet (1 g total) in the evening. Take with meals. 01/08/2025 Activetake 1 tablet by mouth in the morningmethenamine hippurate (Hiprex) 1 g tablet Take 1 g by mouth in the morning and 1 g in the evening. A ctive24 hr mirabegron 50 mg extended release oral tablet (11 sources)beta3-Adrenergic AgonistStart: 24-27-5279Kbsvdiilg 50 MG 24 hr tablet 05/25/2023 ActiveStart: 64-61-7712usdu 1 tablet by mouth once daily Myrbetriq 50 mg oral tablet, extended release 50 mg = 1 tab(s), Oral, Daily, Refills(s) 0 Start Date: 02/10/21 Status: Ordered Repeat number: 1montelukast 10 mg oral tablet (16 sources)Leukotriene Receptor AntagonistStart: 48-42-5311vkul 1 tablet by mouth once dailySingulair 10 mg Tab 10 mg = 1 tab(s), Oral, Daily, Refills(s) 0 Start Date: 02/10/21 Status: Ordered Repeat number: 1multivitamin,tx-minerals tablet (5 sources)take 1 tablet by mouth in the morningmultivitamin,tx-minerals tablet Take 1 tablet by mouth in the morning. ActiveMultivitamins and Minerals (3 sources)Start: 29-85-2764nrls 1 tablet by mouth once dailyMultivitamins and Minerals 1 tab(s), Oral, Daily, Refill(s) 0 Start Date: 02/10/21 Status: Ordered Repeat number: 1Start: 69-91-6086ppza 1 tablet by mouth once dailyMultivitamins and Minerals 1 tab(s), Oral, Daily, Refill(s) 0 Start Date: 02/10/21 Status: Orderednitrofurantoin, macrocrystals 25 mg / nitrofurantoin, monohydrate 75 mg oral capsule (2 sources)Nitrofuran AntibacterialStart: 01-17-2025 End: 41-18-2536lqjw 1 capsule by mouth in the morning, then take 1 capsule by mouth at bedtimenitrofurantoin, macrocrystal-monohydrate, (MACROBID) 100 mg capsule Take 1 capsule (100 mg total) by mouth in the morning and 1 capsule (100 mg total) before bedtime. Do all this for 7 days. 14 capsule 01/17/2025 01/24/2025 Activenystatin 606518 unt/ml oral suspension (5 sources)Polyene AntifungalStart: 60-51-4071zmkg 2 mL by mouth three times dailynystatin (MYCOSTATIN) 100,000 unit/mL suspension Take 2 mL (200,000 Units total) by mouth 3 (three)times a day. 12/24/2024 Activepravastatin sodium 20 mg oral tablet (16 sources)HMG-CoA Reductase InhibitorStart: 33-02-8823wnrf 1 tablet by mouth once daily at bedtimepravastatin 20 mg Tab 20 mg = 1 tab(s), Oral, Once a day (at bedtime), Refills(s) 0 Start Date: 02/10/21 Status: Ordered Repeat number: 1 vitamin b12 1 mg oral tablet (13 sources)Vitamin A67ovlp 1 tablet by mouth in the morningcyanocobalamin 1000 MCG tablet Take 1 tablet (1,000 mcg total) by mouth in the morning. Active Vitamin B12 1000 mcg Tab (3 sources)Start: 38-92-7295aios 1 tablet by mouth once dailyVitamin B12 1000 mcg Tab 1,000 mcg = 1 tab(s), Oral, Daily, Refills(s) 0 Start Date: 02/10/21 Status: Ordered Repeat number: 1Start: 19-48-2100rawd 1 tablet by mouth once dailyVitamin B12 1000 mcg Tab 1,000 mcg = 1 tab(s), Oral, Daily, Refills(s) 0 Start Date: 02/10/21 Status: Orderedvitamin b6 100 mg oral tablet (8 sources)take 1 tablet by mouth once dailypyridoxine (Vitamin B-6) 100 MG tablet Take 100 mg by mouth Daily ActiveVitamin B6 50 mg Tab (3 sources)Start: 40-92-1891ojms 1 tablet by mouth twice dailyVitamin B6 50 mg Tab 50 mg = 1 tab(s), Oral, BID, Refills(s) 0 Start Date: 02/10/21 Status: OrderedRepeat number: 1Start: 26-69-4124udzq 1 tablet by mouth twice daily Vitamin B6 50 mg Tab 50 mg = 1 tab(s), Oral, BID, Refills(s) 0 Start Date: 02/10/21 Status: OrderedVitamin D 1000 intl units Tab (3 sources)Start: 51-25-4359dytm 1 tablet by mouth once dailyVitamin D 1000 intl units Tab 25 mcg = 1 tab(s), Oral, Daily, Refills(s) 0 Start Date: 02/10/21 Status: Ordered Repeat number: 1Start: 48-63-5922uqfo 1 tablet by mouth once dailyVitamin D 1000 intl units Tab 25 mcg = 1 tab(s), Oral, Daily, Refills(s) 0 Start Date: 02/10/21 Status: OrderedVITAMIN D PO (8 sources)VITAMIN D PO Take by mouth Active Problems Active Problems Problem ClassificationProblemDateDocumented DateEpisodic/ChronicAbdominal hernia (4 sources)Diaphragmatic hernia without obstruction or gangrene; Translations: [Hiatal hernia]Onset: 439081-68-0385HzyyyhjwQvnkdqmit pain (4 sources)Epigastric pain; Translations: [Epigastric pain]Onset: 01-08-2025 EpisodicCalculus of urinary tract (12 sources)Kidney stone; Translations: [Calculus of kidney]Onset: 01-30-2025 33-66-4434TmxiutvyVfiivs of cervix (1 source)Atypical squamous cells of undetermined significance on cervical Papanicolaou smear; Translations: [Atypical squamous cells of undetermined significance on cytologic smear of cervix (ASC-US)]86-96-8501TexdwcpjUtfukfur mellitus without complication (3 sources)Diabetes -25-7646HybzlurIarnilpmqskulr and diverticulitis (3 sources)Jfsgmjkbrnamob76-12-7985ZlvkyfbIagvqbwqwh disorders (4 sources)Gastro-esophageal reflux disease without esophagitis; Translations: [Gastroesophageal reflux disease]Onset: 376683-80-6562RzkttrwAndgxwrcu hypertension (4 sources)Essential (primary) hypertension; Translations: [Hypertensive disorder]Onset: 197670-41-4097ExrofcvZwjxirxusklvi symptoms and ill- defined conditions (9 sources)Disorder of the urinary system; Translations: [Disorder of urinary system, unspecified]Onset: 890316-05-8400TmwgvqnpKwmnztlhfekwe and screening for infectious disease (5 sources)Encounter for screening for human papillomavirus (HPV); Translations: [Encounter for immunization]Onset: 34-36-6153NpnpmpgaCctxal and vomiting (2 sources)Nausea and vomiting; Translations: [Nausea with vomiting, unspecified]Onset: 59-26-9087SeetsgaaAmedgmgrdcpu (1 source)Senile osteoporosis; Translations: [Age-related osteoporosis without current pathological fracture]05-74-1794JrysomfGlejb and unspecified benign neoplasm (5 sources)History of polyp of colon; Translations: [Personal history of adenomatous and serrated colon polyps]Onset: 21-03-3593YwjhxutpSramj and unspecified benign neoplasm (3 sources)Adenomatous polyp of alsoo57-62-6826HroamsopVhtgx and unspecified benign neoplasm (3 sources)Benign neoplasm of ascending wqluw04-84-8808MqxjnjqlIegut and unspecified benign neoplasm (2 sources)Benign neoplasm of colon, unspecified; Translations: [Benign neoplasm of colon, unspecified]Onset: 09-51-6312AnfrpgofZafxh diseases of kidney and ureters (6 sources)Renal mass; Translations: [Other specified disorders of kidney and ureter]Onset: 181622-00-5772ObegyraWouwg diseases of kidney and ureters (1 source)Other specified disorders of kidney and ureter; Translations: [Other specified disorders of kidney and ureter]Onset: 11-74-5267FgmtxteNfesf liver diseases (3 sources)Non-alcoholic fatty yztun41-66-8419AkjrwvcSyrcn nutritional; endocrine; and metabolic disorders (1 source)Morbid (severe) obesity due to excess calories; Translations: [MORBID SEVERE OBES D/T EXCESS ABELARDO]Onset: 36-13-1775DvgaagiFyezd nutritional; endocrine; and metabolic disorders (1 source)Body mass index (BMI) 40.0-44.9, adult; Translations: [BODY MASS INDEX BMI 40.0-44.9 ADULT]Onset: 15-49-8058QhclrqzEkfcn nutritional; endocrine; and metabolic disorders (2 sources)Body mass index 40+ - severely -02-0341EnxqrheXqivu nutritional; endocrine; and metabolic disorders (3 sources)Metabolic syndrome J50-19-9678CvbypwhDtqoy nutritional; endocrine; and metabolic disorders (3 sources)Obese class MKU65-99-0380OqcxlgdQfefc nutritional; endocrine; and metabolic disorders (1 source)Body mass index 30+ - ccyzcdj56-29-1123FppffxhSobbn screening for suspected conditions (not mental disorders or infectious disease) (14 sources)Encounter for screening mammogram for malignant neoplasm of breast; Translations: [Encounter for screening for malignant neoplasm of cervix]Onset: 56-70-5149FjngytntZgzqsdeyik and visceral atherosclerosis (3 sources)Peripheral vascular usanjxn50-04-0887WyamujsTujjepyum; thrombophlebitis and thromboembolism (4 sources)Personal history of other venous thrombosis and embolism; Translations: [Deep venous thrombosis of lower extremity]Onset: 03-15-2021 66-15-4704VhghihdcGsqmtlrj codes; unclassified (1 source)Asymptomatic menopausal state; Translations: [ASYMPTOMATIC MENOPAUSAL STATE]Onset: 23-25-1980ElzatxefHhbkngal codes; unclassified (1 source)Family history of malignant neoplasm of other genital organs; Translations: [FAM HX MALIG NEOPLSM OTH GENIT ORGN]Onset: 42-47-0920Xgagkwqq Residual codes; unclassified (1 source)Family history of malignant neoplasm of trachea, bronchus and lung; Translations: [FAM HX MALIG NEOPLSM TRACH BRON LNG]Onset: 06-43-6777Mgzrofpw Residual codes; unclassified (1 source)Family history of malignant neoplasm of digestive organs; Translations: [FAM HX MALIG NEOPLASM DIGESTIV ORGN]Onset: 08-77-3365Ysvuwyfh Residual codes; unclassified (1 source)Postmenopausal state; Translations: [Asymptomatic menopausal state] 09-28-2610RqvdhdurGdbdbdka codes; unclassified (2 sources)Foreign cbhq47-66-8589NoifwvyfPgquouka codes; unclassified (1 source)Pain, unspecified; Translations: [Pain, unspecified]Onset: 01-18-2025 EpisodicUnclassified (4 sources)CONTACT W/AND (SUSP) EXPOS COVID-19; Translations: [CONTACT W/AND (SUSP) EXPOS COVID-19]Onset: 78-69-4547Oxrggdxgykez (1 source)NephrolithiasisOnset: 99-77-2416Yqyqwhd tract infections (1 source)Recurrent urinary tract infection; Translations: [Urinary tract infection, site not specified]94-89-6128Edfhcoro Past or Other Problems Problem ClassificationProblemDateDocumented DateEpisodic/ChronicOther aftercare (1 source)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; Translations: [OTH RETIREMENT CURRENT DRUG THERAPY]Onset: 91-81-3182BcqolpadLguiq and unspecified benign neoplasm (1 source)Benign neoplasm of ascending colon; Translations: [BENIGN NEOPLASM OF ASCENDING COLON]Onset: 95-37-7779ZdptolzqYoygu and unspecified benign neoplasm (1 source)Benign neoplasm of transverse colon; Translations: [BENIGN NEOPLASM OF TRANSVERSE COLON]Onset: 09-62-0271WzekvgczIzfry gastrointestinal disorders (4 sources)Other fecal abnormalities; Translations: [OTHER FECAL ABNORMALITIES] Onset: 87-56-8917TqdxbusgEypbvgtgoeay (1 source)CONTACT W/AND (SUSP) EXPOS COVID-19; Translations: [CONTACT W/AND (SUSP) EXPOS COVID-19]Onset: 04-27-2021 Results Test NameValueInterpretationReference RangeFacilityCREATININE, SERUMon 77-03-3341Cqzvwfxsmo [Mass/Vol]0.96 mg/dLNormal0.40-1.00[facility] HospitalComment on above:Result Comment: METHOD TRACEABLE TO IDMS STANDARDPerformed By: #### PIPED BUTTONHOLE MACHINE OPERATOR #### [facility] ([facility]) [address] [place] [address] VIRGFR/1.73 sq M.predicted among non-blacks MDRD (S/P/Bld) [Vol rate/Area]61 mL/min/{1.73_m2}Normal>=60[facility] HospitalComment on above:Result Comment: Reported eGFR is based on the CKD-EPI 2020 equation that does not use a race coefficient.Performed By: #### PIPED BUTTONHOLE MACHINE OPERATOR #### [facility] ([facility]) [address] [place] [address] VIRCT UROGRAMon 48-45-5703ZH UROGRAMCT UROGRAM History: Recurrent UTIs. Bilateral kidney stones Exam/Technique: CT of the abdomen with and without contrast (CT Urogram). Volume rendered 3D maximum intensity projection reconstructions constructed under concurrent physician supervision on an independent workstation and reviewed for purposes of evaluation of the urinary tract and collecting systems. Comparison: Contrast-enhanced CT of the abdomen and pelvis from [facility] dated 01/15/2025 with no report made available. Findings: On noncontrast images there are multiple nonobstructive calculi in the right kidney. The largest calculus right renal pelvis displays some branching at least 1.5 cm in greatest dimension. In the left kidney there are punctate nonobstructive [...] vascular IMPRESSION: Multiple nonobstructive renal calculi bilaterally, punctate on the left with large right. 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 Finalized by Loc Guy MD on 01/30/2025 5:28 [facility] CenterXR ABDOMEN AP 1 VWon 79-26-4060TZ ABDOMEN AP 1 VWXR ABDOMEN AP 1 VW EXAM: XR ABDOMEN AP 1 VW CLINICAL [...] by Kana Argueta MD on 01/30/2025 2:08 [facility] CenterAmbulatory Visit Summaryon 27-72-3582Nqwlukokla Visit Summary Ambulatory Visit Summary GIGI KOCH [...] physician. Your Care Team Attending Physician - VEIT RUSSELL, Edda Bentley Primary Care Physician - CHAGO SEAY JR, DO This Is Your Medications [...] for. Abdominal pain, ep (more content not included)...NormalSumma Health Akron CampusIGP,APTIMA HPV,AGE GDLNon 15-76-7383LFL GDLN ACOG TESTINGNote.NOMS HealthcareComment on above:TESTS RESULT FLAG UNITS REF RANGE LAB Clinician Provided Cytology Information Source.............Cervix;Endocervix No. of containers..01 ThinPrep Vial Age Junieo ACOG Nicole... Note 01 <21 or >65 or no age provided FLAG LEGEND: L-Low Normal,H-High Normal,LL-Alert Low,HH-Alert High <-Panic Low,>-Panic High,A-Abnormal,AA-Critical Abnormal Performed at: 01 =G [facility] [address] Demetrice Solomon MD, PAP IG (IMAGE GUIDED)Note.NOMS HealthcareComment on above:TESTS RESULT FLAG UNITS REF RANGE LAB DIAGNOSIS: 02 NEGATIVE FOR INTRAEPITHELIAL LESION OR MALIGNANCY. Specimen adequacy: 02 Satisfactory for evaluation. Endocervical and/or squamous metaplastic cells (endocervical component) are present. Performed by: Melisa Jones, Data Security Administrator ([facility]) . 02 Note: Note 02 [...] <-Panic Low,>-Panic High,A-Abnormal,AA-Critical Abnormal Performed at: [address] [address] Demetrice Solomon MD, Performed at: = - [address] [id number] Associate Director Financial Aid: Demetrice Solomon MD, Phone: [phone] Performed at: [facility] [address] [id number] Associate Director Financial Aid: Demetrice Solomon MD, Phone: [phone] BRUSH-SPATULA CERVIX ENDOCERVIX [facility] TOMOSYNTHESIS SCREENING BIon 99-98-0560[place]fc[place] [address] Mammography Report Signed Patient: GIGI KOCH MR#: [id number] : 1950 Acct:[id number] Age/Sex: 73 / F ADM Date: 06/20/24 Loc: MAMMO Attending Dr: Dylan Zepeda D.O. Ordering Physician: Dylan Zepeda D.O. Results: Date of Service: 06/20/24 Follow Up: Procedure(s): MM tomosynthesis screening BI Accession Number(s): [id number] cc: Dylan Zepeda D.O.; CHAGO SEAY D.O. Patient Name: GIGI KOCH MR#: [id number] : 1950 Exam Date: 06/20/2024 Ordering Doctor: [...] uterine cancer at age 81. LOCATION: [facility] BREAST COMPOSITION: There are scattered areas [...] Signed By: 06/20/24 1429 DD/ 1428 TD/TT: Cost Accounting Analyst:TBHRadiology, Radiologist, - 06/20/2024 [place] [address] Mammography Report Signed Patient: GIGI KOCH MR#: [id number] : 1950 Acct:[id number] Age/Sex: 73 / F ADM Date: 06/20/24 Loc: MAMMO Attending Dr: Dylan Zepeda D.O. Ordering Physician: Dylan Zepeda D.O. Results: Date of Service: 06/20/24 Follow Up: Procedure(s): MM tomosynthesis screening BI Accession Number(s): [id number] cc: Dylan Zepeda D.O.; CHAGO SEAY D.O. Patient Name: GIGI KOCH MR#: [id number] : 1950 Exam Date: 06/20/2024 Ordering Doctor: [...] uterine cancer at age 81. LOCATION: [facility] BREAST COMPOSITION: There are scattered areas [...] Signed By: 06/20/24 1429 DD/ 1428 TD/TT: Cost Accounting Analyst: [facility] HOSPITALSalvatore HealthcareRadiology Study observation (narrative)[facility] TOMOSYNTHESIS SCREENING BIOrdered By: Radiologist Radiology on 80-02-6531[facility] Work Phone: IGP,APTIMA HPV,AGE GDLNon 13-56-9296TIH GDLN ACOG TESTINGNote.[facility] HealthcareComment on above:TESTS RESULT FLAG UNITS REF RANGE LAB Clinician Provided Cytology Information Source.............Vagina No. of containers..01 ThinPrep Vial Age Algo ACOG Nicole... Note 01 <21 or >65 or no age provided FLAG LEGEND: L-Low Normal,H-High Normal,LL-Alert Low,HH-Alert High <-Panic Low,>-Panic High,A-Abnormal,AA-Critical Abnormal Performed at: 01 =G [address] [address] Demetrice Solomon MD, PAP IG (IMAGE GUIDED)Note.NOMS HealthcareComment on above:TESTS RESULT FLAG UNITS REF RANGE LAB DIAGNOSIS: 02 NEGATIVE FOR INTRAEPITHELIAL LESION OR MALIGNANCY. THIS SPECIMEN WAS RESCREENED PART OF OUR [employer]ENO SEWER PROGRAM. Specimen adequacy: 02 Satisfactory for evaluation. Performed by: 02 Janee Larkin Phlebotomist Associate ([facility]) QC reviewed by: 02 Ron Ureña Phlebotomist Associate ([facility] [facility] . 02 Note: Note 03 [...] High,A-Abnormal,AA-Critical Abnormal Performed at: 02 [facility] [address] [address] [place] [address] Franck Mclean MD, 03 WB [facility] [address] [address] Demetrice Solomon MD, Performed at: =G - [facility] [address] [id number] Associate Director Financial Aid: Demetrice Solomon MD, Phone: [phone] Performed at: KWCYT - [facility] [address] [place], [place] [id number] Associate Director Financial Aid: Franck Mclean MD, Phone: [phone] SPATULA-ALONE VAGINA CLINISYNCNOMS HealthcareTelephoneon [phone] Gigi Koch 1950 F Date Provider Department Center 06/06/2024 [facility]LL RUIZ [facility] ANGIESohail No family history on fileNormalUniversity of El Campo Memorial HospitalHISTOLOGY - TISSUE EXAMon 30-74-9273BAT AP CASE REPORTNormalUniversity of El Campo Memorial HospitalComment on above:Result Comment: Surgical Pathology Case: [id number] Authorizing Provider: Bharat Sanz MD Collected: 05/29/2024 1113 Ordering Location: Angie Quiñones Received: 05/29/2024 1455 [facility] Endoscopy Pathologist: Nkechi Jimenez MD Specimens: A) - Large Intestine, Right/Ascending Colon, r/o adenoma EMR B) - Ileocecal Valve, r/o adenoma C) - Large Intestine, Cecum, r/o adenoma EMR cecal polypPerformed By: #### [id number] ####[facility] (BEAKER)[address] [place], [place] [address]IBE AP CLINICAL INFORMATIONOrder DiagnosesNormalUniversselect medical specialty hospital - canton of [facility] Comment on above:Result Comment: D12.6 - Tubular adenoma of colon [ICD-10-CM] Performed By: #### [id number] ####[facility] ([facility])[address] [facility] [place] [address]VWU AP GROSS DESCRIPTIONNormalUSouthern Ohio Medical CenterComment on above:Result Comment: A. Large Intestine, Right/Ascending Colon. The specimen is received [...] container labeled Gigi Koch and r/o adenoma EMRcecal polyp . It consists of a 0.4 [...] entirely in cassette 2. Joyce Webster, student fellowPerformed By: #### [id number] ####[facility] (BEAKER)[address] [place], [place] [address]UKQ AP MICROSCOPIC DESCRIPTION Microscopic examination performed.[facility] Comment on above:Performed By: #### [id number] ####[facility] (BEAKER)[address] [place], [place] [address]BAM AP REPORT FINAL DIAGNOSIS [facility]aut Medical CenterComment on above:Result Comment: A. Colon, ascending polyp, resection: - Fragments of tubular adenoma. - No high grade dysplasia is seen. B. Ileocecal valve, polyp, polypectomy: - Fragments of tubular adenoma. - No high grade dysplasia is seen. C. Colon, cecal polyp, resection: - Multiple fragments of tubular adenoma. - No high grade dysplasia is seen. Performed By: #### [id number] ####[facility] (BEAKER)[address] [place], [place] [address]NHnv 22-57-3040YRCpkdrcy Of Present Illness Gigi Koch is a 73 y.o. female [...] endoscopic mucosal resection of the ascending colon polyp.NormalUnTriHealthNURSNOTEon 79-28-0940NHGWIGWVMehkucgwy valve polyp EMR ascending polyp removed cecal polypNormalUniversUniversity Hospitals Portage Medical CenterPOCT GLUCOSE METER UNSOLICITED RESULTSon 16-04-4227Gjmdsbl [Mass/Vol]142 mg/dLHigh 70-105UnTriHealthComment on above:Order Comment: Waived Testing in the ED is performed under the ED CLIA certificate #[id number].Result Comment: ngrothaPerformed By: #### [id number] ####[facility] (CINTHYA)[address] [place], [place] [address]Ikey for Procedureon 37-18-2334Coog for Procedure [id number] Beulah,Gigi 1950 F Date Provider Department Center 05/29/2024 BHARAT RODRIGUEZ [facility] No family history on fileNormalUniversity of El Campo Memorial Hospital36on 11-67-174783Wxdm to leave a message today for patient to call and schedule colonoscopy with EMRNormalUniGrand Lake Joint Township District Memorial HospitalTelephoneon 50-66-7477Tloprpuzl [id number] Beulah,Gigi 1950 F Date Provider Department [place] 05/07/2024 [facility] No family history on fileNormalUniversity of El Campo Memorial Hospital36on 11-05-331934Mqlmrswce to call and schedule patient for a colonoscopy with EMR, see ref in media tab dated 04/05/[address] Peña's office. Phone just rings unable to leave a message, will try again later.[facility] Telephoneon [id number] Beulah,Gigi 1950 F Date Provider Department [place] 05/03/2024 [facility]ARA NELL [facility] No family history on fileNormalUniversUniversity Hospitals Portage Medical CenterLon 04-03-2024 L Specimen: [id number] Received: 04/03/24 Status: SERGEY Ibarra Num: [id number] Spec Type: Surgical Subm Dr: Edda Peña MD FACS Tissues: A Colon Biopsy (ASCENDING COLON POLYPS) B Colon Biopsy (SIGMOID POLYPS) Procedures: HE/, Gross/Micro L4/2 Age/ Patient Sex Location Account Attending Physician Gigi Koch 73/F LABELL [id number] Edda Peña MD FACS SPEC NUM: [id number] RECD: 04/03/24 STATUS: EMILIASeferino FLORA NUM: [id number] SANAZ: 04/03/[address] [facility] [address]: Edda Peña MD FACS ENTERED: 04/03/[address] [facility] [address]: Carli Bass SPEC TYPE: Surgical DEPT: MCKENNA COWAN ENTERED BY: [id number] RECV BY: [id number] ORDERED: , Gross/Micro L4/2 ORDERED: , Gross/Micro L4/2 Pathological Diagnosis A. Colon, ascending, [...] submitted in a single cassette. (1, ns, [id number] A) Part B is received in formalin labeled with the patients name, date of , and sigmoid polyp are two tucker-brady, focally erythematous, friable, 0.3 and 0.4 cm in greatest dimension polypoid fragments. The specimen is entirely submitted in a single cassette. (1, ns, [id number] B) Specimen: [id number] Received: 04/03/24 Status: SERGEY Ibarra Num: [id number] Spec Type: Surgical Subm Dr: Edda Peña MD FACS Tissues: A Colon Biopsy (ASCENDING COLON POLYPS) B Colon Biopsy (SIGMOID POLYPS) Procedures: HE/Samina, Gross/Micro L4/2 Patient: Gigi Koch [id number] (Continued) Specimen: [id number] Received: 04/03/24 (Continued) Signed (signature on file) Rohan Boyle MD 04/04/24 1125 Specimen: [id number] Received: 04/03/24 Status: SERGEY Ibarra Num: [id number] Spec Type: Surgical Subm Dr: Edda Peña MD FACS Tissues: A Colon Biopsy (ASCENDING COLON POLYPS) B Colon Biopsy (SIGMOID POLYPS) Procedures: HE/Samina, Gross/Micro L4/2 Patient: Gigi Koch [id number] (Continued) Specimen: [id number] Received: 04/03/24 (Continued) Microscopic Description A B: Microscopic examination is performed. CPT Codes 53903 x2 Specimen: [id number] Received: 04/03/24 Status: SERGEY Ibarra Num: [id number] Spec Type: Surgical Subm Dr: Edda Peña MD FACS Tissues: A Colon Biopsy (ASCENDING COLON POLYPS) B Colon Biopsy (SIGMOID POLYPS) Procedures: Erick JUAREZ/Tuyet L4/2 Patient: Gigi Koch [id number] (Continued) Signed (signature on file) Rohan Boyle MD 04/04/24 1125Normal [facility] GroupAmbulatory Visit Summaryon 06-50-1386Nvuuuwtrwp Visit SummaryAmbulatory Visit Summary GIGI KOCH :1950 Visit Date:03/05/2024 Ambulatory Visit Instructions Your Diagnosis Personal history of adenomatous and serrated colon polyps Your Care Team Attending Physician - VIET RUSSELL, Edda Bentley Primary Care Physician - CHAGO SEAY JR, DO This Is Your Medications [...] - Esophagogastroduodenoscopy (04/24/2001), Arthroscopy of knee (02/12/2000), C holecystectomy, Extract tooth, Left ear. Discharge Vitals Heart [...] you for choosing us for your care. NormalAshe Memorial Hospitaler Greater Baltimore Medical CenterIGP,APTIMA HPV,AGE GDLNon 68-99-5334LSN GDLN ACOG TESTINGNote.NOMS HealthcareComment on above:TESTS RESULT FLAG UNITS REF RANGE LAB Clinician Provided Cytology Information Source.............Vagina No. of containers..01 ThinPrep Vial Age Algo ACOG Nicole... Note 01 <21 or >65 or no age provided FLAG LEGEND: L-Low Normal,H-High Normal,LL-Alert Low,HH-Alert High <-Panic Low,>-Panic High,A-Abnormal,AA-Critical Abnormal Performed at: 01 =G [address] [address] Demetrice Solomon MD, Interpretation and review of laboratory resultsAbnormalNOMS HealthcarePAP IG (IMAGE GUIDED)NoteAbnormal.NOMS HealthcareComment on above:TESTS RESULT FLAG UNITS REF RANGE LAB DIAGNOSIS: [A] 02 EPITHELIAL CELL ABNORMALITY. ATYPICAL SQUAMOUS CELLS OF UNDETERMINED SIGNIFICANCE (ASC-US) (VAGINAL). Recommendation: [A] 02 Suggest follow up as clinically appropriate. Specimen adequacy: 02 Satisfactory for evaluation. Performed by: 02 Prashanth Agarwal, Phlebotomist Associate ([facility]) Electronically si... Demetrice Solomon MD, [...] Low,>-Panic High,A-Abnormal,AA-Critical Abnormal Performed at: [address] [facility] [address] [address] Demetrice Solomon MD, Performed at: =G - [facility] [address] [id number] Associate Director Financial Aid: Demetrice Solomon MD, Phone: [phone] Performed at: - [facility] [id number] Associate Director Financial Aid: Demetrice Solomon MD, Phone: [phone] SPATULA-ALONE VAGINA CLINISYNCNOMS [facility] ACOG PANEL 2: 30 to 65on 11-23-2021..NormalThe Highland District HospitalComment on above:Performed By: #### [id number] #### [facility] [address] [place] [address] Dr. Swapnil BushAge Gdln ACOG TestingCommentMemorial Hospital on above:Result Comment: <21 or >65 or no age providedPerformed By: #### [id number] #### [facility] [address] [place] [address] Dr. Swapnil BushDIAGNOSIS:CommentMemorial Hospital on above: Result Comment: NEGATIVE FOR INTRAEPITHELIAL LESION OR MALIGNANCY. THIS SPECIMEN WAS RESCREENED PART OF OUR LENO SEWER PROGRAM.Performed By: #### [id number] #### [place] [address] Dr[address] Swapnil BushMethodology:CommentMemorial Hospital on above: Result Comment: This liquid based ThinPrep(R) pap test was screened with the use of an image guided system.Performed By: #### [id number] #### [place] [address] Dr[address] Swapnil BushNote:CommentMemorial Hospital on above:Result Comment: The Pap smear is a screening test designed to aid in the detection of premalignant and malignant conditions of the uterine cervix. It is not a diagnostic procedure and should not be used as the sole means of detecting cervical cancer. Both false-positive and false-negative reports do occur. .Performed By: #### [id number] #### [facility] [address] [place] [address] Dr. Swapnil BushPerformed by:CommentMemorial Hospital on above: Result Comment: Ashley Juarez, Phlebotomist Associate (ASCP)Performed By: #### [id number] #### [facility] [address] [place] [address] Dr. Swapnil BushQC reviewed by:[facility] on above:Result Comment: Justyna Dow, Supervisory Phlebotomist Associate (ASCP) Performed By: #### [id number] #### [facility] [address] [place] [address] Dr. Yilan ChangSpecimen adequacy:CommentUpper Valley Medical CenterComment on above:Result Comment: Satisfactory for evaluation. Endocervical and/or squamous metaplastic cells (endocervical component) are present.Performed By: #### [id number] #### [facility] [address] [address] [address] Swapnil BushMG MAMM SCREEN 3D MARK CADon 69-96-5742SF MAMM SCREEN 3D MARK CAD Patient: GIGI KOCH Exam Date: 11/22/2021 : 1950 Gender:F Ordering : DR RIO NGUYEN . Admission #: [id number] Family : Order #: [id number] CLICK HERE TO VIEW EXAM RADIOLOGY REPORT [...] uterine cancer at age 81. LOCATION: [facility] BREAST COMPOSITION: Heterogeneously dense,which may obscure [...] by: Antonio Soto M.D. on 11/23/2021 at 14:26NoUniversity Hospitals Geauga Medical CenterXR DEXA BONE DENSITYon 38-51-0412QM DEXA BONE DENSITYEXAMINATION: XR DEXA BONE DENSITY, 11/22/2021 12:09 PM [...] Electronically authenticated by: ANTONIO SOTO Date: 2021-11-22 16:44NoUniversity Hospitals Geauga Medical CenterCovid-19 PCR ([facility])on 50-94-1609GIMF-CoV-2 (COVID-19) RNA RANDA+probe Ql (Unsp spec)Not detectedNormalNOT DETECTEDThe [facility] Comment on above:Result Comment: This test is not yet approved or cleared by the [place] FDA. When there are no FDA-approved or cleared tests available, and other criteria are met, FDA can make tests available under an emergency access mechanism called an Emergency Use Authorization (EUA). The EUA for this test is supported by the House Steward/Stewardess of Health and Human Service's (HHS's) declaration that circumstances exist to justify the emergency use of in vitro diagnostics for the detection and/or diagnosis of the virus that causes COVID- 19. This EUA will remain in effect (meaning [...] of clinical signs and symptoms consistent with SARS-CoV-2.Performed By: #### CVDTB #### [facility] [address] [place] [address] Dr. Swapnil BushCovid-19 PCR ([facility])on 32-78-5696WUPV-CoV-2 (COVID-19) RNA RANDA+probe Ql (Unsp spec)Not detectedNormalNOT DETECTEDThe [facility] Comment on above:Result Comment: This test is not yet approved or cleared by the [place] FDA. When there are no FDA-approved or cleared tests available, and other criteria are met, FDA can make tests available under an emergency access mechanism called an Emergency Use Authorization (EUA). The EUA for this test is supported by the [place] of Health and Human Service's (HHS's) declaration that circumstances exist to justify the emergency use of in vitro diagnostics for the detection and/or diagnosis of the virus that causes COVID- 19. This EUA will remain in effect (meaning [...] of clinical signs and symptoms consistent with SARS-CoV-2.Performed By: #### CVDMEDICAL CENTER [facility] #### [facility] [address] [place] [address] Dr. Swapnil Bush Vital Signs Date TimeVital SignValuePerforming XpvkupgpuNvbabuls33-95-8053 15:08-0400Body piaput040.6 cmEdda Samson MD Work Phone: [facility]10-13-2025 15:08-0400Body mass index (BMI) [Ratio]33.89 kg/c1IaekpgzEdda Samson MD Work Phone: [facility]10-13-2025 15:08-0400Body xpynls87.25 kgEdda Samson MD Work Phone: [facility]10-13-2025 15:08-0400Diastolic blood aebrkgwg44 mm[Hg]Edda Samson MD Work Phone: [facility] SystemAdag[facility] CenterEzcwtt65-20-3926 15:08-0400Heart rate 92 /minEdda Samson MD Work Phone: [facility]10-13-2025 15:08-0400Systolic blood elzavdqi057 mm[Hg]Edda Samson MD Work Phone: [phone]10-10-2025 12:27-0400Body zynejj132.6 cmKim Hobson Jr., MD Work Phone: [phone]10-10-2025 12:27-0400Body mass index (BMI) [Ratio]33.89 kg/s5XbmuojKim Hobson Jr., MD Work Phone: [phone] [place], [place] [address]10-10-2025 12:27-0400Body jkzyqq98.25 kgKim Hobson Jr., MD Work Phone: [phone]10-10-2025 12:27-0400Diastolic blood mm[Hg]Kim Hobson Jr., MD Work Phone: [phone] [place], [place] [address]10-10-2025 12:27-0400Heart rate 80 /minKim Hobson Jr., MD Work Phone: [phone]10-10-2025 12:27-0400Systolic blood rflmbcun744 mm[Hg]Kim Hobson Jr., MD Work Phone: [phone] [place], [place] [address]-26-2025 09:54-0400Body tddcmi253.6 cmKim Hobson Jr., MD Work Phone: [phone] [place], [place] [address]-26-2025 09:54-0400Body mass index (BMI) [Ratio]33.89 kg/k3EbovedKim Hobson Jr., MD Work Phone: [phone] [place], [place] [address]-26-2025 09:54-0400Body iayfxz61.25 kgKim Hobson Jr., MD Work Phone: [phone]09-26-2025 09:54-0400Diastolic blood ifduasmw37 mm[Hg]Kim Hobson Jr., MD Work Phone: [facility]09-26-2025 09:54-0400Heart rate 89 /minKim Hobson Jr., MD Work Phone: [facility]09-26-2025 09:54-0400Systolic blood piaaicja661 mm[Hg]Kim Hobson Jr., MD Work Phone: [facility]02-18-2025 14:01-0500Body mass index (BMI) [Ratio]37.5 kg/z3Lxalk Katelyn DO Work Phone: [facility] CenterNjejdpqhop45-96-1162 14:01-0500Body .59 kgCorey Katelyn DO Work Phone: [facility] CenterJtkmoxccoq12-73-2692 14:01-0500Diastolic blood yrbqgtse00 mm[Hg]Dylanalexandrea Perezo DO Work Phone: [facility] CenterTnvzayqgcd37-87-9933 14:01-0500Systolic blood kvjqehbg761 mm[Hg]Dylanalexandrea Perezo DO Work Phone: [facility] CenterVvrclapdjl58-57-1205 14:02-0500Blood Pressure LocationMichael NILL [phone]-RsjufSelect [facility]ty [facility]11-12-2024 14:02-0500Diastolic blood mm[Hg]Edda NILL [phone]-CieshSelect Medical Specialty Hospital [facility]11-12-2024 14:02-0500Heart rate72 /minMichael NILL [phone]-VcwvfSelect Medical Specialty Hospital [facility]11-12-2024 14:02-0500Respiratory rate16 /minMichael NILL [phone]-UhitjSelect Medical Specialty Hospital [facility]11-12-2024 14:02-0500Systolic blood agmvkzqy521 mm[Hg]Edda NILL [phone]-UejaeSelect Medical Specialty Hospital [facility] Encounters Encounter DateEncounter TypeCare ProviderFacilityStart: 02-03-2025 End: 17-24-7960Ebzukk outpatient visit 25 minutesEdda Samson MD Work Phone: [facility] Genito-Urinary SurgeonsComment on above:Right renal mass (Primary Dx); Bilateral kidney stonesStart: 02-03-2025 End: 47-73-6497kxvmizgqfuZKVWUEB G [facility] Ambulatory PPGStart: 02-03-2025 End: 23-06-0070Odcgzqcqz encounterEdda Samson MD Work Phone: [facility] Genito-Urinary SurgeonsStart: 01-31-2025 End: 55-79-1759Suqfnf outpatient visit 25 minutesKim Hobson MD Work Phone: [facility] Genito-Urinary SurgeonsComment on above:Urologic disorders (Primary Dx); Right renal mass; Bilateral kidney stonesStart: 01-31-2025 End: 50-03-4681bswjsjevbmISBJCF [facility] Ambulatory PPG Start: 01-30-2025 End: 16-54-4477rumjejwbonEYOYNG [facility] Start: 01-21-2025 End: 94-08-6514Kinetgvkv encounterKim Hobson MD Work Phone: [facility] Genito-Urinary SurgeonsStart: 03-33-9990waeswedoibWKSJNIUniversity of [facility] for [facility] Ambulatory PPGStart: 01-17-2025 End: 77-46-2808Hajxkubbx encounterMagalys Sims [facility]icians Genito- Urinary SurgeonsStart: 01-17-2025 End: 40-97-1178Quosmi outpatient new 45 minutesKim Hobson MD Work Phone: [facility] Genito-Urinary SurgeonsComment on above:Urologic disorders (Primary Dx); Bilateral nephrolithiasisStart: 01-17-2025 End: 97-97-4622kaxriikxkwYNFPDN [facility] Ambulatory PPG Start: 01-08-2025 End: 79-62-7034dhagzsrxwhDshdnka R NILLFacility: BellevueStart: 01-08-2025 End: 15-34-8117Zbezrms encounter procedureMichael R NILL [phone]-BohmoSelect [facility] [place] Start: 12-25-2024 End: 17-11-8380iwwcaegqffIhenbci R NILLFacility: BellevueStart: 12-25-2024 End: 53-29-6005Pxoqkxs encounter procedureMichael R NILL [phone]-LxvmiSelect Medical Specialty [facility] [place] Start: 12-17-2024 End: 58-66-4459Nccdhz flowsheetCorey Katelyn DO Work Phone: noms [place] OBGYNStart: 12-17-2024 End: 63-27-9775Iqpeyy flowsheetCorey Katelyn DO Work Phone: noms [place] OBGYNStart: 12-17-2024 End: 80-55-9009Frqhfncvi Result EncounterCorey Katelyn DO Work Phone: noms External Department UnsolicitedStart: 12-17-2024 End: 77-28-7790Tjhkbhe encounter procedureCorey Katelyn DO Work Phone: noms [place] OBGYNComment on above:Well woman exam with routine gynecological exam; Breast cancer screening by mammogram; Postmenopausal stateStart: 12-17-2024 End: 72-68-0101goarftnwgoFDMKY FAZIONot AvailableStart: 06-20-2024 End: 08-04-5763Yilothdvp Result EncounterCorey Katelyn DO Work Phone: noms External Department UnsolicitedStart: 06-20-2024 End: 52-03-4580Ltxcrzrze Result EncounterCorey Katelyn DO Work Phone: noms External Department UnsolicitedStart: 06-11-2024 End: 33-40-3342Cnezml flowsheetCorey Katelyn DO Work Phone: noms BCP OBStart: 06-11-2024 End: 34-37-7343Eoepmf flowsheetCorey Katelyn DO Work Phone: noms BCP OBStart: 06-11-2024 End: 25-42-4036Geamykncq Result EncounterCorey Katelyn DO Work Phone: noms External Department UnsolicitedStart: 06-11-2024 End: 58-44-4189Baouju outpatient visit 15 minutesCorey Katelyn DO Work Phone: noms BCP OBComment on above:Atypical squamous cells of undetermined significance (ASCUS) on Papanicolaou smear of cervix; Recurrent UTI; Screening for osteoporosis; Encounter for screening mammogram for malignant neoplasm of breast; Age-related osteoporosis without current pathological fracture ([facility])Start: 06-11-2024 End: 82-12-5811lalrmdtpeySPDMR FAZIONot AvailableStart: 05-29-2024 End: 69-58-7745jshtmzhiyeJTS [facility] Medical Centertart: 04-03-2024 End: 48-09-5319urfdgfcokcJrhgnqi R NillFacility:[facility] Hospitaltart: 04-03-2024 End: 74-50-4852kbcggkcsefGtnumog R NILLFacility::[phone]: 03-05-2024 End: 33-41-1524ugiabivewpZojizjo R NILLFacility:GS BellevueStart: 03-05-2024 End: 57-70-6768Dqvtokh encounter procedureMichael R NILL [phone]-Tliop General Surgery [place] Start: 12-06-2023 End: 77-61-1561Kispqxfmy Result EncounterCorey Katelyn DO Work Phone: noms External Department UnsolicitedStart: 12-06-2023 End: 83-69-2687Ahsnpkotu Result EncounterCorey Katelyn DO Work Phone: NOMS External Department UnsolicitedStart: 11-22-2021 End: 63-44-7141avutjrisdkOL CHARLES VALONEFacility:Z9Cwuer: 11-17-2021 End: 27-13-8477rtyiduzqwxKE CHAGO GARRISONONEFacility:M3Jscrx: 04-27-2021 End: 26-03-0974fthhnzwiufIN CHAGO GARRISONONEFacility:F3Srlpa: 15-83-0191Mnridodhf for preprocedural laboratory examinationDR [facility] Start: 03-10-2021 End: 96-75-4921qsahjytdbqBE MICHAEL [facility] MEDICAL CENTERLFacility:R8Cvqov: 03-06-2021 End: 05-58-8386gvbgepplidEX CHAGO SEAYFacility:R1Nomcp: 03-06-2021 End: 34-20-2904Wywuiwqla for preprocedural laboratory examination CHAGO SEAYFacility:Q3Sfvzw: 03-02-2021 End: 19-98-6325echoforulsFYLYUK ELI ROSSFacility:H1 Procedures DateProcedureProcedure DetailPerforming ClinicianStart: 15-74-6667Jlbbbq-up visitFollow-upGREGEARL HOBSON JRStart: 90-10-3952NCF,APTIMA HPV,AGE GDLNCorey Katelyn DO Work Phone: Start: 24-96-3827MN TOMOSYNTHESIS SCREENING BICorey Katelyn DO Work Phone: Start: 59-63-0376UTR,APTIMA HPV,AGE GDLNCorey Katelyn DO Work Phone: Start: 10-83-9586DwxxxoyavpiHhyxk Katelyn DO Work Phone: Start: 30-74-8437BfbupkbqhnzCggwegt NILL Start: 78-23-6342DoualezrvkzUffgkyf NILL Start: 39-20-1023TKK,APTIMA HPV,AGE GDLNCorey Katelyn DO Work Phone: Start: 56-21-0265DsyhjuaesczSjbdrbc NILL Start: 01-87-6249Xabbimlh and curettageMichael NILL Start: 62-86-7399XiqdawwxqswcUhxtsuc NILL Start: 17-23-0139Yrhlmw localization using ultrasound guidance and mammographyMichael NILL Comment on above:left breastStart: 06-10-2010 LithotripsyMichael NILL Start: 05-09-9217QahphspticxIcqwgxa NILL Start: 89-34-0493SgmjqsyuxwqwlxyrrbjmhlgsytSllgawu NILL Start: 80-35-6176Orjzdrozijy of kneeMichael NILL Comment on above:leftCholecystectomyMichael NILL Left ear structure (body structure)Edda NILL Tooth extractionMichael NILL Plan of Treatment DateCare ActivityDetailAuthorStart: 10-99-4931Tfaelzycj for malignant neoplasm of colonNOMS HealthcareStart: 43-51-8789Txilzmv ScreeningTobacco Screening [facility] Platogo SystemStart: 27-99-4401Zlgehux ScreeningTobacco Screening [facility] Platogo SystemStart: 26-63-2449Aywgwfe ScreeningTobacco Screening [facility] Platogo SystemStart: 02-03-2025 End: 93-82-7306Tnawfoa encounter bkxdqbeak58/13/2025 3:30 PM EDT Office Visit [facility] [address] [place] [address] Edda Samson MD [address] [place] [address] [phone] [facility]ito-Urinary SurgeonsStart: 02-03-2025 End: 56-99-2639ZR Abdomen WO and W contrast IVMR abdomen with and without contrast Imaging Routine Right renal mass Expected: 02/03/2025, Expires: 02/03/2026[facility] Work Phone: Comment on above:Expected: 02/03/2025, Expires: 02/03/2026Start: 02-03-2025 End: 34-07-9331TF Chest PA and LateralX-ray chest 2 views Imaging Routine Right renal mass Expected: 02/03/2025, Expires: 02/03/2026[facility] Comment on above:Expected: 02/03/2025, Expires: 02/03/2026Start: 01-30-2025 End: 19-21-9817Imowsrd encounter ereajgauw81/09/2025 2:00 PM EDT Appointment [facility] - CT [address] [place] [id number] Kim Hobson Jr., MD [address] [place] [address] [phone] [facility] - CTStart: 01-17-2025 End: 56-58-0967Ctgwbqvndy includes GFR, serumCreatinine includes GFR, serum Lab Routine Bilateral nephrolithiasis Expected: 01/17/2025 (Approximate), Expires: 01/17/2026[facility]:Expected: 01/17/2025 (Approximate), Expires: 01/17/2026Start: 01-17-2025 End: 54-63-4505DW Kidney and Ureter and Urinary bladder 3D post processing WO and W contrast IVCT urogram Imaging Routine Bilateral nephrolithiasis Expected: 01/17/2025, Expires: 01/17/2026[facility] System[facility] above:Expected: 01/17/2025, Expires: 01/17/2026Start: 01-17-2025 End: 98-52-5788PI Abdomen APX-ray abdomen ap 1 view Imaging Routine Bilateral nephrolithiasis Expected: 01/17/2025, Expires: 01/17/2026[facility] Comment on above:Expected: 01/17/2025, Expires: 01/17/2026Start: 01-17-2025 End: 71-64-6358Ctsqbfz encounter wftigucub86/26/2025 10:00 AM EDT Office Visit [facility] [address] [place] [address] [place] [address] Kim Hobson Jr., MD [address] [place] [address] [phone] [facility] SurgeonsStart: 62-54-9136OVBOU-19 Vaccine ( season)COVID-19 Vaccine ( season)[facility]Start: 35-10-5912Twfobeajp vaccinationNORipley County Memorial HospitalStart: 12-17-2024 End: 82-72-3402Gkiddbn encounter uaibpobzn12/26/2025 11:20 AM EDT Procedure Visit JOELL[facility] DUMONT [address] [place], [id number] Dylan Zepeda DO [address] [place] [address] ArrivedNOMS Bass OBGYNComment on above:ArrivedStart: 06-11-2024 End: 92-18-7206SXC Skeletal system Views for bone densityDEXA bone density Imaging Routine Screening for osteoporosis Age-related osteoporosis without current pathological fracture ([facility]) Expected: 06/11/2024 (Approximate), Expires: 06/11/2025[facility] Work Phone: comment on above:Expected: 06/11/2024 (Approximate), Expires: 06/11/2025Start: 06-11-2024 End: 05-40-4120IV Breast - bilateral ScreeningBilateral screening mammogram Imaging Routine Encounter for screening mammogram for malignant neoplasm of breast Expected: 06/11/2024 (Approximate), Expires: 08/09/2025[facility] Comment on above:Expected: 06/11/2024 (Approximate), Expires: 08/09/2025Start: 06-11-2024 End: 70-33-0341Pkjljpf encounter uzcnswlax95/18/2025 2:00 PM EST Procedure Visit [facility] [address] [place] [id number] Dylan Zepeda, DO [address] [place] [address] [facility] OBComment on above:ArrivedStart: 03-74-3310Wmetlatoc for malignant neoplasm of colonNOME HealthcareStart: 72-23-0394Zutmujfwu vaccinationInfluenza Vaccine (#1)[facility] HealthcareStart: 24-35-7179Pjqq Risk ScreeningFall Risk ScreeningProPromedica Defiance Regional Hospital SystemStart: 01-16-5625Glrtsuztsyni Vaccine: 65+ Years (1 of 1 - PCV)Pneumococcal Vaccine: 65+ Years (1 of 1 - PCV)[facility] HealthcareStart: 60-13-7310Rddnyolbtcwfav of varicella zoster vaccineZoster (Shingles) Vaccine (1 of 2)[facility] SystemStart: 37-84-4064Kkidrtqkqovt Vaccine: 65+ Years (1 of 1 - PCV) Pneumococcal Vaccine: 65+ Years (1 of 1 - PCV)[facility] HealthcareStart: 11-11-1967 DTaP,Tdap and Td Vaccines (1 - Tdap)DTaP,Tdap and Td Vaccines (1 - Tdap) [facility] SystemStart: 33-05-4517Gytdguqkch ScreeningDepression Screening [facility] SystemStart: 27-11-1396Fkuplni ScreeningTobacco Screening [facility] SystemStart: 07-20-1949Medicare Annual Wellness (AWV)Medicare Annual Wellness (AWV)[facility] HealthcareStart: 66-01-5586Claliyzky for malignant neoplasm of colonNOME HealthcareBacteria identified in Urine by CultureUrine culture Microbiology Routine Bilateral nephrolithiasis Ordered: 01/17/2025 [facility] CenterIdent[facility] International Work Phone: Comment on above:Ordered: 01/17/2025Microscopic, urine Microscopic, urine Lab Routine Bilateral nephrolithiasis Ordered: 01/17/2025 [facility] Medical CenterComment on above:Ordered: 01/17/2025THIN PREP TIS PAP AND HR HPV DNATHIN PREP TIS PAP AND HR HPV DNA Pathology and Cytology Routine Atypical squamous cells of undetermined significance (ASCUS) on Papanicolaou smear of cervix Ordered: 06/11/2024[facility] [employer] OpticsComment on above:Ordered: 06/11/2024THIN PREP TIS PAP AND HR HPV DNATHIN PREP TIS PAP AND HR HPV DNA Pathology and Cytology Routine Well woman exam with routine gynecological exam Ordered: 12/17/2024[facility] [employer] Work Phone: comment on above:Ordered: 12/17/2024 Immunizations Immunization DateImmunizationNotesCare ZlmgtffhAqcvindb58-33-1739SHYU-MjU-3 (COVID-19) mRNA-1273 vaccineMichael NILL [phone]-KrpkbUniversity Hospitals St. [facility] Center 34-95-5163ONVU-CoV-2 (COVID-19) mRNA BNT-162b2 vaxMichael NILL [phone]-MwdenUniversity Hospitals St. John Medical Center 45-04-8640WEQY-CoV-2 (COVID-19) mRNA BNT-162b2 vaxMichael NILL [phone]-HwrpxSelect [facility]03-08-2021 SARS-CoV-2 (COVID-19) mRNA BNT-162b2 vaxMichael NILL [phone]-VdgfqSelect [facility] Payers DatePayer CategoryPayerPolicy ID2025Medicaid [id number] [id number] 2025 Medicare [id number] 2024Medicare [id number] [id number] Medicare (Managed Care)[facility] MEDICARE ADVANTAGE [id number] [id number] [id number] 1960Self-[id number] 2..1.334314.3.57[id number] 2.1.573991.3.57[id number] 2..1.237729.3.57[id number] 2..1.981781.3.57[id number] 2..1.060371.3.57[id number] 2.1.750222.3.57[id number] 2.16840.1.139764.3.57[id number] 2.16840.1.267687.3.57[id number] 2.16840.1.442564.3.57[id number] 2.16840.1.283801.3.57[id number] 2.840.1.530915.3.57[id number] 2.840.1.922188.3.57[id number] 2.840.1.732093.3.579.[id number] 2.840.1.510475.3.579.[id number] 2.840.1.597072.3.57[id number] 2.840.1.506331.3.57[id number] 2.840.1.828838.3.57[id number] 2.840.1.03[id number] 2.840.1.762150.3.579.2.593 [id number] 2.840.1.739493.3.579.2.531 Social History DateTypeDetailFacilityStart: 03-05-2024 End: 51-53-7246Tmcedho smoking statusNever smoked tobacco (finding)[facility]Tosaint mary[facility] hospital smoking statusNeverGrand Lake Joint Township District Memorial Hospitaltart: 09-21-2023 End: 97-85-4297Rpw Assigned At BirthFemalWexner Medical Centertart: 07-27-2023 End: 72-38-5027Yfqgfrb use and exposureSmokeless tobacco non-userNOMS Healthcare Start: 12-06-2023 End: 57-79-4351Hkwhmwxyk beverage intakeDeferNOMS HealthcareStart: 09-21-2023 End: 40-46-3888Idpacdn of Social functionNOMS HealthcareStart: 15-45-6298Rug assigned at birthNot on fileNOMS HealthcareSexual OrientationUniversity Hospitals St. John Medical Center Start: 29-61-8821ExgRcknyk (finding)[facility] HospitalTosaint mary's hospital smoking status NHISTobacco smoking consumption unknown [facility] Platogo SystemStart: 01-17-2025 End: 50-72-9834Nlxbjhweq beverage intakeEx-drinker (finding)[facility] SystemNEGATED: Highlighted rowStart: NINFHistory of tobacco usePassive smoker [facility] Functional Status SicjLyyhhvohbyAnmgvmYaifsfla98-85-8567Dbauunxcmi StatusN/AFHarrison Community Hospital Clinical Notes 03-10-2021 to 02-03-2025 Note Date & TuqxNkjaYpyeupzq88-38-8881 Miscellaneous Notes* Telephone Encounter - Teresa Villanueva - 02/03/2025 3:47 PM EDT MRI of the kidney. Return clinic off day type appointment. Chest xray as well Call to schedule f/u after mri. documented in this encounterSumma Health W[facility]10-13-2025 Telephone encounter Note* Telephone Encounter - Teresa Villanueva - 02/03/2025 3:47 PM EDT MRI of the kidney. Return clinic off day type appointment. Chest xray as well Call to schedule f/u after mri. [facility]10-13-2025 Evaluation + Plan note* Assessment & Plan Note - Edda Samson MD - 02/03/2025 3:43 PM EDTAssociated Problem(s): Right renal mass Complex medical decision making process all depending on what MRI demonstrates. Could potentially be partial nephrectomy verses total nephrectomy candidate. Versus percutaneous treatment of lesion with subsequent Retrograde ureteroscopy. Need to get the MRI 1st return clinic [facility]10-13-2025 Miscellaneous Notes* Assessment & Plan Note - Edda Samson MD - 02/03/2025 3:43 PM EDTAssociated Problem(s): Right renal mass Complex medical decision making process all depending on what MRI demonstrates. Could potentially be partial nephrectomy verses total nephrectomy candidate. Versus percutaneous treatment of lesion with subsequent Retrograde ureteroscopy. Need to get the MRI 1st return clinic documented in this encounterSumma Health Wadsworth - Rittman Medical Center10-13-2025 History of Present illness Narrative* Edda Samson MD - 02/03/2025 3:30 PM EDT Images from the original note were not included. [address] [place] [address] A [facility] [address] Patient: Gigi Koch Date of : 1950 Encounter Date: 02/03/2025 History of Present Illness: The patient is a 74 y.o. female, an established patient, and is here for Chief Complaint Patient presents with Follow-up . History of renal lesion as well as kidney stones. For discussion. From Dr. Hobson. No interval gross hematuria dysuria. Urinalysis today: [...] Colon, diverticulosis COPD (chronic obstructive pulmonary disease) ([facility]) Diabetes mellitus ([facility]) Hearing loss Hepatic cyst Hypertension Inflammatory [...] Wt 95.3 kg (210 lb) BMI 33.89 kg/m Nontoxic no apparent distress. Respirations nonlabored. Skin is dry. Awake alert oriented x3. Assessment and Plan: Gigi was seen today for follow-up. Diagnoses and [...] day type appointment. Chest xray as well Edda Samson MD This note was created with the assistance of a speech recognition program. While intending to generate a timely document that accurately reflects the content of the visit, no guarantee can be provided that every grammatical or spelling mistake has been or will be identified or corrected. Thank you for your understanding. documented in this encounterSumma Health Wadsworth [facility]itt[facility] Center10-10-2025 History of Present illness Narrative* Kim Hobson Jr., MD - 01/31/2025 12:00 PM EDT Images from the original note were not included. [address] [place] [address] A [facility] [address] Patient: Gigi Koch Date of : 1950 Encounter Date: 01/31/2025 [...] Colon, diverticulosis COPD (chronic obstructive pulmonary disease) ([facility]) Diabetes mellitus ([facility]) Hearing loss Hepatic cyst Hypertension Inflammatory [...] Wt 95.3 kg (210 lb) BMI 33.89 kg/m Alert, pleasant, without signs of acute illness, and in no distress. Respirations unlabored . Skin dry on examination now. Assessment and Plan: Gigi was seen today for follow-up. Diagnoses and all orders for this visit: Urologic disorders Right renal mass Bilateral kidney stones Problem List Unprioritized Urologic disorders - Primary Overview 1. Diabetic with Urolithiasis; CT 01/15/2025 the [facility] with IV contrast bilateral renalstones largest extending into right renal pelvis 3.6 cm with the apparent air in the right renal collecting system unable to rule out xanthogranulomatous pyelonephritis by report with films not available; CT 04/27/2010 right 7 mm renal stone 70% calcium oxalate monohydrate, 20% phosphate, 10% uric acid; status post right renal ESWL Dr. lBane Reilly 06/14/2010 absent from requested follow up [...] requesting her to see my partner Dr. Edda Samson in 2nd opinion consultation in 3 days [...] but I will defer that to Dr. Samson. Also dramatic stone burden on the right side for which treatment likely would be indicated as well. Thank you very much. I appreciate being asked to help with this patient's care. KIM HOBSON JR, MD This note was created with the assistance of a speech recognition program. While intending to generate a timely document that accurately reflects the content of the visit, no guarantee can be provided that every grammatical or spelling mistake has been or will be identified or corrected. Thank you for your understanding. documented in this encounterSumma Health Wadsworth [facility] Center09-30-2025 Miscellaneous Notes* Telephone Encounter - Teresa Villanueva - 01/21/2025 4:54 PM EDT Patient is scheduled for her ct urogram on 01-30-2025. Can I schedule patient at 12:15 pm in [facility] go over results? You do not have any surgeries scheduled for this day on 01-31-2025 in [place]. Pt advised she cannot go to the [place] office. Please advise. documented in this encounterSumma Health Wadsworth - [facility]itt[facility] Center09-30-2025 Telephone encounter Note* Telephone Encounter - Teresa Villanueva - 01/21/2025 4:54 PM EDT Patient is scheduled for her ct urogram on 01-30-2025. Can I schedule patient at 12:15 pm in [facility] go over results? You do not have any surgeries scheduled for this day on 01-31-2025 in [place]. Pt advised she cannot go to the [place] office. Please advise. [facility]09-26-2025 History of Present illness Narrative* Kim Hobson Jr., MD - 01/17/2025 10:00 AM EDT Images from the original note were not included. [address] [place] [address] [address] [facility] [address] Patient: Gigi Koch Date of : 1950 Encounter Date: 01/17/2025 History of Present Illness: Chief Complaint: Bilateral kidney stones. The patient is a 74 y.o. female, a new patient, and is here for bilateral kidney stones. Patient related accurately she had 06/14/2010 ESWL by a former partner she reports with no stone issues subsequently, although she did admit later in the appointment she was to be scheduled for repeat treatment, and that had to be canceled, and she never did reschedule. As irritable bowel. No family history of stones. Relates post colonoscopy from May 2024 severe pain and sleepiness and loss of appetite that has extended for months, although the appetite improved in September and October. No obvious pain presently and certainly no acute stones symptoms. No fevers. No obvious voiding complaints. Notes primary care did an ultrasound and advised it appeared to show a couple small stones. Notes the physicianwho did her colonoscopy ordered a CT, and she was then contacted by telephone and advised to see us. Notes she had a UTI in July or August, and they can be stubborn to treat, but she just has them occasionally less than once a year. Does take methenamine and vaginal estradiol cream from primary care.See below.. Urinalysis today: No results for input(s): EXTPOCURCO , EXTPOCURCH , EXTPOCAPP , EXTPOCURBS , EXTPOCURBIL , EXTPOCUKET , EXTPOCUSPG , EXTPOCUHGB , EXTPOCUPRO , EXTPOCUURO , EXTPOCULEU , EXTPOCUNIT , EXTPOCUWBC , EXTPOCUBLD , EXTPOCURBC , EXTPOCUCRY , EXTPOCUBAC , EXTPOCUTREP , EXTPOCUPH , EXTPOCUL EE in the last 72 hours. Last BUN and creatinine: No results found for: BUN No results found for: CREATININE Last PSA: No results found for: PSA No results found for: PROSTATICSP Past Medical, Family, and Social History Update: The following portions of the patient's history were reviewed and updated as appropriate: allergies, current medications, past family history, past medical history, past social history, past surgicalhistory and problem list. Past Medical History: Diagnosis Date Allergic rhinitis Arthritis Back pain COPD (chronic obstructive pulmonary disease) ([facility]) Hearing loss Hypertension Inflammatory bowel disease Obesity Pulmonary nodules Recurrent UTI Tuberculosis Past Surgical History: Procedure Laterality Date BREAST BIOPSY COLONOSCOPY EYE SURGERY Bilateral Cataract removal on [...] TAKE 20 MG BY MOUTH AT BEDTIME nitrofurantoin, macrocrystal-monohydrate, (MACROBID) 100 mg capsule Take 1 capsule (100 mg total) by mouth in the morning and 1 capsule (100 mg total) before bedtime. Do all this for 7 days. 14 capsule 0 No current facility-administered medications for this visit. (All medications reviewed and updated by provider since last office visit or hospitalization) Allergies: Cephalexin and Venlafaxine Tobacco History: Social History Tobacco Use Smoking Status Never Smokeless Tobacco Never (If patient a smoker, smoking cessation counseling offered) Social History: Social History Substance and Sexual Activity Alcohol Use Not Currently Review of Systems: Constitutional: Change in appetite and Weight loss or gain Eyes: Vision Changes Ears, Nose, Nose and Throat: Tinnitus (ringing in ears) and Hearing Loss Respiratory: Dyspnea (shortness of breath) Cardiovascular: Shortness of breath Gastrointestinal: Nausea, Vomiting, Bloating, Diarrhea (chronic), and Constipation (chronic) Musculoskeletal: Joint pain/stiffness, Weakness, Swelling, and Backache Neurologic: Patient denies weakness, dizziness, loss of consciousness, transient ischemic symptoms,and seizures. Integument: Patient denies rashes and non-healing lesions. Psychiatric: Patient denies increased nervousness, mood changes, or depression. Endocrine: Pre-Diabetic* Blood Disorders: Easy Bruising Physical Exam: BP 132/80 Pulse 89 Ht 167.6 cm (5' 6 ) Wt 95.3 kg (210 lb) BMI 33.89 kg/m Alert, pleasant, without signs of acute illness, and in no distress. Respirations unlabored . Skin dry on examination now. Glasses. Walking slowly with a cane. Excess weight. No flank or abdominal mass or tenderness. Assessment and Plan: Gigi was seen today for nephrolithiasis. Diagnoses and all orders for this visit: Urologic disorders Bilateral nephrolithiasis - [facility] - JIGNESH [place] - Urine culture - Microscopic, urine - Creatinine includes GFR, serum; Future - CT urogram; Future - X-ray abdomen ap 1 view; Future Other orders - nitrofurantoin, macrocrystal-monohydrate, (MACROBID) 100 mg capsule; Take 1 capsule (100 mg total) by mouth in the morning and 1 capsule (100 mg total) before bedtime. Do all this for 7 days. Problem List Unprioritized Urologic disorders - Primary Overview 1. Diabetic with Urolithiasis; CT 01/15/2025 the [facility] with IV contrast bilateral renalstones largest extending [...] right side residual stones from 06/20/2011 until 01/17/2025 2. bilateral subcentimeter low attenuation renal lesions too small to characterize CT 01/15/2025 3. Right simple renal cyst CT 01/15/2025 4. Occasional UTI per patient account difficult [...] Dr. Blane Reilly unremarkable findings 05/05/[address] December 2024 Follow-up: I reviewed the followin. CT report indicating bilateral renal stones including very large stone on the right and concern for small amount of apparent gas in the right renal collecting system and therefore concern regarding possible xanthogranulomatous pyelonephritis. Also other non urologic CT findings as noted above. Number to operative and office notes Dr. Blane Reilly right-sided kidney stones Contemporary CT films not available. I provided patient copy of the CT report and requested she follow up the non urologic findings with primary care. Reviewed theoretically she could have emphysematous pyelonephritis based on CT report, but the stated findings on the report do not indicate actually xanthogranulomatous pyelonephritis, which I reviewed would be a very severe and life-threatening infection in this woman who appears absolutely perfectly well and does not even think that she has a urinary tract infection at this time and has had nofevers or flank pain whatsoever. 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 There are no parenchymal findings identified on the CT report to indicate xanthogranulomatous pyelonephritis. Plan-urine culture and sensitivity with patient/family instructed to call in 3 days for results. Check microscopic urinalysis, serum creatinine, CT urogram, and baseline KUB and return within 2 weeksand contact us immediately for fever or any other signs of significant illness, as she may require hospitalization as I mentioned. I prescribed also Macrobid 100 mg p.o. twice daily x7 days, and she can continue her estradiol and methenamine with primary care. Urology service is the provider for the patient's ongoing management of stones, which is a chronic condition requiring ongoing follow-up. KIM HOBSON JR, MD This note was created with the assistance of a speech recognition program. While intending to generate a timely document that accurately reflects the content of the visit, no guarantee can be provided that every grammatical or spelling mistake has been or will be identified or corrected. Thank you for your understanding. documented in this encounterSumma Health [facility]09-26-2025 Miscellaneous Notes* Telephone Encounter - Magalys Pereira LPN - 01/17/2025 8:53 AM EDT Contacted the [facility]. Pt. Was not in the ED, she was sent for outpatient testing from her PCP, Dr. Chago Seay. This nurse was transferred to the radiology dept to request imaging be pushed to the PACS system. Sierra in Radiology did state she would do that at this time. documented in this encounterSumma Health Wadsworth - [facility]09-26-2025 Telephone encounter Note* Telephone Encounter - Magalys Pereira LPN - 01/17/2025 8:53 AM EDT Contacted the [facility]. Pt. Was not in the ED, she was sent for outpatient testing from her PCP, Dr. Chago Seay. This nurse was transferred to the radiology dept to request imaging be pushed to the PACS system. Sierra in Radiology did state she would do that at this time. [facility]09-17-2025 NoteGeneral Surgery Office/Clinic Note Chief Complaint consultation for colonoscopy HPI Staff 74 year old female presents on consultation for surveillance colonoscopy. Patient with history of tubulovillous adenoma of ascending colonoscopy in 2020. Recurrent adenoma noted on colonoscopy completed 03/2024. Colonoscopy with endoscopic mucosal resection with Dr. Kellyompleted 05/29/24, recommended follow up colonoscopy completed in 6 months. History of Present Illness 74 yo female with h/o htn, DMII, PVD, hiatal hernia with GERD, nephrolithiasis, referred for surveillance colonoscopy; patient had 3 large tubular adenomas removed at [facility] with endoscopic mucosal resection 05/2024, had small [...] swallowing difficulties, no hearing loss, no ear infection(s),no nose bleeds. Cardiovascular: normal blood pressure, no [...] of colon Historical No (more content not included)...[facility] CampusComment on above: Result Comment: Electronically Signed By: VIET RUSSELL, Edda Garibay\Date and Time Signed: 01/08/25 14:51 [id number] Evaluation + Plan note Diagnostic Tests Pending * Creatinine 01/08/25 [facility] Shelia 08-26-2025 History of Present illness Narrative* Emelycipriano Ball, RICHIE - 12/17/2024 11:20 AM EDT Reason for Appointment: Patient ID: Gigi Koch is a 74 y.o. female who presents for Well Women Visit Patient presents today for Annual Exam. MEDICATIONS Current Outpatient Medications Medication Instructions acarbose (Precose) 100 MG tablet aspirin 81 mg, Daily biotin 98022 MCG tablet Take by mouth candesartan (Atacand) [...] nursing note reviewed. Exam conducted with a fly tier present. Vitals: Estimated body mass index is [...] them. Patient can also view results via [employer]. I reinforced importance of condom use for [...] of: Dylan Zepeda DO documented in this encounterNorthwest Medical CenterCumiplmjji30-53-1846 History of Present illness Narrative* Emely Ball LPN - 06/11/2024 2:00 PM EST Reason for Appointment: Patient ID: Gigi Koch is a 73 y.o. female who presents for Abnormal Pap Smear Patient presents today for Repeat Pap. MEDICATIONS Current Outpatient Medications Medication Instructions acarbose (Precose) 100 MG tablet aspirin 81 mg, Daily biotin 37395 MCG tablet Take by mouth candesartan (Atacand) [...] nursing note reviewed. Exam conducted with a fly tier present. Vitals: Estimated body mass index is 37.5 kg/m as calculated from the following: Height as of 12/05/24: 5' 7 . Weight as of this [...] 5. Age-related osteoporosis without current pathological fracture (CMS/HCC) M81.0 DEXA bone density Repeat Pap: Patient [...] of: Dylan Zepeda DO documented in this encounterNorthwest Medical CenterEpaqyqkxcx30-48-7430 NoteColonoscopy and EMR procedure note from 05/29/24 and pathology faxed to referring office of Dr. Durham at [phone]-2025 NotePatient: Gigi Koch Procedure Summary Date: 05/29/24 Room / Location: [facility] Endoscopy Anesthesia Start: 1051 Anesthesia [...] PACU per anesthesia protocol. No notable events documented.[facility]02-05-2025 Note Patient: Gigi Koch Procedure Summary Date: 05/29/24 Room / Location: [facility] Endoscopy Anesthesia Start: 105 Anesthesia Stop: Procedure: DIAGNOSTIC COLONOSCOPY Diagnosis: Tubular adenoma of colon Scheduled Providers: Bharat Sanz MD; Bunny Marion MD; SUN Maki Responsible Provider: Bunny Mraion MD Anesthesia Type: general ASA Status: 3 Anesthesia Post [facility] Patient Monitor: direct observation Transport: uneventful Patient condition is: stableUnTriHealth02-05-2025 Note Airway Date/Time: 05/29/2024 11:01 AM Urgency: elective General Information and Staff Patient location during procedure: OR Anesthesiologist: Bunny Marion MD Resident/PLANT AND INSTRUMENT ENGINEER/CAA: SUN Maki Performed: resident/PLANT AND INSTRUMENT ENGINEER/SUN Indications and Patient Condition Indications for airway [...] approach: 1 Number of other approaches attempted: 0[facility] 05-29-2024 NotePatient: Gigi Koch Procedure Information Date/Time: 05/29/24 1115 Scheduled providers: Bharat Sanz MD; Bunny Marion MD; SUN Maki Procedure: DIAGNOSTIC COLONOSCOPY Location: [facility] [place] [facility] Relevant Problems Anesthesia (within normal limits) [...] patient. Plan discussed with CAA. Additional Equipment [facility]sBu[facility]11-12-2024 Note General Surgery Office/Clinic Note Chief Complaint consultation for colonoscopy HPI [...] swallowing difficulties, no hearing loss, no ear infection(s),no nose bleeds. Cardiovascular: normal blood pressure, no [...] - Esophagogastroduodenoscopy (04/24/2001), Arthroscopy of knee (02/12/2000), C holecystectomy, Extract tooth, Left ear. Medications acarbose 100 [...] tab(s), Oral, Daily M (more content not included)...[facility] CampusComment on above: Result Comment: Electronically Signed By: Edda PEÑA MD.rodolfo\Date and Time Signed: 03/05/24 15:57 [id number] NoteThe [place], [place] NAME: GIGI KOCH DATE OF : MEDICAL REC#: [id number] MAXILLOFACIAL SURGEON: [address] ADMIT DATE: 03/10/2021 07:41:00 STOPPER MAKER HELPER DATE: 03/10/2021 10:00 DICTATING PHYSICIAN: EDDA PEÑA [...] Edda Peña MD on 03/10/2021 11:23 AM [facility] Signed and Approved by: DR EDDA PEÑA . 03/10/2021 11:23:00[facility] note No data available for this section [facility] Evaluation + Plan note Future Appointments Appointment Date:01/08/2025 01:40:00 PM Scheduled Provider:Edda PEÑA MD Location:[facility] Appointment Type:[address] [facility] Evaluation note* Diagnosis Atypical squamous cells of undetermined significance (ASCUS) on Papanicolaou smear of cervix Recurrent UTI Urinary tract infection, site not specified Screening for osteoporosis Special screening for osteoporosis Encounter for screening mammogram for malignant neoplasm of breast Age-related osteoporosis without current pathological fracture (CMS/HCC) documented in this encounter [facility] HealthcareEvaluation note* Diagnosis Well woman exam with routine gynecological exam Routine gynecological examination Breast cancer screening by mammogram Postmenopausal state Asymptomatic postmenopausal status (age-related) (natural) documented in this encounter [facility] HealthcareEvaluation note* Diagnosis Urologic disorders- Primary Unspecified disorder of urethra and urinary tract Bilateral nephrolithiasis [facility] this [facility]* Diagnosis Urologic disorders- Primary Unspecified disorder of urethra and urinary tract Right renal mass Unspecified disorder of kidney and ureter Bilateral kidney stones documented in this [facility]* Diagnosis Right renal mass- Primary Unspecified disorder of kidney and ureter Bilateral kidney stones documented in this encounter [facility] SystemH[facility] Discharge instructions No data available for this section [facility] InstructionsNot on filedocumented in this encounter [facility] SystemInstructionsNot on filedocumented in this encounter [facility] SystemInstructionsNot on filedocumented in this encounter [facility] SystemInstructionsNot on filedocumented in this encounter [facility] SystemInstructionsNot on filedocumented in this encounter [facility] SystemProgress note No data available for this section [facility] Summary Purpose Family History No Family History [...] section and content) DATE CREATED AUTHOR 11/26/2021 [facility] DATE CREATED AUTHOR AUTHOR'S ORGANIZ ATION 04/06/2024 [facility] DATE CREATED AUTHOR AUTHOR'S ORGANIZ ATION 06/08/2024 [facility] DATE CREATED AUTHOR AUTHOR'S ORGANIZ ATION 12/19/2024 [facility] DATE CREATED AUTHOR AUTHOR'S ORGANIZ ATION 01/09/2025 [facility] DATE CREATED AUTHOR AUTHOR'S ORGANIZ ATION 02/01/2025 [facility] DATE CREATED AUTHOR AUTHOR'S ORGANIZ ATION 02/04/2025 [facility] Patient Care team informatio n (unrecognized section and content) Team MemberRelationshipSpecialtyStart DateEnd Date Unallocated, Noms ProviderMD [address] [place] [address] PCP - [facility] Medicine08/24/23Team MemberRelationshipSpecialtyStart DateEnd Date Unallocated, [place] [address] PCP - [facility] Medicine08/24/23Team MemberRelationshipSpecialtyStart DateEnd Date Unallocated, Noms ProviderMD [facility] [address] PCP - [facility]08/24/23Team MemberRelationshipSpecialtyStart DateEnd Date Unallocated, Noms ProviderMD [facility] [place] [address] PCP - [facility]08/24/23Team MemberRelationshipSpecialtyStart DateEnd Date Unallocated, Noms MD Jolie [address] [place], [place] [address] [address] PCP - [facility]08/24/23Team MemberRelationshipSpecialtyStart DateEnd Date Unallocated, Noms MD Jolie [address] [place] [address] PCP - [facility]08/24/23Team MemberRelationshipSpecialtyStart DateEnd Date Unallocated, Noms MD Jolie [address] [place] [address] PCP - [facility]08/24/23Team MemberRelationshipSpecialtyStart DateEnd Date Chago Seay Jr., DO [address] [place] [address] PCP - GeneralInternal Medicine01/20/25Team MemberRelationshipSpecialtyStart Date End Date Chago Seay Jr., DO [address] [place] [address] PCP - GeneralInternal Medicine01/20/25Team MemberRelationshipSpecialtyStart Date End Date Chago Seay Jr., DO [address] [place] [address] PCP - GeneralInternal Medicine01/20/25 Reason for Visit (unrecogniz ed section and content) ReasonCommentsAbnormal Pap SmearReasonCommentsWell Women VisitReasonComments NephrolithiasisSpecialtyDiagnoses / ProceduresReferred By ContactReferred To ContactUrology Diagnoses Bilateral nephrolithiasis Chago Seay Jr., DO [address] [place] [address] Phone: tel: fax: [facility] [address] [place] [address] Phone: tel: fax: Referral IDStatusReasonStart DateExpiration DateVisits RequestedVisits [id number] Review Specialty Services Required [id number]-roTzfvoiZzplsukuGoecmx-ti FOR RECORDS PERTAINING TO PATIENTS WHO ARE [...] BE BASED ON THE PRIMARY CLINICAL RECORDS. [employer] [facility]. provides no warranty or guarantee of the accuracy or completeness of information in this document.
== END 2025-02-11 13:02 | disposition home or self-care (01) ==
LOC: PST 13:01
PROVIDERS: PCP Internal Medicine; Visit Provider Surgery
DX: Z01.818 Encounter for other preprocedural examination (principal); Z86.0101 Personal history of adenomatous and serrated colon polyps

== ENCOUNTER 2025-02-19 21:00 | Emergency (ER) | payer MEDICARE, SELFPAY ==
[2025-02-19 21:04] VITALS: BP 121/65; PULSE 111; TEMP 36.4; O2SAT 100; BMI 34.3
--- OUTSIDE RECORDS SUMMARY | 2025-02-19 21:11 | XMS_ITS | Clinical Summary ---
Author Organization [facility] Address [address] [place] [address] Care Team Providers Care Bridge Operator Slip Name Role Phone Unallocated, Noms Provider Primary Care Provi alan Allergies Active AllergyReactionsCriticalityNoted DateCommentsCephalexinHives,Itching 07/27/2023VenlafaxineHives,Rvdfdcw8807/27/2023 Medications MedicationSigDispense QuantityRefillsLast FilledStart DateEnd DateStatus acarbose [...] Take 1,000 mcg by mouth DailyActive biotin 08851 MCG tablet Take by mouthActive Eslicarbazepine Acetate [...] Problems No known active problems Encounters DateTypeDepartmentCare UztwYbdpntkzpdc59/04/2025Orders Only [facility] [address] [facility] [address] Jocelyn TanikaRICHIE acevedo 12/17/2024 11:20 AM [place]TPro[place] [phone] Dylan Zepeda DO Well woman exam with routine gynecological exam; Breast cancer screening by mammogram; Postmenopausal state12/17/2024linisync Result Encounter [facility] External Department Unsolicited Dylan Zepeda DO 12/17/2024amboo [place] [address] Dylan Zepeda DO from Last 3 Months Family History RelationNameStatusCommentsFatherDeceasedMotherDeceased Social History Tobacco UseTypesPacks/DayYears UsedDateSmoking Tobacco: NeverPassive Smoke Exposure: NeverSmokeless Tobacco: Never Tobacco Cessation:Counseling Given: Yes Alcohol UseStandard Drinks/WeekCommentsDefer0 (1 standard drink = 0.6 oz pure alcohol)CommentsNoSex and Gender InformationValueDate RecordedSex Assigned at BirthNot on fileLegal WbzGxojoq95/15/2023 6:37 PM EDTGender Identity Not on fileSexual OrientationNot on file Last Filed Vital Signs Vital SignReadingTime TakenCommentsBlood Bdrmehes469/8002 2:01 PM EST Qnxph4880 1:11 PM EDTTemperature--Respiratory Rate--Oxygen Saturation-- Inhaled Oxygen Concentration--Mjvlhi170 kg (239 lb 6.4 oz)06/11/2024 2:01 PM EST Tisapv033.2 cm (5' 7 )12/06/2023 11:01 AM EDTBody Mass Index37.5012/06/2023 11:01 AM EDT Plan of Treatment Health MaintenanceDue DateLast DoneCommentsMedicare Annual Wellness (AWV) 1950Pneumococcal Vaccine: 65+ Years (1 of 1 - PCV)1998Influenza Vaccine (#1)2024FIT-AYLFkpjuttcrllt61/15/2021ColonoscopyDiscontinued 05/29/2024, 05/29/2024olorectal Cancer ScreeningDiscontinuedMammogram Nrvszlofxwps13/27/2025T ColonographyDiscontinuedFITDiscontinuedFOBTDiscontinued SigmoidoscopyDiscontinued Procedures Procedure NamePriorityDate/TimeAssociated DiagnosisCommentsIGP,APTIMA HPV,AGE GOVSDvwpwnn47/26/2025 11:01 AM EDT PAP QHSASEeqjkun52/26/2025 12:00 AM EDTMM TOMOSYNTHESIS SCREENING BI06/20/2024 2:28 [...] at: 01 =G ?[facility] [place] ?? [address] [place] ??[address] ?? Demetrice Solomon MD, PAP IG (IMAGE GUIDED)Note.TBHComment: ?? TESTS ? RESULT ??FLAG ??UNITS ?REF RANGE ??LAB DIAGNOSIS: ?02 ?? NEGATIVE FOR INTRAEPITHELIAL LESION OR MALIGNANCY. Specimen adequacy: ?02 ?? Satisfactory for evaluation. ??Endocervical and/or squamous metaplastic ?? cells (endocervical component) are present. Performed by: ? 02 ?? Jessica Jones General Road Production Manager (ASCP) . ? 02 Note: ? Note [...] at: 02 WB ?[facility] ?? [address] [place] ??[address] ?? Demetrice Solomon MD, Performed at: ??=G - [facility] [address] [place] ??[id number] Heavy Repairer: Demetrice Solomon MD, Phone: ??[phone] Performed at: ??WB - [facility] [address] [place] [place] ??[id number] Heavy Repairer: Demetrice Solomon MD, Phone: ??[phone] Specimen (Source)Anatomical Location / LateralityCollection Method / Volume Collection TimeReceived Time12/17/2024 11:01 AM EDT12/18/2024 6:44 AM EDT Narrative [facility] - 12/20/2024 5:09 PM EDT BRUSH-SPATULA CERVIX ENDOCERVIX Authorizing ProviderResult TypeResult StatusCorey Katelyn DOLAB BLOOD ORDERABLES Final ResultPerforming OrganizationAddressCity/State/ZIP CodePhone Number [facility]IN[facility] * Pap Smear (12/17/2024 12:00 AM [...] EST Narrative 06/20/2024 2:29 PM EST [facility] ?[address] ? [place] [address] ? Mammography Report ? Signed ? Patient: AUGUST,GIGI M ?MR#: [id number] ?? : 1950 ?Acct:[id number] ?? Age/Sex: 73 / F ?ADM Date: //25 ?? Loc: MAMMO ? Attending Dr: Dylan Zepeda D.O. ? Ordering Physician: Dylan Zepeda D.O. ?Results: ? Date of Service: 06/20/24 ?Follow Up: ? Procedure(s): MM tomosynthesis screening BI ?? Accession Number(s): [id number] ? cc: Dylan Zepeda D.O.; MELISSA SEAY D.O. ? Patient Name: ? GIGI KOCH ? MR#: [id number] ? : 1950 ? Exam Date: 06/20/2024 [...] at age 81. ? LOCATION: ? [facility] ? BREAST COMPOSITION: ? There are scattered [...] 1429 ? DD/ 1428 ? TD/TT: ? Engagement Director: Procedure Note Radiology, Radiologist, MD - 06/20/2024 [place] [address] Mammography Report Signed Patient: GIGI KOCH MMR#: [id number] : 1950cct:[id number] Age/Sex: 73 / FADM Date: 06/20/24 Loc: MAMMO Attending Dr: Dylan Zepeda D.O. Ordering Physician: Dylan Zepeda D.O.Results: Date of Service: 06/20/24Follow Up: Procedure(s): MM tomosynthesis screening BI Accession Number(s): [id number] cc: Dylan Zepeda D.O.; MELISSA SEAY D.O. Patient Name: GIGI KOCH MR#: [id number] : 1950 Exam Date: 06/20/2024 Ordering Doctor: DR Dylan Zepeda . RADIOLOGY REPORT PROCEDURE: MM TOMOSYNTHESIS SCREENING BI COMPARISON: MM TOMOSYNTHESIS SCREENING BI, 06/13/2023. MG MAMM JHQYQE2V MARK CAD, 11/22/2021. MAMMO POST BIOPSY UNILATERAL [...] withuterine cancer at age 81. LOCATION: [facility] BREAST COMPOSITION: There are scattered areas of [...] M.D. Signed By:06/20/24 1429 DD/ 1428 TD/TT: Engagement Director: Authorizing ProviderResult TypeResult StatusCorey Katelyn DOCLINISYNC IMAGINGFinal Result from Last 3 Months or Most Recently Relevant to Health Maintenance Insurance Care Teams Team MemberRelationshipSpecialtyStart DateEnd Date Unallocated, Noms Provider, [address] [place] [address] PCP - GeneralFamily Medicine08/24/23
--- OUTSIDE RECORDS SUMMARY | 2025-02-19 21:11 | XMS_ITS | Encounter Summary ---
Author Organization [employer] Address [id number] [address] [place] [address] Care Team Providers Care Moving Picture Producer Name Role Phone Leann Rosales DO, Charles L Primary Care Provider Encounter Details DateTypeDepartmentCare Team (Latest Contact Info)Wriubqjfqfo66/27/2025Telephone [facility] [address] [place] [address] Esteban Vega Social History Tobacco UseTypesPacks/DayYears UsedDateSmoking Tobacco: NeverSmokeless Tobacco: NeverAlcohol UseStandard Drinks/WeekCommentsNot Currently0 (1 standard drink = 0.6 oz pure alcohol)ChildcareAnswerDate NcpakcwgTuqdlftldAcmrfls25/12/2019 EmploymentAnswerDate AbtmauzmLxvrrpyhljOitqiuc76/12/2019Hunger ScreeningAnswer Date RecordedWithin the past 12 months we worried whether our food would run out before we got money to buy more.Never True02/03/2025Within the past 12 months the food we bought just didn't last and we didn't have money to get more.Never True02/03/2025CommentsUnknownSex and Gender InformationValueDate RecordedSex Assigned at BirthNot on fileLegal KqmOyjwgc33/06/2015 11:29 AM EDT Gender IdentityNot on fileSexual OrientationNot on filedocumented as of this encounter Miscellaneous Notes * Telephone Encounter - Esteban Vega - 02/17/2025 1:52 PM EDT Pt needs telehealth rescheduled due to mri being done late -SN * Telephone Encounter - Teresa Villanueva - 02/17/2025 1:52 PM EDT CALLED PT NA LVM TO CB TO SCHEDULE MRI F/U WITH DR SAMSON IN [place] [facility] AMA documented in this encounter Plan of Treatment DateTypeDepartmentCare Team (Latest Contact Info)Hnncvnfpsas97/18/2025 12:45 PM ESTAppointment [facility] [address] [place] [address] Kenyon Samson MD [address] [place] [address] 03/26/2025 12:00 PM ESTOffice Visit [facility] [address] [place] [address] [place] [address] [place] [address] Kenyon Samson MD [address] [place] [address] [phone] documented as of this encounter Visit Diagnoses Not on filedocumented in this encounter Care Teams Team MemberRelationshipSpecialtyStart DateEnd Date Chago Noriega Jr., DO [facility] [place] [address] PCP - GeneralInternal Medicine01/20/25documented as of this encounter
--- OUTSIDE RECORDS SUMMARY | 2025-02-19 21:11 | XMS_ITS | Encounter Summary ---
Author Organization [facility] S*Bio [facility] tem Address [id number] [address] [place] [address] Care Team Providers Care Family Lawyer Name Role Phone Leann Rosales DO, Charles L Primary Care Provider Encounter Details DateTypeDepartmentCare Team (Latest Contact Info)Yngxrztcidy99/27/2025Telephone [facility] [address] [place] [address] Esteban Vega Social History Tobacco UseTypesPacks/DayYears UsedDateSmoking Tobacco: NeverSmokeless Tobacco: NeverAlcohol UseStandard Drinks/WeekCommentsNot Currently0 (1 standard drink = 0.6 oz pure alcohol)ChildcareAnswerDate WbdcafjmXzjvaivapAohkody34/12/2019 EmploymentAnswerDate NjksgktjLvlygbubjlCgjheft44/12/2019Hunger ScreeningAnswer Date RecordedWithin the past 12 months we worried whether our food would run out before we got money to buy more.Never True02/03/2025Within the past 12 months the food we bought just didn't last and we didn't have money to get more.Never True02/03/2025CommentsUnknownSex and Gender InformationValueDate RecordedSex Assigned at BirthNot on fileLegal ExgUhwulu93/06/2015 11:29 AM EDT Gender IdentityNot on fileSexual OrientationNot on filedocumented as of this encounter Plan of Treatment DateTypeDepartmentCare Team (Latest Contact Info)Uwtjcmdtdru85/18/2025 12:45 PM ESTAppointment [facility] - MR [address] [place] [address] Kenyon Dixon MD [address] [place] [phone] 03/26/2025 12:00 PM ESTOffice Visit [facility] [address] [place] [address] [place] [address] [address] [place] [address] Kenyon Dixon MD [address] [place] [address] documented as of this encounter Visit Diagnoses Not on filedocumented in this encounter Care Teams Team MemberRelationshipSpecialtyStart DateEnd Date Chago Noriega Jr., DO [facility] [place], [place] [phone] PCP - GeneralInternal Medicine01/20/25documented as of this encounter
--- OUTSIDE RECORDS SUMMARY | 2025-02-19 21:11 | XMS_ITS | Clinical Summary ---
Author Organization [facility] tem Address [id number] [address] [place] [address] Care Team Providers Care Audit Clerks Supervisor Name Role Phone Leann Rosales DO, Charles L Primary Care Provider Allergies Active AllergyReactionsCriticalityNoted DateCommentsCephalexinHives,Itching 07/27/2023VenlafaxineHives,Drdspas7907/27/2023 Medications MedicationSigDispense QuantityRefillsLast FilledStart DateEnd DateStatus acarbose [...] Expired Active Problems ProblemNoted DateDiagnosed DateBilateral kidney ngciyr8801/31/2025 Overview (02/03/2025): ==== 02/03/2025 ==== primarily right-sided [...] get the MRI 1st return clinic Urologic ncsjgybcn88/26/2025 Overview (01/31/2025): 1. Diabetic with Urolithiasis; CT 01/15/[address] [facility] with IV contrast bilateral renalstones largest [...] January 2025; KUB January 2025 Encounters DateTypeDepartmentCare EgzqLcysfcfsbhb75/27/2025Telephone [facility] [address] [place] [address] Esteban Vega 02/17/2025Telephone [facility] [address] [place] [address] Esteban Vega 02/03/2025 3:[address] [facility] [address] [place] [address] [place] [address] Kenyon Dixon MD Right renal mass (Primary Dx); Bilateral kidney ejizbu1802/03/2025Telephone [facility] [address] [place] [address] [place] [address] Kenyon Dixon MD 01/31/2025 12:[address] [facility] [address] [place] [address] [place] [address] Declan Silverman Jr., MD Urologic disorders (Primary Dx); Right renal mass; Bilateral kidney rgmjqm4601/30/2025 1:20 PM EDT - 01/30/2025 11:59 PM EDTHospital Encounter [facility] - [place] [address] [place] [address] Declan Silverman Jr., MD Bilateral nephrolithiasis Discharge Disposition: Home01/30/2025 12:40 PM EDT - 01/30/2025 1:19 PM EDT Hospital Encounter [facility] -Radiology [address] [place] [phone] Declan Silverman Jr., MD Bilateral nephrolithiasis Discharge Disposition: Home01/30/20255691Bqwtoz54/07/2025Telephone [facility] [address] [place] [phone] Betina Jimenez CMA 01/21/2025Telephone [facility] [address] [place] [address] Declan Silverman Jr., MD 01/17/2025 10:00 AM EDTOffice Visit [facility] [address] [place] [place] [address] Declan Silverman Jr., MD Urologic disorders (Primary Dx); Bilateral rlbsndlzzgwblwe58/26/2025Telephone [facility] [address] [place] [place] [address] Magalys Pereira LPN 01/15/2025 8:25 AM EDTAncillary Procedure [facility] [employer] [address] [place] [phone] Painfrom Last 3 Months Social History Tobacco UseTypesPacks/DayYears UsedDateSmoking Tobacco: NeverSmokeless Tobacco: Never Tobacco Cessation:Counseling Given: No Alcohol UseStandard Drinks/WeekCommentsNot Currently0 (1 standard drink = 0.6 oz pure alcohol)ChildcareAnswerDate WossbveqOjdfqbpgdBtchydo81/12/2019Employment AnswerDate SboopethAqhprxsxefFhmhuvp35/12/2019Hunger ScreeningAnswerDate RecordedWithin the past 12 months we worried whether our food would run out before we got money to buy more.Never True02/03/2025Within the past 12 months the food we bought just didn't last and we didn't have money to get more.Never True02/03/2025CommentsUnknownSex and Gender InformationValueDate RecordedSex Assigned at BirthNot on fileLegal NqgEoconh21/06/2015 11:29 AM EDT Gender IdentityNot on fileSexual OrientationNot on file Last Filed Vital Signs Vital SignReadingTime TakenCommentsBlood Oyukcnet609/7702/03/2025 3:08 PM EDT Syqqx496502/03/2025 3:08 PM EDTTemperature--Respiratory Rate--Oxygen Saturation-- Inhaled Oxygen Concentration--Gruxwr21.3 kg (210 lb)02/03/2025 3:08 PM EDTHeight 167.6 cm (5' 6 )02/03/2025 3:08 PM EDTBody Mass Index33.8902/03/2025 3:08 PM EDT Plan of Treatment DateTypeDepartmentCare Team (Latest Contact Info)Dfguadotddn90/18/2025 12:45 PM ESTAppointment [facility] [place] [address] Kenyon Dixon MD [address] [place] [phone] 03/26/2025 12:[address] [facility] [address] [place] [place] [address] Kenyon Dixon MD [address] [place] [address] [phone] Health MaintenanceDue DateLast DoneCommentsDepression Wbrmxpcfs86/20/1961 DTaP,Tdap and Td Vaccines (1 - Tdap)11/11/1967Fall Risk Pcnzdjlsd31/20/2014 COVID-19 Vaccine ( - 2024- season)508/06/2021, 03/02/2021, 07/21/2020, Additional history existsInfluenza Fumrxne9312/23/2024Tobacco Bymemcmlc85Zoster (Shingles) WzxmvlnCubuvecvv79/01/2024, 11/24/2023 Medical Devices Not on file Procedures Procedure NamePriorityDate/TimeAssociated DiagnosisCommentsCT UROGRAMRoutine 01/30/2025 2:02 PM EDT Bilateral nephrolithiasis XR ABDOMEN AP 1 TWIunnyan80/09/2025 1:46 PM EDT Bilateral nephrolithiasis CREATININE, KQOAVOqbxflq45/09/2025 12:40 PM EDT Bilateral nephrolithiasis CT ABDOMEN AND PELVIS W XFRWGazipvw08/24/2025 8:25 AM EDT Pain from Last 3 [...] of the abdomen and pelvis from [facility] dated 01/15/2025with no report made available. [...] CT of the abdomen and pelvis from [facility] dated 01/15/2025 with no report made available. [...] Authorizing ProviderResult TypeResult StatusGregor Akash Silverman Jr., MDCEDAR [facility]IDGE [facility] [place] ORDERABLESFinal Result * X-ray abdomen ap [...] on 01/30/2025 2:08 PM Authorizing ProviderResult TypeResult StatusDeclan Silverman Jr., MDIMG DIAGNOSTIC IMAGING ORDERABLESFinal Result * Creatinine includes GFR, serum (01/30/2025 12:40 PM EDT)ComponentValueRef RangeTest MethodAnalysis TimePerformed AtPathologist SignatureCREATININE0.96 0.40 - 1.00 mg/dL01/30/2025 1:05 PM [facility] METHOD TRACEABLE TO IDMS STANDARDEGFR Non-Race Zecaztlli43>=60 ml/min/1.73sq.m 01/30/2025 1:05 PM [facility]Comment: Reported eGFR is based on the CKD-EPI 2020 equation that does not use a race coefficient. Specimen (Source)Anatomical Location / LateralityCollection Method / Volume Collection TimeReceived TimeBloodVenous blood / UnknownVenipuncture / Unknown 01/30/2025 12:40 PM EDT1 12:40 PM EDT Narrative Authorizing ProviderResult TypeResult Juan Silverman Jr., MDLAB BLOOD ORDERABLESFinal ResultPerforming OrganizationAddressCity/State/ZIP CodePhone Number [address] [address], [place] * CT abdomen and pelvis with contrast (01/15/2025 8:25 AM EDT)Specimen (Source) Anatomical Location / LateralityCollection Method / VolumeCollection Time Received Time Narrative Authorizing ProviderResult TypeResult StatusScanning Provider ExternalIMG CT ORDERABLESFinal Result from Last 3 Months Insurance Care Teams Team MemberRelationshipSpecialtyStart DateEnd Date Chago Noriega Jr., DO [facility] [place], [place] [id number] PCP - GeneralInternal Medicine01/20/25
--- OUTSIDE RECORDS SUMMARY | 2025-02-19 21:11 | XMS_ITS | CCD ---
Author Organization [facility] Care Team Providers Care Vocational Case Manager Name Role Phone DAWOOD, DR TORRES [...] CHAGO SEAY JR Primary Care Physician Edda Llanos Attending Unavailable Nill, Edda R Admitting Unavailable Unallocated Joellen RUSSELL Provider Primary Care Provi alan BHARAT SANZ Admitting Unavailable BHARAT SANZ Attending Unavailable EDDA LLANOS Referring Unavailable UnalloJoellen coffman MD Provider Primary Care Provi alan DYLAN ZEPEDA Attending Unavailable DYLAN ZEPEDA Attending Unavailable NILL, Edda Bentley Attending Unavailable NILL, Edda Bentley Attending Unavailable NILL, Edda Bentley Attending Unavailable NILL, Edda Bentley Attending Unavailable Unavailable Primary Care Provider Donald Seay Jr., DO, Charles L Primary Care Provider KIM HOBSON JR Referring Unavailable CHAGO SEAY JR Primary Care Unavailable KIM HOBSON JR Attending Unavailable KIM HOBSON JR Referring Unavailable DAWOOD NGO, CHAGO L Primary Care Unavailable KIM HOBSON JR Attending Unavailable KIM HOBSON JR Referring Unavailable CHAGO SEAY JR L Primary Care Unavailable JAZLYNKIM DIANA JR Attending Unavailable CHAGO SEAY JR Referring Unavailable JAZLYN NGOKIM Attending Unavailable CHAGO SEAY JR L Referring Unavailable CHAGO SEAY JR Primary Care Unavailable SAMSONEDDA Attending Unavailable DAWOOD NGO, CHAGO L Referring Unavailable CHAGO SEAY JR Primary Care Unavailable Dawood Jr., DO Chago gY Primary Care Provider Allergies Allergy ClassificationReported Allergen(s)Allergy TypeDate of OnsetReaction(s) Facility (2 sources)Cephalexin; Translations: [Keflex][facility]rug [facility]ergyThe [facility] (5 sources)venlafaxine; Translations: [VENLAFAXINE]Drug Vzvppek97-92-3110Wqz [facility] Repository (20 sources)Cephalexin; Translations: [cephalexin]Drug Vqkkifv90-06-8864Wzesghk (finding), Hives, ItchingFisher-Jorg[facility] (17 sources)venlafaxine; Translations: [venlafaxine]Drug Lsecoqy27-29-7729 Itching (finding), Hives, ItchingFisher-Jorgito [facility] Medications Current Medications MedicationDrug Class(es)DatesSig (Normalized)Sig (Original)acarbose 100 mg oral tablet (17 sources)alpha-Glucosidase InhibitorStart: 05-86-0613ytng 1 tablet by mouth in the morning, then take 1 tablet by mouth at bedtimeacarbose (PRECOSE) 100 MG tablet Take 1 tablet (100 mg total) by mouth in the morning and 1 tablet (100 mg total) before bedtime. 02/23/2024 Activeacetaminophen 500 mg oral tablet (6 sources)take 2 tablets by mouth every six hours as neededacetaminophen (TYLENOL EXTRA STRENGTH) 500 mg tablet Take 2 tablets (1,000 mg total) by mouth every6 (six) hours as needed. Activeaspirin 81 mg delayed release oral tablet (17 sources)Platelet Aggregation Inhibitor, Nonsteroidal Anti-inflammatory Drug Start: 77-43-7524opjq 1 tablet by mouth in the morningaspirin 81 mg Take 1 tablet (81 mg total) by mouth in the morning. 03/05/2024 Activebiotin 1 mg oral tablet (17 sources)Start: 62-34-7060hnmm 1 tablet by mouth once dailybiotin 1000 mcg oral tablet 1,000 mcg = 1 tab(s), Oral, Daily Start Date: 02/10/21 Status: Ordered Repeat number: 1take 10 mg by mouth once daily in the morningbiotin 10,000 mcg capsule Take 10 mg by mouth every morning. TAKE 10 MG BY MOUTH IN THE MORNING Activebiotin 60697 MCG tablet Take by mouth ActiveCalcium Carbonate / vitamin D3 (6 sources)calcium carbonate/vitamin D3 (CALCIUM 600 WITH VITAMIN D3 ORAL) Take 1 tablet by mouth at noon. Activecandesartan cilexetil 16 mg oral tablet (17 sources)Angiotensin 2 Receptor BlockerStart: 95-10-8629onax 1 tablet by mouth in the morningcandesartan (ATACAND) 16 mg tablet Take 1 tablet (16 mg total) by mouth in the morning. 02/23/2024 Activecetirizine hydrochloride 10 mg oral tablet (17 sources)Histamine-1 Receptor AntagonistStart: 45-33-1443jvzg 1 tablet by mouth once dailycetirizine (ZyrTEC) 10 mg tablet Take 1 tablet (10 mg total) by mouth nightly. 03/05/2024 Activecholecalciferol 0.025 mg oral tablet (6 sources)Vitamin Dtake 1 tablet by mouth three times dailycholecalciferol 1,000 units tablet Take 1 tablet (1,000 Units total) by mouth 3 (three) times a day. ActiveDULoxetine 60 mg delayed release oral capsule (17 sources)Serotonin and Norepinephrine Reuptake InhibitorStart: 13-72-3092wnwi 1 capsule by mouth at bedtimeDULoxetine (CYMBALTA) 60 mg capsule Take 1 capsule (60 mg total) by mouth before bedtime. 02/23/2024 Activeeslicarbazepine acetate 200 mg oral tablet (8 sources)Eslicarbazepine Acetate (Aptiom) 200 MG tablet Take by mouth Active esomeprazole 40 mg delayed release oral capsule (17 sources)Proton Pump InhibitorStart: 37-82-9751icic 1 capsule by mouth at bedtimeNexium 40 mg Cap-EC 40 mg = 1 cap(s), Oral, Bedtime, Refills(s) 0 Start Date: 02/10/21 Status: Ordered Repeat number: 1estradiol 0.1 mg/ml vaginal cream (14 sources)EstrogenStart: 06-11-2024 End: 66-59-7827gjuxslxdc (Estrace) 0.1 MG/GM vaginal cream Indications: Recurrent UTI Insert 0.25 g into the vagina at bedtime Apply pea sized amount to urethra opening At bedtime for 2 weeks, then at every other night 42.5 g 3 06/11/2024 06/11/2025 ActiveStart: 85-31-2735Xwuzz: 95-62-4122lozhzlxuW (ESTRACE) 0.01 % (0.1 mg/gram) vaginal cream Insert 2 g into the vagina in the morning. 06/10/2024 Activefamotidine 20 mg oral tablet (7 sources)Histamine-2 Receptor AntagonistStart: 02-78-6593hwsn 1 tablet by mouth once dailyfamotidine (PEPCID) 20 mg tablet Take 1 tablet (20 mg total) by mouth nightly. 01/08/2025 Activemagnesium oxide 400 mg oral tablet (17 sources)Start: 26-62-7750ogvf 1 tablet by mouth once dailymagnesium oxide 400 mg Tab 400 mg = 1 tab(s), Oral, Daily, Refills(s) 0 Start Date: 02/10/21 Status: Ordered Repeat number: 1magnesium oxide (Mag-Ox) 400 mg tablet 400 mg Daily Fuuavb43 hr metFORMIN hydrochloride 500 mg extended release oral tablet (17 sources)BiguanideStart: 70-72-5067egok 1 tablet by mouth every twenty-four hours in the morning, then take 1 tablet by mouth at bedtimemetFORMIN XR (GLUCOPHAGE XR) 500 mg 24 hr tablet Take 1 tablet (500 mg total) by mouth in the morning and 1 tablet (500 mg total) before bedtime. 01/03/2025 ActiveStart: 81-51-0277hezf 1 tablet by mouth twice dailyMetFORMIN (Eqv-Glucophage XR) 500 mg oral tablet, extended release 500 mg = 1 tab(s), Oral, BID, Refills(s) 0 Start Date: 02/23/24 Status: Ordered Repeat number: 1Start: 69-58-6253szwz 1 tablet by mouth every twenty-four hours at mealtimemetFORMIN XR (Glucophage-XR) 500 MG 24 hr tablet Take 500 mg by mouth in the evening. Take with meals 11/22/2023 Active methenamine hippurate 1000 mg oral tablet (13 sources)Start: 92-89-4797idnl 1 tablet by mouth twice dailymethenamine hippurate 1 g oral tablet 1 gm = 1 tab(s), Oral, BID, Refills(s) 0 Start Date: 01/08/25 Status: Ordered Repeat number: 1Start: 08-05-3473rmdt 1 tablet by mouth at mealtimemethenamine (HIPREX) [...] extended release oral tablet (11 sources)beta3-Adrenergic AgonistStart: 30-26-9195Razyoinzu 50 MG 24 hr tablet 05/25/2023 ActiveStart: 00-39-1796yfqt 1 tablet by mouth once daily Myrbetriq 50 mg oral tablet, extended release 50 mg = 1 tab(s), Oral, Daily, Refills(s) 0 Start Date: 02/10/21 Status: Ordered Repeat number: 1montelukast 10 mg oral tablet (17 sources)Leukotriene Receptor AntagonistStart: 67-04-9091mloe 1 tablet by mouth once dailySingulair 10 mg Tab 10 mg = 1 tab(s), Oral, Daily, Refills(s) 0 Start Date: 02/10/21 Status: Ordered Repeat number: 1multivitamin,tx-minerals tablet (6 sources)take 1 tablet by mouth in the morningmultivitamin,tx-minerals tablet Take 1 tablet by mouth in the morning. ActiveMultivitamins and Minerals (3 sources)Start: 33-19-0695nvsi 1 tablet by mouth once dailyMultivitamins and Minerals 1 tab(s), Oral, Daily, Refill(s) 0 Start Date: 02/10/21 Status: Ordered Repeat number: 1Start: 69-96-6992fjmn 1 tablet by mouth once dailyMultivitamins and Minerals 1 tab(s), Oral, Daily, Refill(s) 0 Start Date: 02/10/21 Status: Orderednitrofurantoin, macrocrystals 25 mg / nitrofurantoin, monohydrate 75 mg oral capsule (2 sources)Nitrofuran AntibacterialStart: 01-17-2025 End: 77-43-9406iafa 1 capsule by mouth in the morning, then take 1 capsule by mouth at bedtimenitrofurantoin, macrocrystal-monohydrate, (MACROBID) 100 mg capsule Take 1 capsule (100 mg total) by mouth in the morning and 1 capsule (100 mg total) before bedtime. Do all this for 7 days. 14 capsule 01/17/2025 01/24/2025 Activenystatin 825712 unt/ml oral suspension (6 sources)Polyene AntifungalStart: 64-74-2909xujj 2 mL by mouth three times dailynystatin (MYCOSTATIN) 100,000 unit/mL suspension Take 2 mL (200,000 Units total) by mouth 3 (three)times a day. 12/24/2024 Activepravastatin sodium 20 mg oral tablet (17 sources)HMG-CoA Reductase InhibitorStart: 22-80-7942gchf 1 tablet by mouth once daily at bedtimepravastatin 20 mg Tab 20 mg = 1 tab(s), Oral, Once a day (at bedtime), Refills(s) 0 Start Date: 02/10/21 Status: Ordered Repeat number: 1 vitamin b12 1 mg oral tablet (14 sources)Vitamin Z04kvyg 1 tablet by mouth in the morningcyanocobalamin 1000 MCG tablet Take 1 tablet (1,000 mcg total) by mouth in the morning. Active Vitamin B12 1000 mcg Tab (3 sources)Start: 38-52-3214pyxl 1 tablet by mouth once dailyVitamin B12 1000 mcg Tab 1,000 mcg = 1 tab(s), Oral, Daily, Refills(s) 0 Start Date: 02/10/21 Status: Ordered Repeat number: 1Start: 86-68-6154wpsa 1 tablet by mouth once dailyVitamin B12 1000 mcg Tab 1,000 mcg = 1 tab(s), Oral, Daily, Refills(s) 0 Start Date: 02/10/21 Status: Orderedvitamin b6 100 mg oral tablet (8 sources)take 1 tablet by mouth once dailypyridoxine (Vitamin B-6) 100 MG tablet Take 100 mg by mouth Daily ActiveVitamin B6 50 mg Tab (3 sources)Start: 12-89-4911mxbp 1 tablet by mouth twice dailyVitamin B6 50 mg Tab 50 mg = 1 tab(s), Oral, BID, Refills(s) 0 Start Date: 02/10/21 Status: OrderedRepeat number: 1Start: 52-57-4874voxe 1 tablet by mouth twice daily Vitamin B6 50 mg Tab 50 mg = 1 tab(s), Oral, BID, Refills(s) 0 Start Date: 02/10/21 Status: OrderedVitamin D 1000 intl units Tab (3 sources)Start: 01-59-7366yson 1 tablet by mouth once dailyVitamin D 1000 intl units Tab 25 mcg = 1 tab(s), Oral, Daily, Refills(s) 0 Start Date: 02/10/21 Status: Ordered Repeat number: 1Start: 02-55-5018htcc 1 tablet by mouth once dailyVitamin D 1000 intl units Tab 25 mcg = 1 tab(s), Oral, Daily, Refills(s) 0 Start Date: 02/10/21 Status: OrderedVITAMIN D PO (8 sources)VITAMIN D PO Take by mouth Active Problems Active Problems Problem ClassificationProblemDateDocumented DateEpisodic/ChronicAbdominal hernia (4 sources)Diaphragmatic hernia without obstruction or gangrene; Translations: [Hiatal hernia]Onset: 070166-93-4650VpgvspsuLfxwqwbvi pain (4 sources)Epigastric pain; Translations: [Epigastric pain]Onset: 01-08-2025 EpisodicCalculus of urinary tract (13 sources)Kidney stone; Translations: [Calculus of kidney]Onset: 01-30-2025 37-05-3672OqhbsqwdHpjlaq of cervix (1 source)Atypical squamous cells of undetermined significance on cervical Papanicolaou smear; Translations: [Atypical squamous cells of undetermined significance on cytologic smear of cervix (ASC-US)]87-98-3401FfoglfizXxleevrr mellitus without complication (3 sources)Diabetes kwcwpiei48-03-6733RqthvwyIsndplosxbnvje and diverticulitis (3 sources)Xykzgacboippqg55-52-5318XfilzgtNgfkxixfbl disorders (4 sources)Gastro-esophageal reflux disease without esophagitis; Translations: [Gastroesophageal reflux disease]Onset: 962445-45-5345TawbrzaPnwqpomzh hypertension (4 sources)Essential (primary) hypertension; Translations: [Hypertensive disorder]Onset: 342910-42-2599BjliwuqRtwivgclvzrit symptoms and ill- defined conditions (10 sources)Disorder of the urinary system; Translations: [Disorder of urinary system, unspecified]Onset: 633804-09-6783VxhtjulwDmoxzhefbexmm and screening for infectious disease (5 sources)Encounter for screening for human papillomavirus (HPV); Translations: [Encounter for immunization]Onset: 62-48-2451JqwljujqKyqxus and vomiting (2 sources)Nausea and vomiting; Translations: [Nausea with vomiting, unspecified]Onset: 78-74-6955EnoghrtzEvsnznipnlqf (1 source)Senile osteoporosis; Translations: [Age-related osteoporosis without current pathological fracture]80-30-3212YhxufdjRfzox and unspecified benign neoplasm (5 sources)History of polyp of colon; Translations: [Personal history of adenomatous and serrated colon polyps]Onset: 33-43-8133SagvybpjBggux and unspecified benign neoplasm (3 sources)Adenomatous polyp of snzun26-22-5099LmygcsmqWlnhw and unspecified benign neoplasm (3 sources)Benign neoplasm of ascending saroc65-47-5804MgslzrduKikmy and unspecified benign neoplasm (2 sources)Benign neoplasm of colon, unspecified; Translations: [Benign neoplasm of colon, unspecified]Onset: 57-91-1796JvdnsmlwWxrso diseases of kidney and ureters (7 sources)Renal mass; Translations: [Other specified disorders of kidney and ureter]Onset: 443041-93-4079AmrrzmdOcjti diseases of kidney and ureters (1 source)Other specified disorders of kidney and ureter; Translations: [Other specified disorders of kidney and ureter]Onset: 16-13-0202CgisreoDlffn liver diseases (3 sources)Non-alcoholic fatty -28-0045SzugmciDdnes nutritional; endocrine; and metabolic disorders (1 source)Morbid (severe) obesity due to excess calories; Translations: [MORBID SEVERE OBES D/T EXCESS ABELARDO]Onset: 34-13-8664ClrvdgsLljyx nutritional; endocrine; and metabolic disorders (1 source)Body mass index (BMI) 40.0-44.9, adult; Translations: [BODY MASS INDEX BMI 40.0-44.9 ADULT]Onset: 96-31-5759HadbnrmIvxcy nutritional; endocrine; and metabolic disorders (2 sources)Body mass index 40+ - severely -43-6859WyodjolUakyf nutritional; endocrine; and metabolic disorders (3 sources)Metabolic syndrome S16-74-8690QdajsnxLymcu nutritional; endocrine; and metabolic disorders (3 sources)Obese class BSD86-14-6531DlkiytgWvqfa nutritional; endocrine; and metabolic disorders (1 source)Body mass index 30+ - uazlqtg60-17-8702PwajhlaYatmw screening for suspected conditions (not mental disorders or infectious disease) (14 sources)Encounter for screening mammogram for malignant neoplasm of breast; Translations: [Encounter for screening for malignant neoplasm of cervix]Onset: 08-11-5381AfmppwovXcvdssmojy and visceral atherosclerosis (3 sources)Peripheral vascular -59-8795QfnfsnaNyjscvhtd; thrombophlebitis and thromboembolism (4 sources)Personal history of other venous thrombosis and embolism; Translations: [Deep venous thrombosis of lower extremity]Onset: 03-15-2021 44-11-0652HzkttsxzFxiynjio codes; unclassified (1 source)Asymptomatic menopausal state; Translations: [ASYMPTOMATIC MENOPAUSAL STATE]Onset: 09-27-0785KllsnlryBqhmaskw codes; unclassified (1 source)Family history of malignant neoplasm of other genital organs; Translations: [FAM HX MALIG NEOPLSM OTH GENIT ORGN]Onset: 78-85-5894Ggctyfyp Residual codes; unclassified (1 source)Family history of malignant neoplasm of trachea, bronchus and lung; Translations: [FAM HX MALIG NEOPLSM TRACH BRON LNG]Onset: 23-03-6350Tkwocuzt Residual codes; unclassified (1 source)Family history of malignant neoplasm of digestive organs; Translations: [FAM HX MALIG NEOPLASM DIGESTIV ORGN]Onset: 44-64-3317Upzmnybo Residual codes; unclassified (1 source)Postmenopausal state; Translations: [Asymptomatic menopausal state] 63-64-3955KzvttptuKemfihsz codes; unclassified (2 sources)Foreign lrpx59-88-2005XjnyhfyzAycmtvss codes; unclassified (1 source)Pain, unspecified; Translations: [Pain, unspecified]Onset: 01-18-2025 EpisodicUnclassified (4 sources)CONTACT W/AND (SUSP) EXPOS COVID-19; Translations: [CONTACT W/AND (SUSP) EXPOS COVID-19]Onset: 41-76-9394Dkntnzwbvveq (1 source)NephrolithiasisOnset: 48-23-5764Kkhumck tract infections (1 source)Recurrent urinary tract infection; Translations: [Urinary tract infection, site not specified]84-54-4341Tjdeqali Past or Other Problems Problem ClassificationProblemDateDocumented DateEpisodic/ChronicOther aftercare (1 source)Other jail (current) drug therapy; Translations: [OTH CARE HOME CURRENT DRUG THERAPY]Onset: 68-54-1525RkauvhxpIxjas and unspecified benign neoplasm (1 source)Benign neoplasm of ascending colon; Translations: [BENIGN NEOPLASM OF ASCENDING COLON]Onset: 02-37-6070GraorcnxBskyq and unspecified benign neoplasm (1 source)Benign neoplasm of transverse colon; Translations: [BENIGN NEOPLASM OF TRANSVERSE COLON]Onset: 22-35-9081MogoxbidBnyvr gastrointestinal disorders (4 sources)Other fecal abnormalities; Translations: [OTHER FECAL ABNORMALITIES] Onset: 00-97-1310RwslwhwvQmnyzgkrmjdj (1 source)CONTACT W/AND (SUSP) EXPOS COVID-19; Translations: [CONTACT W/AND (SUSP) EXPOS COVID-19]Onset: 04-27-2021 Results Test NameValueInterpretationReference RangeFacilityCREATININE, SERUMon 35-22-9167Hecawynode [Mass/Vol]0.96 mg/dLNormal0.40-1.00[facility] HospitalComment on above:Result Comment: METHOD TRACEABLE TO IDMS STANDARDPerformed By: #### TAILOR WOMEN'S GARMENT ALTERATION #### [facility] ([facility]) [address] [place] [address] VIRGFR/1.73 sq M.predicted among non-blacks MDRD (S/P/Bld) [Vol rate/Area]61 mL/min/{1.73_m2}Normal>=60[facility] HospitalComment on above:Result Comment: Reported eGFR is based on the CKD-EPI 2020 equation that does not use a race coefficient.Performed By: #### TAILOR WOMEN'S GARMENT ALTERATION #### [facility] ([facility]) [address] [place] [address] VIRCT UROGRAMon 49-70-3933JK UROGRAMCT UROGRAM History: Recurrent UTIs. Bilateral kidney stones Exam/Technique: CT of the abdomen with and without contrast (CT Urogram). Volume rendered 3D maximum intensity projection reconstructions constructed under concurrent physician supervision on an independent workstation and reviewed for purposes of evaluation of the urinary tract and collecting systems. Comparison: Contrast-enhanced CT of the abdomen and pelvis from [facility] dated 01/15/2025 with no report made [...] low as reasonably achievable. Finalized by Loc Gyu MD on 01/30/2025 5:28 [facility] HospitalXR ABDOMEN AP 1 VWon 64-78-9488VP ABDOMEN AP 1 VWXR ABDOMEN AP 1 [...] by Kana Argueta MD on 01/30/2025 2:08 [facility] HospitalAmbulatory Visit Summaryon 25-45-4436Zowcnitsbl Visit Summary Ambulatory Visit Summary GIGI KOCH [...] for. Abdominal pain, ep (more content not included)...NormalHugh Chatham Memorial Hospitaler [facility] And HospitalIGP,APTIMA HPV,AGE GDLNon 59-51-3452QNB GDLN ACOG TESTINGNote.NOMS HealthcareComment on above:TESTS RESULT FLAG UNITS REF RANGE LAB Clinician Provided Cytology Information Source.............Cervix;Endocervix No. of containers..01 ThinPrep Vial Age Algo ACOG Nicole... Note 01 <21 or >65 or no age provided FLAG LEGEND: L-Low Normal,H-High Normal,LL-Alert Low,HH-Alert High <-Panic Low,>-Panic High,A-Abnormal,AA-Critical Abnormal Performed at: 01 =[facility] [address] [place] [address] Demetrice Solomon MD, PAP IG (IMAGE GUIDED)Note.NOMS HealthcareComment on above:TESTS RESULT FLAG UNITS REF RANGE LAB DIAGNOSIS: 02 NEGATIVE FOR INTRAEPITHELIAL LESION OR MALIGNANCY. Specimen adequacy: 02 Satisfactory for evaluation. Endocervical and/or squamous metaplastic cells (endocervical component) are present. Performed by: Melisa Jones, Special Order Jeweler ([facility]) . 02 Note: [...] <-Panic Low,>-Panic High,A-Abnormal,AA-Critical Abnormal Performed at: [address] [address] Demetrice Solomon MD, Performed at: =G - [facility] [id number] [employer] Lead: Demetrice Solomon MD, Phone: [phone] Performed at: [facility] [address] [id number] [employer] Lead: Demetrice Solomon MD, Phone: [phone] BRUSH-SPATULA CERVIX ENDOCERVIX [facility] TOMOSYNTHESIS SCREENING BIon 80-67-2376[place] [address] Mammography Report Signed Patient: GIGI KOCH MR#: [id number] : 1950 Acct:[id number] Age/Sex: 73 / F ADM Date: 06/20/24 Loc: MAMMO Attending Dr: Dylan Zepeda D.O. Ordering Physician: Dylan Zepeda D.O. Results: Date of Service: 06/20/24 Follow Up: Procedure(s): MM tomosynthesis screening BI Accession Number(s): [id number] cc: Dylan Zepeda D.O.; CHAGO SEAY D.O. Patient Name: GIGI KOCH MR#: [id number] : 1950 Exam Date: 06/20/2024 Ordering Doctor: [...] uterine cancer at age 81. LOCATION: [facility] BREAST COMPOSITION: There are scattered areas [...] Signed By: 06/20/24 1429 DD/ 1428 TD/TT: Rack Worker:TBHRadiology, Radiologist, MD - 06/20/2024 [place] [address] Mammography Report Signed Patient: GIGI KOCH MR#: [id number] : 1950 Acct:[id number] Age/Sex: 73 / F ADM Date: 06/20/24 Loc: MAMMO Attending Dr: Dylan Zepeda D.O. Ordering Physician: Dylan Zepeda D.O. Results: Date of Service: 02/27/25 Follow Up: Procedure(s): MM tomosynthesis screening BI Accession Number(s): [id number] cc: Dylan Zepeda D.O.; CHAGO SEAY D.O. Patient Name: GIGI KOCH MR#: [id number] : 1950 Exam Date: 06/20/2024 Ordering Doctor: [...] uterine cancer at age 81. LOCATION: [facility] BREAST COMPOSITION: There are scattered areas [...] Almaguer M.D. Signed By: 06/20/24 1429 DD/ 27 TD/TT: Rack Worker: JOELLEN HealthcareRadiology Study observation (narrative)[facility] TOMOSYNTHESIS SCREENING BIOrdered By: Radiologist Radiology on 13-71-3382[facility] Work Phone: IGP,APTIMA HPV,AGE GDLNon 37-57-0343DMO GDLN ACOG TESTINGNote.[facility] HealthcareComment on above:TESTS RESULT FLAG UNITS REF RANGE LAB Clinician Provided Cytology Information Source.............Vagina No. of containers..01 ThinPrep Vial Age Algo ACOG Nicole... Note 01 <21 or >65 or no age provided FLAG LEGEND: L-Low Normal,H-High Normal,LL-Alert Low,HH-Alert High <-Panic Low,>-Panic High,A-Abnormal,AA-Critical Abnormal Performed at: 01 =G Lab[address] [address] Demetrice Solomon MD, PAP IG (IMAGE GUIDED)Note.[facility] HealthcareComment on above:TESTS RESULT FLAG UNITS REF RANGE LAB DIAGNOSIS: 02 NEGATIVE FOR INTRAEPITHELIAL LESION OR MALIGNANCY. THIS SPECIMEN WAS RESCREENED PART OF OUR WELDER TECH PROGRAM. Specimen adequacy: 02 Satisfactory for evaluation. Performed by: Janee Larkin Personalization Specialist ([facility]) QC reviewed by: 02 Ron Ureña Personalization Specialist ([facility]) . 02 Note: Note 03 [...] High,A-Abnormal,AA-Critical Abnormal Performed at: 02 [facility] [address] [place] [address] Franck Mclean MD, 03 WB [facility] [address] [address] Demetrice Solomon MD, Performed at: =G - [facility] [address] [id number] [employer] Lead: Demetrice Solomon MD, Phone: [phone] Performed at: [facility] - [facility] [address] [place], [place] [id number] [employer] Lead: Franck Mclean MD, Phone: [phone] SPATULA-ALONE VAGINA CLINISYNCNOMS HealthcareTelephoneon [phone] Gigi Koch 1950 F Date Provider Department Center 06/06/2024 [facility] ANGIESohail No family history on fileNormalUniversity Mercy Health Defiance HospitalHISTOLOGY - TISSUE EXAMon [id number] AP CASE REPORTNormalUniversity of Guadalupe Regional Medical CenterComment on above:Result Comment: Surgical Pathology Case: [id number] Authorizing Provider: Bharat Sanz MD Collected: 05/29/2024 1113 Ordering Location: Angie Quiñones Received: 05/29/2024 6565 [facility] Endoscopy Pathologist: Nkechi Jimenez MD Specimens: A) - Large Intestine, Right/Ascending Colon, r/o adenoma EMR B) - Ileocecal Valve, r/o adenoma C) - Large Intestine, Cecum, r/o adenoma EMR cecal polypPerformed By: #### [id number] ####[facility] (BEAKER)[address] [facility] [place], [place] [address]FRC AP CLINICAL INFORMATIONOrder DiagnosesNormalUniuniversity hospital of [facility] Comment on above:Result Comment: D12.6 - Tubular adenoma of colon [ICD-10-CM] Performed By: #### [id number] ####[facility] (BEAKER)[address] [facility], [place] [address]OQY AP GROSS DESCRIPTIONNormalUniuniversity hospital of [facility] Medical CenterComment on above:Result Comment: A. Large [...] 2. Joyce Webster, student fellowPerformed By: #### [id number] ####[facility] (BEAKER)[address] [place], [place] [address]OMR AP MICROSCOPIC DESCRIPTION Microscopic examination performed.[facility] Comment on above:Performed By: #### [id number] ####[facility] (BEAKER)[address] [place], [place] [address]HOR AP REPORT FINAL DIAGNOSIS [facility] TroyComment on above:Result Comment: A. Colon, ascending polyp, resection: - Fragments of tubular adenoma. - No high grade dysplasia is seen. B. Ileocecal valve, polyp, polypectomy: - Fragments of tubular adenoma. - No high grade dysplasia is seen. C. Colon, cecal polyp, resection: - Multiple fragments of tubular adenoma. - No high grade dysplasia is seen. Performed By: #### [id number] ####[facility] (BEAKER)[address] [place], [place] [address]BEke 17-04-1374VONpfecug Of Present Illness Gigi Koch is a [...] endoscopic mucosal resection of the ascending colon polyp.NormalUnPremier HealthNURSNOTEon 27-24-4184GGVHEYNAGhjaxipzq valve polyp EMR ascending polyp removed cecal polypNormalUniversOhioHealth Doctors HospitalPOCT GLUCOSE METER UNSOLICITED RESULTSon 37-82-1769Mvluwnt [Mass/Vol]142 mg/dLHigh 70-105UnPremier HealthComment on above:Order Comment: Waived Testing in the ED is performed under the ED CLIA certificate #[id number].Result Comment: ngrothaPerformed By: #### [id number] ####[facility] (CINTHYA)[address]ZHER[facility] SYSTEMYnesWINK[place], [place] [address]Roic for Procedureon 91-40-2519Rtgl for Procedure [id number] Beulah,Gigi 1950 F Date Provider Department Center 05/29/2024 BHARAT RODRIGUEZ [facility] No family history on fileNormalUniversity of [facility]36on [id number] to leave a message today for patient to call and schedule colonoscopy with EMRNormalUniBlanchard Valley Health System Bluffton HospitalTelephoneon 62-23-4520Tbytdrsnp [id number] Beulah,Gigi 1950 F Date Provider Department Ovando 05/07/2024 NELL RUIZ [facility] [facility] No family history on fileNormalUniversity of [facility]36on 02-03-037498Ymjudhyug to call and schedule patient for a colonoscopy with EMR, see ref in media tab dated 04/05/[address] Llanos's office. Phone just rings unable to leave a message, will try again later.NormalMercy Health [facility] Telephoneon [id number] Beulah,Gigi 1950 F Date Provider Department Ovando 05/03/2024 NELL RUIZ [facility] J[place] No family history on fileNormalUniversity Mercy Health Defiance HospitalLon 04-03-2024 L Specimen: [id number] Received: 04/03/24 Status: SERGEY Ibarra Num: [id number] Spec Type: Surgical Subm Dr: Edda Llanos MD FACS Tissues: A Colon Biopsy (ASCENDING COLON POLYPS) B Colon Biopsy (SIGMOID POLYPS) Procedures: HE/4, Gross/Micro L4/2 Age/ Patient Sex Location Account Attending Physician Gigi Koch 73/F LABELL [id number] Edda Llanos MD FACS SPEC NUM: [id number] RECD: 04/03/24 STATUS: SERGEY SALINAS NUM: [id number] SANAZ: 04/03/[address] [facility] [address]: Edda Llanos MD FACS ENTERED: 04/03/[address]: Carli Bass SPEC TYPE: Surgical DEPT: MCKENNA COWAN ENTERED BY: [id number] RECV BY: [id number] ORDERED: HE/4, Gross/Micro L4/2 ORDERED: HE/4, Gross/Micro [...] submitted in a single cassette. (1, ns, [id number] A) Part B is received in formalin labeled with the patients name, date of , and sigmoid polyp are two tucker-brady, focally erythematous, friable, 0.3 and 0.4 cm in greatest dimension polypoid fragments. The specimen is entirely submitted in a single cassette. (1, ns, [id number] [id number] B) Specimen: [id number] Received: 04/03/24 Status: SERGEY Ibarra Num: [id number] Spec Type: Surgical Subm Dr: Edda Llanos MD FACS Tissues: A Colon Biopsy (ASCENDING COLON POLYPS) B Colon Biopsy (SIGMOID POLYPS) Procedures: HE/4, Gross/Micro L4/2 Patient: Gigi Koch Sally [id number] (Continued) Specimen: [id number] Received: 04/03/24 (Continued) Signed (signature on file) Rohan Boyle MD 04/04/24 1125 Specimen: [id number] Received: 04/03/24 Status: SERGEY Salinasisabel Num: [id number] Spec Type: Surgical Subm Dr: Edda Llanos MD FACS Tissues: A Colon Biopsy (ASCENDING COLON POLYPS) B Colon Biopsy (SIGMOID POLYPS) Procedures: HE/4, Gross/Micro L4/2 Patient: Gigi Koch [id number] (Continued) Specimen: [id number] Received: 04/03/24 (Continued) Microscopic Description A B: Microscopic examination is performed. CPT Codes 68025 x2 Specimen: [id number] Received: 04/03/24 Status: SERGEY Fred Num: [id number] Spec Type: Surgical Subm Dr: Edda Llanos MD FACS Tissues: A Colon Biopsy (ASCENDING COLON POLYPS) B Colon Biopsy (SIGMOID POLYPS) Procedures: Erick JUAREZ/Tuyet L4/2 Patient: Gigi Koch [id number] (Continued) Signed (signature on file) Rohan Boyle MD 04/04/24 1125Normal [facility] Physician GroupAmbulatory Visit Summaryon 07-41-3095Ccoyemqzjs Visit SummaryAmbulatory Visit Summary GIGI KOCH :1950 [...] you for choosing us for your care. NormalCleveland Clinic Akron General Lodi HospitalIGP,APTIMA HPV,AGE GDLNon 96-78-7619[facility] ACOG TESTINGNote.NOMS HealthcareComment on above:TESTS RESULT FLAG UNITS REF RANGE LAB Clinician Provided Cytology Information Source.............Vagina No. of containers..01 ThinPrep Vial Age Algo ACOG Nicole... Note 01 <21 or >65 or no age provided FLAG LEGEND: L-Low Normal,H-High Normal,LL-Alert Low,HH-Alert High <-Panic Low,>-Panic High,A-Abnormal,AA-Critical Abnormal Performed at: 01 =[facility] [address] [place] [address] Demetrice Solomon MD, Interpretation and review of laboratory resultsAbnormalNOMS HealthcarePAP IG (IMAGE GUIDED)NoteAbnormal.NOMS HealthcareComment on above:TESTS RESULT FLAG UNITS REF RANGE LAB DIAGNOSIS: [A] 02 EPITHELIAL CELL ABNORMALITY. ATYPICAL SQUAMOUS CELLS OF UNDETERMINED SIGNIFICANCE (ASC-US) (VAGINAL). Recommendation: [A] 02 Suggest follow up as clinically appropriate. Specimen adequacy: 02 Satisfactory for evaluation. Performed by: 02 Prashanth Agarwal, Personalization Specialist ([facility]) Electronically si... 02 Demetrice Solomon [...] <-Panic Low,>-Panic High,A-Abnormal,AA-Critical Abnormal Performed at: [address] [place] [address] Demetrice Solomon MD, Performed at: =G - [facility] [address] [id number] [employer] Lead: Demetrice Solomon MD, Phone: [phone] Performed at: - [facility] [id number] [employer] Lead: Demetrice Solomon MD, Phone: [phone] [facility] CLINISYNCNOSaint [facility] ACOG PANEL 2: 30 to 65on 11-23-2021..NormalThe [facility] Clinic Avon HospitalComment on above:Performed By: #### [id number] #### [facility] [address] [place] [address] Dr. Swapnil Holder Gdln ACOG TestingCommentMercy Health on above:Result Comment: <21 or >65 or no age providedPerformed By: #### [id number] #### [facility] [address] [place] [address] Dr. Swapnil BushDIAGNOSIS:CommentMercy Health on above: Result Comment: NEGATIVE FOR INTRAEPITHELIAL LESION OR MALIGNANCY. THIS SPECIMEN WAS RESCREENED PART OF OUR WELDER TECH PROGRAM.Performed By: #### [id number] #### [place] [address] Dr[address] Swapnil BushMethodology:CommentMercy Health on above: Result Comment: This liquid based ThinPrep(R) pap test was screened with the use of an image guided system.Performed By: #### [id number] #### [place] [address] Dr[address] Swapnil BushNote:CommentMercy Health on above:Result Comment: The Pap smear is a screening test designed to aid in the detection of premalignant and malignant conditions of the uterine cervix. It is not a diagnostic procedure and should not be used as the sole means of detecting cervical cancer. Both false-positive and false-negative reports do occur. .Performed By: #### [id number] #### [facility] [address] [place] [address] Dr. Swapnil BushPerformed by:[facility] on above: Result Comment: Ashley Juarez, Personalization Specialist (ASCP)Performed By: #### [id number] #### [place] [address] Dr. Swapnil BushQC reviewed by:[facility] on above:Result Comment: Justyna Dow, Supervisory Personalization Specialist (ASCP) Performed By: #### [id number] #### [facility] [address] [place], [place] [address] Dr. Swapnil BushSpecimedamaris adequacy:CommentMercy Health Fairfield HospitalComment on above:Result Comment: Satisfactory for evaluation. Endocervical and/or squamous metaplastic cells (endocervical component) are present.Performed By: #### [id number] #### [facility] [address] [place], [place] [address] Dr. Swapnil BushMG MAMM SCREEN 3D MARK CADon 54-67-2621TA MAMM SCREEN 3D MARK CAD Patient: GIGI KOCH Exam Date: 11/22/2021 : 1950 Gender:F Ordering : DR RIO NGUYEN . Admission #: [id number] Family : Order #: [id number] CLICK HERE TO VIEW EXAM RADIOLOGY REPORT [...] uterine cancer at age 81. LOCATION: [facility] BREAST COMPOSITION: Heterogeneously dense,which may obscure [...] LUMP SHOULD BE BIOPSIED. Dictated by: Antonio eDlgado M.D. on 11/23/2021 at 14:17 Approved by: Antonio Delgado M.D. on 11/23/2021 at 14:26NoGalion HospitalXR DEXA BONE DENSITYon 86-06-9535SC DEXA BONE DENSITYEXAMINATION: XR DEXA BONE DENSITY, [...] Low Fracture Risk Electronically authenticated by: ANTONIO DELGADO Date: 2021-11-22 16:44NoGalion HospitalCovid-19 PCR (CVDTB)on 28-32-8463WCSS-CoV-2 (COVID-19) RNA RANDA+probe Ql (Unsp spec)Not detectedNormalNOT DETECTEDThe [facility] Comment on above:Result Comment: This test is not yet approved or cleared by the [place] FDA. When there are no FDA-approved or cleared tests available, and other criteria are met, FDA can make tests available under an emergency access mechanism called an Emergency Use Authorization (EUA). The EUA for this test is supported by the [employer] of Health and Human Service's (HHS's) declaration [...] and symptoms consistent with SARS-CoV-2.Performed By: #### CVDTBH #### [facility] [address] [place] [address] Swapnil BushCovid-19 PCR ([facility])on 38-54-5420EDGS-CoV-2 (COVID-19) RNA RANDA+probe Ql (Unsp spec)Not detectedNormalNOT DETECTEDThe [facility] Comment on above:Result Comment: This test is not yet approved or cleared by the [place] FDA. When there are no FDA-approved or cleared tests available, and other criteria are met, FDA can make tests available under an emergency access mechanism called an Emergency Use Authorization (EUA). The EUA for this test is supported by the [employer] of Health and Human Service's (HHS's) declaration [...] and symptoms consistent with SARS-CoV-2.Performed By: #### [facility]MON[facility] #### [facility] [address] [place], [place] [id number] Dr. Swapnil Bush Vital Signs Date TimeVital SignValuePerforming UrfttblqpFrrucmcc28-59-1236 15:08-0400Body fgfjda036.6 cmEdda Samson MD Work Phone: [facility]10-13-2025 15:08-0400Body mass index (BMI) [Ratio]33.89 kg/g2HxlcccxEdda Samson MD Work Phone: [facility] [employer] Vrlzkb81-21-2825 15:08-0400Body .25 kgEdda Samson MD Work Phone: [facility]10-13-2025 15:08-0400Diastolic blood iqcqxvkb06 mm[Hg]Edda Samson MD Work Phone: [facility]10-13-2025 15:08-0400Heart rate 92 /minEdda Samson MD Work Phone: [facility]10-13-2025 15:08-0400Systolic blood mm[Hg]Edda Samson MD Work Phone: [facility]10-10-2025 12:27-0400Body wdlapl573.6 cmKim Hobson Jr., MD Work Phone: [facility]10-10-2025 12:27-0400Body mass index (BMI) [Ratio]33.89 kg/y9VoyvqvKim Hobson Jr., MD Work Phone: [facility]10-10-2025 12:27-0400Body ysfnmm26.25 kgKim Hobson Jr., MD Work Phone: [facility]10-10-2025 12:27-0400Diastolic blood mm[Hg]Kim Hobson Jr., MD Work Phone: [facility]10-10-2025 12:27-0400Heart rate 80 /minKim Hobson Jr., MD Work Phone: [facility]10-10-2025 12:27-0400Systolic blood kdphnzgi211 mm[Hg]Kim Hobson Jr., MD Work Phone: [facility]09-26-2025 09:54-0400Body vzddyt943.6 cmKim Hobson Jr., MD Work Phone: [facility]09-26-2025 09:54-0400Body mass index (BMI) [Ratio]33.89 kg/b9IxfsydKim Hobson Jr., MD Work Phone: [facility]09-26-2025 09:54-0400Body ppkfxu82.25 kgKim Hobson Jr., MD Work Phone: [facility]09-26-2025 09:54-0400Diastolic blood wnupllsz05 mm[Hg]Kim Hobson Jr., MD Work Phone: [facility]09-26-2025 09:54-0400Heart rate 89 /minKim Hobson Jr., MD Work Phone: [facility]09-26-2025 09:54-0400Systolic blood avhponts249 mm[Hg]Kim Hobson Jr., MD Work Phone: [facility]02-18-2025 14:01-0500Body mass index (BMI) [Ratio]37.5 kg/p2Wjhsealexandrea Zepeda DO Work Phone: [facility] HospitalAtklersrcq45-25-3457 14:01-0500Body lricqd726.59 kgCorealexandrea Zepeda [employer] Work Phone: [facility] HospitalBtxmbiyrqo93-04-7717 14:01-0500Diastolic blood pvovzgwj16 mm[Hg]Dylan Perezo Work Phone: [facility] HospitalVkcvlgmuqh62-93-9649 14:01-0500Systolic blood mofiljfk820 mm[Hg]Dylan Perezo Work Phone: [facility] HospitalMuqjvpucce86-09-9081 14:02-0500Blood Pressure LocationMichael NILL [phone]-SxkjuKettering Health Hamilton11-12-2024 14:02-0500Diastolic blood smciqekw07 mm[Hg]Edda NILL [phone]-PpebtKettering Health Hamilton11-12-2024 14:02-0500Heart rate72 /minMichael NILL 038-0400Zbktcj-RfvntKettering Health Hamilton11-12-2024 14:02-0500Respiratory rate16 /minMichael NILL [phone]-LsqpxKettering Health Hamilton11-12-2024 14:02-0500Systolic blood kprwrexn688 mm[Hg]Edda NILL [phone]-NykndMemorial Health System [facility] [place] Encounters Encounter DateEncounter TypeCare ProviderFacilityStart: 02-17-2025 End: 17-42-7031Rlhelezhx encounterShaphill ManMedica Physicians Genito- Urinary SurgeonsStart: 02-03-2025 End: 38-26-1299Mehxnm outpatient visit 25 minutesEdda Samson MD Work Phone: [facility] Physicians Genito-Urinary SurgeonsComment on above:Right renal mass (Primary Dx); Bilateral kidney stonesStart: 02-03-2025 End: 66-78-2026qcizxsbfvkWHROAPN G RASHKettering Health Springfield Ambulatory PPGStart: 02-03-2025 End: 48-44-8005Ythahuohw encounterMicsaranya Samson MD Work Phone: [facility] Physicians Genito-Urinary SurgeonsStart: 01-31-2025 End: 77-83-9080Ksxtnw outpatient visit 25 minutesKim Hobson MD Work Phone: [facility] Physicians Genito-Urinary SurgeonsComment on above:Urologic disorders (Primary Dx); Right renal mass; Bilateral kidney stonesStart: 01-31-2025 End: 80-97-2472cvqiyocfnvYHWYET [facility] Ambulatory PPG Start: 01-30-2025 End: 88-15-0153qfjdfbatezTBCPHS [facility] Start: 01-21-2025 End: 21-12-4496Tysbgutlq encounterKim Hobson MD Work Phone: [facility] Physicians Genito-Urinary SurgeonsStart: 48-31-0209jxhnuhwpjtFYWDIG [facility] Ambulatory PPGStart: 01-17-2025 End: 61-55-3796Reefaazim encounterMagalys Sims [facility] Genito- Urinary SurgeonsStart: 01-17-2025 End: 85-91-8005Scmwaw outpatient new 45 minutesKim Hobson MD Work Phone: [facility] Physicians Genito-Urinary SurgeonsComment on above:Urologic disorders (Primary Dx); Bilateral nephrolithiasisStart: 01-17-2025 End: 26-57-2254luuxdmzdvtQWUUQL K EMMERT [facility] Ambulatory PPG Start: 01-08-2025 End: 19-53-9114idijyiftfhQugpbbk R NILLFacility: [place]vueStart: 01-08-2025 End: 27-58-3848Lfkduwp encounter procedureMichael R NILL [phone]-FrbcuBethesda North Hospital General Surgery [place] Start: 12-25-2024 End: 03-43-0113novoiulbupBarmwrt R NILLFacility: BellevueStart: 12-25-2024 End: 58-88-2886Ziqxvcr encounter procedureMichael R NILL [phone]-HveqhBethesda North Hospital General Surgery [place] Start: 12-17-2024 End: 95-46-9629Tazxvr flowsheetCorey Katelyn DO Work Phone: [facility] [place] OBGYNStart: 12-17-2024 End: 76-43-0753Fakrwv flowsheetCorey Katelyn DO Work Phone: [facility] [place] OBGYNStart: 12-17-2024 End: 77-61-6530Kvxupwnvj Result EncounterCorey Katelyn DO Work Phone: [facility] External Department UnsolicitedStart: 12-17-2024 End: 84-92-2869Jdjcrox encounter procedureCorey Katelyn DO Work Phone: [facility] [place] OBGYNComment on above:Well woman exam with routine gynecological exam; Breast cancer screening by mammogram; Postmenopausal stateStart: 12-17-2024 End: 09-79-3740yrohyjscxhWXOAM FAZIONot AvailableStart: 06-20-2024 End: 07-18-6154Dkcttlsbo Result EncounterCorey Katelyn DO Work Phone: [facility] External Department UnsolicitedStart: 06-20-2024 End: 42-44-4614Itkgtndgt Result EncounterCorey Katelyn DO Work Phone: [facility] External Department UnsolicitedStart: 06-11-2024 End: 21-36-7411Bdrqjq flowsheetCorey Katelyn DO Work Phone: [facility] BCP OBStart: 06-11-2024 End: 35-06-3878Rdxehd flowsheetCorey Katelyn DO Work Phone: [facility] BCP OBStart: 06-11-2024 End: 05-14-2670Rtuvjmzez Result EncounterCorey Katelyn DO Work Phone: [facility] External Department UnsolicitedStart: 06-11-2024 End: 15-44-2657Uiwpgl outpatient visit 15 minutesCorey Katelyn DO Work Phone: [facility] BCP OBComment on above:Atypical squamous cells of undetermined significance (ASCUS) on Papanicolaou smear of cervix; Recurrent UTI; Screening for osteoporosis; Encounter for screening mammogram for malignant neoplasm of breast; Age-related osteoporosis without current pathological fracture ([facility])Start: 06-11-2024 End: 15-09-9855clnzikomriYSTFC FAZIONot AvailableStart: 05-29-2024 End: 20-13-2202exctewfieaNLN [facility] Hospitaltart: 04-03-2024 End: 40-07-2945zrhfrkdllwRqhkkyg R NillFacility:[facility] Centertart: 04-03-2024 End: 73-76-2194wiauajevckAbvtalh R NILLFacility::[id number]: 03-05-2024 End: 67-38-2626vvnpqmyhhlEzjybcg R NILLFacility:[facility] Memorialtart: 03-05-2024 End: 37-63-7413Kczkpbf encounter procedureMichael R NILL [phone]-Ibmex General Surgery [place] Start: 12-06-2023 End: 74-93-4106Ccpuxflos Result EncounterCorey Katelyn DO Work Phone: [facility] External Department UnsolicitedStart: 12-06-2023 End: 97-86-2907Nvyvipgnn Result EncounterCorey Katelyn DO Work Phone: [facility] External Department UnsolicitedStart: 11-22-2021 End: 41-41-6578hukklbiaofRA CHAGO GARRISONONEFacility:O2Impjk: 11-17-2021 End: 50-64-5522xmpugzcjzzGI CHAGO GARRISONONEFacility:G9Dlktv: 04-27-2021 End: 24-15-0066drdsfpjfljKF CHAGO GARRISONONEFacility:J8Nzgoa: 31-99-7977Nxvfgjerc for preprocedural laboratory examination [facility] Start: 03-10-2021 End: 96-31-8013hzwdnbjdqgLX [facility]PITALFacility:S5Snrpy: 03-06-2021 End: 78-16-7744wxqzbjyaylBN CHAGO SEAYFacility:D5Suipb: 03-06-2021 End: 82-37-1860Gaxeawbqb for preprocedural laboratory examination CHAGO SEAYFacility:P8Dpest: 03-02-2021 End: 88-65-6580imybkzhhxxOPPYAA ELI ROSSFacility:H1 Procedures DateProcedureProcedure DetailPerforming ClinicianStart: 93-27-8667Qjenld-up visitFollow-upKIM HOBSON JRStart: 89-01-7252NXJ,APTIMA HPV,AGE GDLNCorey Katelyn DO Work Phone: Start: 37-66-0611YN TOMOSYNTHESIS SCREENING BICorey Katelyn DO Work Phone: Start: 74-54-5488HBZ,APTIMA HPV,AGE GDLNCorey Katelyn DO Work Phone: Start: 20-65-1434KsrfbvpnjheCrtlz Katelyn DO Work Phone: Start: 89-22-6732IxrnhrhbqwoCqdvxqr NILL Start: 99-87-4939CnhrpupbqizPgbcoxd NILL Start: 55-55-5015KCL,APTIMA HPV,AGE GDLNCorey Katelyn DO Work Phone: Start: 64-99-2701VjkriwzkhtkTeungqh NILL Start: 57-65-5915Pqykpuah and curettageMichael NILL Start: 95-14-3566RlcamnsqhderThobawz NILL Start: 22-05-5314Dmwmzp localization using ultrasound guidance and mammographyMichael NILL Comment on above:left breastStart: 06-10-2010 LithotripsyMichael NILL Start: 33-01-1532NuvsvxdqxwuZskbbde NILL Start: 13-39-8472ZsfulturwikeopkjxwaszhhaweXrnxhyo NILL Start: 64-03-6457Rjvfgzergxe of kneeMichael NILL Comment on above:leftCholecystectomyMichael NILL Left ear structure (body structure)Edda NILL Tooth extractionMichael NILL Plan of Treatment DateCare ActivityDetailAuthorStart: 47-13-5086Madblarfi for malignant neoplasm of colonNOMS HealthcareStart: 78-41-1501Lciuibh ScreeningTobacco Screening [facility] SystemStart: 41-12-2557Jilnbap ScreeningTobacco Screening [facility] SystemStart: 92-69-0018Brjvdvo ScreeningTobacco Screening [facility] SystemStart: 03-12-2025 End: 02-43-9384Jnfqsnvadbbo consultation with dlhmjpq6203/12/2025 9:15 AM EST Telemedicine [facility] [address] [place] [address] [place] [address] Edda Samson MD [address] [place] [address] [phone] [facility] SurgeonsStart: 03-11-2025 End: 01-50-1892Modedoq encounter qzdppajed19/18/2025 12:45 PM EST Appointment [facility] - [address] [phone] Edda Samson MD [address] [place] [address] [facility] Hospitaltart: 02-03-2025 End: 46-98-1815Krthnud encounter qthodsyss86/13/2025 3:30 PM EDT Office Visit [facility] [address] [place] [phone] Edda Samson MD [address] [place] [phone] [facility] SurgeonsStart: 02-03-2025 End: 73-08-2908BL Abdomen WO and W contrast IVMR abdomen with and without contrast Imaging Routine Right renal mass Expected: 02/03/2025, Expires: 02/03/2026[facility] Work Phone: Comment on above:Expected: 02/03/2025, Expires: 02/03/2026Start: 02-03-2025 End: 31-35-2323XW Chest PA and LateralX-ray chest 2 views Imaging Routine Right renal mass Expected: 02/03/2025, Expires: 02/03/2026[facility]Ber[facility]Am[facility] Comment on above:Expected: 02/03/2025, Expires: 02/03/2026Start: 01-30-2025 End: 27-51-2037Dstkhts encounter jfijbrebi88/09/2025 2:00 PM EDT Appointment [facility] - [place] [address] [place] [phone] Kim Hobson Jr., MD [address] [place] [address] [phone] [facility] SYSTEMtart: 01-17-2025 End: 65-14-7920Bcfzkpvsjo includes GFR, serumCreatinine includes GFR, serum Lab Routine Bilateral nephrolithiasis Expected: 01/17/2025 (Approximate), Expires: 01/17/2026[facility] CenterComment on above:Expected: 01/17/2025 (Approximate), Expires: 01/17/2026Start: 01-17-2025 End: 03-31-4238QM Kidney and Ureter and Urinary bladder 3D post processing WO and W contrast IVCT urogram Imaging Routine Bilateral nephrolithiasis Expected: 01/17/2025, Expires: 01/17/2026[facility] CenterComment on above:Expected: 01/17/2025, Expires: 01/17/2026Start: 01-17-2025 End: 50-41-3847QU Abdomen APX-ray abdomen ap 1 view Imaging Routine Bilateral nephrolithiasis Expected: 01/17/2025, Expires: 01/17/2026[facility] Comment on above:Expected: 01/17/2025, Expires: 01/17/2026Start: 01-17-2025 End: 85-81-4196Pphefoj encounter hvzblmqfo38/26/2025 10:00 AM EDT Office Visit [facility] [address] [place] [phone] Kim Hobson Jr., MD [address] [place] [phone] [facility]inary SurgeonsStart: 20-89-9150LCPRJ-19 Vaccine ( season)COVID-19 Vaccine ( season)[facility] SystemStart: 94-01-1876Hdurdlhxi vaccinationChristian HospitalStart: 12-17-2024 End: 27-10-1571Mpsduld encounter zbrclgcom73/26/2025 11:20 AM EDT Procedure Visit [facility] [address] [place], [id number] Dylan Zepeda, DO [address] [place], [place] [id number] [facility] OBGYNComment on above:ArrivedStart: 06-11-2024 End: 07-00-3023MGY Skeletal system Views for bone densityDEXA bone density Imaging Routine Screening for osteoporosis Age-related osteoporosis without current pathological fracture ([facility]) Expected: 06/11/2024 (Approximate), Expires: 06/11/2025[facility] Work Phone: comment on above:Expected: 06/11/2024 (Approximate), Expires: 06/11/2025Start: 06-11-2024 End: 45-68-9175LZ Breast - bilateral ScreeningBilateral screening mammogram Imaging Routine Encounter for screening mammogram for malignant neoplasm of breast Expected: 06/11/2024 (Approximate), Expires: 08/09/2025[facility] Comment on above:Expected: 06/11/2024 (Approximate), Expires: 08/09/2025Start: 06-11-2024 End: 72-89-1502Wxxtssc encounter uxdhyjyvv79/18/2025 2:00 PM EST Procedure Visit [facility] [address] [facility] [place] [phone] Dylan Zepeda, DO [address] [place] [address] [facility] OBComment on above:ArrivedStart: 30-72-0213Plxhaghlg for malignant neoplasm of colonNOMS HealthcareStart: 37-23-3886Rzyutsbtq vaccinationInfluenza Vaccine (#1)[facility] HealthcareStart: 63-87-1017Vdpq Risk ScreeningFall Risk ScreeningFormerly [facility] Countytart: 18-45-8989Vgcterhonkqw Vaccine: 65+ Years (1 of 1 - PCV)Pneumococcal Vaccine: 65+ Years (1 of 1 - PCV)[facility] HealthcareStart: 45-53-4105Xopciskrmmlohs of varicella zoster vaccineZoster (Shingles) Vaccine (1 of 2)[facility] SystemStart: 39-93-0375Mqbnzdreibcs Vaccine: 65+ Years (1 of 1 - PCV) Pneumococcal Vaccine: 65+ Years (1 of 1 - PCV)[facility] HealthcareStart: 11-11-1967 DTaP,Tdap and Td Vaccines (1 - Tdap)DTaP,Tdap and Td Vaccines (1 - Tdap) [facility] Countytart: 32-57-2027Krqsyfbmeq ScreeningDepression Screening [facility] Countytart: 08-95-5158Lcaqagr ScreeningTobacco Screening [facility] Countytart: 07-20-1949Medicare Annual Wellness (AWV)Medicare Annual Wellness (AWV)[facility] HealthcareStart: 18-41-2833Xzwefylql for malignant neoplasm of colonNOMS HealthcareBacteria identified in Urine by CultureUrine culture Microbiology Routine Bilateral nephrolithiasis Ordered: 01/17/2025 [facility] Work Phone: Comment on above:Ordered: 01/17/2025Microscopic, urine Microscopic, urine Lab Routine Bilateral nephrolithiasis Ordered: 01/17/2025 [facility] CenterComment on above:Ordered: 01/17/2025THIN PREP TIS PAP AND HR HPV DNATHIN PREP TIS PAP AND HR HPV DNA Pathology and Cytology Routine Atypical squamous cells of undetermined significance (ASCUS) on Papanicolaou smear of cervix Ordered: 06/11/2024[facility] HealthcareComment on above:Ordered: 06/11/2024THIN PREP TIS PAP AND HR HPV DNATHIN PREP TIS PAP AND HR HPV DNA Pathology and Cytology Routine Well woman exam with routine gynecological exam Ordered: 12/17/2024[facility] Work Phone: comment on above:Ordered: 12/17/2024 Immunizations Immunization DateImmunizationNotesCare QtagzpbdNndxxcyr78-23-2216SVZA-VmF-0 (COVID-19) mRNA-1273 vaccineMichael NILL [phone]-YsasySelect Medical [facility] [place] 87-87-9705PFLR-CoV-2 (COVID-19) mRNA BNT-162b2 vaxMichael NILL [phone]-ZzpfwSelect Medical [facility] [place] 31-90-9986KTUZ-CoV-2 (COVID-19) mRNA BNT-162b2 vaxMichael NILL [phone]-XkrgxK[facility]03-08-2021 SARS-CoV-2 (COVID-19) mRNA BNT-162b2 vaxMichael NILL [phone]-XmqkaKettering Health Hamilton Payers DatePayer CategoryPayerPolicy ID2025Medicaid [id number] [id number] 2025 Medicare [id number] 2024Medicare [id number] [id number] Medicare (Managed Care)[facility] MEDICARE ADVANTAGE [id number] [id number] [id number] 1960Self-[id number] 2.16840.1.118451.3.57[id number] 2.16840.1.213591.3.57[id number] 2.840.1.872233.3.57[id number] 2.840.1.043390.3.57[id number] 2.840.1.950563.3.57[id number] 2.840.1.096481.3.57[id number] 2.840.1.356250.3.57[id number] 2.840.1.913641.3.57[id number] 2.16840.1.313339.3.57[id number] 2.16840.1.392360.3.579.[id number] 2.16840.1.871164.3.57[id number] 2.16840.1.582151.3.579.[id number] 2.16.840.1.649027.3.57[id number] 2.16.840.1.938891.3.579.[id number] 2.16.840.1.713467.3.57[id number] 2.16.840.1.684481.3.57[id number] 2.16.840.1.175765.3.579.[id number] 2.16.840.1.2659[id number] 2.840.1.309651.3.579.2.593 [id number] 2.840.1.825360.3.579.2.531 Social History DateTypeDetailFacilityStart: 03-05-2024 End: 28-88-7781Pzwbuwb smoking statusNever smoked tobacco (finding)[facility] HamiltonTobacco smoking statusNeverBlanchard Valley Health System [facility] Valley Hospitaltart: 09-21-2023 End: 48-79-3551His Assigned At BirthFemalWayne Hospitaltart: 07-27-2023 End: 37-48-6621Rcqopmb use and exposureSmokeless tobacco non-userNOMS Healthcare Start: 12-06-2023 End: 15-08-9001Kiixqhfpk beverage intakeDeferNOMS HealthcareStart: 09-21-2023 End: 28-84-1811Ytscwsv of Social functionNOMS HealthcareStart: 47-69-2071Cat assigned at birthNot on fileNOMS HealthcareSexual OrientationWvumedicine Harrison Community Hospital Start: 09-12-5387MtuQpmxel (finding)[facility] SystemTobatulsa center [facility] [place] smoking status NHISTobacco smoking consumption unknown Formerly [facility] Countytart: 01-17-2025 End: 13-09-4641Htsydtzcz beverage intakeEx-drinker (finding)[facility] CenterNEGATED: Highlighted rowStart: NINFHistory of tobacco usePassive smoker [facility] Functional Status GhicAccbkkzbjgBppolyEkhoqzqd17-54-8919Xccyihzhjr StatusN/AFisher-[facility] [place] Clinical Notes 03-10-2021 to 02-17-2025 Note Date & JbfoAxbpPtnxngnm37-12-5332 Miscellaneous Notes* Telephone Encounter - Esteban Vega - 02/17/2025 1:52 PM EDT Pt needs telehealth rescheduled due to mri being done late -SN documented in this encounterLouis Stokes [facility] Center10-27-2025 Telephone encounter Note* Telephone Encounter - Esteban Vega - 02/17/2025 1:52 PM EDT Pt needs telehealth rescheduled due to mri being done late -SN [facility]10-13-2025 Miscellaneous Notes* Telephone Encounter - Teresa Villanueva - 02/03/2025 3:47 PM EDT MRI of the kidney. Return clinic off day type appointment. Chest xray as well Call to schedule f/u after mri. documented in this [facility]10-13-2025 Telephone encounter Note* Telephone Encounter - Teresa Villanueva - 02/03/2025 3:47 PM EDT MRI of the kidney. Return clinic off day type appointment. Chest xray as well Call to schedule f/u after mri. [facility] HouseLens Widkkp60-77-7964 Evaluation + Plan note* Assessment & Plan Note - Edda Samson MD - 02/03/2025 3:43 PM EDTAssociated Problem(s): Right renal mass Complex medical decision making process all depending on what MRI demonstrates. Could potentially be partial nephrectomy verses total nephrectomy candidate. Versus percutaneous treatment of lesion with subsequent Retrograde ureteroscopy. Need to get the MRI 1st return clinic [facility]10-13-2025 Miscellaneous Notes* Assessment & Plan Note - Edda Samson MD - 02/03/2025 3:43 PM EDTAssociated Problem(s): Right renal mass Complex medical decision making process all depending on what MRI demonstrates. Could potentially be partial nephrectomy verses total nephrectomy candidate. Versus percutaneous treatment of lesion with subsequent Retrograde ureteroscopy. Need to get the MRI 1st return clinic documented in this encounterLouis Stokes Cleveland [facility] Medical Center10-13-2025 History of Present illness Narrative* Edda Samson MD - 02/03/2025 3:30 PM EDT Images from the original note were not included. [address] [place] [address] A [facility] [address] Patient: Gigi Koch Date of : 1950 [...] Colon, diverticulosis COPD (chronic obstructive pulmonary disease) (CMS-HCC) Diabetes mellitus (CMS-HCC) Hearing loss Hepatic cyst Hypertension Inflammatory bowel [...] you for your understanding. documented in this encounterLouis Stokes Cleveland [facility] Center10-10-2025 History of Present illness Narrative* Kim Hobson Jr., MD - 01/31/2025 12:00 PM EDT Images from the original note were not included. [address] [place] [address] [address] [facility] [address] Patient: Gigi Koch Date of : 1950 [...] Colon, diverticulosis COPD (chronic obstructive pulmonary disease) (CMS-HCC) Diabetes mellitus (CMS-HCC) Hearing loss Hepatic cyst Hypertension Inflammatory bowel [...] 1. Diabetic with Urolithiasis; CT 01/15/2025 the [facility] with IV contrast bilateral renalstones largest [...] you for your understanding. documented in this encounterLouis Stokes Cleveland [facility] Medical Center09-30-2025 Miscellaneous Notes* Telephone Encounter - Teresa Villanueva - 01/21/2025 4:54 PM EDT Patient is scheduled for her ct urogram on 01-30-2025. Can I schedule patient at 12:15 pm in [facility] go over results? You do not have any surgeries scheduled for this day on 01-31-2025 in [place]. Pt advised she cannot go to the [place] office. Please advise. documented in this encounterLouis Stokes Cleveland VA Medical Center09-30-2025 Telephone encounter Note* Telephone Encounter - Teresa Villanueva - 01/21/2025 4:54 PM EDT Patient is scheduled for her ct urogram on 01-30-2025. Can I schedule patient at 12:15 pm in [facility] go over results? You do not have any surgeries scheduled for this day on 01-31-2025 in [place]. Pt advised she cannot go to the [place] office. Please advise. [facility]09-26-2025 History of Present illness Narrative* Kim Hobson Jr., MD - 01/17/2025 10:00 AM EDT Images from the original note were not included. [address] [place] [address] [facility] [address] Patient: Gigi Koch Date of : 1950 [...] Back pain COPD (chronic obstructive pulmonary disease) ([facility]) Hearing loss Hypertension Inflammatory bowel disease Obesity [...] nephrolithiasis - [facility] [place], [place] - Urine culture - Microscopic, urine - [...] 1. Diabetic with Urolithiasis; CT 01/15/2025 the [facility] with IV contrast bilateral renalstones largest [...] you for your understanding. documented in this encounterLouis Stokes Cleveland [facility] Medical Center09-26-2025 Miscellaneous Notes* Telephone Encounter - Magalys Pereira LPN - 01/17/2025 8:53 AM EDT Contacted the [facility]. Pt. Was not in the ED, she was sent for outpatient testing from her PCP, Dr. Chago Seay. This nurse was transferred to the radiology dept to request imaging be pushed to the PACS system. Sierra in Radiology did state she would do that at this time. documented in this encounterLouis Stokes Cleveland [facility] Medical Center09-26-2025 Telephone encounter Note* Telephone Encounter - Magalys Pereira LPN - 01/17/2025 8:53 AM EDT Contacted the [facility]. Pt. Was not in the ED, she was sent for outpatient testing from her PCP, Dr. Chago Seay. This nurse was transferred to the radiology dept to request imaging be pushed to the PACS system. Sierra in Radiology did state she would do that at this time. [facility]09-17-2025 NoteGeneral Surgery Office/Clinic Note Chief Complaint consultation for colonoscopy HPI Staff 74 year old female presents on consultation for surveillance colonoscopy. Patient with history of tubulovillous adenoma of ascending colonoscopy in 2020. Recurrent adenoma noted on colonoscopy completed 03/2024. Colonoscopy with endoscopic mucosal resection with Dr. Puckettleted 05/29/24, recommended follow up colonoscopy completed in 6 months. History of Present Illness 74 yo female with h/o htn, DMII, PVD, hiatal hernia with GERD, nephrolithiasis, referred for surveillance colonoscopy; patient had 3 large tubular adenomas removed at [facility] with endoscopic mucosal resection 05/2024, [...] of colon Historical No (more content not included)...[facility] HospitalComment on above: Result Comment: Electronically Signed By: Edda LLANOS MD\Date and Time Signed: 01/08/25 14:51 [id number] Evaluation + Plan note Diagnostic Tests Pending * Creatinine 01/08/25 [facility] General Surgery [facility] 08-26-2025 History of Present illness Narrative* Emely Ball, SINGLE CORNER CUTTER - 12/17/2024 11:20 AM EDT Reason for Appointment: Patient ID: Gigi Koch is a 74 y.o. female who presents for Well Women Visit Patient presents today for Annual Exam. MEDICATIONS Current Outpatient Medications Medication Instructions acarbose (Precose) 100 MG tablet aspirin 81 mg, Daily biotin 48447 MCG tablet Take by mouth candesartan (Atacand) [...] nursing note reviewed. Exam conducted with a webmaster present. Vitals: Estimated body mass index is [...] them. Patient can also view results via [employer]. I reinforced importance of condom use for [...] of: Dylan Zepeda DO documented in this encounterChristian HospitalOxlaghhpoy03-47-9079 History of Present illness Narrative* Emely Ball LPN - 06/11/2024 2:00 PM EST Reason for Appointment: Patient ID: Gigi Koch is a 73 y.o. female who presents for Abnormal Pap Smear Patient presents today for Repeat Pap. MEDICATIONS Current Outpatient Medications Medication Instructions acarbose (Precose) 100 MG tablet aspirin 81 mg, Daily biotin 31748 MCG tablet Take by mouth candesartan (Atacand) [...] nursing note reviewed. Exam conducted with a webmaster present. Vitals: Estimated body mass index is 37.5 kg/m as calculated from the following: Height as of 24: 5' 7 . Weight as of this [...] 5. Age-related osteoporosis without current pathological fracture ([facility]) M81.0 DEXA bone density Repeat Pap: Patient [...] of: Dylan Zepeda DO documented in this encounterChristian HospitalWvzxsmxdit44-72-6024 NoteColonoscopy and EMR procedure note from 05/29/24 and pathology faxed to referring office of Dr. Durham at [phone]02-05-20[facility] NotePatient: Gigi Maguireola Procedure Summary Date: 05/29/24 Room / Location: [facility] Endoscopy Anesthesia Start: 105 Anesthesia Stop: 1306 Procedure: DIAGNOSTIC COLONOSCOPY Diagnosis: [...] PACU per anesthesia protocol. No notable events documented.[facility]02-[facility]-20[facility] Note Patient: Gigi Koch Procedure Summary Date: 05/29/24 Room / Location: [facility] Endoscopy Anesthesia Start: 105 Anesthesia Stop: Procedure: DIAGNOSTIC COLONOSCOPY Diagnosis: Tubular adenoma of colon Scheduled Providers: Bharat Sanz MD; Bunny Marion MD; SUN Maki Responsible Provider: Bunny Marion MD Anesthesia Type: general ASA Status: 3 Anesthesia Post Transport [facility]: room air Patient Monitor: direct observation Transport: uneventful Patient condition is: stableUnPremier Health02-05-2025 Note Airway Date/Time: 05/29/2024 11:01 AM Urgency: elective General Information and Staff Patient location during procedure: OR Anesthesiologist: Bunny Marion MD Resident/SUPERVISOR URANIUM PROCESSING/SUN: SUN Maki Performed: resident/SUPERVISOR URANIUM PROCESSING/CAA Indications and Patient Condition Indications for airway [...] approach: 1 Number of other approaches attempted: 0[facility] 05-29-2024 NotePatient: Gigi Koch Procedure Information Date/Time: 05/29/24 1115 Scheduled providers: Bharat Sanz MD; Bunny Marion MD; SUN Maki Procedure: DIAGNOSTIC COLONOSCOPY Location: [facility] Endoscopy Relevant Problems Anesthesia (within normal limits) [...] patient. Plan discussed with CAA. Additional Equipment RequestsUnPremier Health11-12-2024 Note General Surgery Office/Clinic Note Chief Complaint [...] tab(s), Oral, Daily M (more content not included)...[facility] HospitalComment on above: Result Comment: Electronically Signed By: Edda LLANOS MD.br\Date and Time Signed: 03/05/24 15:57 [id number] NoteThe [place], [place] NAME: GIGI KOCH DATE OF : MEDICAL REC#: [id number] HEAT TREATER APPRENTICE: [id number] ADMIT DATE: 03/10/2021 07:41:00 VIDEO JOURNALIST DATE: 03/10/2021 10:00 DICTATING PHYSICIAN: EDDA LLANOS DICTATION DATE: 03/10/2021 10:00 OPERATIVE NOTE OPERATION [...] results. Electronically Authenticated and Edited by: Edda Llanos MD on 03/10/2021 11:23 AM [facility] Signed and Approved by: DR EDDA LLANOS . 03/10/2021 11:23:00[facility] HospitalEvaluation + Plan note No data available for this section [facility] Evaluation + Plan note Future Appointments Appointment Date:01/08/2025 01:40:00 PM Scheduled Provider:Edda LLANOS MD Location:[facility] Appointment Type:[address] Evaluation note* Diagnosis Atypical squamous cells of undetermined significance (ASCUS) on Papanicolaou smear of cervix Recurrent UTI Urinary tract infection, site not specified Screening for osteoporosis Special screening for osteoporosis Encounter for screening mammogram for malignant neoplasm of breast Age-related osteoporosis without current pathological fracture (CMS/HCC) documented in this encounter [facility] HealthcareEvaluation note* Diagnosis Well woman exam with routine gynecological exam Routine gynecological examination Breast cancer screening by mammogram Postmenopausal state Asymptomatic postmenopausal status (age-related) (natural) documented in this encounter [facility] HealthcareEvaluation note* Diagnosis Urologic disorders- Primary Unspecified disorder of urethra and urinary tract Bilateral nephrolithiasis documented in this encounter [facility]* Diagnosis Urologic disorders- Primary Unspecified disorder of urethra and urinary tract Right renal mass Unspecified disorder of kidney and ureter Bilateral kidney stones documented in this encounter [facility]* Diagnosis Right renal mass- Primary Unspecified disorder of kidney and ureter Bilateral kidney stones documented in this encounter [facility] SystemHospital Discharge instructions No data available for this section [facility] InstructionsNot on filedocumented in this encounter [facility] SystemInstructionsNot on filedocumented in this encounter [facility] SystemInstructionsNot on filedocumented in this encounter [facility] SystemInstructionsNot on filedocumented in this encounter [facility] SystemInstructionsNot on filedocumented in this encounter [facility] SystemProgress note No data available for this section [facility] Summary Purpose Family History No Family History [...] and content) DATE CREATED AUTHOR 11/26/2021 [facility] DATE CREATED AUTHOR AUTHOR'S ORGANIZ ATION 04/06/2024 [facility] DATE CREATED AUTHOR AUTHOR'S ORGANIZ ATION 06/08/2024 [facility] DATE CREATED AUTHOR AUTHOR'S ORGANIZ ATION 12/19/2024 [facility] DATE CREATED AUTHOR AUTHOR'S ORGANIZ ATION 01/09/2025 [facility] DATE CREATED AUTHOR AUTHOR'S ORGANIZ ATION 02/01/2025 [facility] DATE CREATED AUTHOR AUTHOR'S ORGANIZ ATION 02/04/2025 [facility] Patient Care team informatio n (unrecognized section and content) Team MemberRelationshipSpecialtyStart DateEnd Date Unallocated, [place] [address] P[address] [facility]08/24/23Team MemberRelationshipSpecialtyStart DateEnd Date Unallocated, [place] [address] PCP - [facility] Medicine08/24/23Team MemberRelationshipSpecialtyStart DateEnd Date Unallocated, [place] [address] PCP - GeneralFamily Medicine08/24/23Team MemberRelationshipSpecialtyStart DateEnd Date Unallocated, Joellen Dave MD [address] [place] [address] PCP - GeneralFamily Medicine08/24/23Team MemberRelationshipSpecialtyStart DateEnd Date Unallocated, Joellen Dave MD [address] [place] [address] PCP - GeneralFamily Medicine08/24/23Team MemberRelationshipSpecialtyStart DateEnd Date Unallocated, Joellen Dave MD [address] [place] [address] PCP - Generalmily Medicine08/24/23Team MemberRelationshipSpecialtyStart DateEnd Date Unallocated, Joellen Dave MD [address] [place] [address] PCP - GeneralFamily Medicine08/24/23Team MemberRelationshipSpecialtyStart DateEnd Date Chago Seay Jr., DO [address] [place] [phone] PCP - GeneralInternal Medicine01/20/25Team MemberRelationshipSpecialtyStart Date End Date Chago Seay Jr., DO [address] [place] [address] PCP - GeneralInternal Medicine01/20/25Team MemberRelationshipSpecialtyStart Date End Date Chago Seay Jr., DO [address] [place] [address] PCP - GeneralInternal Medicine01/20/25Team MemberRelationshipSpecialtyStart Date End Date DawoodChago Jr.DO [address] [place] [address] PCP - GeneralInternal Medicine01/20/25 Reason for Visit (unrecogniz ed section and content) ReasonCommentsAbnormal Pap SmearReasonCommentsWell Women VisitReasonComments NephrolithiasisSpecialtyDiagnoses / ProceduresReferred By ContactReferred To ContactUrology Diagnoses Bilateral nephrolithiasis Chago Seay Jr. DO [facility] [place] [address] Phone: tel: fax: [facility] [address] [place] [address] Phone: tel: fax: Referral IDStatusReasonStart DateExpiration DateVisits RequestedVisits [id number] Review Specialty Services Required [id number]-teUoqeliFtxcpuqfWfqhpe-ng FOR RECORDS PERTAINING TO PATIENTS WHO ARE [...] BE BASED ON THE PRIMARY CLINICAL RECORDS. [employer] provides no warranty or guarantee of the accuracy or completeness of information in this document.
--- OUTSIDE RECORDS SUMMARY | 2025-02-19 21:11 | XMS_ITS | Clinical Summary ---
Author Organization [facility] Address [address] [place] [address] Care Team Providers Care Assistant Purchasing Manager Name Role Phone Chago Noriega MD Primary Care Provider [phone] Allergies Active AllergyReactionsCriticalityNoted DateCommentsCephalexinHives,Itching 07/27/2023VenlafaxineHives,Ozfsrzo5007/27/2023 Medications MedicationSigDispense QuantityRefillsLast FilledStart DateEnd DateStatus esomeprazole [...] alcohol)CommentsUnknownSex and Gender InformationValueDate RecordedSex Assigned at VfepzGjmpid34/05/2025 9:51 AM ESTLegal PelUduznp20/16/2024 8:23 AM ESTGender JgqdtlzlBwxaqw13/05/2025 9:51 AM ESTSexual OrientationHeterosexual or Knisrhhz78/05/2025 9:51 AM EST Last Filed Vital Signs Vital SignReadingTime TakenCommentsBlood Xfkbzaxk978/58005/29/2024 2:05 PM EST Lopiv603505/29/2024 2:05 PM TLYGjtqhujodmn03.2 ??C (97.2 ??F)05/29/2024 2:05 PM ESTRespiratory Xnty366505/29/2024 2:05 PM ESTOxygen Fpslcjznsb93%05/29/2024 2:05 PM ESTInhaled Oxygen Concentration--Gglcuk687 kg (236 lb 15.9 oz)05/29/2024 10:22 AM PIDFbkkga746.6 cm (5' 6 )05/29/2024 10:22 AM ESTBody Mass Index38.25 05/29/2024 10:22 AM EST Plan of Treatment Health MaintenanceDue DateLast DoneCommentsDiabetes: Hemoglobin A1C1950 Medicare Annual Wellness (AWV)1950Diabetes: Retinopathy Screening 1958Depression Eiyswhwnq52/20/1961Diabetes: Urine Protein Screening 11/11/1967Adult Orqzejz2211/10/1970Pneumococcal Vaccine: 50+ Years (1 of 1 - PCV) 1998Fall Risk Iuywyvqso41/20/2014COVID-19 Vaccine (2024- season) 508/06/2021, 03/02/2021, 07/21/2020, Additional history existsInfluenza Vaccine (#1)12/23/2024Zoster TnpvtuxwTgsgxywll82/01/2024, 4Colonoscopy Ovksjwemepal41/05/2025, 03/10/2021, 04/24/2001Colorectal Cancer Screening DiscontinuedCT ColonographyDiscontinuedFIT-DNADiscontinuedFITDiscontinuedFOBT DiscontinuedHIB [...] this topic SigmoidoscopyDiscontinued Procedures Procedure NamePriorityDate/TimeAssociated DiagnosisCommentsDIAGNOSTIC EIBOXYRWKYZHwhwjck40/05/2025 1:00 PM EST Tubular adenoma of colon [...] Team MemberRelationshipSpecialtyStart DateEnd Date Chago Noriega MD [facility] [place] [address] PCP - GeneralInternal Medicine05/29/24
--- NOTE | 2025-02-19 21:22 | CT_ITS ---
The [address] [address] Patient Name: GIGI KOCH MRN: [id number] date: 1950 Sex: F Assigned Patient Location: ED.MAIN Current Patient Location: ED.MAIN Accession/Order Number: [id number] Exam Date: 02/19/2025 21:30 Report Date: 02/19/2025 22:29 At the request of: PAXTON MG Procedure: CT abdomen pelvis wo con CT ABDOMEN AND PELVIS WITHOUT INTRAVENOUS CONTRAST: CLINICAL HISTORY: R Flank pain, known kidney stone COMPARISON: 01/15/2025 TECHNIQUE: Spiral images were obtained through the abdomen and pelvis without contrast. This CT exam was performed using one or more following dose reduction techniques: Automated exposure control, adjustment of the mA and/or kV according to patient size, or use of iterative reconstruction technique. FINDINGS: Lung Bases: [Calcified granuloma right middle lobe. Calcified granuloma right lower lobe 6 mm right lower lobe middle lobe nodule 5 mm in size. Mild hypoventilatory changes. Organs:Cholecystectomy with/physiologic biliary ectasia otherwise liver, spleen, adrenals and pancreas are unremarkable. Bilateral nephrolithiasis largest stone appears to extend into the right renal pelvis measuring approximately 1.6 cm cm in greatest dimension and appears to cause minimal right-sided hydronephrosis.. Similar appearance of possible air within the right collecting system.[Right lower pole renal cyst. Suspect focal scarring right interpolar region. GI: Stomach is grossly unremarkable. Small bowel appears nondilated. Appendix is normal. Distal colon diverticulosis.[ Pelvis:[Urinary bladder is grossly unremarkable. Uterus is atrophic.] No adnexal mass. Peritoneum/Retroperitoneum:No free air or free fluid or lymphadenopathy.[Oehv-nb-crxsmgem plaque involving the nonaneurysmal abdominal aorta. Abd wall/Bones:Abdominal wall demonstrates no acute findings. .[Mild levocurvature multilevel degenerative change. CT/CT abdomen pelvis wo con IMPRESSION: Bilateral nephrolithiasis largest stone involving the right kidney seen in the right renal pelvis measuring approximately 1.6 mm in greatest dimension and appears to extend into the pelvis and causing minimal right-sided hydronephrosis. Suspect persistent gas within the right collecting system and calyces, emphysematous pyelonephritis or Xanthogranulomatous pyelonephritis or other gas forming organisms could be considered. Impression dictated by: Shabbir Fritz M.D. 02/19/2025 10:29 PM Dictation Location: [place] [address] Electronically authenticated by: [id number] Y Date: 02/19/2025 22:29
--- NOTE | 2025-02-19 21:26 | ED.GENADUL1 ---
Documented by User: SAURAV Dietz 02/19/25 21:59 HPI HPI - General Adult General Chief complaint: Abdominal Pain Stated complaint: ABDOMINAL PAIN ON RIGHT SIDE Time Seen by Provider: 02/19/25 21:11 Source: patient Mode of arrival: walk-in Limitations: no limitations History of Present Illness HPI narrative: Patient is a 74-year-old female with a PMH of DM type II, GERD, HTN that presents to the emergency department with complaints of right intermittent flank pain that started earlier today. She also reports a lot of nausea and multiple episodes of vomiting, possibly 6 or more. She states she has a known right kidney stone that was discovered in December. She is following with a urologist and had a test scheduled for this Monday but was called and the machine is down so it got rescheduled to March 11. She denies any fever, night sweats, or chills. Related Data Home Medications ?Medication ?Instructions ?Recorded ?Confirmed acarbose 100 mg tablet (Precose) 100 mg PO TID 03/26/24 02/11/25 biotin 1 mg capsule 1 mg PO DAILY 03/26/24 02/11/25 candesartan 16 mg tablet 8 mg PO DAILY 03/26/24 02/11/25 cetirizine 10 mg tablet (24Hour 10 mg PO DAILY 03/26/24 02/11/25 Allergy) cyanocobalamin (vitamin B-12) 1,000 mcg PO DAILY 03/26/24 02/11/25 1,000 mcg tablet (Vitamin B-12) duloxetine 60 mg capsule,delayed 60 mg PO QPM 03/26/24 02/11/25 release esomeprazole magnesium 40 mg 40 mg PO Q24H 03/26/24 02/11/25 capsule,delayed release (Nexium) magnesium oxide 400 mg PO QPM 03/26/24 02/11/25 metformin 500 mg tablet 500 mg PO BID 03/26/24 02/11/25 mirabegron 50 mg tablet,extended 50 mg PO DAILY 03/26/24 02/11/25 release 24 hr (Myrbetriq) montelukast 10 mg tablet 10 mg PO QPM 03/26/24 02/11/25 (Singulair) multivitamin (Daily Multi-Vitamin 1 tab PO DAILY 03/26/24 02/11/25 tablet) pravastatin 20 mg tablet 20 mg PO QPM 03/26/24 02/11/25 aspirin 81 mg capsule 81 mg PO DAILY 02/11/25 02/11/25 estradiol 0.01% (0.1 mg/gram) 1 g vaginal .biweekly 02/11/25 02/11/25 vaginal cream Allergies Allergy/AdvReac Type Severity Reaction Status Date / Time cephalexin Allergy Severe Hives Verified 02/19/25 21:13 venlafaxine Allergy Mild Hives Verified 02/19/25 21:13 Opioid HPI Opioid Management Most Recent Opioid Data: Last Pain Scale 7 02/19/25, 21:36 Review of Systems ROS Status of ROS 10 or more systems reviewed and unremarkable except as noted in history and below [facility] Medical History (Updated 02/20/25 @ 00:56 by Rik Colon MD) Abdominal pain ?R10.9 - Unspecified abdominal pain (ICD-10) Normal hysteroscopy ?Z01.89 - Encounter for other specified special examinations (ICD-10) Osteoarthritis ?M19.90 - Unspecified osteoarthritis, unspecified site (ICD-10) Hearing loss ?H91.90 - Unspecified hearing loss, unspecified ear (ICD-10) Seasonal allergies ?J30.2 - Other seasonal allergic rhinitis (ICD-10) Constipation ?K59.00 - Constipation, unspecified (ICD-10) Difficult intubation ?T88.4XXA - Failed or difficult intubation, initial encounter (ICD-10) Tubulovillous adenoma of colon ?D12.6 - Benign neoplasm of colon, unspecified (ICD-10) Tubular adenoma of colon ?D12.6 - Benign neoplasm of colon, unspecified (ICD-10) PVD (peripheral vascular disease) ?I73.9 - Peripheral vascular disease, unspecified (ICD-10) Non-alcoholic fatty liver disease ?K76.0 - Fatty (change of) liver, not elsewhere classified (ICD-10) Nephrolithiasis ?N20.0 - Calculus of kidney (ICD-10) Metabolic syndrome ?E88.810 - Metabolic syndrome (ICD-10) DVT (deep venous thrombosis) ?I82.409 - Acute embolism and thrombosis of unspecified deep veins of unspecified lower extremity (ICD-10) HTN (hypertension) ?I10 - Essential (primary) hypertension (ICD-10) Hiatal hernia ?K44.9 - Diaphragmatic hernia without obstruction or gangrene (ICD-10) GERD (gastroesophageal reflux disease) ?K21.9 - Gastro-esophageal reflux disease without esophagitis (ICD-10) Diverticulitis ?K57.92 - Diverticulitis of intestine, part unspecified, without perforation or abscess without bleeding (ICD-10) Diabetes ?E11.9 - Type 2 diabetes mellitus without complications (ICD-10) Surgical History H/O tooth extraction ?K08.409 - Partial loss of teeth, unspecified cause, unspecified class (ICD-10) History of esophagogastroduodenoscopy (EGD) ?Z98.890 - Other specified postprocedural states (ICD-10) H/O lithotripsy ?Z98.890 - Other specified postprocedural states (ICD-10) Hx of breast biopsy ?Z98.890 - Other specified postprocedural states (ICD-10) H/O dilation and curettage ?Z98.890 - Other specified postprocedural states (ICD-10) Hx of colonoscopy ?Z98.890 - Other specified postprocedural states (ICD-10) Family History Other Family history of COPD (chronic obstructive pulmonary disease) Family history of DVT Family history of cervical cancer Family history of coronary artery disease Family history of diabetes mellitus Family history of heart disease Family history of hypertension Family history of myocardial infarction Family history of stroke Family history of uterine cancer Social History (Updated 03/26/24 @ 10:13 by Deepika Smith) Within the past year, how often did you have a drink containing alcohol: never Score interpretation: A score less than 3 is consistent with normal alcohol consumption. Smoking status: Former smoker Previous occupational history: retired Highest level of school completed/degree received: high school graduate Little interest or pleasure in doing things: not at all Feeling down, depressed, or hopeless: not at all Exam Narrative Exam Narrative: General: No distress, age-appropriate Skin: Warm, dry, no pallor. No rash. Head: Normocephalic, atraumatic. Neck: Supple, non-tender. Eye: Pupils are equal, round and EOMI. No scleral icterus. Ears, Nose, Mouth, and Throat: No nasal mucosal hypertrophy. Oral mucosa is moist, no posterior oropharynx erythema, uvula is mid-line Cardiovascular: Regular Rate and Rhythm without murmur, gallop or rub. Respiratory: No accessory muscle use or respiratory distress. Lungs are clear to auscultation, no wheezing, rales or rhonchi Back: No midline thoracic or lumbar vertebral tenderness. Right CVA tenderness. Musculoskeletal: Full ROM of all extremities, no calf or popliteal tenderness GI: Abdomen is soft, non-distended, non tender to palpation. No masses appreciated. No rebound, guarding, or rigidity noted. Neurological: A&O x4. No cranial nerve dysfunction observed. No truncal ataxia. Moves all extremities. Sensation intact. Psychiatric: Cooperative and interactive. Normal mood and affect. Constitutional Vital Signs, click to edit/add: Last Vital Signs Temp 97.6 F 02/19/25 21:04 Pulse 88 02/19/25 23:36 Resp 18 02/19/25 23:36 BP 124/75 02/19/25 23:36 Pulse Ox 100 02/19/25 23:36 O2 Del Method Room Air 02/19/25 21:34 Documenting provider has reviewed patient's vital signs: yes Course Vital Signs Vital signs: Vital Signs Temperature 97.6 F 02/19/25 21:04 Pulse Rate 111 H 02/19/25 21:04 Respiratory Rate 20 02/19/25 21:04 Blood Pressure 121/65 02/19/25 21:04 Pulse Oximetry 100 02/19/25 21:04 Oxygen Delivery Method Room Air 02/19/25 21:04 Temperature 97.6 F 02/19/25 21:04 Pulse Rate 88 02/19/25 23:36 Respiratory Rate 18 02/19/25 23:36 Blood Pressure 124/75 02/19/25 23:36 Pulse Oximetry 100 02/19/25 23:36 Oxygen Delivery Method Room Air 02/19/25 21:34 Medical Decision Making MDM Narrative Medical decision making narrative: This is a 74-year-old female that presented to the ED with complaints right flank pain that radiates anteriorly and nausea/vomiting that started today. Patient has a known right kidney stone that was diagnosed in December. She is following with urology. She has had prior stones that had to be broke up for her to pass them. On arrival patient is in no distress, speaking in full sentences. Heart rate is tachycardic at 111, blood pressure stable. Temperature is afebrile 97.6 ?F. IV placed, CBC, CMP, UA, CT abdomen/pelvis without contrast stone protocol ordered. 4 mg IV Zofran, 30 mg Toradol IV, and 500 mL NS bolus given on arrival. CT ab/pel with IV contrast reviewed from 01/15/2025 and revealed bilateral nephrolithiasis largest stone involving the right kidney seen in the right renal pelvis measuring approximately 3.6 cm in greatest dimension. It appears to be air within the right collecting system. Labs: CBC: Leukocytosis, WBC 18.2 UA: Proteinuria, urine ketones, moderate occult blood, negative nitrites, moderate urine bilirubin, large leuk esterase 50?75 WBCs, trace urine bacteria, urine casts seen Cipro 400 mg IV given, patient has allergy to cephalexin, cross-reactivity reaction possible with Rocephin. At this time, 2200, my shift came to an end and patient was signed out to Dr Colon. Disposition pending CT scan, labs, and pain control. Differential Diagnosis Differential Diagnosis: Obstructing ureteral stone, pyelonephritis, hydronephrosis Medical Records Medical records reviewed: Yes I reviewed the patient's medical records Lab Data Lab results reviewed: Yes I reviewed the patient's lab results Labs: Lab Results 02/19/25 02/19/25 Range/Units 21:20 21:27 WBC 18.2 H (4.0-11.0) 10^3/uL RBC 3.84 L (4.20-5.40) 10^6/uL Hgb 12.1 (12.0-16.0) g/dL Hct 36.7 (36.0-48.0) % MCV 95.6 (81.0-99.0) fL MCH 31.5 (26.7-34.0) pg MCHC 33.0 (29.9-35.2) g/dL RDW 13.4 (11.0-15.0) % Plt Count 294 (150-450) 10^3/uL MPV 9.9 (9.5-13.5) fL Seg Neuts % (Manual) 85.0 H (43.0-75.0) Band Neutrophils % 9.0 H (0-5) % Lymphocytes % (Manual) 3.0 L (20.5-60.0) % Monocytes % (Manual) 2.0 (1.7-12.0) % Eosinophils % (Manual) 0.0 L (0.9-7.0) % Basophils % (Manual) 0.0 L (0.2-2.0) % Metamyelocytes % 1.0 Neutrophils # (Manual) 15.47 H (1.4-6.5) 10^3/uL Band Neutrophils # 1.6 H (0.0-0.3) 10^3/uL Lymphocytes # (Manual) 0.54 L (1.20-3.80) 10^3/uL Monocytes # (Manual) 0.36 (0.30-0.80) 10^3/uL Eosinophils # (Manual) 0.00 (0.00-0.70) 10^3/uL Basophils # (Manual) 0.00 (0.00-0.10) 10^3/uL Metamyelocytes # 0.18 Sodium 136 (136-145) mmol/L Potassium 4.3 (3.5-5.1) mmol/L Chloride 101 (98-107) mmol/L Carbon Dioxide 25.7 (21.0-32.0) mmol/L Anion Gap 13.6 BUN 22.0 H (7.0-18.0) mg/dL Creatinine 1.37 H (0.55-1.02) mg/dL Est GFR ( Amer) 45 L (>=60 mL/min/1.73m^2) Est GFR (Non-Af Amer) 37 L (>=60 mL/min/1.73m^2) BUN/Creatinine Ratio 16.1 Glucose 136 H (74-106) mg/dL Calcium 9.0 (8.5-10.1) mg/dL Total Bilirubin 1.0 (0.2-1.0) mg/dL AST 19 (15-37) U/L ALT 19 (14-59) U/L Alkaline Phosphatase 73 (46-116) U/L Total Protein 6.6 (6.4-8.2) g/dL Albumin 3.2 L (3.4-5.0) g/dL Globulin 3.4 g/dL Albumin/Globulin Ratio 0.9 Urine Color Yellow (YELLOW) Urine Clarity Sl cloudy (CLEAR) Urine pH 5.5 (5.0-9.0) Ur Specific Magnet 1.025 (1.005-1.025) Urine Protein 100 A (NEG/TRACE) mg/dL Urine Glucose (UA) Negative (NEGATIVE) mg/dL Urine Ketones 40 A (NEGATIVE) mg/dL Urine Occult Blood Moderate A (NEGATIVE) Urine Nitrite Negative (NEGATIVE) Urine Bilirubin Moderate A (NEGATIVE) Urine Urobilinogen 0.2 (0.2-1.0) EU/dL Ur Leukocyte Esterase Large A (NEGATIVE) Urine RBC 10-20 A (0-2) #/HPF Urine WBC 50-75 A (NONE SEEN) #/HPF Ur Squamous Epith Cells Few A (NONE/RARE) #/LPF Urine Crystals None seen (None Seen) #/HPF Urine Bacteria Trace A (NONE SEEN) #/HPF Urine Casts Seen A (NONE SEEN) #/LPF Hyaline Casts Rare Urine Mucus None seen (NONE SEEN) Ur Culture Indicated? Yes-[facility] [place] Discharge Plan Discharge Chief Complaint: Abdominal Pain Clinical Impression: Calculus of kidney, Emphysematous pyelonephritis of right kidney Patient Disposition: [facility] Discharge Date/Time: 02/20/25 02:15 Documented by User: Rik Colon MD 02/21/25 06:48 HPI HPI - General Adult General Chief complaint: Abdominal Pain Stated complaint: ABDOMINAL PAIN ON RIGHT SIDE Time Seen by Provider: 02/19/25 21:11 Related Data Home Medications ?Medication ?Instructions ?Recorded ?Confirmed acarbose 100 mg tablet (Precose) 100 mg PO TID 03/26/24 02/11/25 biotin 1 mg capsule 1 mg PO DAILY 03/26/24 02/11/25 candesartan 16 mg tablet 8 mg PO DAILY 03/26/24 02/11/25 cetirizine 10 mg tablet (24Hour 10 mg PO DAILY 03/26/24 02/11/25 Allergy) cyanocobalamin (vitamin B-12) 1,000 mcg PO DAILY 03/26/24 02/11/25 1,000 mcg tablet (Vitamin B-12) duloxetine 60 mg capsule,delayed 60 mg PO QPM 03/26/24 02/11/25 release esomeprazole magnesium 40 mg 40 mg PO Q24H 03/26/24 02/11/25 capsule,delayed release (Nexium) magnesium oxide 400 mg PO QPM 03/26/24 02/11/25 metformin 500 mg tablet 500 mg PO BID 03/26/24 02/11/25 mirabegron 50 mg tablet,extended 50 mg PO DAILY 03/26/24 02/11/25 release 24 hr (Myrbetriq) montelukast 10 mg tablet 10 mg PO QPM 03/26/24 02/11/25 (Singulair) multivitamin (Daily Multi-Vitamin 1 tab PO DAILY 03/26/24 02/11/25 tablet) pravastatin 20 mg tablet 20 mg PO QPM 03/26/24 02/11/25 aspirin 81 mg capsule 81 mg PO DAILY 02/11/25 02/11/25 estradiol 0.01% (0.1 mg/gram) 1 g vaginal .biweekly 02/11/25 02/11/25 vaginal cream Allergies Allergy/AdvReac Type Severity Reaction Status Date / Time cephalexin Allergy Severe Hives Verified 02/19/25 21:13 venlafaxine Allergy Mild Hives Verified 02/19/25 21:13 Opioid HPI Opioid Management Most Recent Opioid Data: Last Pain Scale 7 02/19/25, 21:36 [facility] Medical History (Updated 02/20/25 @ 00:56 by Rik Colon MD) Abdominal pain ?R10.9 - Unspecified abdominal pain (ICD-10) Normal hysteroscopy ?Z01.89 - Encounter for other specified special examinations (ICD-10) Osteoarthritis ?M19.90 - Unspecified osteoarthritis, unspecified site (ICD-10) Hearing loss ?H91.90 - Unspecified hearing loss, unspecified ear (ICD-10) Seasonal allergies ?J30.2 - Other seasonal allergic rhinitis (ICD-10) Constipation ?K59.00 - Constipation, unspecified (ICD-10) Difficult intubation ?T88.4XXA - Failed or difficult intubation, initial encounter (ICD-10) Tubulovillous adenoma of colon ?D12.6 - Benign neoplasm of colon, unspecified (ICD-10) Tubular adenoma of colon ?D12.6 - Benign neoplasm of colon, unspecified (ICD-10) PVD (peripheral vascular disease) ?I73.9 - Peripheral vascular disease, unspecified (ICD-10) Non-alcoholic fatty liver disease ?K76.0 - Fatty (change of) liver, not elsewhere classified (ICD-10) Nephrolithiasis ?N20.0 - Calculus of kidney (ICD-10) Metabolic syndrome ?E88.810 - Metabolic syndrome (ICD-10) DVT (deep venous thrombosis) ?I82.409 - Acute embolism and thrombosis of unspecified deep veins of unspecified lower extremity (ICD-10) HTN (hypertension) ?I10 - Essential (primary) hypertension (ICD-10) Hiatal hernia ?K44.9 - Diaphragmatic hernia without obstruction or gangrene (ICD-10) GERD (gastroesophageal reflux disease) ?K21.9 - Gastro-esophageal reflux disease without esophagitis (ICD-10) Diverticulitis ?K57.92 - Diverticulitis of intestine, part unspecified, without perforation or abscess without bleeding (ICD-10) Diabetes ?E11.9 - Type 2 diabetes mellitus without complications (ICD-10) Surgical History H/O tooth extraction ?K08.409 - Partial loss of teeth, unspecified cause, unspecified class (ICD-10) History of esophagogastroduodenoscopy (EGD) ?Z98.890 - Other specified postprocedural states (ICD-10) H/O lithotripsy ?Z98.890 - Other specified postprocedural states (ICD-10) Hx of breast biopsy ?Z98.890 - Other specified postprocedural states (ICD-10) H/O dilation and curettage ?Z98.890 - Other specified postprocedural states (ICD-10) Hx of colonoscopy ?Z98.890 - Other specified postprocedural states (ICD-10) Family History Other Family history of COPD (chronic obstructive pulmonary disease) Family history of DVT Family history of cervical cancer Family history of coronary artery disease Family history of diabetes mellitus Family history of heart disease Family history of hypertension Family history of myocardial infarction Family history of stroke Family history of uterine cancer Social History (Updated 03/26/24 @ 10:13 by Deepika Smith) Within the past year, how often did you have a drink containing alcohol: never Score interpretation: A score less than 3 is consistent with normal alcohol consumption. Smoking status: Former smoker Previous occupational history: retired Highest level of school completed/degree received: high school graduate Little interest or pleasure in doing things: not at all Feeling down, depressed, or hopeless: not at all Exam Constitutional Vital Signs, click to edit/add: Last Vital Signs Temp 97.6 F 02/19/25 21:04 Pulse 88 02/19/25 23:36 Resp 18 02/19/25 23:36 BP 124/75 02/19/25 23:36 Pulse Ox 100 02/19/25 23:36 O2 Del Method Room Air 02/19/25 21:34 Course Vital Signs Vital signs: Vital Signs Temperature 97.6 F 02/19/25 21:04 Pulse Rate 111 H 02/19/25 21:04 Respiratory Rate 20 02/19/25 21:04 Blood Pressure 121/65 02/19/25 21:04 Pulse Oximetry 100 02/19/25 21:04 Oxygen Delivery Method Room Air 02/19/25 21:04 Temperature 97.6 F 02/19/25 21:04 Pulse Rate 88 02/19/25 23:36 Respiratory Rate 18 02/19/25 23:36 Blood Pressure 124/75 02/19/25 23:36 Pulse Oximetry 100 02/19/25 23:36 Oxygen Delivery Method Room Air 02/19/25 21:34 Medical Decision Making MDM Narrative Medical decision making narrative: This is a 74-year-old female that presented to the ED with complaints right flank pain that radiates anteriorly and nausea/vomiting that started today. Patient has a known right kidney stone that was diagnosed in December. She is following with urology. She has had prior stones that had to be broke up for her to pass them. On arrival patient is in no distress, speaking in full sentences. Heart rate is tachycardic at 111, blood pressure stable. Temperature is afebrile 97.6 ?F. IV placed, CBC, CMP, UA, CT abdomen/pelvis without contrast stone protocol ordered. 4 mg IV Zofran, 30 mg Toradol IV, and 500 mL NS bolus given on arrival. CT ab/pel with IV contrast reviewed from 01/15/2025 and revealed bilateral nephrolithiasis largest stone involving the right kidney seen in the right renal pelvis measuring approximately 3.6 cm in greatest dimension. It appears to be air within the right collecting system. Labs: CBC: Leukocytosis, WBC 18.2 UA: Proteinuria, urine ketones, moderate occult blood, negative nitrites, moderate urine bilirubin, large leuk esterase 50?75 WBCs, trace urine bacteria, urine casts seen Cipro 400 mg IV given, patient has allergy to cephalexin, cross-reactivity reaction possible with Rocephin. At this time, 2200, my shift came to an end and patient was signed out to Dr Colon. Disposition pending CT scan, labs, and pain control. CT returned with findings of 1.6cm stone in the right renal pelvis with right hydronephrosis and suspect gas within the right collecting system and calyces. DD includes emphysematous pyelonephritis , xanthogranulomatous pyelonephritis or other gas forming organisms. Discussed with occupational therapist aide Urologist Dr Milner who recommends transfer for Percutaneous nephrostomy tube. Discussed with Urologist at [facility] and they do not have any beds and he recommends calling somewhere else. Discussed with Urology at [facility] Dr Barajas who felt the patient was in need of a stent. He ask that I re consult with Dr Milner. I spoke to Dr Milner and he still feels she needs to be transferred as his opinion is that she will need percutaneous procedure. ER attending at [facility] accepted the patient but wanted to have Urology approval. Spoke to Dr Barajas again who accepted the transfer Lab Data Labs: Lab Results 02/19/25 02/19/25 Range/Units 21:20 21:27 WBC 18.2 H (4.0-11.0) 10^3/uL RBC 3.84 L (4.20-5.40) 10^6/uL Hgb 12.1 (12.0-16.0) g/dL Hct 36.7 (36.0-48.0) % MCV 95.6 (81.0-99.0) fL MCH 31.5 (26.7-34.0) pg MCHC 33.0 (29.9-35.2) g/dL RDW 13.4 (11.0-15.0) % Plt Count 294 (150-450) 10^3/uL MPV 9.9 (9.5-13.5) fL Seg Neuts % (Manual) 85.0 H (43.0-75.0) Band Neutrophils % 9.0 H (0-5) % Lymphocytes % (Manual) 3.0 L (20.5-60.0) % Monocytes % (Manual) 2.0 (1.7-12.0) % Eosinophils % (Manual) 0.0 L (0.9-7.0) % Basophils % (Manual) 0.0 L (0.2-2.0) % Metamyelocytes % 1.0 Neutrophils # (Manual) 15.47 H (1.4-6.5) 10^3/uL Band Neutrophils # 1.6 H (0.0-0.3) 10^3/uL Lymphocytes # (Manual) 0.54 L (1.20-3.80) 10^3/uL Monocytes # (Manual) 0.36 (0.30-0.80) 10^3/uL Eosinophils # (Manual) 0.00 (0.00-0.70) 10^3/uL Basophils # (Manual) 0.00 (0.00-0.10) 10^3/uL Metamyelocytes # 0.18 Sodium 136 (136-145) mmol/L Potassium 4.3 (3.5-5.1) mmol/L Chloride 101 (98-107) mmol/L Carbon Dioxide 25.7 (21.0-32.0) mmol/L Anion Gap 13.6 BUN 22.0 H (7.0-18.0) mg/dL Creatinine 1.37 H (0.55-1.02) mg/dL Est GFR ( Amer) 45 L (>=60 mL/min/1.73m^2) Est GFR (Non-Af Amer) 37 L (>=60 mL/min/1.73m^2) BUN/Creatinine Ratio 16.1 Glucose 136 H (74-106) mg/dL Calcium 9.0 (8.5-10.1) mg/dL Total Bilirubin 1.0 (0.2-1.0) mg/dL AST 19 (15-37) U/L ALT 19 (14-59) U/L Alkaline Phosphatase 73 (46-116) U/L Total Protein 6.6 (6.4-8.2) g/dL Albumin 3.2 L (3.4-5.0) g/dL Globulin 3.4 g/dL Albumin/Globulin Ratio 0.9 Urine Color Yellow (YELLOW) Urine Clarity Sl cloudy (CLEAR) Urine pH 5.5 (5.0-9.0) Ur Specific Magnet 1.025 (1.005-1.025) Urine Protein 100 A (NEG/TRACE) mg/dL Urine Glucose (UA) Negative (NEGATIVE) mg/dL Urine Ketones 40 A (NEGATIVE) mg/dL Urine Occult Blood Moderate A (NEGATIVE) Urine Nitrite Negative (NEGATIVE) Urine Bilirubin Moderate A (NEGATIVE) Urine Urobilinogen 0.2 (0.2-1.0) EU/dL Ur Leukocyte Esterase Large A (NEGATIVE) Urine RBC 10-20 A (0-2) #/HPF Urine WBC 50-75 A (NONE SEEN) #/HPF Ur Squamous Epith Cells Few A (NONE/RARE) #/LPF Urine Crystals None seen (None Seen) #/HPF Urine Bacteria Trace A (NONE SEEN) #/HPF Urine Casts Seen A (NONE SEEN) #/LPF Hyaline Casts Rare Urine Mucus None seen (NONE SEEN) Ur Culture Indicated? Yes-[facility] [place] Discharge Plan Discharge Chief Complaint: Abdominal Pain Clinical Impression: Calculus of kidney, Emphysematous pyelonephritis of right kidney Patient Disposition: [facility] Discharge Date/Time: 02/20/25 02:15
[2025-02-19 21:34] VITALS: O2SAT 100
[2025-02-19 21:36] LABS: Hematocrit 36.7 % (36.0-48.0); Hemoglobin 12.1 g/dL (12.0-16.0); Mean Corpuscular HGB Conc 33.0 g/dL (29.9-35.2); Mean Corpuscular Hemoglobin 31.5 pg (26.7-34.0); Mean Corpuscular Volume 95.6 fL (81.0-99.0); Platelet Count 294 10^3/uL (150-450); Red Blood Count 3.84 10^6/uL (4.20-5.40); White Blood Count 18.2 10^3/uL (4.0-11.0)
[2025-02-19 21:37] LABS: Glucose Urine UA NEGATIVE (NEGATIVE)
[2025-02-19] MEDS: KETOROLAC TROMETHAMINE 30 MG/ML VIAL IVP (21:42)
[2025-02-19] MEDS: 0.9 % SODIUM CHLORIDE 1,000 ML 500 ML IV (21:42)
[2025-02-19 21:49] LABS: Cast Seen? SEEN #/LPF (NONE SEEN); Crystals Seen? None Seen #/HPF (None Seen); Urine Culture Indicated YES-FRMC
[2025-02-19 21:52] LABS: Alanine Aminotransferase 19 U/L (14-59); Albumin Globulin Ratio 0.9; Albumin Level 3.2 g/dL (3.4-5.0); Alkaline Phosphatase 73 U/L (46-116); Anion Gap 13.6; Aspartate Amino Transferase 19 U/L (15-37); Blood Urea Nitrogen 22.0 mg/dL (7.0-18.0); Calcium 9.0 mg/dL (8.5-10.1); Carbon Dioxide 25.7 mmol/L (21.0-32.0); Chloride 101 mmol/L (98-107); Estimated GFR (African America 45 (>=60 mL/min/1.73m^2); Estimated GFR (Non-African Ame 37 (>=60 mL/min/1.73m^2); Globulin 3.4 g/dL; Glucose 136 mg/dL (74-106); Potassium 4.3 mmol/L (3.5-5.1); Sodium 136 mmol/L (136-145); Total Protein 6.6 g/dL (6.4-8.2)
[2025-02-19 21:57] LABS: Band Neutrophils Absolute 1.6 10^3/uL (0.0-0.3); Basophils Abs Manual 0.00 10^3/uL (0.00-0.10); Basophils Percent Manual 0.0 % (0.2-2.0); Eosinophils Absolute Manual 0.00 10^3/uL (0.00-0.70); Eosinophils Percent Manual 0.0 % (0.9-7.0); Lymphocytes Absolute Manual 0.54 10^3/uL (1.20-3.80); Lymphocytes Percent Manual 3.0 % (20.5-60.0); Metamyelocytes Absolute Manual 0.18; Monocytes Absolute Manual 0.36 10^3/uL (0.30-0.80); Monocytes Percent Manual 2.0 % (1.7-12.0); Segmented Neut Absolute Manual 15.47 10^3/uL (1.4-6.5); Segmented Neutrophils % Manual 85.0 (43.0-75.0)
[2025-02-19] MEDS: CIPROFLOXACIN IN 5 % DEXTROSE 400 MG/200 ML PREMIX 200 MG IV (22:31)
[2025-02-19 23:36] VITALS: BP 124/75; PULSE 88; O2SAT 100
[2025-02-19] MEDS: METRONIDAZOLE/SODIUM CHLORIDE 500 MG/100 ML PREMIX 100 MG IV (23:49)
[2025-02-20] MEDS: HYDROMORPHONE HCL 1 MG/ML CARTRIDGE 0.5 MG IVP (02:08)
== END 2025-02-20 02:15 | disposition short-term general hospital (02) ==
PROVIDERS: Physician Assistant; Emergency Provider Internal Medicine; PCP Internal Medicine
DX: N13.2 Hydronephrosis with renal and ureteral calculous obstruction (principal); E11.9 Type 2 diabetes mellitus without complications; K21.9 Gastro-esophageal reflux disease without esophagitis; I10 Essential (primary) hypertension; Z87.891 Personal history of nicotine dependence; Z87.442 Personal history of urinary calculi; Z90.49 Acquired absence of other specified parts of digestive tract
CPT/HCPCS: 36415; 74176; 80053; 81001; 85007; 85027; 87086; 87088; 87186; 96361; 96365; 96367; 96375; 99285; J0744; J1171; J1836; J1885; J2405